=== PATIENT | female | born 1955 | race Two or more races ===

== ENCOUNTER 2020-02-26 08:01 | Outpatient (REF) | payer OTHER, SELFPAY ==
--- NOTE | 2020-02-26 08:07 | MM_ITS ---
EXAMINATION: MM SCREENING DIGITAL BREAST TOMOSYNTHESIS, BILATERAL CLINICAL INFORMATION: Screening. Asymptomatic. The lifetime risk of breast cancer based on the Tyrer-Cuzick Model is 3.9%. COMPARISON: Mammography: August 16, 2018 and studies dating back to June 10, 2014 TECHNIQUE: Digital breast tomosynthesis is performed in both the craniocaudal and mediolateral oblique views along with computer-aided detection (CAD). Synthesized 2D images are generated from the tomosynthesis. Additional right exaggerated craniocaudal view performed. FINDINGS: There are scattered areas of fibroglandular density (ACR BI-RADS breast composition Category b). There are no significant masses, abnormal calcifications, or other abnormalities. MM/MM tomosynthesis screening BI IMPRESSION: There are no significant changes from prior study. ASSESSMENT: BI-RADS 1: Negative RECOMMENDATION: Routine annual mammography screening. This patient's information was entered into a reminder system with a target due date for their next mammogram.
== END 2020-02-26 08:02 | disposition home or self-care (01) ==
LOC: HO.MAMMO 08:01
PROVIDERS: PCP Internal Medicine; Visit Provider Internal Medicine
DX: Z12.31 Encounter for screening mammogram for malignant neoplasm of breast (principal)
CPT/HCPCS: 77063; 77067

== ENCOUNTER 2020-04-15 10:50 | Outpatient (REF) | payer OTHER, SELFPAY | END 2020-04-15 10:51 | disposition home or self-care (01) | LOC: HO.LAB 10:50 | PROVIDERS: PCP Internal Medicine; Visit Provider Internal Medicine | DX: Z20.828 Contact with and (suspected) exposure to other viral communicable diseases (principal) | CPT/HCPCS: C9803; U0003 ==

== ENCOUNTER 2020-04-30 10:03 | Emergency (ER) | payer OTHER, SELFPAY ==
[2020-04-30 10:23] VITALS: BP 125/77; PULSE 69; RESP 16; TEMP 33.4; O2SAT 99; BMI 38.6
--- NOTE | 2020-04-30 10:36 | ED.GENADULT ---
HPI - General Adult General Chief complaint: General Medical Stated complaint: covid symptoms Time Seen by Provider: 04/30/20 10:22 Source: patient Mode of arrival: ambulatory Limitations: language barrier (Tunisian-speaking) History of Present Illness HPI narrative: 64yoF c PMHx of hypertension, goiter, elevated hemoglobin, urinary incontinence and morbid presenting to the ED with COVID like symptoms which include intermittent headaches, nausea, body aches and chills for the past few days worse today. Reports that she was recently exposed to COVID in the patient she was exposed to is now here in the hospital admitted with COVID. Patient denies any other symptoms complaints or concerns at this time. Related Data Home Medications Medication Instructions Recorded Confirmed bisoprolol 5 1 tab PO DAILY 04/13/20 04/13/20 mg-hydrochlorothiazide 6.25 mg tablet fluoxetine 20 mg capsule 20 mg PO DAILY 04/13/20 04/13/20 Previous Rx's Medication Instructions Recorded oxybutynin chloride 5 mg tablet 5 mg PO BEDTIME PRN 30 Days #30 tab 04/13/20 acetaminophen [Tylenol] 650 mg PO Q6H PRN #10 tab 04/30/20 azithromycin See Rx Instructions .ROUTE 04/30/20 .COMPLEX #6 tab cyclobenzaprine 10 mg PO TID PRN #10 tab 04/30/20 ibuprofen 800 mg PO Q8H PRN #14 tab 04/30/20 Allergies Allergy/AdvReac Type Severity Reaction Status Date / Time No Known Allergies Allergy Verified 04/13/20 13:42 [No Known Allergies*] Review of Systems Review of Systems: Constitutional : No Fever, + Chills, + fatigue, + Malaise ENT/Mouth : No sore throat, No runny nose Eyes: No Discharge Cardiovascular : No Chest Pain, No SOB Respiratory : No Cough, No Sputum, No Wheezing, No Smoke Exposure, No Dyspnea Gastrointestinal : + Nausea, No Vomiting, No Diarrhea Genitourinary : No irregular bleeding, No Dysuria, No Urinary Frequency, No Hematuria, No Urinary Incontinence, No Urgency, No Flank Pain, Musculoskeletal : No Myalgia Skin : No rash Neuro : + Headache Yes all other systems are reviewed and are negative PMFSH Past Medical History Attestation statement: The following information was validated with the patient. Medical History Depression Elevated hemoglobin Essential hypertension Goiter Left knee pain Left shoulder pain Morbid obesity Urge urinary incontinence Surgical History H/O oophorectomy History of cholecystectomy History of total abdominal hysterectomy Uterine myoma Family History Family History Father Diabetes Hypertension Mother Hypertension Brother Hypertension Sister Hypertension Maternal Aunt Breast cancer Daughter No problems noted. Social History Social History Smoking Status: Never smoker Advance Directives: No Advance Directives Information Provided: No Physical Exam Vital Signs: Vital Signs: Last Vital Signs Temp 92.1 F L 04/30/20 10:23 Pulse 69 04/30/20 10:23 Resp 16 04/30/20 10:23 BP 125/77 04/30/20 10:23 Pulse Ox 99 04/30/20 10:23 Body Mass Index 38.6 vital signs have been reviewed as normal and appeared to be correct. Blood pressure normal. Heart rate normal. Respiration rate normal. Temperature normal. Oxygen saturation normal. Appearance: Alert. Oriented X3. No acute distress. Head: Normal external exam. Normocephalic. Eyes: PERRLA. EOMI. Conjunctiva and sclera normal. Eyelids normal. ENT: EAC normal. TM's Normal. Pharynx normal. Uvula midline. Moist mucous membranes. No trismus noted. No drooling noted. No muffled voice noted. Neck: Normal inspection. Neck supple. FROM. No adenopathy. No meningeal signs. CVS: Normal heart rate and rhythm. Heart sound normal. No murmurs noted. Pulses normal throughout. Respiratory: No respiratory distress. Painless inspiration. Breath sounds normal. No wheezes/rales/rhonchi noted. Chest nontender. No accessory muscle usage noted or decreased air movement noted. Back: Full range of motion noted. Skin: Skin warm and dry. Normal skin color. Normal skin turgor. No rashes/lesions/lacerations noted. Extremities: Extremities exhibit normal range of motion. Extremities nontender. Neuro: Oriented X 3. No motor deficit. No sensory deficit. Reflexes normal. Medical Decision Making Medical Records Medical records reviewed: Yes I reviewed the patient's medical records. Discharge Plan Discharge Clinical Impression: Acute viral syndrome, Close exposure to COVID-19 virus Patient Disposition: Home, Self-Care Instructions: Viral Syndrome (ED), COVID-19 (Coronavirus Disease 2019) (ED) Additional Instructions: Based on your symptoms and history we have sent a COVID-19. Although your RESULT IS PENDING at this time. RESULTS should return within 72 hours. At this time you will be contacted with either NEGATIVE OR POSITIVE results. -Please wait until we contact you for your results. At this time you will be okay for discharge. Please plan for self quarantine for up to 14 days. Do not expose yourself to others. You may not go to work. If testing does come back negative you may return to activities as long as you are no longer having any symptoms for at least 3 days. Please continue to follow cold instructions and wash your hands frequently. You may take Tylenol as directed on the bottle for pain or fever. Patient seen in the emergency department on 04/30/2020 and should be excused from work until negative test results AND until 72 hours without any symptoms AND at least 10 days have passed since symptoms first appeared or since last exposure to COVID-19 positive patient CDC Guidelines for home isolation: - Stay away from others - WEAR A MASK if you are sick AND STAY HOME - Cover your mouth and nose with a tissue when you cough or sneeze. Dispose of tissues in a lined trash can and wash your hands immediately with soap and water for at least 20 seconds. If soap and water are not available, clean hands with alcohol-based hand operational test mechanic that contains at least 60% alcohol. - Clean your hands often with soap and water for at least 20 seconds - Avoid touching your eyes, nose and mouth with unwashed hands - Do not share dishes, drinking glasses, cups, eating utensils, towels, or bedding with other people in your home. After using these items, wash them thoroughly with soap and water or put in the field identification specialist. - Clean high-touch surfaces in your isolation area ( sick room and bathroom) every day; let a caregiver clean and disinfect high-touch surfaces in other areas of the home. Clean the area or item with soap and water or another detergent if it is dirty. Then, use a household disinfectant. - Limit contact with pets and animals: If you must care for a pet, wash your hands before and after interacting with them). Prescriptions: New cyclobenzaprine 10 mg tablet 10 mg PO TID PRN (Reason: muscle spasm) Qty: 10 RF: 0 acetaminophen [Tylenol] 325 mg tablet 650 mg PO Q6H PRN (Reason: fever or pain) Qty: 10 RF: 0 ibuprofen 800 mg tablet 800 mg PO Q8H PRN (Reason: pain) Qty: 14 RF: 0 azithromycin 250 mg tablet See Rx Instructions .ROUTE .COMPLEX Qty: 6 RF: 0 No Action bisoprolol-hydrochlorothiazide 5-6.25 mg tablet 1 tab PO DAILY RF: 0 fluoxetine 20 mg capsule 20 mg PO DAILY RF: 0 oxybutynin chloride 5 mg tablet 5 mg PO BEDTIME PRN (Reason: bladder spasms) 30 Days Qty: 30 RF: 0 Referrals: Brenda Poon MD [Primary Care Provider] - 2 days Stand Alone Forms: Work/School Release Print Language: Tunisian
[2020-04-30 11:02] VITALS: BP 125/77; PULSE 69; RESP 16; TEMP 33.4; O2SAT 99
[2020-04-30 12:09] LABS: Influenza A PCR NEGATIVE (Negative); Influenza B PCR NEGATIVE (Negative); Resp Syncy Virus RNA Qual PCR NEGATIVE (Negative); SARS COV2 PCR INHOUSE NEGATIVE (Negative)
== END 2020-04-30 11:37 | disposition home or self-care (01) ==
PROVIDERS: Physician Assistant Medical; Emergency Provider Emergency Medicine Emergency Medical Services; PCP Internal Medicine
DX: B34.9 Viral infection, unspecified (principal); R51.9 Headache, unspecified; M79.10 Myalgia, unspecified site; Z79.899 Other long term (current) drug therapy; Z20.828 Contact with and (suspected) exposure to other viral communicable diseases
CPT/HCPCS: 0241U; 99283; 99284

== ENCOUNTER 2020-05-06 10:01 | Outpatient (REF) | payer OTHER, SELFPAY | END 2020-05-06 10:02 | disposition home or self-care (01) | LOC: HO.LAB 10:01 | PROVIDERS: Visit Provider Internal Medicine | DX: Z20.828 Contact with and (suspected) exposure to other viral communicable diseases (principal) | CPT/HCPCS: 36415; C9803; U0003 ==

== ENCOUNTER 2020-05-07 13:20 | Outpatient (REF) | payer OTHER, SELFPAY ==
--- NOTE | 2020-05-07 13:23 | US_ITS ---
EXAMINATION: US THYROID CLINICAL INFORMATION: Nontoxic goiter, unspecified. COMPARISON: Ultrasound soft tissue head/neck dated 01/29/2018. TECHNIQUE: Linear transducer treadwell-scale and color Doppler examination with attention to the region of the thyroid. FINDINGS: SIZE: Measurements of the thyroid lobes and nodules are given in sagittal, anteroposterior and transverse dimensions respectively. Right Thyroid Lobe: 5.5 x 2.2 x 2.2 cm, volume 13.9 mL. Parenchyma: The gland echotexture is homogeneous. Thyroid vascularity is normal. Left Thyroid Lobe: 4.1 x 1.8 x 1.6 cm, volume 6.2 mL. Parenchyma: The gland echotexture is homogeneous. Thyroid vascularity is normal. Isthmus: 0.5 cm in maximum AP dimension. RIGHT THYROID LOBE: There are 3 nodules seen. 1. Location: Superior. Size: 0.7 x 0.4 x 0.6 cm. Nodule characteristics: Subcentimeter nodule demonstrates spongiform morphology and the nodule characteristics do not require characterization by TI-RADS criteria. 2. Location: Superior/middle. Size: 2.0 x 1.2 x 1.7 cm. Nodule characteristics: Composition: mixed cystic and solid (1) Echogenicity: Isoechoic (1) Shape: Not taller than wide (0) Margin: Smooth (0) Echogenic foci: large comet tail artifact compatible with colloid (0) ACR TI-RADS total points: 2 ACR TI-RADS risk category: TI-RADS 2 ACR TI-RADS recommendation: No definite 3. Location: Inferior. Size: 0.7 x 0.6 x 0.7 cm. Nodule characteristics: Subcentimeter nodule without suspicious features requiring characterization by TI-RADS criteria. ISTHMUS: No nodules. LEFT THYROID LOBE: There is 1 nodule seen. 1. Location: Middle. Size: 1.0 x 0.8 x 1.0 cm. Nodule characteristics: Composition: spongiform (0) Echogenicity: Isoechoic (1) Shape: Not taller than wide (0) Margin: Smooth (0) Echogenic foci: None (0) ACR TI-RADS total points: 1 ACR TI-RADS risk category: TI-RADS 1 ACR TI-RADS recommendation: No FNA NODES: No lymphadenopathy is seen in the tissue surrounding the thyroid gland. US/US thyroid IMPRESSION: Multinodular thyroid as described above. No nodules demonstrate findings requiring surveillance or fine needle aspiration per TI-RADS criteria. No adenopathy. TI-RADS 1 (0 points): Benign- No FNA indication TI-RADS 2 (2 points): Not suspicious- No FNA indicated TI-RADS 3 (3 points): Mildly suspicious- FNA is > or = 2.5 cm, follow if > or = 1.5 cm TI-RADS 4 (4-6 points): Moderately suspicious- FNA if > or = 1.5 or follow if > or = 1.0 cm TI-RADS 5 (7 or more points): Highly suspicious- FNA if >=1.0 cm, follow if >=0.5 cm NOTE: The TI-RADS classification of thyroid nodules has been adopted to standardize risk stratification based on a common lexicon to inform practitioners about which nodules warrant biopsy. The imaging criteria for TI-RADS criteria and documentation are available online at [email or web address].org/Quality-Safety/Resources/TIRADS
== END 2020-05-07 13:21 | disposition home or self-care (01) ==
LOC: HO.US 13:20
PROVIDERS: PCP Internal Medicine; Visit Provider Internal Medicine
DX: E04.9 Nontoxic goiter, unspecified (principal)
CPT/HCPCS: 76536

== ENCOUNTER 2020-07-08 08:56 | Outpatient (REF) | payer OTHER, SELFPAY ==
--- NOTE | ~2020-07-08 | XR_ITS ---
EXAMINATION: XR CHEST CLINICAL INFORMATION: Cough. COMPARISON: Chest 06/24/2019. TECHNIQUE: 2 views of the chest were obtained. FINDINGS: The lungs are well-expanded and clear of acute process. The heart size and pulmonary vascularity is normal. There is moderate spondylosis dorsal spine. No lytic process seen. XR/XR chest 2V IMPRESSION: Unremarkable chest exam.
[2020-07-08 09:48] LABS: Hematocrit 51.2 % (37-47); Hemoglobin 15.7 g/dl (12.0-16.0); Mean Corpuscular HGB Conc 30.7 g/dl (31.0-35.0); Mean Corpuscular Hemoglobin 29.3 pg (27.0-33.0); Mean Corpuscular Volume 95.7 fL (80-98); Mean Platelet Volume 11.4 fL (9.4-12.3); Platelet Count 196 X10*3/uL (160-400); Red Blood Count 5.35 X10*6/uL (4.20-5.50); Red Cell Distribution Width 12.9 % (11.0-16.0); White Blood Count 7.6 X10*3/uL (4.8-10.8)
[2020-07-08 10:12] LABS: Alanine Aminotransferase 18 U/L (0-31); Albumin Level 3.6 g/dL (3.5-5.0); Alkaline Phosphatase 110 U/L (39-117); Anion Gap 10 (12-20); Aspartate Amino Transferase 14 U/L (5-31); Bilirubin Total 1.1 mg/dL (0.0-1.0); Blood Urea Nitrogen 19 mg/dL (9-16); Calcium 8.6 mg/dL (8.4-10.2); Carbon Dioxide 30 mmol/L (22-29); Chloride 106 mmol/L (96-108); Cholesterol 173 mg/dL; Estimated Glomerular Filt Rate > 60; Glucose Fasting 92 mg/dL (60-99); HDL Cholesterol 42 mg/dL; LDL Cholesterol Calculated 118 mg/dl; Potassium 4.6 mmol/L (3.3-5.1); Sodium 141 mmol/L (135-145); Total Protein 6.3 g/dL (6.5-8.0); Triglycerides 69 mg/dL
[2020-07-08 10:34] LABS: TSH reflex Free T4 2.18 uIU/mL (0.32-4.0)
[2020-07-09 05:17] LABS: Thyroglobulin Antibodies <1 IU/mL (< or = 1); Thyroid Peroxidase Antibodies 2 IU/mL (<9)
== END 2020-07-08 08:57 | disposition home or self-care (01) ==
LOC: HO.LAB 08:56
PROVIDERS: PCP Internal Medicine; Visit Provider Internal Medicine
DX: R05 Cough (principal); D58.2 Other hemoglobinopathies; I10 Essential (primary) hypertension; E78.5 Hyperlipidemia, unspecified; E03.9 Hypothyroidism, unspecified; E04.9 Nontoxic goiter, unspecified
CPT/HCPCS: 36415; 71046; 80053; 80061; 84443; 85027; 86376; 86800

== ENCOUNTER 2020-07-09 14:00 | Outpatient (RCR) | payer OTHER, SELFPAY ==
--- NOTE | 2020-03-12 14:01 | MHC.PT.EP ---
[facility] [place] Office [place] Office [place] Office [address] Kwan Pineda [address] [phone] F: [phone] F: [phone] F: [phone] F: [phone] Physical Therapy Plan of Care Date of Evaluation: 03/12/20 Date of Surgery: Diagnosis: Pain in left knee; pain in left shoulder Assessment: 64 y/o F referred to PT with pain in left knee and left shoulder. She sustained a fall onto B outstretched arms 01/02/2020 which resulted in open wound on face requiring stitches, no fractures. She denies dizziness, n/v, n/t, and double vision. She has GUZMÁN 2x/week since the fall and pain mid thoracic region, B shoulder (R is worse) and some L knee pain. Currently she is able to perform all ADL's but with pain. 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 Examination shows decreased B shoulder A/PROM, decreased cervical AROM and mobility, decreased strength BUE/DNF, noted L thoracic rotation, muscle spasm erector spinae, and impaired postural awareness. Recommend PT 2x/week for 6 weeks to address impairments, implement HEP, and optimize functional mobility. Frequency and Duration: The patient will be seen 2x/week for 6 weeks Short Term Goals: 3 weeks: 1. Improve cervical rotation to 50 B 2. Initiate HEP 3. Demonstrate neutral spine posture without L thoracic rotation [facility] Goals: 6 weeks: 1. I with HEP and self management of sx 2. Pt will be able to don/doff bra without limitation B UE 3. Pt will be able to wash dishes with pain < 3/10 Treatment Plan: Modalities to reduce pain, spasms and effusion. Manual therapy to restore motion and function. Therapeutic exercise to improve strength and flexibility. Neuromuscular re-education for posture and balance. Therapeutic activities to return to functional activities of daily living. Please sign and return to therapist. Thank you for your referral.
--- NOTE | 2020-07-14 11:02 | MHC.PT.DC ---
[facility] [place] [facility] [place] Office [place] Office [address] Kwan Pineda [address] [phone] F: [phone] F: [phone] F: [phone] F: [phone] Physical Therapy Discharge Report Diagnosis: Pain in left knee; pain in left shoulder Date of Surgery: NA Date of Evaluation: 03/12/20 Date of Discharge: 07/14/20 Treatments to Date: 21 Cancellations to Date: 0 No Shows to Date: 0 Discharge Status: Improved Function, mIndependent with HEP Discharge Summary: Pt appropriate for d/c secondary to I with HEP and improved function. Electronically signed by: Xochitl Higginbotham PT Please sign and return to therapist. Thank you for your referral.
== END 2020-07-14 11:03 | disposition home or self-care (01) ==
LOC: HO.PT 14:00
PROVIDERS: PCP Internal Medicine; Visit Provider Internal Medicine
DX: M25.562 Pain in left knee (principal); M25.512 Pain in left shoulder
CPT/HCPCS: 97110; 97140; 97161; 97164

== ENCOUNTER 2020-07-16 13:59 | Outpatient (REF) | payer OTHER, SELFPAY ==
--- NOTE | ~2020-07-16 | US_ITS ---
EXAMINATION: US SOFT TISSUE OF THE NECK CLINICAL INFORMATION: Localized enlarged lymph nodes. COMPARISON: Ultrasound soft tissue head/neck 05/07/2020 and 01/29/2018. TECHNIQUE: Linear transducer treadwell-scale and color Doppler examination of the left supraclavicular lump. FINDINGS: Limited imaging through the left supraclavicular lump reveals no visible focal lesion or lymph node. No abnormal vascularity. US/US soft tiss head and/or neck IMPRESSION: Unremarkable limited ultrasound through the left supraclavicular bump.
== END 2020-07-16 14:00 | disposition home or self-care (01) ==
LOC: HO.US 13:59
PROVIDERS: Visit Provider Nurse Practitioner Family
DX: R59.0 Localized enlarged lymph nodes (principal)
CPT/HCPCS: 76536

== ENCOUNTER → 2020-07-27 09:25 | Outpatient (BNVA) | payer OTHER, SELFPAY | PROVIDERS: PCP Internal Medicine; Visit Provider Orthopaedic Surgery | DX: M25.562 Pain in left knee (principal); M25.561 Pain in right knee | CPT/HCPCS: 20610; 99212; J1100 ==

== ENCOUNTER → 2020-10-26 14:16 | Outpatient (BNVA) | payer OTHER, SELFPAY | PROVIDERS: PCP Internal Medicine; Visit Provider Orthopaedic Surgery | DX: M25.562 Pain in left knee (principal); M25.561 Pain in right knee; G89.29 Other chronic pain; I10 Essential (primary) hypertension; E66.01 Morbid (severe) obesity due to excess calories; Z68.41 Body mass index [BMI] 40.0-44.9, adult | CPT/HCPCS: 20610; 99212; J1100 ==

== ENCOUNTER 2020-10-26 15:22 | Emergency (ER) | payer OTHER, SELFPAY ==
--- NOTE | ~2020-10-26 | XR_ITS ---
EXAMINATION: CHEST 2 VIEWS CLINICAL INFORMATION: cough . COMPARISON: 07/08/2020. TECHNIQUE: PA and lateral views of the chest obtained. FINDINGS: The lungs are well expanded. No focal infiltrate, effusion, edema, or pneumothorax. Cardiac and mediastinal silhouettes are within normal limits for technique. No acute bony abnormality seen XR/XR chest 2V IMPRESSION: No evidence of acute disease compared to 07/08/2020
[2020-10-26 16:47] VITALS: BP 133/71; PULSE 67; RESP 18; TEMP 36.5; O2SAT 97; BMI 38.7
[2020-10-26 19:27] LABS: MANUAL DIFF FLAG NO
[2020-10-26 19:29] LABS: Basophils Absolute Auto 0.1 X10*3/uL (0.0-0.2); Basophils Percent Auto 0.5 % (0-2); Eosinophils Absolute Auto 0.1 X10*3/uL (0.0-0.4); Eosinophils Percent Auto 0.5 % (0-4); Imm Gran Abs Auto 0.09 X10*3/uL (0.00-0.03); Imm Gran Pct Auto 0.8 % (0.0-0.4); Lymphocytes Absolute Auto 1.4 X10*3/uL (1.2-4.9); Lymphocytes Percent Auto 12.4 % (20-40); Mean Corpuscular HGB Conc 31.4 g/dl (31.0-35.0); Mean Corpuscular Hemoglobin 30.2 pg (27.0-33.0); Mean Corpuscular Volume 96.4 fL (80-98); Monocytes Absolute Auto 0.4 X10*3/uL (0.1-1.2); Monocytes Percent Auto 3.9 % (2-11); Neutrophils Percent Auto 81.9 % (45-73); Platelet Count 217 X10*3/uL (160-400); Red Blood Count 5.29 X10*6/uL (4.20-5.50); Red Cell Distribution Width 12.8 % (11.0-16.0)
[2020-10-26 19:38] LABS: Glucose Urine UA NEG (NEG); Leukocyte Esterase Urine NEG (NEG); Nitrite Urine NEG (NEG); PH 5.5 (5.0-8.0); Specific Gravity - Urine 1.025 (1.005-1.025); Urine Blood NEG (NEG); Urine Ketones NEG (NEG); Urine Protein NEG (NEG-TRACE)
[2020-10-26 19:39] LABS: Appearance Urine CLEAR; Color Urine YELLOW
[2020-10-26 20:02] LABS: Alanine Aminotransferase 18 U/L (0-31); Alkaline Phosphatase 112 U/L (39-117); Anion Gap 15 (12-20); Aspartate Amino Transferase 19 U/L (5-31); Bilirubin Total 1.3 mg/dL (0.0-1.0); Blood Urea Nitrogen 15 mg/dL (9-16); Calcium 8.9 mg/dL (8.4-10.2); Carbon Dioxide 23 mmol/L (22-29); Chloride 108 mmol/L (96-108); Creatinine Clr Calc Pharmacy 107.5; Estimated Glomerular Filt Rate > 60; Glucose Random 95 mg/dL (60-115); Potassium 4.5 mmol/L (3.3-5.1); Sodium 141 mmol/L (135-145); Total Protein 7.2 g/dL (6.5-8.0)
--- NOTE | 2020-10-26 21:37 | ED.ABDPAIN ---
HPI - Abdominal Pain General Chief Complaint: Abdominal Pain Stated Complaint: back pain Time Seen by Provider: 10/26/20 21:09 Source: patient Mode of arrival: ambulatory Limitations: language barrier ( Processing Lead used) History of Present Illness HPI narrative: patient is a 64-year-old female with a past medical history of thyroid nodules, morbid obesity, HTN, arthritis, asthma, anxiety, depression who presents with right-sided flank pain x1 week. Patient states the pain starts on her right side in her mid ribs and goes down to her hip. it is worse when she moves and when you push on it. she denies any changes in her bladder or bowels, she does also denies hematuria nausea, vomiting or diarrhea. She does states she thinks she had a fever 2 days ago but did not measure her temperature she also states she believes she has been having chills x2d. she denies injury. She states she did take some Tylenol and it helped for a little while but then it wore off and the pain came back. She does admit to a dry cough but states she does not take asthma medication on a daily basis because she does not need to . Related Data Home Medications Medication Instructions Recorded Confirmed fluoxetine 20 mg capsule 20 mg PO DAILY 04/13/20 10/20/20 Previous Rx's Medication Instructions Recorded acetaminophen [Tylenol] 650 mg PO Q6H PRN #10 tab 04/30/20 cyclobenzaprine 10 mg PO TID PRN #10 tab 04/30/20 ibuprofen 800 mg PO Q8H PRN #14 tab 04/30/20 bisoprolol 5 1 tab PO DAILY #30 tab 10/20/20 mg-hydrochlorothiazide 6.25 mg tablet oxybutynin chloride 5 mg tablet 5 mg PO BEDTIME PRN 90 Days #90 tab 10/20/20 Allergies Allergy/AdvReac Type Severity Reaction Status Date / Time No Known Allergies Allergy Verified 10/26/20 16:47 [No Known Allergies*] Review of Systems Review of Systems Yes all other systems are reviewed and are negative Physical Exam Vital Signs: Vital Signs: Last Vital Signs Temp 97.7 F 10/26/20 16:47 Pulse 67 10/26/20 16:47 Resp 18 10/26/20 16:47 BP 133/71 10/26/20 16:47 Pulse Ox 97 10/26/20 16:47 Body Mass Index 38.7 Const: General: cooperative, healthy appearing, comfortable and no acute distress Nutritional Appearance: obese Orientation/consciousness: patient oriented x3 Limitations: language barrier (Honduran-speaking) HENMT: Head: Yes normal to inspection Eyes: General: appearance normal, both eyes and all related structures Neck: Neck: Yes normal visual inspection and Yes full ROM Chest: Other: TTP of right sided ribs down to flank to hip. Resp: Effort & Inspection: normal respiratory effort and able to speak in complete sentences Auscultation: clear to auscultation bilaterally Cardio: Rate: regular rate Rhythm: regular rhythm Heart sounds: normal S1 and S2 GI: Inspection: Yes obesity Palpation (GI): Soft to palpation Skin: General skin exam: no rashes or lesions noted Neuro: General: patient oriented x3 Extrem: General: Yes normal to inspection Course Course Course Narrative: patient is a 64-year-old female with a past medical history of thyroid nodules, morbid obesity, HTN, arthritis, asthma, anxiety, depression who presents with right-sided flank pain x1 week. VSS, physical exam remarkable for tenderness to palpation of right-sided ribs and right flank, worse with movement. labs are normal, will get a chest x-ray to look at the ribs but it is likely musculoskeletal. will give ibuprofen for pain Reevaluation(s) Reevaluation #1: chest x-ray negative for rib fracture or acute process. UA negative. Labs are relatively normal except for slight increase in WBC at 11 however no signs of infection on the skin, VSS, as the area is tender to palpation in pain is worse with movement, likely musculoskeletal. will discharge home. MDM - Abdominal Pain Lab Data Attestation: I reviewed the patient's lab results. Result diagrams: 10/26/20 19:20 10/26/20 19:20 Labs: Lab Results 10/26/20 10/26/20 10/26/20 Range/Units 19:20 19:20 19:20 WBC 11.0 H (4.8-10.8) X10*3/uL RBC 5.29 (4.20-5.50) X10*6/uL Hgb 16.0 (12.0-16.0) g/dl Hct 51.0 H (37-47) % MCV 96.4 (80-98) fL MCH 30.2 (27.0-33.0) pg MCHC 31.4 (31.0-35.0) g/dl RDW 12.8 (11.0-16.0) % Plt Count 217 (160-400) X10*3/uL MPV 11.0 (9.4-12.3) fL Immature Gran % (Auto) 0.8 H (0.0-0.4) % Neut % (Auto) 81.9 H (45-73) % Lymph % (Auto) 12.4 L (20-40) % Murray % (Auto) 3.9 (2-11) % Eos % (Auto) 0.5 (0-4) % Baso % (Auto) 0.5 (0-2) % Lymph # (Auto) 1.4 (1.2-4.9) X10*3/uL Murray # (Auto) 0.4 (0.1-1.2) X10*3/uL Eos # (Auto) 0.1 (0.0-0.4) X10*3/uL Baso # (Auto) 0.1 (0.0-0.2) X10*3/uL Abs Immat Gran (auto) 0.09 H (0.00-0.03) X10*3/uL Absolute Neuts (auto) 9.0 H (2.0-8.3) X10*3/uL Absolute Nucleated RBC 0.000 (0.0-0.012) X10*3/uL Nucleated RBC % (auto) 0.0 (0.0-0.2) /100WBC Sodium 141 (135-145) mmol/L Potassium 4.5 (3.3-5.1) mmol/L Chloride 108 (96-108) mmol/L Carbon Dioxide 23 (22-29) mmol/L Anion Gap 15 (12-20) BUN 15 (9-16) mg/dL Creatinine 0.70 (0.5-1.4) mg/dL Estim Creat Clear Calc 107.5 Estimated GFR > 60 Random Glucose 95 (60-115) mg/dL Calcium 8.9 (8.4-10.2) mg/dL Total Bilirubin 1.3 H (0.0-1.0) mg/dL AST 19 (5-31) U/L ALT 18 (0-31) U/L Alkaline Phosphatase 112 (39-117) U/L Total Protein 7.2 (6.5-8.0) g/dL Albumin 4.0 (3.5-5.0) g/dL Urine Color YELLOW Urine Appearance CLEAR Urine pH 5.5 (5.0-8.0) Ur Specific [place] 1.025 (1.005-1.025) Urine Protein NEG (NEG-TRACE) MG/DL Urine Glucose (UA) NEG (NEG) MG/DL Urine Ketones NEG (NEG) MG/DL Urine Blood NEG (NEG) Urine Nitrite NEG (NEG) Ur Leukocyte Esterase NEG (NEG) Imaging Data Chest x-ray: Attestation: I personally reviewed and interpreted this imaging study as follows: Radiologist's impression: [address] [id number] ReportSigned Patient: Louise Weaver LMR#: [id number]: 8Acct:[id number]/Sex: 64 / FADM Date: 10/26/20Loc: EDAttending Dr: Ordering Physician: Linda Alexandre PA-C Date of Service: 10/26/20 Procedure(s): XR chest 2V Accession Number(s): [id number] cc: Linda Alexandre PA-C~ EXAMINATION: CHEST 2 VIEWS CLINICAL INFORMATION: cough . COMPARISON: 07/08/2020. TECHNIQUE: PA and lateral views of the chest obtained. FINDINGS: The lungs are well expanded. No focal infiltrate, effusion, edema, or pneumothorax. Cardiac and mediastinal silhouettes are within normal limits for technique. No acute bony abnormality seen XR/XR chest 2V IMPRESSION: No evidence of acute disease compared to 07/08/2020 Dictated By:VELASQUEZ VANG MDSigned By:<Electronically signed by VELASQUEZ VANG MD in OV>10/26/202203 DD/ 35TD/TT: Business Performance Specialist: YVETTE Discharge Plan Discharge Clinical Impression: Rib pain on right side, Right flank pain Patient Disposition: Home, Self-Care Instructions: Musculoskeletal Pain (ED), Thoracic Pain (ED) Additional Instructions: please be sure to use ice or heat on the area which is painful, whichever feels better for you. You can also take 600 mg of ibuprofen and alternate it 3 hours later with 650 mg of acetaminophen, continuing altering these 2 medications every 3 hours to manage her pain. Please only do this for the short term, 2-3 days. If your pain continues and is not improving, please be sure to follow-up with your primary care doctor. if he develops chest pain shortness of breath or fever you can not control with Tylenol or Motrin, please return to the emergency department Prescriptions: No Action cyclobenzaprine 10 mg tablet 10 mg PO TID PRN (Reason: muscle spasm) Qty: 10 RF: 0 acetaminophen [Tylenol] 325 mg tablet 650 mg PO Q6H PRN (Reason: fever or pain) Qty: 10 RF: 0 ibuprofen 800 mg tablet 800 mg PO Q8H PRN (Reason: pain) Qty: 14 RF: 0 fluoxetine 20 mg capsule 20 mg PO DAILY RF: 0 bisoprolol-hydrochlorothiazide 5-6.25 mg tablet 1 tab PO DAILY Qty: 30 RF: 6 oxybutynin chloride 5 mg tablet 5 mg PO BEDTIME PRN (Reason: bladder spasms) 90 Days Qty: 90 RF: 1 Referrals: Brenda Poon MD [Primary Care Provider] - 1 week (if not better) Print Language: Honduran [facility] Past Medical History Medical History Anxiety and depression Arthritis Common cold Cough Depression Elevated hemoglobin Essential hypertension Goiter Knee pain Left knee pain Left shoulder pain Morbid obesity Supraclavicular lymphadenopathy Thyroid nodule Urge urinary incontinence Surgical History H/O oophorectomy History of cholecystectomy History of total abdominal hysterectomy Uterine myoma Family History Family History Father Diabetes Hypertension Mother Hypertension Brother Hypertension Sister Hypertension Maternal Aunt Breast cancer Daughter No problems noted. Social History Social History Housing: Apartment Alcohol intake: never Patient Tobacco Use Status: Never used Tobacco Second Hand Smoke Exposure: No Advance Directives: No Advance Directives Information Provided: Yes Patient : No Current occupational status: unemployed
[2020-10-26] MEDS: Ibuprofen 600 MG TABLET PO (21:42)
== END 2020-10-26 23:01 | disposition home or self-care (01) ==
PROVIDERS: Emergency Provider Internal Medicine; PCP Internal Medicine
DX: R10.9 Unspecified abdominal pain (principal); R07.81 Pleurodynia; I10 Essential (primary) hypertension
CPT/HCPCS: 36415; 71046; 80053; 81003; 85025; 99283

== ENCOUNTER 2021-03-29 14:01 | Outpatient (REF) | payer OTHER, SELFPAY ==
--- NOTE | ~2021-03-29 | MM_ITS ---
EXAMINATION: MM SCREENING DIGITAL BREAST TOMOSYNTHESIS, BILATERAL CLINICAL INFORMATION: Screening. Asymptomatic. The lifetime risk of breast cancer based on the Tyrer-Cuzick Model is 4%. COMPARISON: Mammography: 02/26/2020, 08/16/2018, 08/03/2017 TECHNIQUE: Digital breast tomosynthesis is performed in both the craniocaudal and mediolateral oblique views along with computer-aided detection (CAD). Synthesized 2D images are generated from the tomosynthesis. Additional exaggerated left CC view is provided. FINDINGS: There are scattered areas of fibroglandular density (ACR BI-RADS breast composition Category b). There are no significant masses, abnormal calcifications, or other abnormalities. Parenchymal pattern is similar to prior studies. The axilla and skin contours are unremarkable. No significant changes. MM/MM tomosynthesis screening BI IMPRESSION: No mammographic evidence of malignancy. ASSESSMENT: BI-RADS 1: Negative RECOMMENDATION: Routine annual mammography screening. This patient's information was entered into a reminder system with a target due date for their next mammogram.
== END 2021-03-29 14:02 | disposition home or self-care (01) ==
LOC: HO.MAMMO 14:01
PROVIDERS: Visit Provider Internal Medicine
DX: Z12.31 Encounter for screening mammogram for malignant neoplasm of breast (principal)
CPT/HCPCS: 77063; 77067

== ENCOUNTER 2021-04-08 16:05 | Emergency (ER) | payer OTHER, SELFPAY ==
--- NOTE | ~2021-04-08 | XR_ITS ---
EXAMINATION: XR CHEST CLINICAL INFORMATION: Pneumonia. COMPARISON: Chest x-ray 10/26/2020 TECHNIQUE: Frontal view of the chest was obtained. 8:46 PM FINDINGS: Chronic small calcified granuloma in the left midlung. No acute airspace disease. No pulmonary vascular congestion. There is no pleural effusion. The heart size is normal. The cardiac and mediastinal contours are normal. There are calcifications of the thoracic aorta. There are multilevel degenerative changes of dorsal spine. XR/XR chest 1V IMPRESSION: Unremarkable examination.
[2021-04-08 17:03] VITALS: BP 153/101; PULSE 78; RESP 16; TEMP 36; O2SAT 98; BMI 36.6
[2021-04-08 20:37] VITALS: BP 128/63; PULSE 69; RESP 16; TEMP 36.9; O2SAT 99
--- NOTE | 2021-04-08 20:43 | ED_ITS ---
HPI - URI/Sore Throat General Chief Complaint: Upper Respiratory Symptoms Stated Complaint: cough congestion Time Seen by Provider: 04/08/21 20:37 Source: patient Mode of arrival: ambulatory Limitations: no limitations History of Present Illness HPI Narrative: Patient comes to emergency room complaining of cough for 5 days. Patient states that her back hurts when she coughs. Patient denies fever, no chills, no sore throat, no shortness of breath Related Data Home Medications Medication Instructions Recorded Confirmed fluoxetine 20 mg capsule 20 mg PO DAILY 04/13/20 03/30/21 Previous Rx's Medication Instructions Recorded acetaminophen 325 mg tablet 650 mg PO Q6H PRN #10 tab 04/30/20 (Tylenol) cyclobenzaprine 10 mg tablet 10 mg PO TID PRN #10 tab 04/30/20 bisoprolol 5 1 tab PO DAILY #30 tab 10/20/20 mg-hydrochlorothiazide 6.25 mg tablet diclofenac sodium 1 % topical gel 2 g TOPICAL QID #100 g 03/30/21 (Voltaren Arthritis Pain) nabumetone 500 mg tablet 500 mg PO BID #20 tab 03/30/21 oxybutynin chloride 10 mg 10 mg PO DAILY #30 tab 03/30/21 tablet,extended release 24 hr guaifenesin 600 mg tablet, 600 mg PO Q12H PRN 30 Days #60 tab 04/06/21 extended release 12 hr (Mucinex) benzonatate 100 mg capsule 100 mg PO TID PRN #10 cap 04/08/21 Allergies Allergy/AdvReac Type Severity Reaction Status Date / Time No Known Allergies Allergy Verified 03/30/21 13:56 [No Known Allergies*] Review of Systems Review of Systems: Constitutional : No Weight loss, No Fever, No Chills, No Night Sweats, No Fatigue, No Malaise ENT/Mouth : No Hearing loss, No Ear Pain, No Nasal Congestion, No Sinus Pain, No Hoarseness, No sore throat, No Rhinorrhea, No Swallowing Difficulty Eyes: No Eye Pain, No Swelling, No Redness, No Foreign Body, No Discharge, No Vi maggie Changes Cardiovascular : No Chest Pain, No SOB, No Dyspnea on Exertion, No Orthopnea, No Edema, No Palpitations Respiratory : Complaining of Cough with yellow phlegm, No Wheezing, No Smoke Exposure, No Dyspnea Gastrointestinal : No Nausea, No Vomiting, No Diarrhea, No Constipation, No abdominal Pain, No Hematochezia, No Melena Genitourinary : no irregular bleeding, No Dysuria, No Urinary Frequency, No Hematuria, No Urinary Incontinence, No Urgency, No Flank Pain, No Urinary Flow Changes, No Hesitancy Musculoskeletal : No joint pain, complaining of upper back pain with coughing, No Joint Swelling Skin : No Skin Lesions, No rash Neuro : No Weakness, No Numbness, No Paresthesias, No Loss of Consciousness, No Dizziness, No Headache Psych : No Anxiety/Panic, No Depression, No SI/HI/AH/VH, No Social Issues, Heme/Lymph: No Bruising, No Bleeding,No Lymphadenopathy Endocrine : No Polyuria, No Polydipsia, No Temperature Intolerance [facility] Past Medical History Medical History (Updated 04/08/21 @ 21:06 by Natalie Soria MD) Anxiety and depression Arthritis Common cold Cough Depression Elevated hemoglobin Essential hypertension TRINIDAD (generalized anxiety disorder) Goiter Knee pain Left knee pain Left shoulder pain Leg edema Mild recurrent major depression Morbid obesity Supraclavicular lymphadenopathy Thyroid nodule Urge urinary incontinence Surgical History H/O oophorectomy History of cholecystectomy History of total abdominal hysterectomy Uterine myoma Family History Family History Father Diabetes Hypertension Mother Hypertension Brother Hypertension Sister Hypertension Maternal Aunt Breast cancer Daughter No problems noted. Social History Social History Housing: Apartment Alcohol intake: never Patient Tobacco Use Status: Never used Tobacco Second Hand Smoke Exposure: No Advance Directives: No Advance Directives Information Provided: Yes Patient : No Current occupational status: unemployed Physical Exam Vital Signs: Vital Signs: Last Vital Signs Temp 98.4 F 04/08/21 20:37 Pulse 69 04/08/21 20:37 Resp 16 04/08/21 20:37 BP 128/63 04/08/21 20:37 Pulse Ox 99 04/08/21 20:37 BMI result Body Mass Index 36.6 Const: Other: Appearance: Alert. Oriented X3. No acute distress. Eyes: Pupils equal, round and reactive to light. ENT: Pharynx normal. Neck: Normal inspection. Neck supple. No lymph nodes noted. No crepitus CVS: Normal heart rate and rhythm. Pulses normal. Normal S1 and S2 Respiratory: No respiratory distress. Breath sounds normal. No Wheezing. No rales Abdomen: Soft and nontender. No rigidity. No distention. good BS x4 Skin: Skin warm and dry. Normal skin color. Normal skin turgor. Extremities: No lower extremity edema. No Lacerations. No Rash Neuro: Oriented X 3. No motor deficit. No sensory deficit. Moving all extermities. No slurred speech. Course Course Course Narrative: Patient's x-rays are unremarkable. COVID test pending. Patient likely having viral bronchitis. Anticipating discharge home. Sign out given to Dr. Traore Discharge Plan Discharge Clinical Impression: Bronchitis Patient Disposition: Home, Self-Care Instructions: Acute Bronchitis (ED) Additional Instructions: Please follow-up with your primary care physician tomorrow. If you have any worsening or new symptoms, please return to the emergency room or call 911 Prescriptions: New benzonatate 100 mg capsule 100 mg PO TID PRN (Reason: cough) Qty: 10 RF: 0 No Action guaifenesin [Mucinex] 600 mg tablet extended release 12hr 600 mg PO Q12H PRN (Reason: congestion) 30 Days Qty: 60 RF: 0 cyclobenzaprine 10 mg tablet 10 mg PO TID PRN (Reason: muscle spasm) Qty: 10 RF: 0 acetaminophen [Tylenol] 325 mg tablet 650 mg PO Q6H PRN (Reason: fever or pain) Qty: 10 RF: 0 fluoxetine 20 mg capsule 20 mg PO DAILY RF: 0 bisoprolol-hydrochlorothiazide 5-6.25 mg tablet 1 tab PO DAILY Qty: 30 RF: 6 nabumetone 500 mg tablet 500 mg PO BID Qty: 20 RF: 0 diclofenac sodium [Voltaren Arthritis Pain] 1 % gel 2 g topical QID Qty: 100 RF: 0 oxybutynin chloride 10 mg tablet extended release 24hr 10 mg PO DAILY Qty: 30 RF: 0
[2021-04-08] MEDS: Benzonatate 100 MG CAPSULE 200 MG PO (20:59)
[2021-04-08 21:13] LABS: COVID-19 Test Negative (Negative)
== END 2021-04-08 21:54 | disposition home or self-care (01) ==
PROVIDERS: Emergency Provider Emergency Medicine
DX: J40 Bronchitis, not specified as acute or chronic (principal); Z20.822 Contact with and (suspected) exposure to COVID-19; I10 Essential (primary) hypertension
CPT/HCPCS: 36415; 71045; 87635; 99283

== ENCOUNTER 2021-05-11 14:42 | Emergency (ER) | payer OTHER, SELFPAY ==
[2021-05-11 15:29] VITALS: BP 149/77; PULSE 98; RESP 18; TEMP 36.9; O2SAT 98; BMI 36.6
[2021-05-11 17:43] LABS: COVID-19 Test Positive (Negative); IDNOW Serial# 55D5AD1C
--- NOTE | 2021-05-11 18:14 | ED_ITS ---
HPI - URI/Sore Throat General Chief Complaint: Fever Stated Complaint: fever chills cough Time Seen by Provider: 05/11/21 18:06 Source: patient Mode of arrival: ambulatory Limitations: no limitations History of Present Illness Consistency: constant Severity: moderate Able to tolerate fluids by mouth: Yes Exacerbating factors: nothing Relieving factors: nothing Context: sick contacts Associated symptoms: denies other symptoms Treatments prior to arrival: none Related Data Home Medications Medication Instructions Recorded Confirmed fluoxetine 20 mg capsule 20 mg PO DAILY 04/13/20 04/20/21 Previous Rx's Medication Instructions Recorded acetaminophen 325 mg tablet 650 mg PO Q6H PRN #10 tab 04/30/20 (Tylenol) cyclobenzaprine 10 mg tablet 10 mg PO TID PRN #10 tab 04/30/20 bisoprolol 5 1 tab PO DAILY #30 tab 10/20/20 mg-hydrochlorothiazide 6.25 mg tablet diclofenac sodium 1 % topical gel 2 g TOPICAL QID #100 g 03/30/21 (Voltaren Arthritis Pain) nabumetone 500 mg tablet 500 mg PO BID #20 tab 03/30/21 guaifenesin 600 mg tablet, 600 mg PO Q12H PRN 30 Days #60 tab 04/06/21 extended release 12 hr (Mucinex) albuterol sulfate 90 mcg/actuation 2 puff INHALATION Q4-6H PRN 14 04/15/21 aerosol inhaler (ProAir HFA) Days #8.5 g prednisone 20 mg tablet 40 mg PO DAILY 5 Days #10 tab 04/15/21 codeine 10 mg-guaifenesin 100 mg/5 5 ml PO Q6H PRN 7 Days #140 ml 04/20/21 mL oral liquid doxycycline hyclate 100 mg tablet 100 mg PO BID 7 Days #14 tab 04/20/21 terbinafine HCl 250 mg tablet 250 mg PO DAILY 90 Days #90 tab 04/20/21 oxybutynin chloride 10 mg 10 mg PO DAILY #30 tab 04/23/21 tablet,extended release 24 hr benzonatate 100 mg capsule 100 mg PO BID PRN #20 cap 05/11/21 Allergies Allergy/AdvReac Type Severity Reaction Status Date / Time No Known Allergies Allergy Verified 04/20/21 14:06 [No Known Allergies*] Review of Systems Review of Systems: Constitutional : positive Fever, positive Chills, positive fatigue, positive Malaise ENT/Mouth : positive sore throat, positive runny nose Eyes: No Discharge Cardiovascular : No Chest Pain, No SOB Respiratory : positive Cough, No Sputum Gastrointestinal : No Nausea, No Vomiting, No Diarrhea Genitourinary : No Dysuria, No Urinary Frequency Musculoskeletal : positive Myalgia Skin : No rash Neuro : No Headache Yes all other systems are reviewed and are negative [facility] Past Medical History Attestation statement: The following information was validated with the patient. Source: old records reviewed and nursing notes reviewed Medical History (Updated 05/11/21 @ 18:21 by SIXTO Cruz) Anxiety and depression Arthritis Common cold Cough Depression Elevated hemoglobin Essential hypertension TRINIDAD (generalized anxiety disorder) Goiter Knee pain Left knee pain Left shoulder pain Leg edema Mild recurrent major depression Morbid obesity Morbid obesity with BMI of 40.0-44.9, adult Physical exam Supraclavicular lymphadenopathy Thyroid nodule Urge urinary incontinence Surgical History H/O oophorectomy History of cholecystectomy History of total abdominal hysterectomy Uterine myoma Family History Family History Father Diabetes Hypertension Mother Hypertension Brother Hypertension Sister Hypertension Maternal Aunt Breast cancer Daughter No problems noted. Social History Social History Housing: Apartment Alcohol intake: never Patient Tobacco Use Status: Never used Tobacco e-Cigarette/Vaping Use: Never Used Second Hand Smoke Exposure: No Advance Directives: No Advance Directives Information Provided: Yes Patient : No service: No Current occupational status: unemployed Physical Exam Vital Signs: Vital Signs: Last Vital Signs Temp 98.5 F 05/11/21 15:29 Pulse 98 05/11/21 15:29 Resp 18 05/11/21 15:29 BP 149/77 H 05/11/21 15:29 Pulse Ox 98 05/11/21 15:29 BMI result Body Mass Index 36.6 VSS Appearance: Alert.? Oriented X3.? No acute distress.? Unlabored breathing, no use of accessory muscles. Head: Normocephalic, atraumatic, no step-offs or deformities Eyes: Pupils equal, round and reactive to light.? ENT: Pharynx normal.? Neck: Normal inspection.? Neck supple.? CVS: Normal heart rate and rhythm.? Pulses normal.? Respiratory: No respiratory distress.? Breath sounds normal.? Abdomen: Soft and nontender.? Skin: Skin warm and dry.? Normal skin color.? Normal skin turgor.? Extremities: No lower extremity edema.? No calf ttp. 5/5 strength to bilateral upper and lower extremities Back: No midline tenderness, no C-spine tenderness, full range of motion, no CVA tenderness bilaterally Neuro: Oriented X 3.? No motor deficit.? No sensory deficit. Course Reevaluation(s) Reevaluation #1: Patient is noted to be COVID positive. She is saturating well on room air, no tachypnea, no tachycardia or hypoxia no calf tenderness to palpation, unlikely PE. Patient's lungs are clear, unlikely pneumonia. At this time patient's symptoms are likely secondary to COVID-19 infection. I have provided patient information on monoclonal antibody therapy, and have given her referral. I have advised patient to return with new or worsening symptoms. I have outlined the symptoms on her discharge. Time: 18:19 MDM - URI/Sore Throat MDM Narrative Medical decision making narrative: 1814 65 yo F pmhx obesity, HTN, depression, anxiety presents to ED w/ COVID like sx PE benign Plan- covid test Medical Records Attestation: I reviewed the patient's medical records. Lab Data Attestation: I reviewed the patient's lab results. Labs: Lab Results 05/11/21 Range/Units 17:22 COVID-19 (CAPRICE) Positive A (Negative) COVID-19 Clin Com See Note Critical Care Time Critical Care Time Critical Care Time: No Discharge Plan Discharge Clinical Impression: COVID-19 Patient Disposition: Home, Self-Care Instructions: COVID-19 (Coronavirus Disease 2019) (ED) Additional Instructions: Take your medications as prescribed. If you were prescribed antibiotics today, it is important that you take your medication to their entirety, do not skip any doses, do not finish them early. Today you tested positive for COVID-19. Take Ibuprofen or Tylenol as needed for fevers or body aches. Quarantine for 7 days and ensure you wear a mask. After 7 days you should wear a mask for 3 days after that. Practice social distancing and good hand hygiene. Drink plenty of fluids. Follow-up with your primary care provider this week. I have provided you information about monoclonal therapy, please if you are interested email the e- mail provided as we discussed. If you do decide to get monoclonal therapy it is important that you have a safe ride that can get you there and pick you up. Return to the emergency department with new or worsening symptoms. Such as fevers, chills, nausea, vomiting, shortness of breath, weakness, dizziness, headache. In case of emergency call 911 You can purchase a pulse oximeter from your local pharmacy or grocery store, and monitor your oxygen saturation if it goes below 94% you should return to the emergency department for further evaluation. If You Test Positive for COVID-19 (Isolate) Everyone, regardless of vaccination status. * Stay home for 5 days. * If you have no symptoms or your symptoms are resolving after 5 days, you can leave your house. * Continue to wear a mask around others for 5 additional days. If you have a fever, continue to stay home until your fever resolves. If You Were Exposed to Someone with COVID-19 (Quarantine) If you: Have been boosted OR Completed the primary series of Pfizer or Moderna vaccine within the last 6 months OR Completed the primary series of J&J vaccine within the last 2 months * Wear a mask around others for 10 days. * Test on day 5, if possible. If you develop symptoms get a test and stay home. If you: Completed the primary series of Pfizer or Moderna vaccine over 6?months ago and are not boosted OR Completed the primary series of J&J over 2 months ago and are not boosted OR Are unvaccinated * Stay home for 5 days. After that continue to wear a mask around others for 5 additional days. * If you can?t quarantine you must wear a mask for 10 days. * Test on day 5 if possible. If you develop symptoms get a test and stay home Fielding bertha medicamentos seg?n lo prescrito. Si le recetaron antibi?ticos hoy, es importante que tome eduardo medicamento en eduardo totalidad, no se salte ninguna dosis, no los termine antes de tiempo. Hoy diste positivo por COVID-19. Fielding ibuprofeno o Tylenol seg?n sea necesario para la fiebre o los vianney corporales. Cuarentena kasie 7 d?as y aseg?rese de usar bola m?scara. Despu?s de 7 d?as, debe usar bola m?scara kasie 3 d?as despu?s de eso. Practique el distanciamiento social y bola buena higiene de christal. Beber mucho l?quido. Seguimiento con eduardo proveedor de atenci?n primaria esta semana. Le he prop orcionado informaci?n sobre la terapia monoclonal, por favor, si est? interesado, env?e un correo electr?mandy al correo electr?mandy proporcionado janice discutimos. Si decide recibir terapia monoclonal, es importante que tenga un veh?culo seguro que pueda llevarlo all? y recogerlo. Regrese al departamento de emergencias con s?ntomas nuevos o que empeoran. Tales janice fiebre, escalofr?os, n?useas, v?mitos, dificultad para respirar, debilidad, mareos, dolor de peter. En christian de emergencia llama al 911 Puede comprar un ox?metro de pulso en eduardo farmacia o bay de comestibles local, y controlar eduardo saturaci?n de ox?perry si por debajo del 94%, debe regresar al departamento de emergencias para bola evaluaci?n adicional. Prescriptions: New benzonatate 100 mg capsule 100 mg PO BID PRN (Reason: cough) Qty: 20 RF: 0 No Action guaifenesin [Mucinex] 600 mg tablet extended release 12hr 600 mg PO Q12H PRN (Reason: congestion) 30 Days Qty: 60 RF: 0 oxybutynin chloride 10 mg tablet extended release 24hr 10 mg PO DAILY Qty: 30 RF: 0 cyclobenzaprine 10 mg tablet 10 mg PO TID PRN (Reason: muscle spasm) Qty: 10 RF: 0 acetaminophen [Tylenol] 325 mg tablet 650 mg PO Q6H PRN (Reason: fever or pain) Qty: 10 RF: 0 fluoxetine 20 mg capsule 20 mg PO DAILY RF: 0 bisoprolol-hydrochlorothiazide 5-6.25 mg tablet 1 tab PO DAILY Qty: 30 RF: 6 doxycycline hyclate 100 mg tablet 100 mg PO BID 7 Days Qty: 14 RF: 0 codeine-guaifenesin 10-100 mg/5 mL liquid 5 ml PO Q6H PRN (Reason: allergy symptoms) 7 Days Qty: 140 RF: 0 terbinafine HCl 250 mg tablet 250 mg PO DAILY 90 Days Qty: 90 RF: 0 nabumetone 500 mg tablet 500 mg PO BID Qty: 20 RF: 0 diclofenac sodium [Voltaren Arthritis Pain] 1 % gel 2 g topical QID Qty: 100 RF: 0 prednisone 20 mg tablet 40 mg PO DAILY 5 Days Qty: 10 RF: 0 albuterol sulfate [ProAir HFA] 90 mcg/actuation HFA aerosol inhaler 2 puff inhalation Q4-6H PRN (Reason: shortness of breath or wheezing) 14 Days Qty: 8.5 RF: 0 Referrals: Brenda Poon MD [Primary Care Provider] - 2 days Stand Alone Forms: Work/School Release Print Language: Maltese
== END 2021-05-11 18:40 | disposition home or self-care (01) ==
PROVIDERS: Emergency Provider Emergency Medicine; PCP Internal Medicine
DX: U07.1 COVID-19 (principal); R50.9 Fever, unspecified; R05.9 Cough, unspecified; Z79.899 Other long term (current) drug therapy
CPT/HCPCS: 87635; 99283

== ENCOUNTER 2021-05-27 11:05 | Outpatient (REF) | payer OTHER, SELFPAY ==
--- NOTE | ~2021-05-27 | XR_ITS ---
EXAMINATION: XR CHEST CLINICAL INFORMATION: Cough COMPARISON: Previous chest x-rays most recent March 2021 TECHNIQUE: 2 views of the chest were obtained. FINDINGS: The cardiac and mediastinal contours are stable. There is a 5 mm dense nodule in the left upper lobe that appears unchanged from prior exams and probably represents a calcified granuloma. The lungs are otherwise clear. There is no pleural effusion or pneumothorax. There are degenerative changes of the spine. XR/XR chest 2V IMPRESSION: No evidence for acute disease in the chest.
[2021-05-27 12:02] LABS: MANUAL DIFF FLAG NO
[2021-05-27 12:37] LABS: Basophils Absolute Auto 0.1 X10*3/uL (0.0-0.2); Basophils Percent Auto 0.8 % (0-2); Eosinophils Absolute Auto 0.2 X10*3/uL (0.0-0.4); Eosinophils Percent Auto 2.2 % (0-4); Hematocrit 50.8 % (37.0-47.0); Hemoglobin 15.6 g/dl (12.0-16.0); Imm Gran Abs Auto 0.12 X10*3/uL (0.00-0.03); Imm Gran Pct Auto 1.2 % (0.0-0.4); Lymphocytes Absolute Auto 1.9 X10*3/uL (1.2-4.9); Lymphocytes Percent Auto 18.3 % (20-40); Mean Corpuscular HGB Conc 30.7 g/dl (31.0-35.0); Mean Corpuscular Hemoglobin 29.4 pg (27.0-33.0); Mean Corpuscular Volume 95.8 fL (80.0-98.0); Mean Platelet Volume 11.3 fL (9.4-12.3); Monocytes Absolute Auto 1.2 X10*3/uL (0.1-1.2); Monocytes Percent Auto 11.6 % (2-11); Neutrophils Absolute Auto 6.8 x10*3/uL (2.0-8.3); Neutrophils Percent Auto 65.9 % (45-73); Platelet Count 219 X10*3/uL (160-400); Red Cell Distribution Width 13.1 % (11.0-16.0); White Blood Count 10.3 X10*3/uL (4.8-10.8)
[2021-05-27 13:01] LABS: Alanine Aminotransferase 18 U/L (0-31); Albumin Level 3.4 g/dL (3.5-5.0); Alkaline Phosphatase 99 U/L (39-117); Anion Gap 9 (12-20); Aspartate Amino Transferase 12 U/L (5-31); Bilirubin Direct 0.6 mg/dL (0.0-0.5); Bilirubin Total 1.6 mg/dL (0.0-1.0); Blood Urea Nitrogen 23 mg/dL (9-16); Calcium 8.9 mg/dL (8.4-10.2); Carbon Dioxide 32 mmol/L (22-29); Chloride 105 mmol/L (96-108); Cholesterol 176 mg/dL; Estimated Glomerular Filt Rate > 60; Glucose Fasting 81 mg/dL (60-99); HDL Cholesterol 38 mg/dL; LDL Cholesterol Calculated 119 mg/dl; Sodium 142 mmol/L (135-145); Total Protein 6.2 g/dL (6.5-8.0); Triglycerides 97 mg/dL
[2021-05-27 13:22] LABS: Thyroid Stimulating Hormone 2.34 uIU/mL (0.32-4.0)
[2021-06-01 17:17] LABS: Vitamin D 25-OH, D2 <4 ng/mL; Vitamin D 25-OH, D3 19 ng/mL; Vitamin D 25-OH, Total 19 ng/mL (30-100)
== END 2021-05-27 11:06 | disposition home or self-care (01) ==
LOC: HO.XRAY 11:05
PROVIDERS: PCP Internal Medicine
DX: R05.9 Cough, unspecified (principal); E78.5 Hyperlipidemia, unspecified; E66.01 Morbid (severe) obesity due to excess calories; D64.9 Anemia, unspecified; E04.1 Nontoxic single thyroid nodule; I10 Essential (primary) hypertension; E55.9 Vitamin D deficiency, unspecified
CPT/HCPCS: 36415; 71046; 80053; 80061; 80076; 82248; 82306; 84443; 85025

== ENCOUNTER 2021-06-07 08:11 | Emergency (ER) | payer OTHER, SELFPAY ==
--- NOTE | ~2021-06-07 | XR_ITS ---
EXAMINATION: XR CHEST CLINICAL INFORMATION: Cough COMPARISON: Chest x-ray 05/27/2021 TECHNIQUE: Frontal view of the chest was obtained. FINDINGS: The cardiac silhouette is mildly enlarged. Lungs are mildly hypoinflated. There is no lobar consolidation present. No pleural effusion or pneumothorax. Similar calcified granuloma left lung. XR/XR chest 1V IMPRESSION: No acute pulmonary pathology.
--- NOTE | 2021-06-07 08:23 | ED_ITS ---
HPI - Asthma General Chief Complaint: Upper Respiratory Symptoms Stated Complaint: cough Time Seen by Provider: 06/07/21 08:23 Source: patient and [employer] Mode of arrival: ambulatory Limitations: no limitations History of Present Illness MD complaint: other (cough) Onset (ago): week(s) (since end of March after COVID) Severity: moderate Context: other (bronchitis, asthma COVID end of march) Associated symptoms: dry cough Asthma History: childhood onset Treatments Prior to Arrival: inhaled bronchodilator Related Data Home Medications Medication Instructions Recorded Confirmed fluoxetine 20 mg capsule 20 mg PO DAILY 04/13/20 06/01/21 Previous Rx's Medication Instructions Recorded acetaminophen 325 mg tablet 650 mg PO Q6H PRN #10 tab 04/30/20 (Tylenol) cyclobenzaprine 10 mg tablet 10 mg PO TID PRN #10 tab 04/30/20 bisoprolol 5 1 tab PO DAILY #30 tab 10/20/20 mg-hydrochlorothiazide 6.25 mg tablet diclofenac sodium 1 % topical gel 2 g TOPICAL QID #100 g 03/30/21 (Voltaren Arthritis Pain) nabumetone 500 mg tablet 500 mg PO BID #20 tab 03/30/21 albuterol sulfate 90 mcg/actuation 2 puff INHALATION Q4-6H PRN 14 04/15/21 aerosol inhaler (ProAir HFA) Days #8.5 g codeine 10 mg-guaifenesin 100 mg/5 5 ml PO Q6H PRN 7 Days #140 ml 04/20/21 mL oral liquid terbinafine HCl 250 mg tablet 250 mg PO DAILY 90 Days #90 tab 04/20/21 oxybutynin chloride 10 mg 10 mg PO DAILY #30 tab 04/23/21 tablet,extended release 24 hr albuterol sulfate 0.63 mg/3 mL 0.63 mg (3 mL) INHALATION Q6H PRN 05/21/21 solution for nebulization #75 ml benzonatate 150 mg capsule 150 mg PO BID PRN #20 cap 06/01/21 guaifenesin 600 mg tablet, 600 mg PO Q12H #30 tab 06/01/21 extended release 12 hr (Mucinex) benzonatate 200 mg capsule 200 mg PO BID PRN #30 cap 06/07/21 cetirizine 10 mg tablet 10 mg PO DAILY PRN #30 tab 06/07/21 codeine 10 mg-guaifenesin 100 mg/5 5 ml PO Q6H PRN #60 ml 06/07/21 mL oral liquid prednisone 20 mg tablet 40 mg PO DAILY 4 Days #8 tab 06/07/21 Allergies Allergy/AdvReac Type Severity Reaction Status Date / Time No Known Allergies Allergy Verified 06/01/21 09:33 [No Known Allergies*] Review of Systems Verdana 4l Review of Systems: Verdana 4d Verdana 4d Constitutional : No Fever, No Chills ENT/Mouth : No Hoarseness, No sore throat, No Rhinorrhea Eyes: No Redness, No Discharge, No Vision Changes Cardiovascular : No Chest Pain, positive SOB, no Dyspnea on Exertion, No Edema Respiratory : positivepositive Cough, No Sputum, positive Wheezing, Gastrointestinal : No Nausea, No Vomiting, No Diarrhea, No abdominal Pain Genitourinary : No Dysuria, No Hematuria Musculoskeletal : No joint pain, No Myalgias Skin : No rash Neuro : No Weakness, No Numbness, No Headache Psych : No anxiety, depression Heme/Lymph: No Bruising, No Bleeding Endocrine : No Polyuria, No Polydipsia All other systems reviewed and are negative [facility] Past Medical History Attestation statement: The following information was validated with the patient. Medical History Anxiety and depression Arthritis Common cold Cough Depression Elevated hemoglobin Essential hypertension TRINIDAD (generalized anxiety disorder) Goiter Knee pain Left knee pain Left shoulder pain Leg edema Mild recurrent major depression Morbid obesity Morbid obesity with BMI of 40.0-44.9, adult Physical exam Supraclavicular lymphadenopathy Thyroid nodule Urge urinary incontinence Surgical History H/O oophorectomy History of cholecystectomy History of total abdominal hysterectomy Uterine myoma Family History Family History Father Diabetes Hypertension Mother Hypertension Brother Hypertension Sister Hypertension Maternal Aunt Breast cancer Daughter No problems noted. Social History Social History Housing: Apartment Alcohol intake: never Patient Tobacco Use Status: Never used Tobacco e-Cigarette/Vaping Use: Never Used Second Hand Smoke Exposure: No Use of substances other than those prescribed or required for medical reasons: No Advance Directives: No Advance Directives Information Provided: No service: No Current occupational status: unemployed Physical Exam Verdana 4l Vital Signs: Verdana 4d Verdana 4d Vital Signs: Verdana 4d Verdana 4Bd Last Vital Signs Verdana 4d Parts Representative New 4d Parts Representative New 4d Temp 98.1 F 06/07/21 08:27 Parts Representative New 4d Pulse 73 06/07/21 08:57 Parts Representative New 4d Resp 18 06/07/21 08:57 BP 138/73 06/07/21 08:27 Pulse Ox 98 06/07/21 08:30 BMI result Body Mass Index 40.3 Appearance: Alert. Oriented X3. No acute distress. Eyes: Pupils equal, round and reactive to light. ENT: Pharynx normal. Neck: Normal inspection. Neck supple. CVS: Normal heart rate and rhythm. Pulses normal. Respiratory: No respiratory distress. Breath sounds very faint end exp wheezes upper lobes - dry spastic cough Abdomen: Soft and nontender. Skin: Skin warm and dry. Normal skin color. Normal skin turgor. Extremities: No lower extremity edema. No calf ttp Neuro: Oriented X 3. No motor deficit. No sensory deficit. Course Course Course Narrative: no hypoxia, coughing resolved, stable for DC will start on steroids, anti tussive, zyrtec at night MDM - Asthma MDM Narrative Medical decision making narrative: 65 yo female with hx of asthma, bronchitis, COVID 19 05/11/21 since then persistent cough - she states she is not on steroids, has not been on antibiotics, tried nebulizer at home with no relief. At this time the patient notes increased post nasal drip at night but not on allergy medications will give neb, CXR, PO steroids and anti tussive. Differential Diagnosis Differential diagnosis: Likely Acute exacerbation and Pneumonia; Unlikely PE, COPD exacerbation, Pulmonary edema systolic, Pulmonary edema dystolic or ARDS Discharge Plan Discharge Clinical Impression: Cough, Asthma Patient Disposition: Home, Self-Care Instructions: Asthma (ED), Chronic Cough (ED) Additional Instructions: return to ED for any worsening symptoms or concerns Prescriptions: New prednisone 20 mg tablet 40 mg PO DAILY 4 Days Qty: 8 0RF benzonatate 200 mg capsule 200 mg PO BID PRN (Reason: cough) Qty: 30 0RF cetirizine 10 mg tablet 10 mg PO DAILY PRN (Reason: allergy symptoms) Qty: 30 1RF codeine-guaifenesin 10-100 mg/5 mL liquid 5 ml PO Q6H PRN (Reason: cough) Qty: 60 0RF No Action oxybutynin chloride 10 mg tablet extended release 24hr 10 mg PO DAILY Qty: 30 0RF cyclobenzaprine 10 mg tablet 10 mg PO TID PRN (Reason: muscle spasm) Qty: 10 0RF acetaminophen [Tylenol] 325 mg tablet 650 mg PO Q6H PRN (Reason: fever or pain) Qty: 10 0RF fluoxetine 20 mg capsule 20 mg PO DAILY 0RF bisoprolol-hydrochlorothiazide 5-6.25 mg tablet 1 tab PO DAILY Qty: 30 6RF codeine-guaifenesin 10-100 mg/5 mL liquid 5 ml PO Q6H PRN (Reason: allergy symptoms) 7 Days Qty: 140 0RF terbinafine HCl 250 mg tablet 250 mg PO DAILY 90 Days Qty: 90 0RF nabumetone 500 mg tablet 500 mg PO BID Qty: 20 0RF diclofenac sodium [Voltaren Arthritis Pain] 1 % gel 2 g topical QID Qty: 100 0RF albuterol sulfate 0.63 mg/3 mL solution for nebulization 0.63 mg inhalation Q6H PRN (Reason: shortness of breath or wheezing) Qty: 75 0RF albuterol sulfate [ProAir HFA] 90 mcg/actuation HFA aerosol inhaler 2 puff inhalation Q4-6H PRN (Reason: shortness of breath or wheezing) 14 Days Qty: 8.5 0RF guaifenesin [Mucinex] 600 mg tablet extended release 12hr 600 mg PO Q12H Qty: 30 0RF benzonatate 150 mg capsule 150 mg PO BID PRN (Reason: cough) Qty: 20 0RF Print Language: Georgian
[2021-06-07 08:27] VITALS: BP 138/73; PULSE 79; RESP 20; TEMP 36.7; O2SAT 98; BMI 40.3
[2021-06-07 08:30] VITALS: O2SAT 98
[2021-06-07] MEDS: Albuterol Sulfate (0.083%) 2.5 MG/3 ML VIAL.NEB INHALE (08:56)
[2021-06-07] MEDS: guaiFEN/Codeine SF 200/20/10ML 10 ML LIQUID 5 ML PO (08:56)
[2021-06-07] MEDS: predniSONE 20 MG TABLET 40 MG PO (08:56)
[2021-06-07] MEDS: Benzonatate 100 MG CAPSULE PO (08:56)
[2021-06-07 08:57] VITALS: PULSE 73; RESP 18; O2SAT 96
[2021-06-07] MEDS: HYDROcodone/Homat 5/1.5/5 ML 5 ML SYRUP PO (10:03)
[2021-06-07 10:04] VITALS: BP 144/98; PULSE 69; RESP 16; O2SAT 97
== END 2021-06-07 11:44 | disposition home or self-care (01) ==
PROVIDERS: Emergency Provider Emergency Medicine; PCP Internal Medicine
DX: R05.9 Cough, unspecified (principal); J45.909 Unspecified asthma, uncomplicated; I10 Essential (primary) hypertension
CPT/HCPCS: 71045; 94640; 99284; 99285

== ENCOUNTER → 2021-06-28 13:45 | Outpatient (REF) | payer OTHER, SELFPAY ==
--- NOTE | 2021-06-28 13:47 | CA_ITS ---
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 The visually estimated ejection fraction is between 55-60%. - There is mild calcification of the aortic valve. - There is mild tricuspid valve regurgitation. - Mild pulmonary hypertension is present. Findings Procedure Information Contrast agent, definity, is being given per protocol without apparent complications. Left Ventricle Normal left ventricular cavity size. There is mildly increased left ventricular wall thickness. The left ventricular systolic function is normal. The visually estimated ejection fraction is between 55-60%. There is no evidence of regional wall motion abnormalities. Diastolic function is normal for age. Right Ventricle Normal right ventricular cavity size and systolic function. Atria Both atria are normal in size. Aortic Valve There is a normal trileaflet aortic valve. There is mild calcification of the aortic valve. There is no aortic valve stenosis. There is no aortic valve regurgitation. Mitral Valve The mitral valve appears normal. There is no mitral valve regurgitation. There is no mitral valve stenosis. Pulmonic Valve The pulmonic valve was not well visualized. Tricuspid Valve Normal tricuspid valve structure. There is mild tricuspid valve regurgitation. The right ventricular systolic pressure is 40 mmHg. Mild pulmonary hypertension is present. Great Vessels The aortic annulus, sinuses of valsalva, asc aorta, and aortic arch are normal in size. Venous The inferior vena cava is normal in size and collapses greater than 50% with inspiration. Pericardium/Pleural There is no evidence of pericardial effusion. Prior Study Comparison Changes noted compared to prior study dated: 11/26/2019. Mild pulmonary hypertension present. Measurements 2D Linear Measurements IVSd: 1.25 0.6-0.9/0.6-1.0 cm LVIDd: 4.11 3.9-5.3/4.2-5.9 cm LVIDd Index: 1.85 2.4-3.2/2.2-3.1 cm/m2 LVIDs: 2.60 2.0-3.6 cm LVPWd: 1.13 0.7-1.1 cm Ao Root: 3.50 2.1-3.5 cm LA Diam: 3.50 2.7-3.8/3.0-4.0 cm LAIDs Index: 1.58 1.5-2.3 cm/m2 LV Mass: 212.09 67-162/88-224 g LV Mass Index: 95.54 43-95/49-115 g/m2 LVOT Diam: 2.00 3.0+(-)1.3 cm Mitral Valve MV Pk E: 0.65 MV PK A: 0.66 MV Decel Time: 243.00 E/A: 1.00 E'Lateral: 10.30 E'Medial: 7.94 E/E' Med: 8.10 E/E' Lat: 6.30 PHT: 71.00 MVA PHT: 3.10 Decel Beaver: 2.66 Aortic Valve AoV Pk Bennie: 1.15 AoV Mn Bennie: 0.72 AoV VTI: 0.21 AoV Pk Grad: 5.00 Aov Mn Grad: 2.00 EVELIO Cont.VTI: 2.57 LVOT LVOT Pk Bennie: 0.91 LVOT Mn Bennie: 0.57 LVOT VTI: 0.17 LVOT Pk Grad: 3.00 LVOT Mn Grad: 2.00 LVOT Diam: 2.00 LVOT Area: 3.14 Diastolic Function MV Pk E: 0.65 MV Pk A: 0.66 E/A: 1.00 E'Medial: 7.94 E/E' Med: 8.10 E' Laterial: 10.30 E/E' Lat: 6.30 Right Ventricle TAPSE (mm): 20.30 TVS' Bennie: 12.20 Tricuspid Valve TR Pk Bennie: 2.82 TR Pk Grad: 32.00 RA Press: 8.00 RVSP: 40.00 Great Vessels Aorta Ao Root-2D: 3.50 2.0-3.7 cm Ao Asc: 3.50 2.1-3.4 cm Ao Arch: 3.10 Updated in Other Vendor System with Status of Final Ernesto Kern MD electronically signed on 06/29/2021 10:44:20 AM with status of Final
== END ==
LOC: HO.CARD 13:45
PROVIDERS: PCP Internal Medicine; Visit Provider Internal Medicine
DX: R60.0 Localized edema (principal)
CPT/HCPCS: 93306; Q9957

== ENCOUNTER 2021-07-08 15:22 | Outpatient (REF) | payer OTHER, SELFPAY ==
--- NOTE | 2021-07-08 17:23 | PFT_ITS ---
The patient was sent for pulmonary function test. However, the patient was not able to perform any useful maneuvers and hence, the testing was canceled. MD LANDY Villa/MAGALIE / [id number]
== END 2021-07-08 15:23 | disposition home or self-care (01) ==
LOC: HO.RESP 15:22
PROVIDERS: PCP Internal Medicine; Visit Provider Internal Medicine
DX: Z13.89 Encounter for screening for other disorder (principal)

== ENCOUNTER 2021-07-09 13:43 | Outpatient (REF) | payer OTHER, SELFPAY ==
[2021-07-09 14:48] LABS: MANUAL DIFF FLAG NO
[2021-07-09 15:23] LABS: Basophils Absolute Auto 0.1 X10*3/uL (0.0-0.2); Basophils Percent Auto 0.7 % (0-2); Eosinophils Absolute Auto 0.2 X10*3/uL (0.0-0.4); Eosinophils Percent Auto 2.1 % (0-4); Hematocrit 51.9 % (37.0-47.0); Hemoglobin 15.8 g/dl (12.0-16.0); Imm Gran Abs Auto 0.06 X10*3/uL (0.00-0.03); Imm Gran Pct Auto 0.7 % (0.0-0.4); Lymphocytes Absolute Auto 1.4 X10*3/uL (1.2-4.9); Lymphocytes Percent Auto 16.4 % (20-40); Mean Corpuscular HGB Conc 30.4 g/dl (31.0-35.0); Mean Corpuscular Hemoglobin 29.4 pg (27.0-33.0); Mean Corpuscular Volume 96.5 fL (80.0-98.0); Mean Platelet Volume 11.7 fL (9.4-12.3); Monocytes Absolute Auto 0.8 X10*3/uL (0.1-1.2); Monocytes Percent Auto 8.9 % (2-11); Neutrophils Absolute Auto 6.2 x10*3/uL (2.0-8.3); Neutrophils Percent Auto 71.2 % (45-73); Platelet Count 191 X10*3/uL (160-400); Red Blood Count 5.38 X10*6/uL (4.20-5.50); Red Cell Distribution Width 13.2 % (11.0-16.0); White Blood Count 8.7 X10*3/uL (4.8-10.8)
[2021-07-12 19:07] LABS: Immunoglobulin E 127 kU/L (<OR=114)
== END 2021-07-09 13:44 | disposition home or self-care (01) ==
LOC: HO.LAB 13:43
PROVIDERS: PCP Internal Medicine; Visit Provider Internal Medicine Pulmonary Disease
DX: J45.909 Unspecified asthma, uncomplicated (principal); Z91.09 Other allergy status, other than to drugs and biological substances
CPT/HCPCS: 36415; 82785; 85025; 86003; 99202

== ENCOUNTER → 2021-07-22 07:54 | Outpatient (BNVA) | payer OTHER, SELFPAY | PROVIDERS: PCP Internal Medicine; Referring Provider Internal Medicine; Visit Provider Physician Assistant | DX: Z12.11 Encounter for screening for malignant neoplasm of colon (principal); J45.909 Unspecified asthma, uncomplicated | CPT/HCPCS: 99202 ==

== ENCOUNTER → 2021-07-27 11:42 | Outpatient (BNVA) | payer OTHER, SELFPAY | PROVIDERS: PCP Internal Medicine; Visit Provider Internal Medicine Pulmonary Disease | DX: J45.909 Unspecified asthma, uncomplicated (principal); Z91.09 Other allergy status, other than to drugs and biological substances | CPT/HCPCS: 99212 ==

== ENCOUNTER 2021-08-02 11:53 | Emergency (ER) | payer OTHER, SELFPAY ==
--- NOTE | ~2021-08-02 | XR_ITS ---
EXAMINATION: XR CHEST CLINICAL INFORMATION: Cough COMPARISON: Previous chest x-rays most recent June 2021 TECHNIQUE: 2 views of the chest were obtained. FINDINGS: The cardiac and mediastinal contours are stable. There is a 5 mm left upper lobe nodule that is stable. There is question of a smaller 3 mm nodule projecting over the right lower lung and posterior eighth rib. This is not seen on previous exams. The lungs are otherwise clear. There is no pleural effusion or pneumothorax. There are mild degenerative changes of the spine. XR/XR chest 2V IMPRESSION: No evidence of evidence of pneumonia. Stable left upper lobe nodule. Question 3 mm right lung nodule
--- NOTE | 2021-08-02 11:55 | ECG_ITS ---
Test Reason : cp Blood Pressure : / mmHG Vent. Rate : 092 BPM Atrial Rate : 092 BPM P-R Int : 148 ms QRS Dur : 074 ms QT Int : 336 ms P-R-T Axes : 046 024 -14 degrees QTc Int : 415 ms Normal sinus rhythm Nonspecific T wave abnormality Abnormal ECG When compared with ECG of 24-JUN-2019 14:43, T wave inversion no longer evident in Anterior leads Referred By: Generic ED Physician Electronically Signed By:AMBER DAVILA MD
[2021-08-02 12:53] VITALS: BP 121/70; PULSE 88; RESP 18; TEMP 36.6; O2SAT 97; BMI 36.8
--- NOTE | 2021-08-02 16:12 | ED.URI ---
HPI - URI/Sore Throat General Chief Complaint: Upper Respiratory Symptoms Stated Complaint: Cough/chest pain Time Seen by Provider: 08/02/21 12:07 Source: patient Mode of arrival: ambulatory Limitations: language barrier (Cuban-speaking medical doctor nuclear medicine utilized) History of Present Illness HPI Narrative: Patient is a 65-year-old female with a past medical history asthma, COVID-19 infection May 2021, obesity, anxiety, depression, arthritis, hypertension. She presents emergency department for evaluation of persistent cough with onset 3 months ago after COVID-19 infection. She additionally reports pain to the lateral chest at night when she is coughing. States that she has received steroids and antibiotics with no relief. Reports last time she was on steroids was 1 week ago. Denies any past history of intubation. Denies fevers, chills, ear pain, ear drainage, nasal congestion, anterior chest pain, palpitations, shortness of breath, difficulty breathing, nausea, vomiting, abdominal pain, generalized weakness. Related Data Home Medications Medication Instructions Recorded Confirmed fluoxetine 20 mg capsule 20 mg PO DAILY 04/13/20 06/16/21 Previous Rx's Medication Instructions Recorded cyclobenzaprine 10 mg tablet 10 mg PO TID PRN #10 tab 04/30/20 diclofenac sodium 1 % topical gel 2 g TOPICAL QID #100 g 03/30/21 (Voltaren Arthritis Pain) albuterol sulfate 90 mcg/actuation 2 puff INHALATION Q4-6H PRN 14 04/15/21 aerosol inhaler (ProAir HFA) Days #8.5 g terbinafine HCl 250 mg tablet 250 mg PO DAILY 90 Days #90 tab 04/20/21 oxybutynin chloride 10 mg 10 mg PO DAILY #30 tab 04/23/21 tablet,extended release 24 hr albuterol sulfate 0.63 mg/3 mL 0.63 mg (3 mL) INHALATION Q6H PRN 05/21/21 solution for nebulization #75 ml benzonatate 200 mg capsule 200 mg PO BID PRN #30 cap 06/07/21 nebulizers (AeroEclipse II #1 ea 06/16/21 Nebulizer) prednisone 10 mg tablet 40 mg PO DAILY 5 Days #20 tab 07/09/21 promethazine 6.25 mg-codeine 10 5 ml PO .Q.p.m. PRN 14 Days #473 ml 07/09/21 mg/5 mL syrup bisoprolol 5 1 tab PO DAILY #30 tab 07/27/21 mg-hydrochlorothiazide 6.25 mg tablet fluticasone propionate 115 2 puff INHALATION Q12H 30 Days #1 07/27/21 mcg-salmeterol 21 mcg/actuation ea HFA inhaler (Advair HFA) benzonatate 100 mg capsule 100 mg PO TID PRN #30 cap 08/02/21 Allergies Allergy/AdvReac Type Severity Reaction Status Date / Time No Known Allergies Allergy Verified 08/02/21 13:01 [No Known Allergies*] Review of Systems Review of Systems: Constitutional : No Fever, No Chills ENT/Mouth : No Hoarseness, No sore throat, No Rhinorrhea Eyes: No Redness, No Discharge, No Vision Changes Cardiovascular : No Chest Pain, positive SOB, no Dyspnea on Exertion, No Edema Respiratory : positive Cough, No Sputum, positive Wheezing, Gastrointestinal : No Nausea, No Vomiting, No Diarrhea, No abdominal Pain Genitourinary : No Dysuria, No Hematuria Musculoskeletal : No joint pain, No Myalgias Skin : No rash Neuro : No Weakness, No Numbness, No Headache Psych : No anxiety, depression Heme/Lymph: No Bruising, No Bleeding Endocrine : No Polyuria, No Polydipsia Yes all other systems are reviewed and are negative [facility] Past Medical History Attestation statement: The following information was validated with the patient. Source: old records reviewed Medical History Anxiety and depression Arthritis Common cold Cough Depression Elevated hemoglobin Essential hypertension TRINIDAD (generalized anxiety disorder) Goiter Knee pain Left knee pain Left shoulder pain Leg edema Mild recurrent major depression Morbid obesity Morbid obesity with BMI of 40.0-44.9, adult Physical exam Supraclavicular lymphadenopathy Thyroid nodule Urge urinary incontinence Surgical History H/O oophorectomy History of cholecystectomy History of total abdominal hysterectomy Uterine myoma Family History Family History Father Diabetes Hypertension Mother Hypertension Brother Hypertension Sister Hypertension Maternal Aunt Breast cancer Daughter No problems noted. Social History Social History Housing: Apartment Alcohol intake: never Patient Tobacco Use Status: Never used Tobacco e-Cigarette/Vaping Use: Never Used Second Hand Smoke Exposure: No Advance Directives: No Advance Directives Information Provided: No Patient : No service: No Current occupational status: unemployed Physical Exam Vital Signs: Vital Signs: Last Vital Signs Temp 98 F 08/02/21 12:53 Pulse 88 08/02/21 12:53 Resp 18 08/02/21 12:53 BP 121/70 08/02/21 12:53 Pulse Ox 97 08/02/21 12:53 BMI result Body Mass Index 36.8 Vital signs have been reviewed as normal and appeared to be correct. Blood pressure normal.? Heart rate normal.? Respiration rate normal. Temperature normal.? Oxygen saturation normal. Appearance: Alert.?Oriented to person, place and time. No acute distress.?Normal affect. Eyes: Pupils equal, round and reactive to light.? ENT: Pharynx normal.?? Neck: Normal inspection.? Neck supple.?? CVS: Heart sounds normal. Normal heart rate and rhythm.? Pulses normal.?? Respiratory: No respiratory distress.? Lung sounds clear to auscultation bilaterally?? Abdomen: Soft and non-tender..?? Skin: Skin warm and dry.? Normal skin color.? ?? Extremities: No lower extremity edema.? No calf ttp? Neuro: Moves all extremities spontaneously. Sensation intact bilaterally. CN II-XII intact. No focal neuro deficits. Ambulates with normal steady gait. Course Course Course Narrative: Patient is a 65-year-old female with asthma being followed by tying machine operator lumber Dr. Ortega. She reports that her symptoms are no worse but simply not better. She was last seen by her tying machine operator lumber 1 week ago. Review of her chart indicates their recommendation to discontinue Advair and begin taking Breo. She has reportedly only taken this on a couple of occasions but felt it was not helping so she has not taken it. Discussed the importance of taking the medication consistently as prescribed as it does take time to notice improvement. Advised patient to contact her tying machine operator lumber to schedule follow-up visit within 1 week. In the event that the Breo was not helpful it appears as though plan is to consider immunologic therapy given results of IgE level and RAST panel. Will provide prescription for benzonatate for cough. Chest x-ray is overall unremarkable, although there is question of a new right lung pulmonary nodule, for which she can follow-up with her tying machine operator lumber in regards to. Not consistent with AAA, aortic dissection, myocardial infarction, pneumonia. Discussed plan and care with patient she is agreeable for discharge home, reviewed reasons to return back to the emergency department, all questions were answered. MDM - URI/Sore Throat Medical Records Attestation: I reviewed the patient's medical records. Imaging Data Chest x-ray: Radiologist's impression: FINDINGS: The cardiac and mediastinal contours are stable. There is a 5 mm left upper lobe nodule that is stable. There is question of a smaller 3 mm nodule projecting over the right lower lung and posterior eighth rib. This is not seen on previous exams. The lungs are otherwise clear. There is no pleural effusion or pneumothorax. There are mild degenerative changes of the spine. XR/XR chest 2V IMPRESSION: No evidence of evidence of pneumonia. Stable left upper lobe nodule. Question 3 mm right lung nodule ECG Data Attestation: I personally reviewed and interpreted this ECG as follows: ECG interpretation date: 08/02/21 ECG interpretation time: 16:37 Prior ECG tracings: available for review Interpretation: Rate: 92 Rhythm:? Normal sinus rhythm [place]:? Normal Normal P waves.? Normal JOSÉ.?? Normal QRS complex.?? ST T wave :??Nonspecific T-wave abnormality qTC: 415 prior studies:? June 2019 The study has been interpreted contemporaneously by me. Discharge Plan Discharge Clinical Impression: Asthma Patient Disposition: Home, Self-Care Instructions: Asthma (ED) Additional Instructions: Stop taking the Advair as advised by your tying machine operator lumber and begin taking the Breo as prescribed. Tessalon as needed for cough. Contact your tying machine operator lumber to schedule a follow-up visit in 1 week, lung nodules as noted on chest X-ray. Return to the emergency department with any new or worsening symptoms or concerns Prescriptions: New benzonatate 100 mg capsule 100 mg PO TID PRN (Reason: cough) Qty: 30 0RF No Action oxybutynin chloride 10 mg tablet extended release 24hr 10 mg PO DAILY Qty: 30 0RF bisoprolol-hydrochlorothiazide 5-6.25 mg tablet 1 tab PO DAILY Qty: 30 6RF Advair HFA 115-21 mcg/actuation HFA aerosol inhaler 2 puff inhalation Q12H 30 Days Qty: 1 6RF cyclobenzaprine 10 mg tablet 10 mg PO TID PRN (Reason: muscle spasm) Qty: 10 0RF benzonatate 200 mg capsule 200 mg PO BID PRN (Reason: cough) Qty: 30 0RF fluoxetine 20 mg capsule 20 mg PO DAILY 0RF terbinafine HCl 250 mg tablet 250 mg PO DAILY 90 Days Qty: 90 0RF diclofenac sodium [Voltaren Arthritis Pain] 1 % gel 2 g topical QID Qty: 100 0RF albuterol sulfate 0.63 mg/3 mL solution for nebulization 0.63 mg inhalation Q6H PRN (Reason: shortness of breath or wheezing) Qty: 75 0RF albuterol sulfate [ProAir HFA] 90 mcg/actuation HFA aerosol inhaler 2 puff inhalation Q4-6H PRN (Reason: shortness of breath or wheezing) 14 Days Qty: 8.5 0RF (DME) AeroEclipse II Nebulizer Misc See Rx Instructions .Route Qty: 1 0RF Rx Instructions: As directed prednisone 10 mg tablet 40 mg PO DAILY 5 Days Qty: 20 0RF promethazine-codeine 6.25-10 mg/5 mL syrup 5 ml PO .Q.p.m. PRN (Reason: cough) 14 Days Qty: 473 0RF Referrals: Geronimo Ortega MD [Physician] - 1 week Interventions: ED Discharge Assessment Last Done: 08/02/21 16:43 Discharge Date/Time: 08/02/21 16:44 Print Language: Cuban
== END 2021-08-02 16:44 | disposition home or self-care (01) ==
PROVIDERS: Emergency Provider Emergency Medicine; PCP Internal Medicine
DX: J45.909 Unspecified asthma, uncomplicated (principal)
CPT/HCPCS: 71046; 93005; 99283

== ENCOUNTER → 2021-08-06 13:54 | Outpatient (BNVA) | payer OTHER, SELFPAY | PROVIDERS: PCP Internal Medicine; Visit Provider Internal Medicine Pulmonary Disease | DX: Z91.09 Other allergy status, other than to drugs and biological substances (principal) | CPT/HCPCS: 99212 ==

== ENCOUNTER → 2021-08-17 14:52 | Outpatient (BNVA) | payer OTHER, SELFPAY | PROVIDERS: PCP Internal Medicine; Visit Provider Internal Medicine Pulmonary Disease | DX: Z13.89 Encounter for screening for other disorder (principal) ==

== ENCOUNTER 2021-08-19 11:07 | Outpatient (REF) | payer OTHER, SELFPAY | END 2021-08-19 11:08 | disposition home or self-care (01) | LOC: HO.MDS 11:07 | PROVIDERS: PCP Internal Medicine; Visit Provider Internal Medicine Pulmonary Disease | DX: J45.50 Severe persistent asthma, uncomplicated (principal) | CPT/HCPCS: 96372; J2357 ==

== ENCOUNTER 2021-09-07 09:04 | Outpatient (REF) | payer OTHER, SELFPAY ==
--- NOTE | ~2021-09-07 | CT_ITS ---
EXAMINATION: CT CHEST WITHOUT CONTRAST CLINICAL INFORMATION: Solitary pulmonary nodule. COMPARISON: Chest x-ray 08/02/2021. TECHNIQUE: Multidetector volumetric CT imaging of the chest was done. Axial MIP volume rendering provided. Sagittal and coronal reformatted images were obtained. This CT examination was performed using dose optimization techniques as appropriate, variously including the following: *Automated exposure control *Adjustment of mA and/or kV according to patient size (this includes techniques or standardized protocols for targeted exams where dose is matched to indication/reason for exam; i.e. extremities or head) *Use of iterative reconstruction technique DLP: 225 mGy-cm FINDINGS: TENDERIZER TENDER: Unremarkable chest exam. LUNGS: There is an 8 mm calcified nodule left upper lobe. There is a 6 mm semilunar nodule right middle lobe attached to the minor fissure on axial image 235/501. No additional nodule seen. There is no acute consolidation, mass or ground-glass density. MEDIASTINUM: The thyroid lobes are symmetric and normal. The central trachea and the bronchi are widely patent. The heart size and the great vessels are normal caliber. No pericardial effusion seen. No abnormal mediastinal lymphadenopathy. PLEURA: There is no pleural effusion. No pleural mass or thickening. AXILLA: There are small shotty lymph nodes in the left axilla and 1.4 cm nodule in the left lateral breast axial image 20/3. UPPER ABDOMEN: Visualized liver, spleen, pancreas and adrenal glands unremarkable. OSSEOUS STRUCTURES: Mild degenerative disc changes with vacuum disc phenomenon mid dorsal spine with moderate ventral spondylosis. CT/CT chest wo con IMPRESSION: Calcified nodule left upper lobe and a noncalcified lingular nodule attached to the right minor fissure question lymph node. No additional abnormality seen. No abnormal mediastinal lymphadenopathy. As per Fleischner guidelines recommend followup in 12 months. Fleischner guidelines were followed.
== END 2021-09-07 09:05 | disposition home or self-care (01) ==
LOC: HO.CT 09:04
PROVIDERS: PCP Internal Medicine; Visit Provider Internal Medicine
DX: R91.1 Solitary pulmonary nodule (principal)
CPT/HCPCS: 71250

== ENCOUNTER → 2021-09-10 09:29 | Outpatient (BNVA) | payer OTHER, SELFPAY | PROVIDERS: PCP Internal Medicine; Visit Provider Internal Medicine Pulmonary Disease | DX: J45.909 Unspecified asthma, uncomplicated (principal); Z91.09 Other allergy status, other than to drugs and biological substances | CPT/HCPCS: 99212 ==

== ENCOUNTER → 2021-09-20 09:07 | Outpatient (BNVA) | payer OTHER, SELFPAY | PROVIDERS: PCP Internal Medicine; Referring Provider Internal Medicine; Visit Provider Physician Assistant | DX: Z12.11 Encounter for screening for malignant neoplasm of colon (principal) | CPT/HCPCS: 99212 ==

== ENCOUNTER 2021-09-29 13:50 | Outpatient (REF) | payer OTHER, SELFPAY | END 2021-09-29 13:51 | disposition home or self-care (01) | LOC: HO.MDS 13:50 | PROVIDERS: PCP Internal Medicine; Visit Provider Internal Medicine Pulmonary Disease | DX: J45.50 Severe persistent asthma, uncomplicated (principal) | CPT/HCPCS: 96372; J2357 ==

== ENCOUNTER → 2021-10-06 13:53 | Outpatient (BNVA) | payer OTHER, SELFPAY | PROVIDERS: PCP Internal Medicine; Visit Provider Internal Medicine Pulmonary Disease | DX: J45.909 Unspecified asthma, uncomplicated (principal); R05.3 Chronic cough; Z91.09 Other allergy status, other than to drugs and biological substances | CPT/HCPCS: 99212 ==

== ENCOUNTER 2021-10-13 12:54 | Outpatient (REF) | payer OTHER, SELFPAY | END 2021-10-13 12:55 | disposition home or self-care (01) | LOC: HO.MDS 12:54 | PROVIDERS: PCP Internal Medicine; Visit Provider Internal Medicine Pulmonary Disease | DX: J45.50 Severe persistent asthma, uncomplicated (principal) | CPT/HCPCS: 96372; J2357 ==

== ENCOUNTER 2021-10-25 11:37 | Emergency (ER) | payer OTHER, SELFPAY ==
--- NOTE | ~2021-10-25 | XR_ITS ---
EXAMINATION: XR KNEE, RIGHT. XR ANKLE, RIGHT. XR FOOT, RIGHT. CLINICAL INFORMATION: Right knee, foot, and ankle pain COMPARISON: None TECHNIQUE: 4 views of the right knee. 3 views of the right ankle. 3 views of the right foot. FINDINGS: Right knee: Mild to moderate patellofemoral and medial compartment osteoarthritis. Normal alignment with no fracture. No joint effusion. Prominent enthesopathy of the patella and tibial tubercle. Right ankle: Large posterior calcaneal enthesophyte and heel spur. The ankle mortise is preserved. No fracture. Small dorsal osteophytes of the midfoot. Right foot: Normal alignment with no fracture. Mild degenerative changes of the 2nd and 3rd TMT joints. No periarticular osteopenia or erosions. No radiopaque foreign body. XR/XR knee RT 4V IMPRESSION: No acute osseous abnormality of the right knee, ankle, or foot. Degenerative findings as described including prominent enthesopathy of the patella and tibial tubercle, and the Achilles tendon insertion. Heel spur.
--- NOTE | ~2021-10-25 | XR_ITS ---
EXAMINATION: XR KNEE, RIGHT. XR ANKLE, RIGHT. XR FOOT, RIGHT. CLINICAL INFORMATION: Right knee, foot, and ankle pain COMPARISON: None TECHNIQUE: 4 views of the right knee. 3 views of the right ankle. 3 views of the right foot. FINDINGS: Right knee: Mild to moderate patellofemoral and medial compartment osteoarthritis. Normal alignment with no fracture. No joint effusion. Prominent enthesopathy of the patella and tibial tubercle. Right ankle: Large posterior calcaneal enthesophyte and heel spur. The ankle mortise is preserved. No fracture. Small dorsal osteophytes of the midfoot. Right foot: Normal alignment with no fracture. Mild degenerative changes of the 2nd and 3rd TMT joints. No periarticular osteopenia or erosions. No radiopaque foreign body. XR/XR foot RT min 3V IMPRESSION: No acute osseous abnormality of the right knee, ankle, or foot. Degenerative findings as described including prominent enthesopathy of the patella and tibial tubercle, and the Achilles tendon insertion. Heel spur.
--- NOTE | ~2021-10-25 | XR_ITS ---
EXAMINATION: XR KNEE, RIGHT. XR ANKLE, RIGHT. XR FOOT, RIGHT. CLINICAL INFORMATION: Right knee, foot, and ankle pain COMPARISON: None TECHNIQUE: 4 views of the right knee. 3 views of the right ankle. 3 views of the right foot. FINDINGS: Right knee: Mild to moderate patellofemoral and medial compartment osteoarthritis. Normal alignment with no fracture. No joint effusion. Prominent enthesopathy of the patella and tibial tubercle. Right ankle: Large posterior calcaneal enthesophyte and heel spur. The ankle mortise is preserved. No fracture. Small dorsal osteophytes of the midfoot. Right foot: Normal alignment with no fracture. Mild degenerative changes of the 2nd and 3rd TMT joints. No periarticular osteopenia or erosions. No radiopaque foreign body. XR/XR ankle RT min 3V IMPRESSION: No acute osseous abnormality of the right knee, ankle, or foot. Degenerative findings as described including prominent enthesopathy of the patella and tibial tubercle, and the Achilles tendon insertion. Heel spur.
[2021-10-25 12:38] VITALS: BP 111/51; PULSE 65; RESP 18; TEMP 36.2; O2SAT 95; BMI 42.3
--- NOTE | 2021-10-25 15:04 | ED.EXTPRO ---
HPI - Extremity Problem General Chief complaint: Extremity Problem Stated complaint: Right leg pain travels to back Time Seen by Provider: 10/25/21 13:55 Source: patient Mode of arrival: ambulatory Limitations: language barrier (Maltese-speaking) History of Present Illness HPI Narrative: 65-year-old female with a past medical history of asthma, COVID, morbid obesity with BMI of 40 through 44, anxiety disorder, depression, thyroid nodule, arthritis and hypertension presenting to the ED with complaints of atraumatic right knee pain that is radiating down her leg for the past 2 days and she feels like a ?a ball on the side of my in her right foot/ankle that hurts?. She reports approximately 1-2 years ago she had a fall where she injured her right knee and she had the injection to her right knee which provide symptomatic relief and she has not needed an injection to the right knee in over a year. She denies any dizziness, headaches, neck pain/stiffness, trouble swallowing breathing, chest pain or shortness of breath, dyspnea on exertion, orthopnea, palpitations, paresthesias, nausea/vomiting, abdominal pain, back pain, urinary bowel incontinence or retention, rashes, recent falls or trauma, lower extremity edema or calf tenderness, any estrogen usage, history of immobilization or surgery, any history of cancer or any other symptoms complaints or concerns at this time. MD Complaint: extremity pain and extremity swelling Onset (ago): day(s) (2) Pain Consistency: constant Location: right, knee and other (ankle/foot) Quality: aching, sharp and constant Radiation: distal Relieving factors: nothing Exacerbating factors: range of motion, weight bearing, walking and palpation Associated symptoms: denies other symptoms Related Data Previous Rx's Medication Instructions Recorded fluticasone propionate 115 2 puff inhalation Q12H 30 days #1 07/27/21 mcg-salmeterol 21 mcg/actuation ea HFA inhaler (Advair HFA) omalizumab 150 mg subcutaneous 225 mg subcut Q2W 28 days #3 ea 08/09/21 solution (Xolair) cholecalciferol (vitamin D3) 50 50 mcg PO DAILY 90 days #90 caps 08/19/21 mcg (2,000 unit) capsule levofloxacin 750 mg tablet 750 mg PO DAILY 7 days #7 tabs 10/06/21 albuterol sulfate 90 mcg/actuation 2 puff inhalation Q4-6H PRN 10/08/21 aerosol inhaler (ProAir HFA) shortness of breath or wheezing 14 days #8.5 grams cane #1 ea 10/25/21 naproxen 500 mg tablet 500 mg PO BID PRN pain #14 tabs 10/25/21 oxycodone 5 mg tablet 5 mg PO Q6H PRN pain #14 tabs 10/25/21 prednisone 20 mg tablet 40 mg PO DAILY inflammation 5 days 10/25/21 #10 tabs Allergies Allergy/AdvReac Type Severity Reaction Status Date / Time No Known Allergies Allergy Verified 10/25/21 12:42 [No Known Allergies*] Review of Systems Review of Systems: Constitutional : No Weight loss, No Fever, No Chills, No Night Sweats, No Fatigue, No Malaise ENT/Mouth : No Hearing loss, No Ear Pain, No Nasal Congestion, No Sinus Pain, No Hoarseness, No sore throat, No Rhinorrhea, No Swallowing Difficulty Eyes: No Eye Pain, No Swelling, No Redness, No Foreign Body, No Discharge, No Vision Changes Cardiovascular : No Chest Pain, No SOB, No Dyspnea on Exertion, No Orthopnea, No Edema, No Palpitations Respiratory : No Cough, No Sputum, No Wheezing, No Smoke Exposure, No Dyspnea Gastrointestinal : No Nausea, No Vomiting, No Diarrhea, No Constipation, No abdominal Pain, No Hematochezia, No Melena Genitourinary : no irregular bleeding, No Dysuria, No Urinary Frequency, No Hematuria, No Urinary Incontinence, No Urgency, No Flank Pain, No Urinary Flow Changes, No Hesitancy Musculoskeletal : + right knee/ankle/foot joint pain, No Myalgias, No Joint Swelling Skin : No Skin Lesions, No rash Neuro : No Weakness, No Numbness, No Paresthesias, No Loss of Consciousness, No Dizziness, No Headache Psych : No Anxiety/Panic, No Depression, No SI/HI/AH/VH, No Social Issues, Heme/Lymph: No Bruising, No Bleeding,No Lymphadenopathy Endocrine : No Polyuria, No Polydipsia, No Temperature Intolerance Yes all other systems are reviewed and are negative PMFSH Past Medical History Attestation statement: The following information was validated with the patient. Source: old records reviewed and nursing notes reviewed Surgical History H/O oophorectomy History of cholecystectomy History of total abdominal hysterectomy Uterine myoma Family History Family History Father Diabetes Hypertension Mother Hypertension Brother Hypertension Sister Hypertension Maternal Aunt Breast cancer Daughter No problems noted. Social History Social History Housing: Apartment Alcohol intake: never Patient Tobacco Use Status: Never used Tobacco e-Cigarette/Vaping Use: Never Used Second Hand Smoke Exposure: No Advance Directives: No Advance Directives Information Provided: Yes service: No Current occupational status: unemployed Cognitive needs: No Hearing needs: No Vision needs: No Physical Exam Vital Signs: Vital Signs: Last Vital Signs Temp 97.1 F 10/25/21 12:38 Pulse 65 10/25/21 12:38 Resp 18 10/25/21 12:38 BP 111/51 L 10/25/21 12:38 Pulse Ox 95 10/25/21 12:38 O2 Del Method 10/25/21 12:38 BMI result Body Mass Index 42.3 vital signs have been reviewed as normal and appeared to be correct. Blood pressure 111/51. Heart rate normal. Respiration rate normal. Temperature normal. Oxygen saturation normal. Appearance: Alert. Oriented X3. No acute distress. Head: Normal external exam. Normocephalic. Atraumatic. Eyes: PERRLA. EOMI. Conjunctiva and sclera normal. Eyelids normal. ENT: Pharynx normal. Uvula midline. Moist mucous membranes. No lesions/ulcerations or masses noted on the tongue. Normal voice. No trismus noted. No drooling noted. No muffled voice noted. Neck: Normal inspection. Neck supple. FROM. No adenopathy. Thyroid Normal. No meningeal signs. CVS: Normal heart rate and rhythm. Heart sound normal. Pulses normal throughout. No murmurs/rales/gallops. Respiratory: No respiratory distress. Painless inspiration. Breath sounds normal. No wheezes/rales/rhonchi noted. Chest nontender. No accessory muscle usage noted or decreased air movement noted. Back: Full range of motion noted. Nontender. No signs of trauma. Patient neuro intact bilaterally and distally on all 4 extremities. Patient's reflexes intact bilaterally and distally on all 4 extremities. No rashes/lesion/induration/fluctuance or signs of infection noted. Skin: Skin warm and dry. Normal skin color. Normal skin turgor. No rashes/lesions/lacerations noted. Extremities: Patient with tenderness palpation to the right patellar aspect with mild soft tissue swelling. No obvious ligamentous or tendon injury noted. Not consistent with septic joint she has full range of motion of the right knee. No erythema/streaking/induration/fluctuance or signs of infection noted. Patient does have mild anterior tib/fibula tenderness although no obvious deformities. No actual calf tenderness although she reports the pain radiates down to her medial aspect of the right ankle/foot and she does have varicose veins present and mild soft tissue swelling noted to the right medial aspect of the right foot/ankle joint. No obvious ligamentous or tendon injury noted to the right ankle or foot joint. Not consistent with septic joint to the right ankle or foot. No rashes/induration/fluctuance or signs of infection noted to the right foot. She has full range of motion of the right toe/foot/ankle joint and knee and hip joint. Although she does walk with a limping gait due to pain to the right knee/ankle/foot she reports. Achilles tendon intact not perforated. No lower extremity edema. No calf tenderness is noted. Otherwise all other Extremities exhibit normal range of motion and nontender. Neuro: Oriented X 3. No motor deficit. No sensory deficit. Reflexes normal. Normal steady gait. No focal neuro deficits noted. CN's II-XII intact bilaterally? Vascular: + radial pulses/+ 2 distal pedal pulses/+2 dorsalis pedis b/l. Normal cap refill. No cyanosis noted to upper extremity nails and lower extremity toes nails. Course Course Course Narrative: 14pm - 65-year-old female with a past medical history of asthma, COVID, morbid obesity with BMI of 40 through 44, anxiety disorder, depression, thyroid nodule, arthritis and hypertension presenting to the ED with complaints of atraumatic right knee pain that is radiating down her leg for the past 2 days and she feels like a ?a ball on the side of my in her right foot/ankle that hurts?. She reports approximately 1-2 years ago she had a fall where she injured her right knee and she had the injection to her right knee which provide symptomatic relief and she has not needed an injection to the right knee in over a year. Plan: Provide an oxycodone and naproxen. Obtain x-ray of right knee/ankle/foot joint and re-evaluate. Reevaluation(s) Reevaluation #1: - x-ray of right knee revealed [id number] patellofemoral and medial compartment osteoarthritis otherwise no other acute processes noted. Right ankle revealed large posterior calcaneal enthesophyte and heel spur. Otherwise no other acute processes noted and degenerative changes of 2/3 TMT joints otherwise no other acute processes. Therefore at this time will DC home with symptomatic treatment instructions to follow-up with PCP to be referred to pain management or orthopedics for steroid injections that have helped her in the past. Patient understands agrees with this plan. Time: 15:27 MDM - Extremity (Nontraumatic) Medical Records Attestation: I reviewed the patient's medical records. Lab Data Attestation: I reviewed the patient's lab results. Imaging Data Right knee/ankle/foot joint x-ray: Attestation: I personally reviewed and interpreted this imaging study as follows: Radiologist's impression: FINDINGS: Right knee: Mild to moderate patellofemoral and medial compartment osteoarthritis. Normal alignment with no fracture. No joint effusion. Prominent enthesopathy of the patella and tibial tubercle. Right ankle: Large posterior calcaneal enthesophyte and heel spur. The ankle mortise is preserved. No fracture. Small dorsal osteophytes of the midfoot. Right foot: Normal alignment with no fracture. Mild degenerative changes of the 2nd and 3rd TMT joints. No periarticular osteopenia or erosions. No radiopaque foreign body.? XR/XR knee RT 4V IMPRESSION: No acute osseous abnormality of the right knee, ankle, or foot. ? Degenerative findings as described including prominent enthesopathy of the patella and tibial tubercle, and the Achilles tendon insertion. Heel spur.? Discharge Plan Discharge Clinical Impression: Osteoarthritis of right knee, Osteoarthritis of right patellofemoral joint, Heel spur Patient Disposition: Home, Self-Care Instructions: Osteoarthritis (ED), Heel Spur (ED) Prescriptions: New naproxen 500 mg tablet 500 mg PO BID PRN (Reason: pain) Qty: 14 0RF oxycodone 5 mg tablet 5 mg PO Q6H PRN (Reason: pain) Qty: 14 0RF Rx Instructions: Partial Fill upon patient request. prednisone 20 mg tablet 40 mg PO DAILY 5 Days Qty: 10 0RF (DME) cane Device See Rx Instructions .Route Qty: 1 0RF Rx Instructions: As directed No Action Advair HFA 115-21 mcg/actuation HFA aerosol inhaler 2 puff inhalation Q12H 30 Days Qty: 1 6RF Xolair 150 mg recon soln 225 mg subcut Q2W 28 Days Qty: 3 12RF albuterol sulfate [ProAir HFA] 90 mcg/actuation HFA aerosol inhaler 2 puff inhalation Q4-6H PRN (Reason: shortness of breath or wheezing) 14 Days Qty: 8.5 0RF cholecalciferol (vitamin D3) 50 mcg (2,000 unit) capsule 50 mcg PO DAILY 90 Days Qty: 90 1RF levofloxacin 750 mg tablet 750 mg PO DAILY 7 Days Qty: 7 0RF Referrals: Brenda Poon MD [Primary Care Provider] - 2 days Parmjit Thurston [Physician] - 1 week Stand Alone Forms: Work/School Release Interventions: ED Discharge Assessment Last Done: 10/25/21 15:37 Print Language: Maltese
[2021-10-25] MEDS: NaPROXEN 500 MG TABLET PO (15:35)
[2021-10-25] MEDS: oxyCODONE HCl Immed Release 5 MG TABLET PO (15:35)
== END 2021-10-25 15:50 | disposition home or self-care (01) ==
PROVIDERS: Emergency Provider Emergency Medicine Emergency Medical Services; PCP Internal Medicine
DX: M77.30 Calcaneal spur, unspecified foot (principal); M17.11 Unilateral primary osteoarthritis, right knee; M79.604 Pain in right leg; Z79.899 Other long term (current) drug therapy
CPT/HCPCS: 73564; 73610; 73630; 99283

== ENCOUNTER 2021-10-27 12:46 | Outpatient (REF) | payer OTHER, SELFPAY | END 2021-10-27 12:47 | disposition home or self-care (01) | LOC: HO.MDS 12:46 | PROVIDERS: PCP Internal Medicine; Visit Provider Internal Medicine Pulmonary Disease | DX: J45.50 Severe persistent asthma, uncomplicated (principal) | CPT/HCPCS: 96372; J2357 ==

== ENCOUNTER 2021-11-10 12:24 | Outpatient (REF) | payer OTHER, SELFPAY | END 2021-11-10 12:25 | disposition home or self-care (01) | LOC: HO.MDS 12:24 | PROVIDERS: Visit Provider Internal Medicine Pulmonary Disease | DX: J45.50 Severe persistent asthma, uncomplicated (principal) | CPT/HCPCS: 96372; J2357 ==

== ENCOUNTER → 2021-11-17 14:35 | Outpatient (BNVA) | payer OTHER, SELFPAY | PROVIDERS: PCP Internal Medicine; Visit Provider Internal Medicine Pulmonary Disease | DX: J45.909 Unspecified asthma, uncomplicated (principal); Z91.09 Other allergy status, other than to drugs and biological substances | CPT/HCPCS: 99212 ==

== ENCOUNTER → 2021-12-30 13:47 | Outpatient (BNVA) | payer OTHER, SELFPAY | PROVIDERS: PCP Internal Medicine; Visit Provider Internal Medicine Pulmonary Disease | DX: Z01.811 Encounter for preprocedural respiratory examination (principal); J45.909 Unspecified asthma, uncomplicated; Z91.09 Other allergy status, other than to drugs and biological substances | CPT/HCPCS: 99212 ==

== ENCOUNTER 2022-01-13 08:27 | Outpatient (REF) | payer OTHER, SELFPAY ==
--- NOTE | ~2022-01-13 | US_ITS ---
EXAMINATION: US SOFT TISSUE NECK CLINICAL INFORMATION: Localized enlarged lymph nodes COMPARISON: Ultrasound soft tissue neck 07/16/2020. Ultrasound soft tissue head/neck thyroid dated 05/07/2020. TECHNIQUE: Ultrasound of the neck soft tissues is performed with high- frequency treadwell-scale imaging and color Doppler. FINDINGS: THYROID BED: Prior thyroidectomy. No residual thyroid tissue demonstrated in the thyroid bed. No cystic or solid nodules demonstrated in the thyroid bed. RIGHT NECK SOFT TISSUES: Scattered architecturally normal nodes are present. The nodes show normal fatty hilus, normal cortical thickness, and no cystic change or calcification. No abnormal color flow. The largest nodes are as follows: Level 2: 1.4 x 0.8 x 1.3 cm. Normal tara architecture. Level 1B: 0.7 x 0.5 x 0.7 cm. Normal tara architecture. LEFT NECK SOFT TISSUES: Scattered architecturally normal nodes are present. The nodes show normal fatty hilus, normal cortical thickness, and no cystic change or calcification. No abnormal color flow. The largest nodes are as follows: Level 2: 0.9 x 0.5 x 0.9 cm. Normal tara architecture. US/US soft tiss head and/or neck IMPRESSION: 1. Scattered cervical nodes are present bilaterally which are not pathologically enlarged or otherwise suspicious and morphology. 2. If clinically indicated further evaluation of the neck soft tissues and nodes may be performed with CT soft tissue neck with intravenous contrast.
[2022-01-13 11:48] LABS: Alanine Aminotransferase 17 U/L (0-31); Albumin Level 3.6 g/dL (3.5-5.0); Alkaline Phosphatase 118 U/L (39-117); Anion Gap 12 (12-20); Aspartate Amino Transferase 13 U/L (5-31); Bilirubin Total 0.8 mg/dL (0.0-1.0); Blood Urea Nitrogen 20 mg/dL (9-16); Calcium 8.9 mg/dL (8.4-10.2); Carbon Dioxide 27 mmol/L (22-29); Chloride 107 mmol/L (96-108); Cholesterol 195 mg/dL; Estimated Glomerular Filt Rate > 60; Glucose Fasting 102 mg/dL (60-99); HDL Cholesterol 41 mg/dL; LDL Cholesterol Calculated 133 mg/dl; Potassium 4.1 mmol/L (3.3-5.1); Sodium 142 mmol/L (135-145); Total Protein 6.5 g/dL (6.5-8.0); Triglycerides 107 mg/dL
[2022-01-13 11:53] LABS: Vitamin D 25-OH Total 46.5 ng/mL (>30)
== END 2022-01-13 08:28 | disposition home or self-care (01) ==
LOC: HO.HMGCX 08:27
PROVIDERS: PCP Internal Medicine; Visit Provider Internal Medicine
DX: E66.01 Morbid (severe) obesity due to excess calories (principal); Z68.41 Body mass index [BMI] 40.0-44.9, adult; E55.9 Vitamin D deficiency, unspecified; R59.0 Localized enlarged lymph nodes
CPT/HCPCS: 36415; 76536; 80053; 80061; 82306

== ENCOUNTER 2022-01-17 09:29 | Day surgery (SDC) | payer OTHER, SELFPAY ==
[2022-01-04 10:13] VITALS: BMI 41.6
--- NOTE | 2022-01-06 13:58 | HO.ANESPROP2 ---
Documented by User: Jeanna Vasquez NP 01/06/22 14:00 HPI - Anesthesia Eval Consult details Narrative: 66yo F for Colonoscopy Pulmo cleared Patient now with with mild asthma exacerbation that I would expect to get resolved over the course of the next week, thus, as long as she would not have another exacerbation at the time of her proposed colonoscopy under general anesthesia or monitored anesthesia care, and patient would be low risk for pulmonary preoperative complications for the proposed procedure. (Rx'd 5 day course of prednisone) PMFSH Active Problems Active Problems: All Active Problems (Updated 12/30/21 @ 14:13 by Geronimo Ortega MD) Close exposure to COVID-19 virus (Acute) Cervicalgia (Acute) Right shoulder pain (Acute) Lab test negative for COVID-19 virus (Acute) COVID-19 (Acute) Asthma (Acute) Environmental allergies (Acute) Encounter for screening colonoscopy (Acute) Spider veins of both lower extremities (Acute) Arthritis of right knee (Acute) Preop pulmonary/respiratory exam (Acute) Chronic cough (Acute) Right lower lobe pulmonary nodule (Acute) Hypovitaminosis D (Acute) Morbid obesity with BMI of 40.0-44.9, adult (Acute) Physical exam (Acute) TRINIDAD (generalized anxiety disorder) (Acute) Mild recurrent major depression (Acute) Leg edema (Acute) Thyroid nodule (Acute) Cough (Acute) Knee pain (Acute) Common cold (Acute) Anxiety and depression (Acute) Arthritis (Acute) Supraclavicular lymphadenopathy (Acute) Morbid obesity (Acute) Urge urinary incontinence (Acute) Goiter (Acute) Elevated hemoglobin (Acute) Depression (Acute) Essential hypertension (Acute) Left shoulder pain (Acute) Left knee pain (Acute) Past Medical History Medical History Anxiety and depression Arthritis Chronic cough Common cold Cough Depression Elevated hemoglobin Essential hypertension TRINIDAD (generalized anxiety disorder) Goiter Hypovitaminosis D Knee pain Left knee pain Left shoulder pain Leg edema Mild recurrent major depression Morbid obesity Morbid obesity with BMI of 40.0-44.9, adult Physical exam Right lower lobe pulmonary nodule Supraclavicular lymphadenopathy Thyroid nodule Urge urinary incontinence Family History Family History Father Diabetes Hypertension Mother Hypertension Brother Hypertension Sister Hypertension Maternal Aunt Breast cancer Daughter No problems noted. Surgical History Surgical History (Updated 01/04/22 @ 09:52 by Waleska Cross RN) H/O oophorectomy History of cholecystectomy History of total abdominal hysterectomy Hx of colonoscopy Uterine myoma Social History Social History Housing: Apartment Alcohol intake: never Patient Tobacco Use Status: Never used Tobacco e-Cigarette/Vaping Use: Never Used Second Hand Smoke Exposure: No Have you been hit, kicked, punched, or otherwise hurt by someone within the past year? If so, by whom?: No Are you DNR?: No Advance Directives: No Advance Directives Information Provided: Yes Advance Directives on File: No Recently lost weight without trying: No Eating poorly because of decreased appetite: No Nutrition Risks: No Nutritional Risk Patient : No service: No Current occupational status: unemployed Cognitive needs: Yes (cane) Hearing needs: No Vision needs: Yes (glasses) Meds Allergies Allergy/AdvReac Type Severity Reaction Status Date / Time No Known Allergies Allergy Verified 01/04/22 09:15 [No Known Allergies*] Home Medications Medication Instructions Recorded Confirmed Last Taken Type bisoprolol 5 1 tab PO DAILY 11/04/21 01/04/22 Unknown History mg-hydrochlorothiazide 6.25 mg tablet Exam Exam Date and Time: January 06, 2022 1358 Height,Weight and Vital Signs: Height 5 ft 7 in Weight 120.656 kg Pertinent Lab Results Pertinent Lab Results: Laboratory Tests 05/27/21 07/09/21 12:00 14:45 WBC 8.7 Hgb 15.8 Hct 51.9 H Plt Count 191 Sodium 142 Potassium 4.0 Chloride 105 Carbon Dioxide 32 H BUN 23 H Creatinine 0.75 Narrative Narrative: EKG 07/2021 Vent. Rate : 092 BPM ? ? Atrial Rate : 092 BPM ?? P-R Int : 148 ms? QRS Dur : 074 ms ? ? QT Int : 336 ms ? ? ? P-R-T Axes : 046 024 -14 degrees ?? QTc Int : 415 ms ? Normal sinus rhythm Nonspecific T wave abnormality Abnormal ECG When compared with ECG of 24-JUN-2019 14:43, T wave inversion no longer evident in Anterior leads ECHO 06/2021 Conclusions: - The left ventricular systolic function is normal.? The visually estimated ejection fraction is between 55-60%. ? - There is mild calcification of the aortic valve. ? - There is mild tricuspid valve regurgitation. ? - Mild pulmonary hypertension is present.? Assessment and Plan Assessment Anesthesia Assessment: Chart Reviewed Documented by User: Willa Quinteros MD 01/17/22 09:57 PMF Past Medical History Medical History Anxiety and depression Arthritis Chronic cough Common cold Cough Depression Elevated hemoglobin Essential hypertension TRINIDAD (generalized anxiety disorder) Goiter Hypovitaminosis D Knee pain Left knee pain Left shoulder pain Leg edema Mild recurrent major depression Morbid obesity Morbid obesity with BMI of 40.0-44.9, adult Physical exam Right lower lobe pulmonary nodule Supraclavicular lymphadenopathy Thyroid nodule Urge urinary incontinence Family History Family History Father Diabetes Hypertension Mother Hypertension Brother Hypertension Sister Hypertension Maternal Aunt Breast cancer Daughter No problems noted. Family history of problems with anesthesia: No Surgical History Surgical History (Updated 01/04/22 @ 09:52 by Waleska Cross RN) H/O oophorectomy History of cholecystectomy History of total abdominal hysterectomy Hx of colonoscopy Uterine myoma History of Problems with Anesthesia: No Social History Social History Housing: Apartment Alcohol intake: never Patient Tobacco Use Status: Never used Tobacco e-Cigarette/Vaping Use: Never Used Second Hand Smoke Exposure: No Have you been hit, kicked, punched, or otherwise hurt by someone within the past year? If so, by whom?: No Are you DNR?: No Advance Directives: No Advance Directives Information Provided: Yes Advance Directives on File: No Recently lost weight without trying: No Eating poorly because of decreased appetite: No Nutrition Risks: No Nutritional Risk Patient : No service: No Current occupational status: unemployed Cognitive needs: Yes (cane) Hearing needs: No Vision needs: Yes (glasses) Meds Allergies Allergy/AdvReac Type Severity Reaction Status Date / Time No Known Allergies Allergy Verified 01/04/22 09:15 [No Known Allergies*] Home Medications Medication Instructions Recorded Confirmed Last Taken Type bisoprolol 5 1 tab PO DAILY 11/04/21 01/04/22 Unknown History mg-hydrochlorothiazide 6.25 mg tablet Exam Airway Mallampati Class: II TM Dist: >3cm Neck ROM: Full Heart: rrr Lungs: cta Assessment and Plan Assessment Anesthesia Assessment: Anesthesia Plan Discussed Final Anesthetic Review Family History of Problems with Anesthesia: No History of Problems with Anesthesia: No NPO: Yes ASA Class: III Final Preanesthetic Review: No Changes in Pt Med Stat, Meds/Allgs Chart Reviewed and Consent Obtained/Reviewed Patient Risk: Intermediate Procedure Risk: Intermediate Anesthetic Plan Anesthetic Plan: MAC: Disposition: Standard PACU
--- NOTE | 2022-01-17 09:41 | MHC.SHP ---
Pre-Procedural Eval Section A Date of Service: 01/17/22 The patient is an INPATIENT: No The History & Physical has been completed within 30 days and I have reviewed it.: No Section B Chief Complaint: screening Details of Present Illness: colon cancer screen, family history of colon cancer Relevant Family History (Specify if Yes): Yes Relevant Social History: None Present Medications: see Short Stay Collaborative assessment Medical History: Significant History (Anxiety and depression Arthritis Chronic cough Common cold Cough Depression Elevated hemoglobin Essential hypertension TRINIDAD (generalized anxiety disorder) Goiter Hypovitaminosis D Knee pain Left knee pain Left shoulder pain Leg edema Mild recurrent major depression Morbid obesity Morbid obesity with ) History of Previous Operations: Relevant previous surgery/procedure and date(s) (H/O oophorectomy History of cholecystectomy History of total abdominal hysterectomy Uterine myoma) Allergies: Allergies Allergy/AdvReac Type Severity Reaction Status Date / Time No Known Allergies Allergy Verified 01/04/22 09:15 [No Known Allergies*] Review of Systems Sugical H&P ROS: Negative: Constitution, Cardiovascular, Respiratory and Gastrointestinal Exam Surgical H&P Exam: Normal: Heart, Normal: Lungs, Normal: Extremities and Normal: Abdomen Plan Diagnosis/Plan: Unchanged I have reviewed the history and physical and performed a pertinent physical examination on my patient. No changes have occurred unless specified.
[2022-01-17 09:48] VITALS: BP 131/79; PULSE 78; RESP 16; TEMP 36.6; O2SAT 97
[2022-01-17 09:51] VITALS: BMI 41.6
--- NOTE | 2022-01-17 09:57 | W.PM.OPN ---
Operative Note Operative Note Date of Service: 01/17/22 Narrative: Pre-op diagnosis: colon cancer screening, history of colon polyps Post-op diagnosis:?other ( colon polyps, diverticulosis, hemorrhoids) Procedure: COLONOSCOPY TILL CECUM WITH BIOPSIES, SNARE POLYPECTOMY AND SUBMUCOSAL INJECTION Consent: Indications for the procedure and potential complications of bleeding, perforation, reaction to medications and missed diagnosis were discussed with the patient and informed consent was obtained. Instrument: Olympus PCF H 190 L variable stiffness pediatric colonoscope Monitoring: Vital signs and clinical assessment, intermittent blood pressure monitoring, continuous EKG monitoring, Pulse oximetry and Carbon Dioxide monitoring were done throughout the procedure. Colon withdrawl time was 28 minutes. Procedure: The patient was placed in the left lateral decubitis position and pre-procedure medications were administered. After a digital rectal examination of the ano-rectum, the video colonoscope was inserted into the rectum and advanced through the colon to the cecum. The colonoscope was slowly withdrawn in a retrograde panoramic fashion and the colon mucosa was carefully examined including a retroflexed view of the rectum. Findings and interventions are described below. Procedure Difficulty: Without difficulty Findings: Terminal Ileum: Not evaluated Cecum:? An 8-9 mm sessile polyp adjacent to the appendicular orifice -removed with a cold snare.? Residual polyp was removed with a cold bx. A 3-4 mm sessile polyp -? removed with a cold biopsy. Ascending Colon:? A 12-15 mm sessile polyp in the proximal AC raised with 7 cc of Orise solution (submucosal injection) and removed with a hot snare.? A 12-15 mm sessile polyp in the distal AC removed with a hot snare.? A 3-4 mm sessile polyp removed with a cold bx. Transverse Colon:? A 12-15 mm sessile polyp removed with a hot snare.? A 4-5 mm sessile polyp removed with a cold bx. Descending Colon: ? moderate diverticulosis Sigmoid Colon:? A 12 to 15 mm sessile polyp removed with a hot snare removed with a hot snare.? A 4-5 mm sessile polyp removed with a cold bx. Moderate diverticulosis Rectum:? Normal Ano-rectum:? Moderate internal hemorrhoids Colon preparation:? Good? after some irrigation Impression and Post Procedure Diagnosis: Colonoscopy Findings: Nine small to medium sized polyps removed Moderate diverticulosis seen in the left colon Moderate hemorrhoids on retroflexed exam. Plan: Await pathology results Patient has an appointment on 01/31/22 in the [facility] with SIXTO Cisse. Repeat Colonoscopy interval based on path results - in 1 year if polyps are adenomatous and 5 years if polyps are hyperplastic. Above findings were reviewed with the patient and colon polyps and diverticulosis handouts were given in the discharge area Surgeon: Elvin Alonzo MD Anesthesia:?MAC Was an Water Pipe Installer used for this Procedure?:?Yes Water Pipe Installer:?Yvonne Hammond Estimated blood loss (mL):?0 Pathology:?other (A. cecal polyps (2)? B. ascending colon polyps (3)? C. transverse colon polyps (2)? D. sigmoid polyps (2)) Condition:?stable Disposition:?PACU
[2022-01-17] MEDS: Lactated Ringers 1,000 ML 100 ML IVCONT (10:00)
[2022-01-17 10:46] VITALS: BP 106/64; PULSE 69; RESP 16; TEMP 36.2; O2SAT 99
[2022-01-17 11:01] VITALS: BP 131/72; PULSE 69; RESP 16; TEMP 36.1; O2SAT 100
== END 2022-01-17 11:48 | disposition home or self-care (01) ==
PROVIDERS: PCP Internal Medicine; Visit Provider Internal Medicine Gastroenterology
PROC: 0DJD8ZZ Inspection of Lower Intestinal Tract, Via Natural or Artificial Opening Endoscopic (ICD-10-PCS; CPT 45378; principal; 2022-01-17 11:50)
DX: Z12.11 Encounter for screening for malignant neoplasm of colon (principal); Z86.010 Personal history of colon polyps; D12.2 Benign neoplasm of ascending colon; D12.3 Benign neoplasm of transverse colon; D12.5 Benign neoplasm of sigmoid colon; K63.5 Polyp of colon; K57.30 Diverticulosis of large intestine without perforation or abscess without bleeding; K64.8 Other hemorrhoids; J45.909 Unspecified asthma, uncomplicated; I10 Essential (primary) hypertension; E55.9 Vitamin D deficiency, unspecified; F33.0 Major depressive disorder, recurrent, mild; R91.1 Solitary pulmonary nodule; E66.01 Morbid (severe) obesity due to excess calories; Z68.41 Body mass index [BMI] 40.0-44.9, adult; Z79.51 Long term (current) use of inhaled steroids; Z79.899 Other long term (current) drug therapy; Z90.49 Acquired absence of other specified parts of digestive tract
CPT/HCPCS: 45385; 45380; 45381; 88305

== ENCOUNTER → 2022-01-31 10:48 | Outpatient (BNVA) | payer OTHER, SELFPAY | PROVIDERS: PCP Internal Medicine; Visit Provider Physician Assistant | DX: D12.2 Benign neoplasm of ascending colon (principal); D12.0 Benign neoplasm of cecum; D12.5 Benign neoplasm of sigmoid colon; D12.3 Benign neoplasm of transverse colon; K57.30 Diverticulosis of large intestine without perforation or abscess without bleeding; K64.8 Other hemorrhoids; Z98.890 Other specified postprocedural states | CPT/HCPCS: 99212 ==

== ENCOUNTER 2022-02-15 12:11 | Outpatient (REF) | payer OTHER, SELFPAY ==
--- NOTE | ~2022-02-15 | XR_ITS ---
EXAMINATION: XR CHEST CLINICAL INFORMATION: Chronic cough COMPARISON: Chest x-ray from 08/02/2021 TECHNIQUE: 2 views of the chest were obtained. FINDINGS: Heart is top normal in size. No acute vascular congestion. No focal infiltrates or pleural effusions. Osseous structures are intact XR/XR chest 2V IMPRESSION: No acute process
== END 2022-02-15 12:12 | disposition home or self-care (01) ==
LOC: HO.XRAY 12:11
PROVIDERS: PCP Internal Medicine; Visit Provider Internal Medicine Pulmonary Disease
DX: I83.11 Varicose veins of right lower extremity with inflammation (principal); R05.3 Chronic cough
CPT/HCPCS: 71046; 99212

== ENCOUNTER → 2022-02-23 14:40 | Outpatient (BNVA) | payer OTHER, SELFPAY | PROVIDERS: PCP Internal Medicine; Visit Provider Internal Medicine Pulmonary Disease | DX: J45.909 Unspecified asthma, uncomplicated (principal); Z91.09 Other allergy status, other than to drugs and biological substances; Z79.899 Other long term (current) drug therapy | CPT/HCPCS: 99212 ==

== ENCOUNTER 2022-03-31 12:52 | Outpatient (REF) | payer OTHER, SELFPAY ==
--- NOTE | ~2022-03-31 | MM_ITS ---
EXAMINATION: MM SCREENING DIGITAL BREAST TOMOSYNTHESIS, BILATERAL CLINICAL INFORMATION: Screening. Asymptomatic. The lifetime risk of breast cancer based on the Tyrer-Cuzick Model is 3.0%. COMPARISON: Mammography: March 29, 2021 and studies dating back to June 22, 2015 TECHNIQUE: Digital breast tomosynthesis is performed in both the craniocaudal and mediolateral oblique views along with computer-aided detection (CAD). Synthesized 2D images are generated from the tomosynthesis. FINDINGS: There are scattered areas of fibroglandular density (ACR BI-RADS breast composition Category b). There are no significant masses, abnormal calcifications, or other abnormalities. MM/MM tomosynthesis screening BI IMPRESSION: No significant changes from prior exam. ASSESSMENT: BI-RADS 1: Negative RECOMMENDATION: Routine annual mammography screening. This patient's information was entered into a reminder system with a target due date for their next mammogram.
== END 2022-03-31 12:53 | disposition home or self-care (01) ==
LOC: HO.MAMMO 12:52
PROVIDERS: PCP Internal Medicine; Visit Provider Internal Medicine
DX: Z12.31 Encounter for screening mammogram for malignant neoplasm of breast (principal)
CPT/HCPCS: 77063; 77067

== ENCOUNTER 2022-04-16 16:14 | Emergency (ER) | payer OTHER, SELFPAY ==
--- NOTE | ~2022-04-16 | XR_ITS ---
EXAMINATION: XR CHEST CLINICAL INFORMATION: Shortness of breath, cough and sputum production COMPARISON: 02/15/2022 TECHNIQUE: 2 views of the chest were obtained. FINDINGS: Again noted is borderline heart size. No infiltrates, effusions or lung masses are seen. XR/XR chest 2V IMPRESSION: No acute intrathoracic disease.
[2022-04-16 16:32] VITALS: BP 152/80; PULSE 89; RESP 20; TEMP 36.6; O2SAT 95; BMI 36.0
--- NOTE | 2022-04-16 16:33 | ED.ASTHMA ---
HPI - Asthma General Chief Complaint: Upper Respiratory Symptoms <SIXTO Kaplan Last Filed: 04/16/22 16:34> Stated Complaint: cough/back pain <SIXTO Kaplan Last Filed: 04/16/22 16:34> Time Seen by Provider: 04/16/22 16:51 <SIXTO Kaplan Last Filed: 04/16/22 16:34> Source: patient and coil taper <SIXTO Lomas Last Filed: 04/16/22 19:02> Mode of arrival: ambulatory <SIXTO Lomas Last Filed: 04/16/22 19:02> Limitations: language barrier <SIXTO oLmas Last Filed: 04/16/22 19:02> History of Present Illness HPI Narrative: Patient is a 66 year old assigned female at with a history of asthma presenting to the emergency department today with a cough and wheezing. Patient states that she has been having a cough with worsening wheezing. Patient denies any dizziness, lightheadedness, abdominal pain, nausea, vomiting, fever, chills, blurry vision, double vision, loss of vision, chest pain, difficulty breathing, shortness of breath, back pain, night sweats, pain with urination, increased urinary frequency, increased urinary urgency, blood in her urine or stool, syncope or a near syncopal episode, recent trauma or falls, bowel incontinence, bladder incontinence, bowel retention, bladder retention, or any other complaints at this time. <SIXTO Lomas - Last Filed: 04/16/22 19:02> MD complaint: wheezing <SIXTO Lomas - Last Filed: 04/16/22 19:02> Onset (ago): hour(s) <SIXTO Lomas Last Filed: 04/16/22 19:02> Severity: mild <SIXTO Lomas Last Filed: 04/16/22 19:02> Associated symptoms: dry cough <SIXTO Lomas Last Filed: 04/16/22 19:02> Treatments Prior to Arrival: inhaled bronchodilator <SIXTO Lomas Last Filed: 04/16/22 19:02> Related Data Current Asthma Therapy: inhaled bronchodilator <SIXTO Lomas Last Filed: 04/16/22 19:02> Home Medications: Previous Rx's Medication Instructions Recorded albuterol sulfate 90 mcg/actuation 2 puff inhalation Q4-6H PRN 10/08/21 aerosol inhaler (ProAir HFA) shortness of breath or wheezing 14 days #8.5 grams cane #1 ea 10/25/21 naproxen 500 mg tablet 500 mg PO BID PRN pain #14 tabs 11/11/21 montelukast 10 mg tablet 10 mg PO QPM 30 days #30 tabs 11/17/21 (Singulair) fluticasone propionate 115 2 puff inhalation Q12H 30 days #1 12/30/21 mcg-salmeterol 21 mcg/actuation ea HFA inhaler (Advair HFA) acetaminophen 500 mg tablet 1,000 mg PO Q6H PRN pain 30 days 01/31/22 #180 tabs bisoprolol 5 1 tab PO DAILY 90 days #90 tabs 03/11/22 mg-hydrochlorothiazide 6.25 mg tablet cholecalciferol (vitamin D3) 50 50 mcg PO DAILY 90 days #90 caps 04/07/22 mcg (2,000 unit) capsule albuterol sulfate 2.5 mg/3 mL 2.5 mg (3 mL) inhalation Q4-6H PRN 04/14/22 (0.083 %) solution for nebulization shortness of breath or wheezing 30 days #75 mL albuterol sulfate 0.63 mg/3 mL 0.63 mg (3 mL) inhalation Q6H #75 04/16/22 solution for nebulization mL albuterol sulfate 90 mcg/actuation 1 inh inhalation QID PRN shortness 04/16/22 aerosol inhaler of breath or wheezing #6.7 grams benzonatate 100 mg capsule 100 mg PO BID PRN cough 7 days #14 04/16/22 caps prednisone 20 mg tablet 20 mg PO DAILY 7 days #7 tabs 04/16/22 <SIXTO Kaplan - Last Filed: 04/16/22 16:34> Allergies/Adverse Reactions: Allergies Allergy/AdvReac Type Severity Reaction Status Date / Time No Known Allergies Allergy Verified 04/16/22 16:31 [No Known Allergies*] <SIXTO Kaplan - Last Filed: 04/16/22 16:34> Review of Systems Constitutional: Constitutional: Reports no additional constitutional complaints, Denies chills, Denies fever(s) and Denies night sweats <SIXTO Lomas - Last Filed: 04/16/22 19:02> Eyes: Eyes: Reports no additional eye complaints, Denies blurry vision, Denies change in vision, Denies diplopia, Denies eye discharge, Denies loss of vision and Denies eye pain <SIXTO Lomas - Last Filed: 04/16/22 19:02> ENT: Denies dizziness <SIXTO Lomas - Last Filed: 04/16/22 19:02> Cardiovascular: Cardiovascular: Reports no additional cardiovascular complaints, Denies chest pain, Denies lightheadedness, Denies Loss of Consciousness and Denies dyspnea <SIXTO Lomas - Last Filed: 04/16/22 19:02> Respiratory: Respiratory: Reports no additional respiratory complaints, Reports cough, Denies dyspnea and Reports wheezing <SIXTO Lomas - Last Filed: 04/16/22 19:02> Gastrointestinal: Gastrointestinal: Reports no additional gastrointestinal complaints, Denies abdominal pain, Denies melena, Denies hematochezia, Denies change in bowel habits and Denies change in stool character <SIXTO Lomas - Last Filed: 04/16/22 19:02> Genitourinary: Genitourinary: Denies hematuria, Denies urinary frequency, Denies dysuria, Denies urinary incontinence, Denies urinary hesitancy and Denies urinary urgency <SIXTO Lomas - Last Filed: 04/16/22 19:02> Musculoskeletal: Musculoskeletal: Reports no additional musculoskeletal complaints, Denies numbness and Denies tingling <SIXTO Lomas - Last Filed: 04/16/22 19:02> Neurologic: Denies dizziness, Denies loss of vision, Denies numbness and Denies tingling <SIXTO Lomas - Last Filed: 04/16/22 19:02> Psychiatric: Psychiatric: Reports no additional psychiatric complaints <SIXTO Lomas - Last Filed: 04/16/22 19:02> Endocrine: Endocrine: Reports no additional endocrine complaints <SIXTO Lomas - Last Filed: 04/16/22 19:02> Hematologic/Lymphatic: Hematologic/Lymphatic: Reports no additional hematologic/lymphatic complaints <SIXTO Lomas - Last Filed: 04/16/22 19:02> Allergic/Immunologic: Allergic/Immunologic: Reports no additional allergic/immunologic complaints and Reports wheezing <SIXTO Lomas - Last Filed: 04/16/22 19:02> [facility] Past Medical History Attestation statement: The following information was validated with the patient. <SIXTO Lomas - Last Filed: 04/16/22 19:02> Source: old records reviewed and nursing notes reviewed <SIXTO Lomas - Last Filed: 04/16/22 19:02> Medical History: Medical History Anxiety and depression Arthritis Chronic cough Common cold Cough Depression Elevated hemoglobin Essential hypertension [place] (generalized anxiety disorder) Goiter Hypovitaminosis D Knee pain Left knee pain Left shoulder pain Leg edema Mild recurrent major depression Morbid obesity Morbid obesity with BMI of 40.0-44.9, adult Physical exam Right lower lobe pulmonary nodule Supraclavicular lymphadenopathy Thyroid nodule Urge urinary incontinence <SIXTO Kaplan - Last Filed: 04/16/22 16:34> Surgical History: Surgical History H/O oophorectomy History of cholecystectomy History of total abdominal hysterectomy Hx of colonoscopy Uterine myoma <SIXTO Kaplan - Last Filed: 04/16/22 16:34> Family History Family History: Family History Father Diabetes Hypertension Mother Hypertension Brother Hypertension Sister Hypertension Maternal Aunt Breast cancer Daughter No problems noted. <SIXTO Kaplan - Last Filed: 04/16/22 16:34> Social History Social History: Social History Housing: Apartment Alcohol intake: never Patient Tobacco Use Status: Never used Tobacco e-Cigarette/Vaping Use: Never Used Second Hand Smoke Exposure: No Advance Directives: No Advance Directives Information Provided: Yes service: No Current occupational status: unemployed Cognitive needs: Yes (cane) Hearing needs: No Vision needs: Yes (glasses) <SIXTO Kaplan - Last Filed: 04/16/22 16:34> Physical Exam Vital Signs: Vital Signs: Last Vital Signs Temp 97.8 F 04/16/22 16:32 Pulse 89 04/16/22 16:32 Resp 18 04/16/22 17:04 BP 152/80 H 04/16/22 16:32 Pulse Ox 95 04/16/22 16:32 O2 Del Method 04/16/22 16:32 BMI result Body Mass Index 36.0 <SIXTO Kaplan - Last Filed: 04/16/22 16:34> Vital Signs: Last Vital Signs Temp 97.8 F 04/16/22 16:32 Pulse 89 04/16/22 16:32 Resp 18 04/16/22 17:04 BP 152/80 H 04/16/22 16:32 Pulse Ox 95 04/16/22 16:32 O2 Del Method 04/16/22 16:32 BMI result Body Mass Index 36.0 <SIXTO Lomas - Last Filed: 04/16/22 19:02> Const: General: cooperative, no acute distress, alert and awake <SIXTO Lomas - Last Filed: 04/16/22 19:02> Nutritional Appearance: well nourished <SIXTO Lomas - Last Filed: 04/16/22 19:02> Orientation/consciousness: patient oriented x3 <SIXTO Lomas - Last Filed: 04/16/22 19:02> Limitations: no limitations <SIXTO Lomas - Last Filed: 04/16/22 19:02> HEENT: Head: Yes normal to inspection and Yes atraumatic <SIXTO Lomas - Last Filed: 04/16/22 19:02> Ears: hearing grossly normal bilaterally and external ears normal <SIXTO Lomas - Last Filed: 04/16/22 19:02> General nose exam: Normal external nose present, no nasal discharge noted and no epistaxis <SIXTO Lomas - Last Filed: 04/16/22 19:02> Face and sinus: Yes normal facial exam, No abrasion and No laceration <SIXTO Lomas - Last Filed: 04/16/22 19:02> Mouth: Normal oral and palatal mucosa present, no drooling and no muffled voice <Lashell Whitlock MA - Last Filed: 04/16/22 19:02> Eyes: General: appearance normal, both eyes and all related structures <Lashell Whitlock MA - Last Filed: 04/16/22 19:02> Periorbital: periorbital findings normal <Lashell Whitlock MA - Last Filed: 04/16/22 19:02> Eyelids: Yes eyelids normal <Lashell Whitlock MA - Last Filed: 04/16/22 19:02> Conjunctivae: conjunctivae normal <Lashell Whitlock MA - Last Filed: 04/16/22 19:02> Pupils: Equal, round and reactive pupils present <Lashell Whitlock MA - Last Filed: 04/16/22 19:02> EOM: EOMs intact bilaterally <Lashell Whitlock MA - Last Filed: 04/16/22 19:02> Neck: Neck: Yes normal visual inspection, Yes full ROM and Yes no lymphadenopathy <Lashell Whitlock MA - Last Filed: 04/16/22 19:02> Chest: Chest palpation & inspection: normal inspection of the chest <Lashell Whitlock MA - Last Filed: 04/16/22 19:02> Resp: Effort & Inspection: normal respiratory effort and able to speak in complete sentences <Lashell Whitlock MA - Last Filed: 04/16/22 19:02> Auscultation: wheezes throughout <Lashell Whitlock MA - Last Filed: 04/16/22 19:02> Cardio: Rate: regular rate <Lashell Whitlock MA - Last Filed: 04/16/22 19:02> Rhythm: regular rhythm <Lashell Whitlock MA - Last Filed: 04/16/22 19:02> GI: Inspection: Yes normal to inspection <Lashell Whitlock MA - Last Filed: 04/16/22 19:02> Palpation (GI): Soft to palpation, not firm, nontender and no guarding <Lashell Whitlock MA - Last Filed: 04/16/22 19:02> Neuro: General: patient oriented x3 and moves all extremities <Lashell Whitlock MA - Last Filed: 04/16/22 19:02> Cranial nerves: Yes Equal, round and reactive pupils present <Lashellsandra NajeraSIXTO fortune - Last Filed: 04/16/22 19:02> Cognition (Neuro): normal cognition <Lashellsandra NajeraSIXTO fortune - Last Filed: 04/16/22 19:02> Motor exam (neuro): 5/5 motor strength present throughout <Lashell NajeraSIXTO fortune - Last Filed: 04/16/22 19:02> Sensory Exam: Normal double simultaneous stimulation for sensation <Lashell WhitlockSIXTO fortune - Last Filed: 04/16/22 19:02> Coordination: [id number] test normal <Lashellsandra NajeraSIXTO fortune - Last Filed: 04/16/22 19:02> Extrem: General: Yes normal to inspection, Yes full ROM and Yes capillary refill normal <Lashellsandra NajeraSIXTO fortune - Last Filed: 04/16/22 19:02> Psych: Appearance: grossly normal <Lashell WhitlockSIXTO fortune - Last Filed: 04/16/22 19:02> Mental Status: mental status grossly normal <SIXTO Lomas - Last Filed: 04/16/22 19:02> Affect: normal affect <Lashell WhitlockSIXTO fortune - Last Filed: 04/16/22 19:02> Attitude: cooperative <SIXTO Lomas - Last Filed: 04/16/22 19:02> Thought process: Normal thought process present <SIXTO Lomas - Last Filed: 04/16/22 19:02> Thought content: Normal thought content present <SIXTO Lomas - Last Filed: 04/16/22 19:02> Insight: Good insight present (Psych) <SIXTO Lomas - Last Filed: 04/16/22 19:02> Course Course Course Narrative: JEWELL-16:30PM - 66yoF who is [place]-speaking c PMHx of asthma presenting to the ED with complaints of subjective fevers/chills/fatigue/malaise/nasal congestion/rhinorrhea, cough with shortness of breath/wheezing since Monday worse today. Reports she has been using her albuterol inhaler and nebulizers at home and no symptomatic relief. She denies any recent travel or sick contacts. She denies any other symptoms complaints or concerns at this time. Plan: Will obtain COVID/flu swab a chest x-ray. Patient will need a breathing treatment, 5 mg of Robitussin with codeine and 60 mg prednisone. Patient is stable to [place] [facility] <SIXTO Kaplan - Last Filed: 04/16/22 16:34> Medications Administered Discontinued Medications Generic Name Dose Route Start Last Admin Trade Name Freq PRN Reason Stop Dose Admin Albuterol Sulfate 5 mg/ 0 mg 04/16/22 16:33 04/16/22 17:02 Albuterol/Ipratropium 3 ml INHALE 04/16/22 16:34 7.5 each ONCE ONE Administration Guaifenesin/Codeine Phosphate 5 ml 04/16/22 16:33 04/16/22 16:59 Guaifen/Codeine Sf 200/20/10ml 10 Ml Liquid PO 04/16/22 16:34 5 ml ONCE ONE Administration Prednisone 60 mg 04/16/22 16:33 04/16/22 16:58 Prednisone 20 Mg Tablet PO 04/16/22 16:34 60 mg ONCE ONE Administration <SIXTO Kaplan - Last Filed: 04/16/22 16:34> Medications Administered Discontinued Medications Generic Name Dose Route Start Last Admin Trade Name Freq PRN Reason Stop Dose Admin Albuterol Sulfate 5 mg/ 0 mg 04/16/22 16:33 04/16/22 17:02 Albuterol/Ipratropium 3 ml INHALE 04/16/22 16:34 7.5 each ONCE ONE Administration Guaifenesin/Codeine Phosphate 5 ml 04/16/22 16:33 04/16/22 16:59 Guaifen/Codeine Sf 200/20/10ml 10 Ml Liquid PO 04/16/22 16:34 5 ml ONCE ONE Administration Prednisone 60 mg 04/16/22 16:33 04/16/22 16:58 Prednisone 20 Mg Tablet PO 04/16/22 16:34 60 mg ONCE ONE Administration <SIXTO Lomas - Last Filed: 04/16/22 19:02> Medical Decision Making Medical Decision Making MDM Narrative: Patient is a 66 year old assigned female at with a history of asthma presenting to the emergency department today with a cough and wheezing. Patient's physical exam showed wheezing throughout but was otherwise unremarkable. Patient's RSV test was positive. Patient's chest x-ray showed no acute process. I explained my physical exam findings as well as all test results to the patient. I answered all questions asked by the patient. I stressed the importance of the patient taking her medication as prescribed. I stressed the importance of the patient following up with her primary care provider. I stressed the importance of the patient returning to the emergency department immediately if her symptoms were to worsen or if she were to develop any dizziness, shortness of breath, difficulty breathing, chest pain, blurry vision, loss of vision, nausea, vomiting, abdominal pain, fever, chills, back pain, or any other complaints. Patient verbalized agreement and understanding with this treatment plan and discharge. <SIXTO Lomas - Last Filed: 04/16/22 19:02> Differential Diagnosis Differential Diagnoses: The differential diagnosis associated with the presentation includes <SIXTO Lomas - Last Filed: 04/16/22 19:02> RSV <SIXTO Lomas - Last Filed: 04/16/22 19:02> Lab Data MDM Lab Attestation statement: I reviewed the patient's lab results. <SIXTO Lomas - Last Filed: 04/16/22 19:02> Labs: Lab Results 04/16/22 Range/Units 17:02 Influenza Type A (PCR) NEGATIVE (Negative) Influenza Type B (PCR) NEGATIVE (Negative) RSV RNA Qual (PCR) POSITIVE A (Negative) SARS-CoV-2 RNA (RT-PCR) NEGATIVE (Negative) <SIXTO Kaplan - Last Filed: 04/16/22 16:34> Lab Results 04/16/22 Range/Units 17:02 Influenza Type A (PCR) NEGATIVE (Negative) Influenza Type B (PCR) NEGATIVE (Negative) RSV RNA Qual (PCR) POSITIVE A (Negative) SARS-CoV-2 RNA (RT-PCR) NEGATIVE (Negative) <SIXTO Lomas - Last Filed: 04/16/22 19:02> Radiology Impression Discussion of test interpretation with radiology: I have reviewed the radiologist's reading. <SIXTO Lomas - Last Filed: 04/16/22 19:02> Radiologist Impression: EXAMINATION: XR CHEST CLINICAL INFORMATION: Shortness of breath, cough and sputum production COMPARISON: 02/15/2022 TECHNIQUE: 2 views of the chest were obtained. FINDINGS: Again noted is borderline heart size. No infiltrates, effusions or lung masses are seen. XR/XR chest 2V IMPRESSION: No acute intrathoracic disease. Dictated By: Ismael Hurt MD Signed By: Electronically signed by Ismael Hurt MD 04/16/22 1706 <SIXTO Lomas - Last Filed: 04/16/22 19:02> Discharge Plan Discharge Clinical Impression: Respiratory syncytial virus (RSV), Asthma <SIXTO Kaplan - Last Filed: 04/16/22 16:34> Patient Disposition: Home, Self-Care <SIXTO Kaplan - Last Filed: 04/16/22 16:34> Instructions: Respiratory Syncytial Virus (ED) <SIXTO Kaplan - Last Filed: 04/16/22 16:34> Additional Instructions: Follow up with your primary care provider. Return to the emergency department immediately if your symptoms worsen or if you develop any dizziness, shortness of breath, difficulty breathing, chest pain, blurry vision, loss of vision, nausea, vomiting, abdominal pain, fever, chills, back pain, or any other complaints. Shree un seguimiento con eduardo proveedor de atenci?n primaria. Regrese al departamento de emergencias de inmediato si bertha s?ntomas empeoran o si presenta mareos, falta de aire, dificultad para respirar, dolor de pecho, visi?n borrosa, p?rdida de la visi?n, n?useas, v?mitos, dolor abdominal, fiebre, escalofr?os, dolor de espalda o cualquier otras quejas. <SIXTO Kaplan - Last Filed: 04/16/22 16:34> Prescriptions: New prednisone 20 mg tablet 20 mg PO DAILY 7 Days Qty: 7 0RF benzonatate 100 mg capsule 100 mg PO BID PRN (Reason: cough) 7 Days Qty: 14 0RF albuterol sulfate 90 mcg/actuation HFA aerosol inhaler 1 inh inhalation QID PRN (Reason: shortness of breath or wheezing) Qty: 6.7 0RF albuterol sulfate 0.63 mg/3 mL solution for nebulization 0.63 mg inhalation Q6H Qty: 75 0RF No Action albuterol sulfate [ProAir HFA] 90 mcg/actuation HFA aerosol inhaler 2 puff inhalation Q4-6H PRN (Reason: shortness of breath or wheezing) 14 Days Qty: 8.5 0RF acetaminophen 500 mg tablet 1,000 mg PO Q6H PRN (Reason: pain) 30 Days Qty: 180 1RF bisoprolol-hydrochlorothiazide 5-6.25 mg tablet 1 tab PO DAILY 90 Days Qty: 90 1RF albuterol sulfate 2.5 mg /3 mL (0.083 %) solution for nebulization 2.5 mg inhalation Q4-6H PRN (Reason: shortness of breath or wheezing) 30 Days Qty: 75 1RF (DME) cane Device See Rx Instructions .Route Qty: 1 0RF Rx Instructions: As directed naproxen 500 mg tablet 500 mg PO BID PRN (Reason: pain) Qty: 14 0RF cholecalciferol (vitamin D3) 50 mcg (2,000 unit) capsule 50 mcg PO DAILY 90 Days Qty: 90 1RF montelukast [Singulair] 10 mg tablet 10 mg PO QPM 30 Days Qty: 30 6RF Advair HFA 115-21 mcg/actuation HFA aerosol inhaler 2 puff inhalation Q12H 30 Days Qty: 1 6RF <SIXTO Kaplan - Last Filed: 04/16/22 16:34> Referrals: Brenda Poon MD [Primary Care Provider] - <SIXTO Kaplan - Last Filed: 04/16/22 16:34> Interventions: ED Discharge Assessment Last Done: 04/16/22 18:53 <SIXTO Kaplan - Last Filed: 04/16/22 16:34> Discharge Date/Time: 04/16/22 18:54 <SIXTO Kaplan - Last Filed: 04/16/22 16:34> Print Language: [place] <SIXTO Kaplan - Last Filed: 04/16/22 16:34>
[2022-04-16] MEDS: predniSONE 20 MG TABLET 60 MG PO (16:58)
[2022-04-16] MEDS: guaiFEN/Codeine SF 200/20/10ML 10 ML LIQUID 5 ML PO (16:59)
[2022-04-16] MEDS: Albuterol Sulfate 5 MG, Albuterol/Iprat 2.5/0.5MG 3 ML 3 ML INHALE (17:02)
[2022-04-16 17:04] VITALS: RESP 18; O2SAT 96
[2022-04-16 17:48] LABS: Influenza A PCR NEGATIVE (Negative); Influenza B PCR NEGATIVE (Negative); Resp Syncy Virus RNA Qual PCR POSITIVE (Negative); SARS COV2 PCR INHOUSE NEGATIVE (Negative)
== END 2022-04-16 18:54 | disposition home or self-care (01) ==
PROVIDERS: Physician Assistant Medical; Emergency Provider Emergency Medicine; PCP Internal Medicine
DX: J45.909 Unspecified asthma, uncomplicated (principal); B97.4 Respiratory syncytial virus as the cause of diseases classified elsewhere; Z20.822 Contact with and (suspected) exposure to COVID-19
CPT/HCPCS: 0241U; 71046; 94640; 99283; 99284

== ENCOUNTER 2022-05-04 08:41 | Outpatient (REF) | payer OTHER, SELFPAY ==
--- NOTE | ~2022-05-04 | XR_ITS ---
EXAMINATION: XR KNEE, RIGHT CLINICAL INFORMATION: Pain COMPARISON: Right knee x-rays 10/25/2021 TECHNIQUE: 2 of the right knee. FINDINGS: No fracture or dislocation. No suprapatellar joint effusion. Moderate narrowing of medial joint space height. Small tricompartmental marginal osteophytes. Prominent enthesophyte off the tibial tubercle. No focal soft tissue swelling of the anterior knee. XR/XR knee RT 2V IMPRESSION: Mild to moderate degenerative changes of the right knee.
[2022-05-04 09:38] LABS: Alanine Aminotransferase 19 U/L (0-31); Albumin Level 3.4 g/dL (3.5-5.0); Alkaline Phosphatase 106 U/L (39-117); Anion Gap 8 (12-20); Aspartate Amino Transferase 13 U/L (5-31); Bilirubin Total 1.4 mg/dL (0.0-1.0); Blood Urea Nitrogen 19 mg/dL (9-16); Calcium 8.8 mg/dL (8.4-10.2); Carbon Dioxide 31 mmol/L (22-29); Chloride 107 mmol/L (96-108); Cholesterol 177 mg/dL; Estimated Glomerular Filt Rate > 60; Glucose Fasting 105 mg/dL (60-99); HDL Cholesterol 39 mg/dL; LDL Cholesterol Calculated 121 mg/dl; Potassium 4.3 mmol/L (3.3-5.1); Sodium 142 mmol/L (135-145); Triglycerides 88 mg/dL
== END 2022-05-04 08:42 | disposition home or self-care (01) ==
LOC: HO.LAB 08:41
PROVIDERS: PCP Internal Medicine; Visit Provider Internal Medicine
DX: Z00.00 Encounter for general adult medical examination without abnormal findings (principal); M25.561 Pain in right knee; E55.9 Vitamin D deficiency, unspecified; E78.5 Hyperlipidemia, unspecified; J40 Bronchitis, not specified as acute or chronic; Z91.09 Other allergy status, other than to drugs and biological substances
CPT/HCPCS: 36415; 73560; 80053; 80061; 82306; 99212

== ENCOUNTER 2022-05-16 13:03 | Outpatient (REF) | payer OTHER, SELFPAY ==
--- NOTE | ~2022-05-16 | US_ITS ---
EXAMINATION: US VENOUS REFLUX/INSUFFICIENCY CLINICAL INFORMATION: Varicose veins of right lower extremity without inflammation. COMPARISON: None. TECHNIQUE: Bilateral lower extremity venous insufficiency ultrasound was performed with velocity measurements. Color flow Doppler imaging was performed. FINDINGS: RIGHT SIDE: No evidence of DVT or venous reflux within the common femoral, mid femoral, or popliteal vein. GREATER SAPHENOUS VEIN: The right saphenofemoral junction measures 1.2cm. The reflux time is 0 ms. Proximal thigh measures 0.7cm. Reflux time is 0ms. Mid thigh measures 0.4cm. Reflux time is 0ms. Above-knee measures 0.4cm. Reflux time is 0ms. At the knee measures 0.4cm. Reflux time is 0ms. Below the knee measures 0.3cm. Reflux time is 0ms. Mid calf measures 0.3cm. Reflux time is 0ms. At the level of the ankle it measures0.3cm. Reflux time is 0ms. There is a lateral accessory saphenous vein which measures 0.5 cm at the saphenofemoral junction and there is no demonstrable reflux. At the mid thigh measures 0.4 cm and has no demonstrable reflux. SMALL SAPHENOUS VEIN: The upper right small saphenous vein measures 0.2 cm. Reflux time is 0ms. The lower small saphenous vein measures 0.2cm. Reflux time is 0ms. There is a cogeneration operator of the great saphenous vein at the level of the mid calf which measures 0.2 cm and has no demonstrable reflux. There are varicosities associated with the right great saphenous vein at the proximal thigh, distal thigh, and knee which measures 3 mm and does not have demonstrable reflux. At the mid anterior calf there is a 0.3 cm varicosity with reflux time 3220 ms. LEFT SIDE: No evidence of DVT or venous reflux within the common femoral, mid femoral, or popliteal vein. GREATER SAPHENOUS VEIN: The left saphenofemoral junction measures 1cm. The reflux time is 0 ms. Proximal thigh measures 0.5cm. Reflux time is 0ms. Mid thigh measures 0.2cm. Reflux time is 0ms. The distal aspect of the great saphenous vein above, at, and below the knee is not visualized. The midcalf segment measures 0.3cm. Reflux time is 0ms. At the level of the ankle it measures0.3cm. Reflux time is 0ms. There is a lateral accessory great saphenous vein which measures 0.3 cm at the saphenofemoral junction and has no demonstrable reflux. SMALL SAPHENOUS VEIN: The upper left small saphenous vein measures 0.2 cm. Reflux time is 0ms. The lower small saphenous vein measures 0.2cm. Reflux time is 0ms. There are perforators of the great saphenous vein at the level of the proximal and mid calf which measures 0.3 and 0.2 cm respectively. There is no demonstrable reflux. There is a varicosity associated with the great saphenous vein at the level of proximal thigh which measures 0.3 cm and has no demonstrable reflux. US/US venous duplex LE BI IMPRESSION: On the right there are varicosities associated with the great saphenous vein and at the mid anterior calf. Only the calf varicosity is associated with venous reflux. On the left there is no evidence of venous insufficiency/reflux.
== END 2022-05-16 13:04 | disposition home or self-care (01) ==
LOC: HO.US 13:03
PROVIDERS: PCP Internal Medicine; Visit Provider Surgery Vascular Surgery
DX: I83.893 Varicose veins of bilateral lower extremities with other complications (principal)
CPT/HCPCS: 93970

== ENCOUNTER → 2022-05-31 13:13 | Outpatient (BNVA) | payer OTHER, SELFPAY | PROVIDERS: PCP Internal Medicine; Visit Provider Physician Assistant | DX: M25.561 Pain in right knee (principal); M25.562 Pain in left knee; G89.29 Other chronic pain | CPT/HCPCS: 20610; 99212; J1040 ==

== ENCOUNTER 2022-06-08 13:07 | Emergency (ER) | payer OTHER, SELFPAY ==
--- NOTE | ~2022-06-08 | CT_ITS ---
EXAMINATION: CT HEAD WITHOUT CONTRAST CLINICAL INFORMATION: Headache, dizziness. COMPARISON: Comparison is made to 01/02/2020. TECHNIQUE: Contiguous axial imaging was performed from the skull base to vertex without intravenous administration of contrast. Coronal and sagittal reformatted images were obtained. This CT examination was performed using dose optimization techniques as appropriate, variously including the following: *Automated exposure control *Adjustment of mA and/or kV according to patient size (this includes techniques or standardized protocols for targeted exams where dose is matched to indication/reason for exam; i.e. extremities or head) *Use of iterative reconstruction technique DLP: 788 mGy-cm FINDINGS: The cortical sulci are normal. The lateral ventricles are symmetrical. The third and fourth ventricles are in their normal midline position. The basilar and prepontine cisterns are unremarkable. There is no acute intra or extracerebral abnormality. There is no mass effect or midline shift. Sections through the bony calvarium are unremarkable. The paranasal sinuses are clear. The bony orbits and orbital contents are unremarkable. CT/CT head/brain wo IV con IMPRESSION: No acute intracranial pathology.
[2022-06-08 13:12] VITALS: BP 164/78; PULSE 70; RESP 17; TEMP 36.6; O2SAT 98; BMI 34.9
--- NOTE | 2022-06-08 13:14 | ED_ITS ---
HPI - Headache General Chief Complaint: Dizziness <Ericka Ewing NP - Last Filed: 06/08/22 13:16> Stated Complaint: headache, dizzy, vomiting <Ericka Ewing NP - Last Filed: 06/08/22 13:16> Time Seen by Provider: 06/08/22 17:50 <Ericka Ewing NP - Last Filed: 06/08/22 13:16> Source: patient <Maryr Loredo NP - Last Filed: 06/09/22 00:31> Mode of arrival: ambulatory <Marry Loredo NP - Last Filed: 06/09/22 00:31> Limitations: no limitations <Marry Loredo NP - Last Filed: 06/09/22 00:31> History of Present Illness HPI Narrative: 66-year-old female presents with 3 days of headache, dizziness, nausea and vomiting. <Marry Loredo NP - Last Filed: 06/09/22 00:31> MD elicited complaint: headache <Marry Loredo NP - Last Filed: 06/09/22 00:31> Onset (ago): day(s) (3) <Marry Loredo NP - Last Filed: 06/09/22 00:31> Onset description: gradually <Marry Loredo NP - Last Filed: 06/09/22 00:31> Location: diffuse <Marry Loredo NP - Last Filed: 06/09/22 00:31> Severity: severe <Marry Loredo NP - Last Filed: 06/09/22 00:31> Pain scale (0-10): 10 <Marry Loredo NP - Last Filed: 06/09/22 00:31> Quality & Timing: squeezing and constant <Marry Loredo NP - Last Filed: 06/09/22 00:31> Exacerbating factors: none <Marry Loredo NP - Last Filed: 06/09/22 00:31> Relieving factors: nothing <Marry Loredo NP - Last Filed: 06/09/22 00:31> Associated symptoms: nausea, vomiting, photophobia and sensitivity to sound <Marry Loredo NP - Last Filed: 06/09/22 00:31> Treatments prior to arrival: acetaminophen and ibuprofen <Marry Loredo NP - Last Filed: 06/09/22 00:31> Related Data Home Medications: Previous Rx's Medication Instructions Recorded cane #1 ea 10/25/21 naproxen 500 mg tablet 500 mg PO BID PRN pain #14 tabs 11/11/21 montelukast 10 mg tablet 10 mg PO QPM 30 days #30 tabs 11/17/21 (Singulair) bisoprolol 5 1 tab PO DAILY 90 days #90 tabs 03/11/22 mg-hydrochlorothiazide 6.25 mg tablet cholecalciferol (vitamin D3) 50 50 mcg PO DAILY 90 days #90 caps 04/07/22 mcg (2,000 unit) capsule albuterol sulfate 0.63 mg/3 mL 0.63 mg (3 mL) inhalation Q6H #75 04/16/22 solution for nebulization mL albuterol sulfate 90 mcg/actuation 1 inh inhalation QID PRN shortness 04/16/22 aerosol inhaler of breath or wheezing #6.7 grams benzonatate 100 mg capsule 100 mg PO BID PRN cough 7 days #14 04/16/22 caps acetaminophen 500 mg tablet 1,000 mg PO Q6H PRN pain 30 days 04/25/22 #180 tabs fluticasone propionate 115 2 puff inhalation Q12H 30 days #1 05/04/22 mcg-salmeterol 21 mcg/actuation ea HFA inhaler (Advair HFA) ondansetron 4 mg disintegrating 4 mg PO Q6H PRN nausea and 06/08/22 tablet vomiting #20 tabs <Ericka Ewing NP - Last Filed: 06/08/22 13:16> Allergies/Adverse Reactions: Allergies Allergy/AdvReac Type Severity Reaction Status Date / Time No Known Allergies Allergy Verified 06/08/22 13:15 [No Known Allergies*] <Ericka Ewing NP - Last Filed: 06/08/22 13:16> Review of Systems Review of Systems: Constitutional: No Fever, No Chills Cardiovascular: No Chest Pain, No SOB Respiratory: No Cough, No Dyspnea Gastrointestinal: Positive Nausea, positive Vomiting, positive Diarrhea, No abdominal Pain Genitourinary: No Dysuria, No Hematuria Musculoskeletal: positive joint pain, No Myalgias, No Joint Swelling Skin: No Skin lacerations, No rash Neuro: No Weakness, No Numbness, No Paresthesias, No Loss of Consciousness, No Dizziness, positive Headache <Marry Loredo NP - Last Filed: 06/09/22 00:31> Yes all other systems are reviewed and are negative <Marry Loredo NP - Last Filed: 06/09/22 00:31> [facility] Past Medical History Attestation statement: The following information was validated with the patient. <Marry Loredo NP - Last Filed: 06/09/22 00:31> Source: old records reviewed <Marry Loredo NP - Last Filed: 06/09/22 00:31> Medical History: Medical History Anxiety and depression Arthritis Chronic cough Common cold Cough Depression Elevated hemoglobin Essential hypertension [place] (generalized anxiety disorder) Goiter Hypovitaminosis D Knee pain Left knee pain Left shoulder pain Leg edema Mild recurrent major depression Morbid obesity Morbid obesity with BMI of 40.0-44.9, adult Physical exam Right lower lobe pulmonary nodule Supraclavicular lymphadenopathy Thyroid nodule Urge urinary incontinence <Ericka Ewing NP - Last Filed: 06/08/22 13:16> Surgical History: Surgical History H/O oophorectomy History of cholecystectomy History of total abdominal hysterectomy Hx of colonoscopy Uterine myoma <Ericka Ewing NP - Last Filed: 06/08/22 13:16> Family History Family History: Family History Father Diabetes Hypertension Mother Hypertension Brother Hypertension Sister Hypertension Maternal Aunt Breast cancer Daughter No problems noted. <Ericka Ewing NP - Last Filed: 06/08/22 13:16> Social History Social History: Social History Housing: Apartment Alcohol intake: unknown Patient Tobacco Use Status: Never used Tobacco Smoked in Last 30 Days: No e-Cigarette/Vaping Use: Never Used Second Hand Smoke Exposure: No Use of substances other than those prescribed or required for medical reasons: Unknown Advance Directives: No Advance Directives Information Provided: No Patient : No service: No Current occupational status: unemployed Cognitive needs: Yes (cane) Hearing needs: No Vision needs: Yes (glasses) <Ericka Ewing NP - Last Filed: 06/08/22 13:16> Physical Exam Vital Signs: Vital Signs: Last Vital Signs Temp 98.3 F 06/08/22 19:35 Pulse 72 06/08/22 19:35 Resp 16 06/08/22 19:35 BP 143/74 H 06/08/22 19:35 Pulse Ox 99 06/08/22 19:35 O2 Del Method 06/08/22 19:35 BMI result Body Mass Index 34.9 <Ericka Ewing NP - Last Filed: 06/08/22 13:16> Vital Signs: Last Vital Signs Temp 98.3 F 06/08/22 19:35 Pulse 72 06/08/22 19:35 Resp 16 06/08/22 19:35 BP 143/74 H 06/08/22 19:35 Pulse Ox 99 06/08/22 19:35 O2 Del Method 06/08/22 19:35 BMI result Body Mass Index 34.9 <Marry Loredo NP - Last Filed: 06/09/22 00:31> Appearance: Alert. Oriented X3. Moderate distress. Eyes: Pupils equal, round and reactive to light. ENT: Pharynx normal. Neck: Normal inspection. Neck supple. CVS: Normal heart rate and rhythm. Pulses normal. Respiratory: No respiratory distress. Breath sounds normal. Abdomen: Soft and nontender. Skin: Skin warm and dry. Normal skin color. Normal skin turgor. Extremities: No lower extremity edema. Gait balance and coordinated. Neuro: No motor deficit. No sensory deficit. Cranial nerves 2-12 intact. <Marry Loredo NP - Last Filed: 06/09/22 00:31> Course Course Course Narrative: This is a rapid medical exam. Deferred additional HPI, ROS, PE to primary provider, 66 yo female with history of HTN, asthma, migraines here with headache, dizziness, vomiting since 3am. Feels different from previous migraines. Will check labs, EKG, covid testing, CT head. VSS <Ericka Ewing NP - Last Filed: 06/08/22 13:16> This is a rapid medical exam. Deferred additional HPI, ROS, PE to primary provider, 66 yo female with history of HTN, asthma, migraines here with headache, dizziness, vomiting since 3am. Feels different from previous migraines. Will check labs, EKG, covid testing, CT head. VSS 66-year-old female presents with symptoms consistent with migraine, dizziness, nausea and vomiting for [address] scan of the head were completed while patient was in the emergency department waiting room. H&H indicates elevated white count of 13.8 and hemoglobin 16.2 hematocrit 51.0 which is higher than her prior values, consistent with dehydration and poor p.o. intake. CT scan of head is negative for acute findings requiring emergent intervention. BUN is elevated at 20, consistent with dehydration, will give 1 L of fluids, will give Toradol, Zofran, and sumatriptan with Benadryl for migraine treatment. Patient states feel better, plan of care is to discharge home. Will give Zofran, patient does understand not to take any medications for diarrhea. Drink plenty of fluids, and continue with her medications as prescribed patient verbalized understanding of and agrees plan of care discharge home. Verbalized understanding of signs symptoms indicating need for emergent intervention. <Marry Loredo NP - Last Filed: 06/09/22 00:31> Medications Administered Discontinued Medications Generic Name Dose Route Start Last Admin Trade Name Myriam PRN Reason Stop Dose Admin Diphenhydramine HCl 12.5 mg 06/08/22 18:49 06/08/22 20:33 Diphenhydramine Hcl 50 Mg/Ml Vial IVPUSH 06/08/22 18:50 12.5 mg ONCE ONE Administration Sodium Chloride 1,000 mls @ 999 mls/hr 06/08/22 18:45 06/08/22 21:39 Ns IVCONT 06/08/22 19:45 Infused .Q1H1M SLIME Infusion Ketorolac Tromethamine 30 mg 06/08/22 18:49 06/08/22 20:32 Ketorolac Tromethamine 30 Mg/Ml Vial IVPUSH 06/08/22 18:50 30 mg ONCE ONE Administration Ondansetron HCl 4 mg 06/08/22 18:01 06/08/22 20:35 Ondansetron Odt 4 Mg Tab.Rapdis TRANSLINGU 06/08/22 18:02 4 mg ONCE ONE Administration Sumatriptan Succinate 6 mg 06/08/22 18:49 06/08/22 20:34 Sumatriptan Succinate 6 Mg/0.5 Ml Vial SUBCUT 06/08/22 18:50 6 mg ONCE ONE Administration <Ericka Ewing PURCHASING EXPEDITOR - Last Filed: 06/08/22 13:16> Medications Administered Discontinued Medications Generic Name Dose Route Start Last Admin Trade Name Stanislavq PRN Reason Stop Dose Admin Diphenhydramine HCl 12.5 mg 06/08/22 18:49 06/08/22 20:33 Diphenhydramine Hcl 50 Mg/Ml Vial IVPUSH 06/08/22 18:50 12.5 mg ONCE ONE Administration Sodium Chloride 1,000 mls @ 999 mls/hr 06/08/22 18:45 06/08/22 21:39 Ns IVCONT 06/08/22 19:45 Infused .Q1H1M SLIME Infusion Ketorolac Tromethamine 30 mg 06/08/22 18:49 06/08/22 20:32 Ketorolac Tromethamine 30 Mg/Ml Vial IVPUSH 06/08/22 18:50 30 mg ONCE ONE Administration Ondansetron HCl 4 mg 06/08/22 18:01 06/08/22 20:35 Ondansetron Odt 4 Mg Tab.Danica TRANSLINGU 06/08/22 18:02 4 mg ONCE ONE Administration Sumatriptan Succinate 6 mg 06/08/22 18:49 06/08/22 20:34 Sumatriptan Succinate 6 Mg/0.5 Ml Vial SUBCUT 06/08/22 18:50 6 mg ONCE ONE Administration <Marry Loredo, PURCHASING EXPEDITOR - Last Filed: 06/09/22 00:31> Medical Decision Making Differential Diagnosis Differential Diagnoses: The differential diagnosis associated with the presentation includes <Marry Loredo PURCHASING EXPEDITOR - Last Filed: 06/09/22 00:31> Migraine, subdural, gastroenteritis, dehydration <Marry Loredo PURCHASING EXPEDITOR - Last Filed: 06/09/22 00:31> Lab Data MDM Lab Attestation statement: I reviewed the patient's lab results. <Marry Loredo, PURCHASING EXPEDITOR - Last Filed: 06/09/22 00:31> Result Diagrams: 06/08/22 17:30 06/08/22 13:54 <Ericka Ewing, PURCHASING EXPEDITOR - Last Filed: 06/08/22 13:16> Labs: Lab Results 06/08/22 06/08/22 06/08/22 Range/Units 13:54 13:54 17:30 WBC 13.8 H (4.8-10.8) X10*3/uL RBC 5.46 (4.20-5.50) X10*6/uL Hgb 16.2 H (12.0-16.0) g/dl Hct 51.0 H (37.0-47.0) % MCV 93.4 (80.0-98.0) fL MCH 29.7 (27.0-33.0) pg MCHC 31.8 (31.0-35.0) g/dl RDW 12.9 (11.0-16.0) % Plt Count 212 (160-400) X10*3/uL MPV 10.8 (9.4-12.3) fL Immature Gran % (Auto) 0.8 H (0.0-0.4) % Neut % (Auto) 83.3 H (45-73) % Lymph % (Auto) 8.4 L (20-40) % [place] % (Auto) 6.7 (2-11) % Eos % (Auto) 0.3 (0-4) % Baso % (Auto) 0.5 (0-2) % Lymph # (Auto) 1.2 (1.2-4.9) X10*3/uL [place] # (Auto) 0.9 (0.1-1.2) X10*3/uL Eos # (Auto) 0.0 (0.0-0.4) X10*3/uL Baso # (Auto) 0.1 (0.0-0.2) X10*3/uL Abs Immat Gran (auto) 0.11 H (0.00-0.03) X10*3/uL Absolute Neuts (auto) 11.5 H (2.0-8.3) x10*3/uL Absolute Nucleated RBC 0.000 (0.0-0.012) X10*3/uL Nucleated RBC % (auto) 0.0 (0.0-0.2) /100WBC Sodium 142 (135-145) mmol/L Potassium 4.2 (3.3-5.1) mmol/L Chloride 108 (96-108) mmol/L Carbon Dioxide 22 (22-29) mmol/L Anion Gap 16 (12-20) BUN 20 H (9-16) mg/dL Creatinine 0.61 (0.5-1.4) mg/dL Estim Creat Clear Calc 113.7 Estimated GFR > 60 Random Glucose 104 (60-115) mg/dL Calcium 8.6 (8.4-10.2) mg/dL Total Bilirubin 1.8 H (0.0-1.0) mg/dL Direct Bilirubin 0.4 (0.0-0.5) mg/dL AST 17 (5-31) U/L ALT 16 (0-31) U/L Alkaline Phosphatase 113 (39-117) U/L Troponin I High Sens (<3.5-17.0) ng/L Total Protein 6.6 (6.5-8.0) g/dL Albumin 3.5 (3.5-5.0) g/dL Influenza Type A (PCR) NEGATIVE (Negative) Influenza Type B (PCR) NEGATIVE (Negative) RSV RNA Qual (PCR) NEGATIVE (Negative) SARS-CoV-2 RNA (RT-PCR) NEGATIVE (Negative) 06/08/22 Range/Units 17:30 WBC (4.8-10.8) X10*3/uL RBC (4.20-5.50) X10*6/uL Hgb (12.0-16.0) g/dl Hct (37.0-47.0) % MCV (80.0-98.0) fL MCH (27.0-33.0) pg MCHC (31.0-35.0) g/dl RDW (11.0-16.0) % Plt Count (160-400) X10*3/uL MPV (9.4-12.3) fL Immature Gran % (Auto) (0.0-0.4) % Neut % (Auto) (45-73) % Lymph % (Auto) (20-40) % [place] % (Auto) (2-11) % Eos % (Auto) (0-4) % Baso % (Auto) (0-2) % Lymph # (Auto) (1.2-4.9) X10*3/uL [place] # (Auto) (0.1-1.2) X10*3/uL Eos # (Auto) (0.0-0.4) X10*3/uL Baso # (Auto) (0.0-0.2) X10*3/uL Abs Immat Gran (auto) (0.00-0.03) X10*3/uL Absolute Neuts (auto) (2.0-8.3) x10*3/uL Absolute Nucleated RBC (0.0-0.012) X10*3/uL Nucleated RBC % (auto) (0.0-0.2) /100WBC Sodium (135-145) mmol/L Potassium (3.3-5.1) mmol/L Chloride (96-108) mmol/L Carbon Dioxide (22-29) mmol/L Anion Gap (12-20) BUN (9-16) mg/dL Creatinine (0.5-1.4) mg/dL Estim Creat Clear Calc Estimated GFR Random Glucose (60-115) mg/dL Calcium (8.4-10.2) mg/dL Total Bilirubin (0.0-1.0) mg/dL Direct Bilirubin (0.0-0.5) mg/dL AST (5-31) U/L ALT (0-31) U/L Alkaline Phosphatase (39-117) U/L Troponin I High Sens < 3.5 (<3.5-17.0) ng/L Total Protein (6.5-8.0) g/dL Albumin (3.5-5.0) g/dL Influenza Type A (PCR) (Negative) Influenza Type B (PCR) (Negative) RSV RNA Qual (PCR) (Negative) SARS-CoV-2 RNA (RT-PCR) (Negative) <Ericka Ewing, PURCHASING EXPEDITOR - Last Filed: 06/08/22 13:16> Lab Results 06/08/22 06/08/22 06/08/22 Range/Units 13:54 13:54 17:30 WBC 13.8 H (4.8-10.8) X10*3/uL RBC 5.46 (4.20-5.50) X10*6/uL Hgb 16.2 H (12.0-16.0) g/dl Hct 51.0 H (37.0-47.0) % MCV 93.4 (80.0-98.0) fL MCH 29.7 (27.0-33.0) pg MCHC 31.8 (31.0-35.0) g/dl RDW 12.9 (11.0-16.0) % Plt Count 212 (160-400) X10*3/uL MPV 10.8 (9.4-12.3) fL Immature Gran % (Auto) 0.8 H (0.0-0.4) % Neut % (Auto) 83.3 H (45-73) % Lymph % (Auto) 8.4 L (20-40) % [place] % (Auto) 6.7 (2-11) % Eos % (Auto) 0.3 (0-4) % Baso % (Auto) 0.5 (0-2) % Lymph # (Auto) 1.2 (1.2-4.9) X10*3/uL [place] # (Auto) 0.9 (0.1-1.2) X10*3/uL Eos # (Auto) 0.0 (0.0-0.4) X10*3/uL Baso # (Auto) 0.1 (0.0-0.2) X10*3/uL Abs Immat Gran (auto) 0.11 H (0.00-0.03) X10*3/uL Absolute Neuts (auto) 11.5 H (2.0-8.3) x10*3/uL Absolute Nucleated RBC 0.000 (0.0-0.012) X10*3/uL Nucleated RBC % (auto) 0.0 (0.0-0.2) /100WBC Sodium 142 (135-145) mmol/L Potassium 4.2 (3.3-5.1) mmol/L Chloride 108 (96-108) mmol/L Carbon Dioxide 22 (22-29) mmol/L Anion Gap 16 (12-20) BUN 20 H (9-16) mg/dL Creatinine 0.61 (0.5-1.4) mg/dL Estim Creat Clear Calc 113.7 Estimated GFR > 60 Random Glucose 104 (60-115) mg/dL Calcium 8.6 (8.4-10.2) mg/dL Total Bilirubin 1.8 H (0.0-1.0) mg/dL Direct Bilirubin 0.4 (0.0-0.5) mg/dL AST 17 (5-31) U/L ALT 16 (0-31) U/L Alkaline Phosphatase 113 (39-117) U/L Troponin I High Sens (<3.5-17.0) ng/L Total Protein 6.6 (6.5-8.0) g/dL Albumin 3.5 (3.5-5.0) g/dL Influenza Type A (PCR) NEGATIVE (Negative) Influenza Type B (PCR) NEGATIVE (Negative) RSV RNA Qual (PCR) NEGATIVE (Negative) SARS-CoV-2 RNA (RT-PCR) NEGATIVE (Negative) 06/08/22 Range/Units 17:30 WBC (4.8-10.8) X10*3/uL RBC (4.20-5.50) X10*6/uL Hgb (12.0-16.0) g/dl Hct (37.0-47.0) % MCV (80.0-98.0) fL MCH (27.0-33.0) pg MCHC (31.0-35.0) g/dl RDW (11.0-16.0) % Plt Count (160-400) X10*3/uL MPV (9.4-12.3) fL Immature Gran % (Auto) (0.0-0.4) % Neut % (Auto) (45-73) % Lymph % (Auto) (20-40) % [place] % (Auto) (2-11) % Eos % (Auto) (0-4) % Baso % (Auto) (0-2) % Lymph # (Auto) (1.2-4.9) X10*3/uL [place] # (Auto) (0.1-1.2) X10*3/uL Eos # (Auto) (0.0-0.4) X10*3/uL Baso # (Auto) (0.0-0.2) X10*3/uL Abs Immat Gran (auto) (0.00-0.03) X10*3/uL Absolute Neuts (auto) (2.0-8.3) x10*3/uL Absolute Nucleated RBC (0.0-0.012) X10*3/uL Nucleated RBC % (auto) (0.0-0.2) /100WBC Sodium (135-145) mmol/L Potassium (3.3-5.1) mmol/L Chloride (96-108) mmol/L Carbon Dioxide (22-29) mmol/L Anion Gap (12-20) BUN (9-16) mg/dL Creatinine (0.5-1.4) mg/dL Estim Creat Clear Calc Estimated GFR Random Glucose (60-115) mg/dL Calcium (8.4-10.2) mg/dL Total Bilirubin (0.0-1.0) mg/dL Direct Bilirubin (0.0-0.5) mg/dL AST (5-31) U/L ALT (0-31) U/L Alkaline Phosphatase (39-117) U/L Troponin I High Sens < 3.5 (<3.5-17.0) ng/L Total Protein (6.5-8.0) g/dL Albumin (3.5-5.0) g/dL Influenza Type A (PCR) (Negative) Influenza Type B (PCR) (Negative) RSV RNA Qual (PCR) (Negative) SARS-CoV-2 RNA (RT-PCR) (Negative) <Marry Loredo NP - Last Filed: 06/09/22 00:31> Independent Interpretation I performed an independent interpretation of an: EKG and CT Scan <Marry Loredo NP - Last Filed: 06/09/22 00:31> Interpretation: Normal sinus rhythm Cannot rule out Anterior infarct , age undetermined Abnormal ECG When compared with ECG of 02-AUG-2021 11:58, Nonspecific T wave abnormality now evident in Anterior leads Vent. rate 63 BPM HI interval 138 ms QRS duration 76 ms QT/QTc 406/415 ms P-R-T axes 46 12 -15 08-JUN-2022 13:41:08 <Marry Loredo NP - Last Filed: 06/09/22 00:31> Radiology Impression Discussion of test interpretation with radiology: I have reviewed the radiologist's reading. <Marry Loredo NP - Last Filed: 06/09/22 00:31> Radiologist Impression: FINDINGS: The cortical sulci are normal. The lateral ventricles are symmetrical. The third and fourth ventricles are in their normal midline position. The basilar and prepontine cisterns are unremarkable. There is no acute intra or extracerebral abnormality. There is no mass effect or midline shift. Sections through the bony calvarium are unremarkable. The paranasal sinuses are clear. The bony orbits and orbital contents are unremarkable. CT/CT head/brain wo IV con IMPRESSION: No acute intracranial pathology. <Marry Loredo NP - Last Filed: 06/09/22 00:31> Independent Historian Clinical information obtained from an independent historian. History obtained from or confirmed by: Spouse <Marry Loredo NP - Last Filed: 06/09/22 00:31> External Record Review External record reviewed: Outpatient record and Prior outpatient labs <Marry Loredo NP - Last Filed: 06/09/22 00:31> Prescription Management I considered prescription management with: Other (Antiemetic) <Marry Loredo NP - Last Filed: 06/09/22 00:31> Discharge Plan Discharge Clinical Impression: Nausea vomiting and diarrhea, Headache, Gastroenteritis, Acute dehydration <Ericka Ewing NP - Last Filed: 06/08/22 13:16> Patient Disposition: Home, Self-Care <Ericka Ewing NP - Last Filed: 06/08/22 13:16> Instructions: Dehydration (ED), Gastroenteritis (ED), Acute Headache (ED), Acute Nausea and Vomiting (ED), Acute Abdominal Pain (ED), General Headache (ED) <Ericka Ewing NP - Last Filed: 06/08/22 13:16> Additional Instructions: You were evaluated for nausea vomiting dizziness headache. CT scan of the head is negative for acute findings. Lab values indicated dehydration. We gave you 1 L of IV fluids. Your symptoms are consistent with gastroenteritis. Please drink plenty of fluids. Alternate Tylenol 650 mg every 6 hours and Motrin 600 mg every 6 hours as needed for pain and fever management. Consider taking these medications 3 hours apart so you have pain and fever management every 3 hours. Write down what time you take these medications to prevent accidental overdose. Thank you for choosing this emergency department for evaluation. Please follow-up with primary care physician as needed. Return to the emergency department for any new, concerning, or worsening symptoms. <Ericka Ewing NP - Last Filed: 06/08/22 13:16> Prescriptions: New ondansetron 4 mg tablet,disintegrating 4 mg PO Q6H PRN (Reason: nausea and vomiting) Qty: 20 0RF No Action bisoprolol-hydrochlorothiazide 5-6.25 mg tablet 1 tab PO DAILY 90 Days Qty: 90 1RF acetaminophen 500 mg tablet 1,000 mg PO Q6H PRN (Reason: pain) 30 Days Qty: 180 1RF (DME) cane Device See Rx Instructions .Route Qty: 1 0RF Rx Instructions: As directed benzonatate 100 mg capsule 100 mg PO BID PRN (Reason: cough) 7 Days Qty: 14 0RF albuterol sulfate 90 mcg/actuation HFA aerosol inhaler 1 inh inhalation QID PRN (Reason: shortness of breath or wheezing) Qty: 6.7 0RF albuterol sulfate 0.63 mg/3 mL solution for nebulization 0.63 mg inhalation Q6H Qty: 75 0RF naproxen 500 mg tablet 500 mg PO BID PRN (Reason: pain) Qty: 14 0RF cholecalciferol (vitamin D3) 50 mcg (2,000 unit) capsule 50 mcg PO DAILY 90 Days Qty: 90 1RF montelukast [Singulair] 10 mg tablet 10 mg PO QPM 30 Days Qty: 30 6RF Advair HFA 115-21 mcg/actuation HFA aerosol inhaler 2 puff inhalation Q12H 30 Days Qty: 1 6RF <Ericka Ewing NP - Last Filed: 06/08/22 13:16> Interventions: ED Discharge Assessment Last Done: 06/08/22 21:37 <Ericka Ewing NP - Last Filed: 06/08/22 13:16> Discharge Date/Time: 06/08/22 21:38 <Ericka Ewing NP - Last Filed: 06/08/22 13:16>
--- NOTE | 2022-06-08 13:16 | ECG_ITS ---
Test Reason : dissiness Blood Pressure : / mmHG Vent. Rate : 063 BPM Atrial Rate : 063 BPM P-R Int : 138 ms QRS Dur : 076 ms QT Int : 406 ms P-R-T Axes : 046 012 -15 degrees QTc Int : 415 ms Normal sinus rhythm Cannot rule out Anterior infarct , age undetermined Nonspecific ST and T wave abnormality Abnormal ECG When compared with ECG of 02-AUG-2021 11:58, Nonspecific T wave abnormality now evident in Anterior leads Referred By: Ericka Ewing Electronically Signed By:AMBER DAVILA MD
[2022-06-08 14:20] LABS: Alanine Aminotransferase 16 U/L (0-31); Albumin Level 3.5 g/dL (3.5-5.0); Alkaline Phosphatase 113 U/L (39-117); Anion Gap 16 (12-20); Aspartate Amino Transferase 17 U/L (5-31); Bilirubin Direct 0.4 mg/dL (0.0-0.5); Bilirubin Total 1.8 mg/dL (0.0-1.0); Blood Urea Nitrogen 20 mg/dL (9-16); Calcium 8.6 mg/dL (8.4-10.2); Carbon Dioxide 22 mmol/L (22-29); Chloride 108 mmol/L (96-108); Creatinine Clr Calc Pharmacy 113.7; Estimated Glomerular Filt Rate > 60; Glucose Random 104 mg/dL (60-115); Potassium 4.2 mmol/L (3.3-5.1); Sodium 142 mmol/L (135-145); Total Protein 6.6 g/dL (6.5-8.0)
[2022-06-08 14:41] LABS: Influenza A PCR NEGATIVE (Negative); Influenza B PCR NEGATIVE (Negative); Resp Syncy Virus RNA Qual PCR NEGATIVE (Negative); SARS COV2 PCR INHOUSE NEGATIVE (Negative)
[2022-06-08 16:00] VITALS: BP 144/82; PULSE 68; RESP 18; TEMP 37.1; O2SAT 99
[2022-06-08 17:42] LABS: Basophils Absolute Auto 0.1 X10*3/uL (0.0-0.2); Basophils Percent Auto 0.5 % (0-2); Eosinophils Percent Auto 0.3 % (0-4); Hemoglobin 16.2 g/dl (12.0-16.0); Imm Gran Abs Auto 0.11 X10*3/uL (0.00-0.03); Imm Gran Pct Auto 0.8 % (0.0-0.4); Lymphocytes Absolute Auto 1.2 X10*3/uL (1.2-4.9); Lymphocytes Percent Auto 8.4 % (20-40); Mean Corpuscular HGB Conc 31.8 g/dl (31.0-35.0); Mean Corpuscular Hemoglobin 29.7 pg (27.0-33.0); Mean Corpuscular Volume 93.4 fL (80.0-98.0); Mean Platelet Volume 10.8 fL (9.4-12.3); Monocytes Absolute Auto 0.9 X10*3/uL (0.1-1.2); Monocytes Percent Auto 6.7 % (2-11); Neutrophils Absolute Auto 11.5 x10*3/uL (2.0-8.3); Neutrophils Percent Auto 83.3 % (45-73); Platelet Count 212 X10*3/uL (160-400); Red Blood Count 5.46 X10*6/uL (4.20-5.50); Red Cell Distribution Width 12.9 % (11.0-16.0); White Blood Count 13.8 X10*3/uL (4.8-10.8)
[2022-06-08 18:15] LABS: Troponin-I High Sensitivity < 3.5 ng/L (<3.5-17.0)
[2022-06-08 18:45] LABS: MANUAL DIFF FLAG NO
[2022-06-08 19:35] VITALS: BP 143/74; PULSE 72; RESP 16; TEMP 36.8; O2SAT 99
[2022-06-08] MEDS: 0.9 % Sodium Chloride 1,000 ML 999 ML IVCONT (20:31)
[2022-06-08] MEDS: Ketorolac Tromethamine 30 MG/ML VIAL IVPUSH (20:32)
[2022-06-08] MEDS: diphenhydrAMINE HCL 50 MG/ML VIAL 12.5 MG IVPUSH (20:33)
[2022-06-08] MEDS: SUMAtriptan succinate 6 MG/0.5 ML VIAL SUBCUT (20:34)
[2022-06-08] MEDS: Ondansetron ODT 4 MG TAB.RAPDIS TRANSLINGU (20:35)
--- NOTE | 2022-06-08 20:37 | PC.NURSE ---
Medicated pt per Jun for ADELSO Bello. RN notified.
== END 2022-06-08 21:38 | disposition home or self-care (01) ==
PROVIDERS: Nurse Practitioner Family; Emergency Provider Emergency Medicine Emergency Medical Services; PCP Internal Medicine
DX: K52.9 Noninfective gastroenteritis and colitis, unspecified (principal); R11.2 Nausea with vomiting, unspecified; E86.0 Dehydration; Z20.822 Contact with and (suspected) exposure to COVID-19; Z20.828 Contact with and (suspected) exposure to other viral communicable diseases; I10 Essential (primary) hypertension
CPT/HCPCS: 0241U; 36415; 70450; 80048; 80076; 84484; 85025; 93005; 96361; 96372; 96374; 96375; 99284; 99285; J1200; J1885; J3030

== ENCOUNTER → 2022-08-30 14:39 | Outpatient (BNVA) | payer OTHER, SELFPAY | PROVIDERS: PCP Internal Medicine; Visit Provider Nurse Practitioner Family | DX: J44.1 Chronic obstructive pulmonary disease with (acute) exacerbation (principal); J45.50 Severe persistent asthma, uncomplicated; Z79.52 Long term (current) use of systemic steroids; Z79.899 Other long term (current) drug therapy | CPT/HCPCS: 99212 ==

== ENCOUNTER 2022-10-10 15:00 | Outpatient (RCR) | payer OTHER, SELFPAY ==
--- NOTE | 2022-09-15 15:47 | MHC.PT.EP ---
[facility] [place] Office [place] Office [place] Office [address] Kwan Pineda [address] [phone] F: [phone] F: [phone] F: [phone] F: [phone] Physical Therapy Plan of Care Date of Evaluation: Date of Surgery: Diagnosis: RIGHT leg achilles tendonitis (MD Dx) Enthesopathy of achilles tendon insertion (seen on imaging) Assessment: Patient is a 66 y.o. female who is referred to PT by Dr. Amada Gann MD, with Dx of RIGHT achilles tendonitis. There is a prominent enthesopathy of the achilles tendon insertion seen on imaging from 09/2021. Patient impairments include pain, swelling, limited ROM, weakness, antalgic gait and impaired balance. Patient current functional limitations are walking without AD, sit to stand, squat/bend, stair use, walking outdoors, prolonged standing, putting on pants, difficulty with balance. Patient will benefit from skilled PT to address aforementioned impairments and functional limitations to meet established goals. Frequency and Duration: The patient will be seen 2x/week for 4 weeks Short Term Goals: 2 weeks Patient demonstrates consistency and independence with HEP to self manage symptoms. Patient presents with improved LEFI score 9 points for MDC. Public Address Servicer Goals: 4 weeks Patient presents with increased R ankle DF 0 degrees to perform heel to toe rocker with gait on level surfaces without AD. Patient presents with increased R ankle eversion strength 4+/5 to be able to perform sit to stand without difficulty. Treatment Plan: Modalities to reduce pain, spasms and effusion. Manual therapy to restore motion and function. Therapeutic exercise to improve strength and flexibility. Neuromuscular re-education for posture and balance. Therapeutic activities to return to functional activities of daily living. Electronically signed by: Cee Moreno, PT, DPT Please sign and return to therapist. Thank you for your referral.
--- NOTE | 2022-11-28 13:12 | MHC.PT.DC ---
[facility] [place] Office [place] Office [place] Office [address] Pineda [address] [phone] F: [phone] F: [phone] F: [phone] F: [phone] Physical Therapy Discharge Report Diagnosis: RIGHT leg achilles tendonitis ( Dx) Enthesopathy of achilles tendon insertion (seen on imaging) Date of Surgery: Date of Evaluation: 09/15/22 Date of Discharge: 11/28/22 Treatments to Date: 6 Cancellations to Date: 1 No Shows to Date: 1 Discharge Status: Patient Elected to Stop Discharge Summary: Louise showed slow, but steady progress with PT interventions, but ceased attending PT on her own accord as of 10/10/22. She was given home exercise program. She is discharged from PT at this time. Electronically signed by: Cee Moreno, PT, DPT Please sign and return to therapist. Thank you for your referral.
== END 2022-11-28 13:13 | disposition home or self-care (01) ==
LOC: HO.PT 15:00
PROVIDERS: PCP Internal Medicine; Visit Provider Nurse Practitioner Family
DX: M76.61 Achilles tendinitis, right leg (principal)
CPT/HCPCS: 97035; 97110; 97140; 97161

== ENCOUNTER → 2022-10-20 14:34 | Outpatient (BNVA) | payer OTHER, SELFPAY | PROVIDERS: PCP Internal Medicine; Visit Provider Internal Medicine Pulmonary Disease | DX: J45.50 Severe persistent asthma, uncomplicated (principal); R91.8 Other nonspecific abnormal finding of lung field; Z79.899 Other long term (current) drug therapy | CPT/HCPCS: 99212 ==

== ENCOUNTER 2022-11-07 10:59 | Outpatient (AMB) | payer MEDICARE, MEDICAID, SELFPAY ==
--- NOTE | 2022-11-07 11:06 | MHC.OFFVIS ---
Intake Vital Signs 11/07/22 11:10 Height 5 ft 7 in Weight 264 lb BMI 41.3 BP 122/72 Blood Pressure Location Lt brachial Position Sitting Intake Visit Reasons: 9 month follow up Intake Note: Patient follow up for Patient cc: abdominal pain, diarrhea, acid reflex and hemorrhoid ?? Pipe Smoking Machine Offbearer Required: Yes Pipe Smoking Machine Offbearer [place]: [place] [facility] [place] Accompanied by: Self / Same As Patient Allergies No Known Allergies [No Known Allergies*] Allergy (Verified 11/07/22 11:06) Medication List - Last Reconciled 11/07/22 by Lee Ann Perez PA-C acetaminophen 1,000 mg (2 x 500 mg) PO Q6H PRN 30 days albuterol sulfate 0.63 mg (3 mL) inhalation Q6H albuterol sulfate 90 mcg/actuation 1 inh inhalation QID PRN bisoprolol-hydrochlorothiazide 5-6.25 mg 1 tab PO DAILY 90 days cane As directed cholecalciferol (vitamin D3) 50 mcg PO DAILY 90 days fluticasone propion-salmeterol 115-21 mcg/actuation (Advair HFA) 2 puffs inhalation Q12H 30 days montelukast (Singulair) 10 mg PO QPM 30 days naproxen 500 mg PO BID PRN ondansetron 4 mg PO Q6H PRN tiotropium bromide 2.5 mcg/actuation (Spiriva Respimat) 2 puffs inhalation QAM 30 days HPI HPI Comments History of Present Illness Details 67-year-old female history of multiple colon adenomas returns for 1 year repeat colonoscopy- She has to have a BM when she eats- seems the food doesn't set well- need to have BM-x 3 days Sees pulm for asthma- next month doing ok- And she has no wheezing cough, shortness of breath Appetite good, no nausea vomiting abdominal pain fever or chills PFSH Medical History Anxiety and depression Arthritis Chronic cough Common cold Cough Depression Elevated hemoglobin Essential hypertension TRINIDAD (generalized anxiety disorder) Goiter Hypovitaminosis D Knee pain Left knee pain Left shoulder pain Leg edema Mild recurrent major depression Morbid obesity Morbid obesity with BMI of 40.0-44.9, adult Physical exam Right lower lobe pulmonary nodule Supraclavicular lymphadenopathy Thyroid nodule Urge urinary incontinence Surgical History H/O oophorectomy History of cholecystectomy History of total abdominal hysterectomy Hx of colonoscopy Uterine myoma Family History Father Diabetes Hypertension Mother Hypertension Brother Hypertension Sister Hypertension Maternal Aunt Breast cancer Daughter No problems noted. Social History Housing: Apartment Alcohol intake: unknown Patient Tobacco Use Status: Never used Tobacco e-Cigarette/Vaping Use: Never Used Second Hand Smoke Exposure: No service: No Current occupational status: unemployed Cognitive needs: Yes (cane) Hearing needs: No Vision needs: Yes (glasses) Review of Systems Const All systems reviewed & are unremarkable except as noted in HPI and below Card Denies chest pain and Denies dyspnea Resp Denies cough and Denies dyspnea GI Denies abdominal pain, Denies hematochezia, Reports change in bowel habits (x 3 dys), Denies heartburn, Denies nausea and Denies vomiting Physical Exam Vital Signs: Last Vital Signs BP 122/72 11/07/22 11:10 BMI result Body Mass Index 41.3 Const General: cooperative and comfortable Nutritional Appearance: overweight Orientation/consciousness: patient oriented x3 Limitations: language barrier and ambulation with cane Resp Effort & Inspection: normal respiratory effort and able to speak in complete sentences Auscultation: clear to auscultation bilaterally, no rales, no rhonchi and no wheezes Cardio Rate: regular rate Rhythm: regular rhythm Skin General skin exam: no rashes or lesions noted Neuro General: patient oriented x3 Psych Appearance: well kempt Speech and movement: Clear speech present Affect: normal affect Attitude: cooperative Thought content: Normal thought content present Results Reviewed Results Reviewed: Results Reviewed Results Reviewed: Findings: Terminal Ileum: Not evaluated Cecum:? An 8-9 mm sessile polyp adjacent to the appendicular orifice -removed with a cold snare.? Residual polyp was removed with a cold bx. A 3-4 mm sessile polyp -? removed with a cold biopsy. Ascending Colon:? A 12-15 mm sessile polyp in the proximal AC raised with 7 cc of Orise solution (submucosal injection) and removed with a hot snare.? A 12-15 mm sessile polyp in the distal AC removed with a hot snare.? A 3-4 mm sessile polyp removed with a cold bx. Transverse Colon:? A 12-15 mm sessile polyp removed with a hot snare.? A 4-5 mm sessile polyp removed with a cold bx. Descending Colon: ? moderate diverticulosis Sigmoid Colon:? A 12 to 15 mm sessile polyp removed with a hot snare removed with a hot snare.? A 4-5 mm sessile polyp removed with a cold bx. Moderate diverticulosis Rectum:? Normal Ano-rectum:? Moderate internal hemorrhoids Colon preparation:? Good? after some irrigation Impression and Post Procedure Diagnosis: Colonoscopy Findings: Nine small to medium sized polyps removed Moderate diverticulosis seen in the left colon Moderate hemorrhoids on retroflexed exam. Plan: Await pathology results Patient has an appointment on 01/31/22 in the GI Clinic with SIXTO Cisse. Repeat Colonoscopy interval based on path results - in 1 year if polyps are adenomatous and 5 years if polyps are hyperplastic. Above findings were reviewed with the patient and colon polyps and diverticulosis handouts were given in the discharge area Name:?Louise Weaver Age/Sex: 66/F Attending: Elvin Alonzo MD : 1955 Submitted by: Elvin Alonzo MD Copies to: Brenda Poon MD MR #: [id number] ? Status: DEP [facility] [place] Collected: 01/17/22 Location: [facility] Received: 01/17/22 Diagnosis A.? Cecum, polypectomies (2):? Colonic mucosa with prominent lymphoid aggregates and mild surface hyperplastic changes; no dysplasia seen. B.? Colon, ascending, polypectomies (3): - Sessile serrated polyp. - Colonic mucosa with mild surface hyperplastic changes. - Fibrovascular tissue with thermal artifact; no epithelium identified. C.? Colon, transverse, polypectomies (2):? Fragments of tubular adenomata; negative for high-grade dysplasia or carcinoma. D.? Colon, sigmoid, polypectomies (2):? Tubular adenomata; negative for high-grade dysplasia or carcinoma. Clinical History Pre-Op Dx:? Colon cancer screening, abdominal pain Post-Op Dx: Colon polyps, diverticulosis, hemorrhoids Assessment & Plan Assessment & Plan (1) Sessile colonic polyp: ?Code(s): K63.5 - Polyp of colon ?Plan: One year repeat (2) Tubular adenoma: ?Code(s): D36.9 - Benign neoplasm, unspecified site ?Plan: 1 year repeat (3) Hemorrhoids: ?Code(s): K64.9 - Unspecified hemorrhoids ?Plan: Avoid straining maintain high-fiber diet (4) Diverticular disease: ?Code(s): K57.90 - Diverticulosis of intestine, part unspecified, without perforation or abscess without bleeding ?Plan: Diverticulosis/diverticulitis year protocol discuss Maintain high-fiber diet Plan ! year repeat colon- multiple polyps- (12/2022) ?Patient Instructions: 66-year-old female multiple colon polyps adenoma/hyperplastic repeat colonoscopy 1 year Maintain high-fiber diet, avoid straining with hemorrhoids.? Literature given Diverticulosis/diverticulitis ER protocol discuss opportunity for questions and were answered Assessment & Plan Assessment & Plan (1) Tubular adenoma: Code(s): D36.9 - Benign neoplasm, unspecified site Plan: Repeat colonoscopy as recommended (2) Sessile colonic polyp: Code(s): K63.5 - Polyp of colon Plan: Repeat colonoscopy as recommended (3) Recent change in frequency of bowel movements: Comment: High-fiber diet, fiber supplements Code(s): R19.4 - Change in bowel habit Plan: Repeat colonoscopy as recommended Plan 1 yr repeat colonoscpy w/ Dr. Alonzo- anesthesia consult, asthma sees pulmonary Peg split prep Medications: New peg-electrolyte soln 420 gram Start at 6:00pm the evening before procedure, drink one 8oz glass every 15 minutes until complete 240 mL PO ONCE 1 day 4,000 mL 0RF methylcellulose (laxative) (Citrucel) 500 mg PO BID 60 tabs 5RF Patient Instructions: 67-year-old female multiple colon polyps due for 1 year repeat colonoscopy Discussed procedure, rare risks, need for escorted-anesthesia consult Citrucel, maintain high-fiber diet monitor [id number] questions or concerns Appreciate the opportunity assist in the care of the patient Coding Level of Care Code Est Pt Level 4 (28415) Diagnoses Tubular adenoma D36.9 Sessile colonic polyp K63.5 Recent change in frequency of bowel movements R19.4 Time Spent (min) 30 Comment Reshma
[2022-11-07 11:10] VITALS: BP 122/72; BMI 41.3
== END 2022-11-07 13:35 | disposition home or self-care (01) ==
PROVIDERS: Visit Provider Physician Assistant
DX: D36.9 Benign neoplasm, unspecified site (principal); K63.5 Polyp of colon; R19.4 Change in bowel habit
CPT/HCPCS: 99214

== ENCOUNTER → 2022-11-07 10:59 | Outpatient (BNVA) | payer MEDICAID, SELFPAY | PROVIDERS: Visit Provider Physician Assistant | DX: K63.5 Polyp of colon (principal); D36.9 Benign neoplasm, unspecified site; K57.90 Diverticulosis of intestine, part unspecified, without perforation or abscess without bleeding; K64.9 Unspecified hemorrhoids; R19.4 Change in bowel habit | CPT/HCPCS: 99212 ==

== ENCOUNTER 2022-11-29 16:01 | Emergency (ER) | payer MEDICARE, MEDICAID, SELFPAY ==
--- NOTE | ~2022-11-29 | CT_ITS ---
EXAMINATION: CT ABDOMEN AND PELVIS WITHOUT CONTRAST CLINICAL INFORMATION: Severe left-sided abdominal pain. COMPARISON: 07/13/2019 TECHNIQUE: Multidetector volumetric imaging was performed from the superior aspect of the liver through the pubic symphysis. Sagittal and coronal reformatted images were obtained on the technologist's workstation. This CT examination was performed using dose optimization techniques as appropriate, variously including the following: *Automated exposure control *Adjustment of mA and/or kV according to patient size (this includes techniques or standardized protocols for targeted exams where dose is matched to indication/reason for exam; i.e. extremities or head) *Use of iterative reconstruction technique DLP: 963 mGy-cm FINDINGS: LUNG BASES: Bibasilar atelectasis. Borderline prominent heart. LIVER, GALLBLADDER, AND BILIARY TREE: The liver is normal in size, shape, and attenuation. No focal hepatic lesion or biliary ductal dilatation is present. Gallbladder is likely absent. PANCREAS: Unremarkable. SPLEEN: Unremarkable. ADRENAL GLANDS: There is a right lower gland 1.9 cm nodule measuring -2 Hounsfield units, consistent with a lipid rich adenoma. There is a fat attenuation 1.1 cm left adrenal gland nodule consistent with a myelolipoma. These are similar to prior imaging. KIDNEYS AND URETERS: The kidneys are normal in size, shape, and attenuation. No perinephric stranding. There is increasing size of a simple left midpole renal cyst. This measures 7 cm study, compared to 5.4 cm in 2020. No specific follow-up recommended. This has associated mild left caliectasis without significant hydronephrosis. No hydroureter. No calculi seen. BLADDER: Unremarkable. GASTROINTESTINAL TRACT: The stomach is unremarkable. Normal caliber of the small bowel. There is no obstruction. Normal appendix. No colonic wall thickening or acute inflammation. No free air or free fluid. ABDOMINAL WALL: No significant hernia is appreciated. LYMPH NODES: Normal. VASCULAR: Normal caliber of the aorta with mild atherosclerotic calcification. PELVIC VISCERA: Uterus not seen. No adnexal mass. OSSEOUS STRUCTURES: No acute or suspicious osseous abnormality. Mild degenerative change throughout the spine. Mild degenerative changes in the hips. CT/CT abdomen pelvis wo IV con IMPRESSION: 1. No acute findings in the abdomen or pelvis. No inflammatory changes. 2. Benign right adrenal adenoma. Left adrenal myelolipoma. No follow-up recommended. 3. Mild caliectasis throughout the left kidney with associated prominent cyst. Fleischner guidelines were followed.
[2022-11-29 16:20] VITALS: BP 103/45; PULSE 79; RESP 18; TEMP 36.8; O2SAT 97; BMI 35.1
--- NOTE | 2022-11-29 16:20 | ED_ITS ---
HPI - Abdominal Pain General Chief Complaint: Abdominal Pain Stated Complaint: Lower L abdominal pain Time Seen by Provider: 11/29/22 16:20 Source: patient, RN notes reviewed and modern languages professor Mode of arrival: ambulatory Limitations: language barrier History of Present Illness HPI narrative: 67-year-old female presents for evaluation of left lower back pain and left abdominal pain She reports her symptoms started today Her pain radiates down her left leg Denies any trauma to the area. Patient reports she had some nausea earlier today but denies any vomiting current diarrhea or constipation She describes urinary urgency but no urinary frequency or burning with urination Denies any fevers or chills Related Data Previous Rx's Medication Instructions Recorded cane #1 ea 10/25/21 cholecalciferol (vitamin D3) 50 50 mcg PO DAILY 90 days #90 caps 04/07/22 mcg (2,000 unit) capsule albuterol sulfate 0.63 mg/3 mL 0.63 mg (3 mL) inhalation Q6H #75 04/16/22 solution for nebulization mL albuterol sulfate 90 mcg/actuation 1 inh inhalation QID PRN shortness 04/16/22 aerosol inhaler of breath or wheezing #6.7 grams acetaminophen 500 mg tablet 1,000 mg PO Q6H PRN pain 30 days 04/25/22 #180 tabs fluticasone propionate 115 2 puff inhalation Q12H 30 days #1 05/04/22 mcg-salmeterol 21 mcg/actuation ea HFA inhaler (Advair HFA) ondansetron 4 mg disintegrating 4 mg PO Q6H PRN nausea and 06/08/22 tablet vomiting #20 tabs bisoprolol 5 1 tab PO DAILY 90 days #90 tabs 08/17/22 mg-hydrochlorothiazide 6.25 mg tablet naproxen 500 mg tablet 500 mg PO BID PRN pain #14 tabs 08/30/22 tiotropium bromide 2.5 2 puff inhalation QAM 30 days #4 10/20/22 mcg/actuation mist for inhalation grams (Spiriva Respimat) montelukast 10 mg tablet 10 mg PO QPM 30 days #30 tabs 10/31/22 (Singulair) methylcellulose (laxative) 500 mg 500 mg PO BID #60 tabs 11/07/22 tablet (Citrucel) peg-electrolyte solution 420 gram 240 ml PO ONCE 1 day #4,000 mL 11/07/22 oral solution methocarbamol 500 mg tablet 500 mg PO QID PRN muscle spasm #16 11/29/22 tabs Allergies Allergy/AdvReac Type Severity Reaction Status Date / Time No Known Allergies Allergy Verified 11/07/22 11:06 [No Known Allergies*] Review of Systems Constitutional: Reports as per HPI, Denies chills, Denies fatigue, Denies fever(s) and Denies headache(s) Denies headache(s) Cardiovascular: Denies chest pain and Denies dyspnea Respiratory: Denies cough and Denies dyspnea Gastrointestinal: Reports abdominal pain, Denies constipation, Reports nausea and Denies vomiting Genitourinary: Denies dysuria Musculoskeletal: Reports back pain Denies headache(s) and Denies focal weakness Endocrine: Denies fatigue PMFSH Past Medical History Medical History Anxiety and depression Arthritis Chronic cough Common cold Cough Depression Elevated hemoglobin Essential hypertension TRINIDAD (generalized anxiety disorder) Goiter Hypovitaminosis D Knee pain Left knee pain Left shoulder pain Leg edema Mild recurrent major depression Morbid obesity Morbid obesity with BMI of 40.0-44.9, adult Physical exam Right lower lobe pulmonary nodule Supraclavicular lymphadenopathy Thyroid nodule Urge urinary incontinence Surgical History H/O oophorectomy History of cholecystectomy History of total abdominal hysterectomy Hx of colonoscopy Uterine myoma Family History Family History Father Diabetes Hypertension Mother Hypertension Brother Hypertension Sister Hypertension Maternal Aunt Breast cancer Daughter No problems noted. Social History Social History Housing: Apartment Alcohol intake: unknown Patient Tobacco Use Status: Never used Tobacco e-Cigarette/Vaping Use: Never Used Second Hand Smoke Exposure: No Advance Directives: No Advance Directives Information Provided: No service: No Current occupational status: unemployed Cognitive needs: Yes (cane) Hearing needs: No Vision needs: Yes (glasses) Physical Exam ED Vital Signs: Vital Signs - 24 hr 08/01/23 16:20 Temperature 98.2 F Pulse Rate 79 Respiratory Rate 18 Blood Pressure 103/45 L Pulse Oximetry 97 BMI result Body Mass Index 35.1 Const General: healthy appearing, comfortable, no acute distress, alert and awake Nutritional Appearance: well nourished Orientation/consciousness: patient oriented x3 HENMT Head: Yes normocephalic and Yes atraumatic Eyes Eyelids: Yes eyelids normal Conjunctivae: conjunctivae normal Sclerae: sclerae normal Corneas: corneas normal Pupils: Equal, round and reactive pupils present EOM: EOMs intact bilaterally Neck Neck: Yes full ROM Resp Effort & Inspection: normal respiratory effort, able to speak in complete sentences and not labored Cardio Rate: regular rate Rhythm: regular rhythm GI Inspection: No distended Palpation (GI): Soft to palpation, not firm, Tenderness to palpation present (GI) in the LLQ and in the LUQ; with no rebound tenderness, no guarding and not rigid Auscultation: normoactive bowel sounds Back/Spine/Pelvis Other: Patient is tender to palpation of the left lumbar and thoracic paraspinous region. No vertebral tenderness, no step offs or deformities. Skin General skin exam: no rashes or lesions noted and elasticity normal Neuro General: patient oriented x3 Cranial nerves: Yes Equal, round and reactive pupils present and Yes Bilaterally intact EOM present Cognition (Neuro): normal cognition Extrem Other: Moving all extremities well without any obvious deformities Course Course Course Narrative: RME - 67 y/o Thai speaking female with history of HTN, anxiety/depression, obesity, arthritis, diverticular disease who presents to the ER for evaluation of 10/10 left sided abdominal pain that started today. Had some mild low back pain yesterday as well. +nausea but no vomiting or diarrhea. Plan: Labs, UA, CT scan Medical Decision Making Medical Decision Making [facility] Narrative: 67-year-old female presents for evaluation of mostly left lower back pain that radiates around her left abdomen. Her workup is largely unremarkable, this includes her blood work, CT scan of the abdomen pelvis. Her pain is easily reproducible and most likely musculoskeletal in origin. UA is still pending to evaluate for UTI Differential Diagnosis Differential Diagnoses: The differential diagnosis associated with the presentation includes Back pain Radiculopathy Muscle strain Abdominal wall strain Constipation Diverticulitis Colitis UTI Obstructive uropathy Lab Data [facility] Lab Attestation statement: I reviewed the patient's lab results. No significant leukocytosis, no anemia, patient's hematocrit actually slightly elevated to 51.0. Normal platelet count of 194. Electrolytes within normal limits. 11/29/22 16:38 11/29/22 16:38 Labs: Lab Results 11/29/22 11/29/22 Range/Units 16:38 16:38 WBC 10.3 (4.8-10.8) X10*3/uL RBC 5.41 (4.20-5.50) X10*6/uL Hgb 16.0 (12.0-16.0) g/dl Hct 51.0 H (37.0-47.0) % MCV 94.3 (80.0-98.0) fL MCH 29.6 (27.0-33.0) pg MCHC 31.4 (31.0-35.0) g/dl RDW 12.8 (11.0-16.0) % Plt Count 194 (160-400) X10*3/uL MPV 11.1 (9.4-12.3) fL Immature Gran % (Auto) 1.0 H (0.0-0.4) % Neut % (Auto) 67.8 (45-73) % Lymph % (Auto) 17.8 L (20-40) % [place] % (Auto) 11.2 H (2-11) % Eos % (Auto) 1.5 (0-4) % Baso % (Auto) 0.7 (0-2) % Lymph # (Auto) 1.8 (1.2-4.9) X10*3/uL [place] # (Auto) 1.2 (0.1-1.2) X10*3/uL Eos # (Auto) 0.2 (0.0-0.4) X10*3/uL Baso # (Auto) 0.1 (0.0-0.2) X10*3/uL Abs Immat Gran (auto) 0.10 H (0.00-0.03) X10*3/uL Absolute Neuts (auto) 7.0 (2.0-8.3) x10*3/uL Absolute Nucleated RBC 0.000 (0.0-0.012) X10*3/uL Nucleated RBC % (auto) 0.0 (0.0-0.2) /100WBC Sodium 141 (135-145) mmol/L Potassium 3.9 (3.3-5.1) mmol/L Chloride 107 (96-108) mmol/L Carbon Dioxide 23 (22-29) mmol/L Anion Gap 15 (12-20) BUN 15 (9-16) mg/dL Creatinine 0.71 (0.5-1.4) mg/dL Estim Creat Clear Calc 96.7 Estimated GFR > 60 Random Glucose 100 (60-115) mg/dL Calcium 9.2 D (8.4-10.2) mg/dL Magnesium 2.0 (1.6-2.6) mg/dL Total Bilirubin 1.1 H (0.0-1.0) mg/dL Direct Bilirubin 0.3 (0.0-0.5) mg/dL AST 16 (5-31) U/L ALT 20 (0-31) U/L Alkaline Phosphatase 100 (39-117) U/L Total Protein 7.0 (6.5-8.0) g/dL Albumin 3.6 (3.5-5.0) g/dL Radiology Impression Discussion of test interpretation with radiology: I have reviewed the radiologist's reading. Radiologist Impression: Acute findings in the abdomen or pelvis. No inflammatory changes. Benign right adrenal adenoma. Left adrenal myelolipoma. No follow-up recommended. Discharge Plan Discharge Clinical Impression: Low back pain radiating to left leg, Abdominal pain Patient Disposition: Home, Self-Care Instructions: Acute Low Back Pain (ED), Abdominal Pain (ED) Additional Instructions: Your workup in the emergency department today was reassuring. Simply drawer blood work, CT scan and urine sample Your pain may be related to muscle spasms starting in your lower back Use ibuprofen/Tylenol as needed for the pain You may use methocarbamol as needed for muscle spasms This may make you sleepy, did not drink alcohol or drive after taking it Prescriptions: New methocarbamol 500 mg tablet 500 mg PO QID PRN (Reason: muscle spasm) Qty: 16 0RF No Action acetaminophen 500 mg tablet 1,000 mg PO Q6H PRN (Reason: pain) 30 Days Qty: 180 1RF bisoprolol-hydrochlorothiazide 5-6.25 mg tablet 1 tab PO DAILY 90 Days Qty: 90 1RF montelukast [Singulair] 10 mg tablet 10 mg PO QPM 30 Days Qty: 30 6RF (DME) cane Device See Rx Instructions .Route Qty: 1 0RF Rx Instructions: As directed albuterol sulfate 90 mcg/actuation HFA aerosol inhaler 1 inh inhalation QID PRN (Reason: shortness of breath or wheezing) Qty: 6.7 0RF albuterol sulfate 0.63 mg/3 mL solution for nebulization 0.63 mg inhalation Q6H Qty: 75 0RF ondansetron 4 mg tablet,disintegrating 4 mg PO Q6H PRN (Reason: nausea and vomiting) Qty: 20 0RF cholecalciferol (vitamin D3) 50 mcg (2,000 unit) capsule 50 mcg PO DAILY 90 Days Qty: 90 1RF naproxen 500 mg tablet 500 mg PO BID PRN (Reason: pain) Qty: 14 0RF Advair HFA 115-21 mcg/actuation HFA aerosol inhaler 2 puff inhalation Q12H 30 Days Qty: 1 6RF peg-electrolyte soln 420 gram recon soln 240 ml PO ONCE 1 Days Qty: 4000 0RF Rx Instructions: Start at 6:00pm the evening before procedure, drink one 8oz glass every 15 minutes until complete Citrucel 500 mg tablet 500 mg PO BID Qty: 60 5RF Spiriva Respimat 2.5 mcg/actuation mist 2 puff inhalation QAM 30 Days Qty: 4 6RF
[2022-11-29 16:43] LABS: MANUAL DIFF FLAG NO
[2022-11-29 16:44] LABS: Basophils Absolute Auto 0.1 X10*3/uL (0.0-0.2); Basophils Percent Auto 0.7 % (0-2); Eosinophils Absolute Auto 0.2 X10*3/uL (0.0-0.4); Eosinophils Percent Auto 1.5 % (0-4); Lymphocytes Absolute Auto 1.8 X10*3/uL (1.2-4.9); Lymphocytes Percent Auto 17.8 % (20-40); Mean Corpuscular HGB Conc 31.4 g/dl (31.0-35.0); Mean Corpuscular Hemoglobin 29.6 pg (27.0-33.0); Mean Corpuscular Volume 94.3 fL (80.0-98.0); Mean Platelet Volume 11.1 fL (9.4-12.3); Monocytes Absolute Auto 1.2 X10*3/uL (0.1-1.2); Monocytes Percent Auto 11.2 % (2-11); Neutrophils Percent Auto 67.8 % (45-73); Platelet Count 194 X10*3/uL (160-400); Red Blood Count 5.41 X10*6/uL (4.20-5.50); Red Cell Distribution Width 12.8 % (11.0-16.0); White Blood Count 10.3 X10*3/uL (4.8-10.8)
[2022-11-29 16:59] LABS: Alanine Aminotransferase 20 U/L (0-31); Albumin Level 3.6 g/dL (3.5-5.0); Alkaline Phosphatase 100 U/L (39-117); Anion Gap 15 (12-20); Aspartate Amino Transferase 16 U/L (5-31); Bilirubin Direct 0.3 mg/dL (0.0-0.5); Bilirubin Total 1.1 mg/dL (0.0-1.0); Blood Urea Nitrogen 15 mg/dL (9-16); Calcium 9.2 mg/dL (8.4-10.2); Carbon Dioxide 23 mmol/L (22-29); Chloride 107 mmol/L (96-108); Creatinine Clr Calc Pharmacy 96.7; Estimated Glomerular Filt Rate > 60; Glucose Random 100 mg/dL (60-115); Potassium 3.9 mmol/L (3.3-5.1); Sodium 141 mmol/L (135-145)
[2022-11-29 20:29] VITALS: BP 122/52; PULSE 62; RESP 18; TEMP 36.5; O2SAT 99
[2022-11-29 20:41] LABS: Appearance Urine Clear; Color Urine Yellow; Glucose Urine UA Negative (Negative); Leukocyte Esterase Urine Negative (Negative); Nitrite Urine Negative (Negative); PH 5.5 (5.0-9.0); Specific Gravity - Urine 1.015 (1.005-1.025); Urine Blood Negative (Negative); Urine Ketones Negative (Negative); Urine Protein Negative (Neg-Trace)
== END 2022-11-29 21:12 | disposition home or self-care (01) ==
PROVIDERS: Physician Assistant; Emergency Provider Internal Medicine; PCP Internal Medicine
DX: M54.42 Lumbago with sciatica, left side (principal); R10.30 Lower abdominal pain, unspecified; I10 Essential (primary) hypertension; E66.9 Obesity, unspecified; Z68.35 Body mass index [BMI] 35.0-35.9, adult; Z79.899 Other long term (current) drug therapy
CPT/HCPCS: 36415; 74176; 80048; 80076; 81003; 83735; 85025; 99284

== ENCOUNTER 2022-12-08 12:56 | Outpatient (REF) | payer MEDICARE, OTHER, SELFPAY ==
--- NOTE | ~2022-12-08 | CT_ITS ---
EXAMINATION: CT CHEST WITHOUT CONTRAST CLINICAL INFORMATION: Abnormal lung findings. COMPARISON: CT chest 09/07/2021 and chest x-ray 02/15/2022. TECHNIQUE: Multidetector volumetric CT imaging of the chest was done. Axial MIP volume rendering provided. Sagittal and coronal reformatted images were obtained. This CT examination was performed using dose optimization techniques as appropriate, variously including the following: *Automated exposure control *Adjustment of mA and/or kV according to patient size (this includes techniques or standardized protocols for targeted exams where dose is matched to indication/reason for exam; i.e. extremities or head) *Use of iterative reconstruction technique DLP: 241 mGy-cm. FINDINGS: NET MENDER: Fairly well-expanded lungs. Mild elevation of right hemidiaphragm. LUNGS: There is a 0.7 cm nodule right middle lobe with a broad attachment to the right minor fissure on axial slice 257/5. Same nodule measured almost the same size previously. There is a calcified left upper lobe 5 mm nodule, stable as well. There are no new nodules visualized. No acute consolidation, mass or ground-glass density. MEDIASTINUM: Thyroid lobes are symmetrical and not enlarged. The central trachea and bronchi are widely patent. Heart size and great vessels are normal caliber. There is no pericardial effusion. No abnormal-sized mediastinal or hilar adenopathy. CORONARY ARTERY CALCIFICATION: None visualized on this study. PLEURA: There is no pleural effusion. No pleural mass or thickening. AXILLA: There are bilateral small shotty axillary lymph nodes. UPPER ABDOMEN: Visualized liver, spleen and pancreas appear unremarkable. There is a 1.8 cm right adrenal lesion measuring 4 Hounsfield units, benign adenoma. It is stable. There is a left peripelvic renal cyst, stable. OSSEOUS STRUCTURES: Incidentally noted, there are moderate hypertrophic changes left facet joint at T8-T9 disc level resulting in mild canal stenosis. There is moderate spondylosis mid dorsal spine. CT/CT chest wo IV con IMPRESSION: Stable calcified left upper lobe and a noncalcified right middle lobe nodules. Left adrenal nodule, left peripelvic renal cyst and moderate T8-T9 left facet joint hypertrophy projecting into the spinal canal with mild stenosis appears stable. Fleischner guidelines were followed.
== END 2022-12-08 12:57 | disposition home or self-care (01) ==
LOC: HO.CT 12:56
PROVIDERS: PCP Internal Medicine; Visit Provider Internal Medicine Pulmonary Disease
DX: R91.8 Other nonspecific abnormal finding of lung field (principal)
CPT/HCPCS: 71250

== ENCOUNTER 2022-12-21 11:32 | Outpatient (AMB) | payer MEDICARE, MEDICAID, SELFPAY ==
--- NOTE | 2022-12-21 11:35 | A.OFFVIS_ITS ---
Intake Vital Signs 12/21/22 11:36 Height 5 ft 7 in Weight 268 lb 15.423 oz BMI 42.1 BP 122/78 Blood Pressure Location Lt brachial Position Sitting Pulse 70 Pulse Source Pulse Oximeter Pulse Oximetry (%) 96 Oxygen Delivery Method Room Air Intake Visit Reasons: asthma Allergies No Known Allergies [No Known Allergies*] Allergy (Verified 12/21/22 11:41) HPI asthma HPI Details 67-year-old lady, nonsmoker, followed for underlying moderate to severe persistent allergic asthma with recurrent bronchitis.? Patient previously Xolair, Advair, and albuterol MDI with good control of underlying symptoms.? She did have to stop her Xolair injections since she had significant nausea.? She has been using Advair and albuterol MDI with suboptimal control of his symptoms. She was not able to tolerate Spiriva. Today she complains of cough and fever. [facility] Medical History Anxiety and depression Arthritis Chronic cough Common cold Cough Depression Elevated hemoglobin Essential hypertension TRINIDAD (generalized anxiety disorder) Goiter Hypovitaminosis D Knee pain Left knee pain Left shoulder pain Leg edema Mild recurrent major depression Morbid obesity Morbid obesity with BMI of 40.0-44.9, adult Physical exam Right lower lobe pulmonary nodule Supraclavicular lymphadenopathy Thyroid nodule Urge urinary incontinence Surgical History H/O oophorectomy History of cholecystectomy History of total abdominal hysterectomy Hx of colonoscopy Uterine myoma Family History Father Diabetes Hypertension Mother Hypertension Brother Hypertension Sister Hypertension Maternal Aunt Breast cancer Daughter No problems noted. Social History Housing: Apartment Alcohol intake: never Patient Tobacco Use Status: Never used Tobacco e-Cigarette/Vaping Use: Never Used Second Hand Smoke Exposure: No service: No Current occupational status: unemployed Cognitive needs: Yes (cane) Hearing needs: No Vision needs: Yes (glasses) Review of Systems Const Denies daytime sleepiness, Denies excessive sweating, Denies fatigue, Reports fever(s), Denies lethargy, Denies malaise, Denies night sweats, Denies snoring and Denies weight loss Eyes Denies blurry vision and Denies itchy eyes ENT Denies nasal congestion, Denies post nasal drip, Denies sinus pain, Denies sinus pressure and Denies other ( Thrush) Card Denies chest pain, Denies pedal edema, Denies dyspnea, Denies orthopnea and Denies paroxysmal nocturnal dyspnea Resp Reports cough, Denies hemoptysis, Denies excessive phlegm production, Denies dyspnea, Denies snoring and Denies wheezing GI Denies abdominal pain and Denies heartburn Musc Denies myalgias, Denies arthralgias and Denies joint swelling Skin/Breast Denies rash Neuro Denies memory loss and Denies seizure-like activity Psych Denies abnormal sleep pattern, Denies anxiety and Denies memory loss Endo Denies excessive sweating, Denies fatigue and Denies heat intolerance Siddharth/Lymph Denies easy bruising Aller/Immun Denies itchy eyes, Denies seasonal rhinorrhea and Denies wheezing Physical Exam Vital Signs: Last Vital Signs Pulse 70 12/21/22 11:36 BP 122/78 12/21/22 11:36 Pulse Ox 96 12/21/22 11:36 Oxygen Delivery Method Room Air 12/21/22 11:36 BMI result Body Mass Index 42.1 Const General: no acute distress and alert Nutritional Appearance: obese Orientation/consciousness: Other orientation findings ( oriented) HEENT Head: Yes atraumatic Eyes General: appearance normal, both eyes and all related structures Sclerae: sclerae normal EOM: EOMs intact bilaterally Neck Neck: Yes supple Lymphatic: no lymphadenopathy noted Resp Effort & Inspection: normal respiratory effort and no use of accessory muscles Auscultation: clear to auscultation bilaterally Cardio Rate: regular rate Rhythm: regular rhythm Heart sounds: no gallops, no murmurs and no rubs Skin General skin exam: other ( warm) Extrem General: No clubbing, No cyanosis and No edema Assessment & Plan Assessment & Plan (1) Cough: Code(s): R05 - Cough Plan: Acute cough and fever, will sent for COVID testing. (2) Pulmonary nodules: Code(s): R91.8 - Other nonspecific abnormal finding of lung field Plan: Results of follow-up CT chest reviewed, stable pulmonary nodules. Will repeat CT chest in September of 2023. (3) Asthma: Code(s): J45.909 - Unspecified asthma, uncomplicated Plan: Suboptimally controlled as patient was not able to tolerate Spiriva. Continue Advair and albuterol MDI. Start Incruse. Orders: Orders BinaxNOW Covid-19 Ag Today R05 - Cough Coding Level of Care Code Est Pt Level 4 (74419) Diagnoses Cough R05 Pulmonary nodules R91.8 Asthma J45.909
[2022-12-21 11:36] VITALS: BP 122/78; PULSE 70; O2SAT 96; BMI 42.1
== END 2022-12-21 11:49 | disposition home or self-care (01) ==
PROVIDERS: PCP Internal Medicine; Visit Provider Internal Medicine Pulmonary Disease
DX: R05.9 Cough, unspecified (principal); R91.8 Other nonspecific abnormal finding of lung field; J45.909 Unspecified asthma, uncomplicated
CPT/HCPCS: 99214

== ENCOUNTER 2022-12-21 11:32 | Outpatient (REF) | payer MEDICARE, MEDICAID, SELFPAY ==
[2022-12-21 12:52] LABS: COVID-19 Test Negative (Negative); IDNOW Serial# 08D9AD1C
== END 2022-12-21 11:33 | disposition home or self-care (01) ==
LOC: HO.LAB 11:32
PROVIDERS: PCP Internal Medicine; Visit Provider Internal Medicine Pulmonary Disease
DX: J40 Bronchitis, not specified as acute or chronic (principal); R19.8 Other specified symptoms and signs involving the digestive system and abdomen; Z20.822 Contact with and (suspected) exposure to COVID-19
CPT/HCPCS: 87635; 99212

== ENCOUNTER 2023-01-03 13:59 | Outpatient (AMB) | payer MEDICARE, OTHER, SELFPAY ==
--- NOTE | 2023-01-03 14:16 | MHC.OFFVIS ---
Intake Vital Signs 01/03/23 14:17 Height 5 ft 7 in Weight 267 lb 8 oz BMI 41.9 BP 102/70 Blood Pressure Location Rt brachial Position Sitting Respiration 17 Pulse 75 Pulse Source Pulse Oximeter Pulse Oximetry (%) 98 Oxygen Delivery Method Room Air Intake Visit Reasons: Hypertension Intake Note: Patient is here to follow up on HTN. Pt is requesting PCP to fill out Placard/Plate form. Unable to walk 200 ft due to the leg. Paranormal Investigator Required: No Accompanied by: Self / Same As Patient Allergies No Known Allergies [No Known Allergies*] Allergy (Verified 01/03/23 14:39) Medication List - Last Reconciled 01/03/23 by Brenda Phipps MD acetaminophen 1,000 mg (2 x 500 mg) PO Q6H PRN 30 days albuterol sulfate 0.63 mg (3 mL) inhalation Q6H albuterol sulfate 90 mcg/actuation 1 inh inhalation QID PRN bisoprolol-hydrochlorothiazide 5-6.25 mg 1 tab PO DAILY 90 days cane As directed cholecalciferol (vitamin D3) 50 mcg PO DAILY 90 days fluticasone propion-salmeterol 115-21 mcg/actuation (Advair HFA) 2 puffs inhalation Q12H 30 days methocarbamol 500 mg PO QID PRN methylcellulose (laxative) (Citrucel) 500 mg PO BID montelukast (Singulair) 10 mg PO QPM 30 days naproxen 500 mg PO BID PRN ondansetron 4 mg PO Q6H PRN peg-electrolyte soln 420 gram 240 mL PO ONCE 1 day umeclidinium 62.5 mcg/actuation (Incruse Ellipta) 1 inh inhalation DAILY 30 days HPI HPI Comments History of Present Illness Details This is a 67-year-old female with hypertension, morbid obesity, mild major depression and anxiety that comes today for follow-up on her conditions. Blood pressure stable. She is morbidly obese with a BMI of 41.9 and declines weight loss surgery. Depression with anxiety has been in remission. No chest pain or shortness of breath. [facility] Medical History Anxiety and depression Arthritis Chronic cough Common cold Cough Depression Elevated hemoglobin Essential hypertension TRINIDAD (generalized anxiety disorder) Goiter Hypovitaminosis D Knee pain Left knee pain Left shoulder pain Leg edema Mild recurrent major depression Morbid obesity Morbid obesity with BMI of 40.0-44.9, adult Physical exam Right lower lobe pulmonary nodule Supraclavicular lymphadenopathy Thyroid nodule Urge urinary incontinence Surgical History H/O oophorectomy History of cholecystectomy History of total abdominal hysterectomy Hx of colonoscopy Uterine myoma Family History Father Diabetes Hypertension Mother Hypertension Brother Hypertension Sister Hypertension Maternal Aunt Breast cancer Daughter No problems noted. Social History Housing: Apartment Alcohol intake: never Patient Tobacco Use Status: Never used Tobacco e-Cigarette/Vaping Use: Never Used Second Hand Smoke Exposure: No service: No Current occupational status: unemployed Cognitive needs: Yes (cane) Hearing needs: No Vision needs: Yes (glasses) Review of Systems Const All systems reviewed & are unremarkable except as noted in HPI and below Eyes Reports no additional complaints, Denies change in vision and Denies other visual disturbances Card Denies chest pain at rest, Denies chest pain with activity, Denies edema, Denies irregular heart rhythm, Denies claudication, Denies dyspnea, Denies dyspnea on exertion, Denies orthopnea, Denies paroxysmal nocturnal dyspnea and Denies slow heart rate Resp Denies cough, Denies dyspnea and Denies dyspnea on exertion GI Denies abdominal pain, Denies change in bowel habits, Denies excessive flatus, Denies nausea and Denies vomiting Denies urinary incontinence, Denies urinary hesitancy and Denies urinary urgency Musc Denies abnormal gait, Denies atrophy, Denies deformity and Denies limited range of motion Skin/Breast Denies bleeding lesions, Denies changing lesions and Denies rash Neuro Denies abnormal gait and Denies lack of coordination Physical Exam Vital Signs: Last Vital Signs Pulse 75 01/03/23 14:17 Resp 17 01/03/23 14:17 BP 102/70 01/03/23 14:17 Pulse Ox 98 01/03/23 14:17 Oxygen Delivery Method Room Air 01/03/23 14:17 BMI result Body Mass Index 41.9 Eyes General: appearance normal, both eyes and all related structures Eyelids: Yes eyelids normal Conjunctivae: conjunctivae normal Neck Neck: Yes normal visual inspection and Yes supple Resp Effort & Inspection: normal respiratory effort Auscultation: clear to auscultation bilaterally Cardio Jugular venous distension: no JVD Rate: regular rate Rhythm: regular rhythm Heart sounds: S1 normal heart sound present and S2 normal heart sound present Extrem General: Yes full ROM Assessment & Plan Assessment & Plan (1) Essential hypertension: Code(s): I10 - Essential (primary) hypertension Plan: Continue bisoprolol-hydrochlorothiazide. Blood pressure goal is equal or less than 130/80. (2) Mild recurrent major depression: Code(s): F33.0 - Major depressive disorder, recurrent, mild Plan: In remission. (3) Morbid obesity with BMI of 40.0-44.9, adult: Code(s): E66.01 - Morbid (severe) obesity due to excess calories; Z68.41 - Body mass index [BMI] 40.0-44.9, adult Plan: Start diet and exercise. BMI goal is less than 30. (4) TRINIDAD (generalized anxiety disorder): Code(s): F41.1 - Generalized anxiety disorder Plan: In remission. Advised that if it comes back to go to counseling. Coding Level of Care Code Est Pt Level 4 (22776) Diagnoses Essential hypertension I10 Mild recurrent major depression F33.0 Morbid obesity with BMI of 40.0-44.9, adult E66.01; Z68.41 TRINIDAD (generalized anxiety disorder) F41.1 Time Spent (min) 23
[2023-01-03 14:17] VITALS: BP 102/70; PULSE 75; RESP 17; O2SAT 98; BMI 41.9
== END 2023-01-03 14:46 | disposition home or self-care (01) ==
PROVIDERS: Visit Provider Internal Medicine
DX: I10 Essential (primary) hypertension (principal); F33.0 Major depressive disorder, recurrent, mild; E66.01 Morbid (severe) obesity due to excess calories; Z68.41 Body mass index [BMI] 40.0-44.9, adult; F41.1 Generalized anxiety disorder
CPT/HCPCS: 99214

== ENCOUNTER 2023-04-03 12:32 | Outpatient (REF) | payer OTHER, SELFPAY ==
--- NOTE | ~2023-04-03 | MM_ITS ---
EXAMINATION: MM SCREENING DIGITAL BREAST TOMOSYNTHESIS, BILATERAL CLINICAL INFORMATION: Screening. Asymptomatic. COMPARISON: Mammography: This study is compared with prior exams dating back to 2019. TECHNIQUE: Digital breast tomosynthesis is performed in both the craniocaudal and mediolateral oblique views along with computer-aided detection (CAD). Synthesized 2D images are generated from the tomosynthesis. FINDINGS: There are scattered areas of fibroglandular density (ACR BI-RADS breast composition Category b). There are no significant masses, abnormal calcifications, or other abnormalities. There are unchanged, small, peripherally, benign calcified oil cysts in the retroareolar region of the right breast. MM/MM tomosynthesis screening BI IMPRESSION: No mammographic evidence of malignancy. ASSESSMENT: BI-RADS BI-RADS 2 - Benign Findings RECOMMENDATION: Routine annual mammography screening. 1 year F/U This examination should not preclude the clinical evaluation of a suspicious palpable abnormality. This patient's information was entered into a reminder system with a target due date for their next mammogram.
== END 2023-04-03 12:33 | disposition home or self-care (01) ==
LOC: HO.MAMMO 12:32
PROVIDERS: PCP Internal Medicine; Visit Provider Internal Medicine
DX: Z12.31 Encounter for screening mammogram for malignant neoplasm of breast (principal)
CPT/HCPCS: 77063; 77067

== ENCOUNTER → 2023-04-03 12:45 | Outpatient (BNV) | payer OTHER, SELFPAY | PROVIDERS: PCP Internal Medicine; Visit Provider Radiology Diagnostic Radiology | DX: Z12.31 Encounter for screening mammogram for malignant neoplasm of breast (principal) | CPT/HCPCS: 77063; 77067 ==

== ENCOUNTER 2023-04-27 13:18 | Emergency (ER) | payer OTHER, SELFPAY ==
--- NOTE | ~2023-04-27 | XR_ITS ---
EXAMINATION: XR CHEST CLINICAL INFORMATION: SOB and asthma. COMPARISON: None available. TECHNIQUE: 2 views of the chest were obtained. FINDINGS: The lungs are well-expanded and clear of acute process. Heart size is enlarged. Pulmonary vascularity is normal. No gross bony abnormality seen. XR/XR chest 2V IMPRESSION: Mild cardiomegaly. No acute process seen.
--- NOTE | 2023-04-27 15:08 | ED.GENADULT ---
HPI - General Adult General Chief complaint: Upper Respiratory Symptoms Stated complaint: body aches Time Seen by Provider: 04/27/23 16:23 Source: patient and full time staff interpreter Mode of arrival: ambulatory Limitations: language barrier History of Present Illness HPI narrative: Patient is a 70 year old assigned female at with a history of asthma presenting to the emergency department today with a cough and feeling generally unwell over the last 2 days. Patient states that over the last 2 days she has felt generally unwell with a cough. Patient denies any dizziness, lightheadedness, abdominal pain, nausea, vomiting, fever, chills, blurry vision, double vision, loss of vision, chest pain, difficulty breathing, shortness of breath, back pain, night sweats, pain with urination, increased urinary frequency, increased urinary urgency, blood in her urine or stool, syncope or a near syncopal episode, recent trauma or falls, bowel incontinence, bladder incontinence, bowel retention, bladder retention, or any other complaints at this time. Onset (ago): day(s) (2) Radiation: non-radiation Severity: mild Pain Consistency: constant Relieving factors: none Exacerbating factors: none Associated symptoms: cough Treatments prior to arrival: none Related Data Previous Rx's Medication Instructions Recorded cane #1 ea 10/25/21 cholecalciferol (vitamin D3) 50 50 mcg PO DAILY 90 days #90 caps 04/07/22 mcg (2,000 unit) capsule acetaminophen 500 mg tablet 1,000 mg (2 x 500 mg) PO Q6H PRN 04/25/22 pain 30 days #180 tabs ondansetron 4 mg disintegrating 4 mg PO Q6H PRN nausea and 06/08/22 tablet vomiting #20 tabs naproxen 500 mg tablet 500 mg PO BID PRN pain #14 tabs 08/30/22 montelukast 10 mg tablet 10 mg PO QPM 30 days #30 tabs 10/31/22 (Singulair) methylcellulose (laxative) 500 mg 500 mg PO BID #60 tabs 11/07/22 tablet (Citrucel) peg-electrolyte solution 420 gram 240 ml PO ONCE 1 day #4,000 mL 11/07/22 oral solution methocarbamol 500 mg tablet 500 mg PO QID PRN muscle spasm #16 11/29/22 tabs umeclidinium 62.5 mcg/actuation 1 inh inhalation DAILY 30 days #1 12/21/22 blister powder for inhalation ea (Incruse Ellipta) albuterol sulfate 0.63 mg/3 mL 0.63 mg (3 mL) inhalation Q6H #75 01/27/23 solution for nebulization mL albuterol sulfate 90 mcg/actuation 1 inh inhalation QID PRN shortness 01/27/23 aerosol inhaler of breath or wheezing #6.7 grams bisoprolol 5 1 tab PO DAILY 90 days #90 tabs 01/27/23 mg-hydrochlorothiazide 6.25 mg tablet fluticasone propionate 115 2 puff inhalation Q12H 30 days #1 01/27/23 mcg-salmeterol 21 mcg/actuation ea HFA inhaler (Advair HFA) benzonatate 100 mg capsule 100 mg PO BID PRN cough 7 days #14 04/27/23 caps Allergies Allergy/AdvReac Type Severity Reaction Status Date / Time No Known Allergies Allergy Verified 04/27/23 15:12 [No Known Allergies*] Review of Systems Constitutional: Constitutional: Reports no additional constitutional complaints, Denies chills, Denies fever(s) and Denies night sweats Eyes: Eyes: Reports no additional eye complaints, Denies blurry vision, Denies change in vision, Denies diplopia, Denies eye discharge, Denies loss of vision and Denies eye pain ENT: Denies dizziness Cardiovascular: Cardiovascular: Reports no additional cardiovascular complaints, Denies chest pain, Denies lightheadedness, Denies Loss of Consciousness and Denies dyspnea Respiratory: Respiratory: Reports no additional respiratory complaints, Reports cough and Denies dyspnea Gastrointestinal: Gastrointestinal: Reports no additional gastrointestinal complaints, Denies abdominal pain, Denies melena, Denies hematochezia, Denies change in bowel habits and Denies change in stool character Genitourinary: Genitourinary: Denies hematuria, Denies urinary frequency, Denies dysuria, Denies urinary incontinence, Denies urinary hesitancy and Denies urinary urgency Musculoskeletal: Musculoskeletal: Reports no additional musculoskeletal complaints, Denies numbness and Denies tingling Neurologic: Denies dizziness, Denies loss of vision, Denies numbness and Denies tingling Psychiatric: Psychiatric: Reports no additional psychiatric complaints Endocrine: Endocrine: Reports no additional endocrine complaints Hematologic/Lymphatic: Hematologic/Lymphatic: Reports no additional hematologic/lymphatic complaints Allergic/Immunologic: Allergic/Immunologic: Reports no additional allergic/immunologic complaints PMFSH Past Medical History Attestation statement: The following information was validated with the patient. Source: old records reviewed and nursing notes reviewed Medical History Recent change in frequency of bowel movements Right knee pain Physical exam Preop pulmonary/respiratory exam Arthritis of right knee Spider veins of both lower extremities Right lower lobe pulmonary nodule Encounter for screening colonoscopy COVID-19 Morbid obesity with BMI of 40.0-44.9, adult Physical exam Lab test negative for COVID-19 virus Right shoulder pain TRINIDAD (generalized anxiety disorder) Leg edema Cough Knee pain Common cold Arthritis Close exposure to COVID-19 virus Elevated hemoglobin Depression Left shoulder pain Left knee pain Chronic cough Hypovitaminosis D Mild recurrent major depression Thyroid nodule Anxiety and depression Supraclavicular lymphadenopathy Morbid obesity Urge urinary incontinence Goiter Essential hypertension Surgical History Hx of colonoscopy Uterine myoma History of total abdominal hysterectomy H/O oophorectomy History of cholecystectomy Family History Family History Father Diabetes Hypertension Mother Hypertension Brother Hypertension Sister Hypertension Maternal Aunt Breast cancer Daughter No problems noted. Social History Social History Housing: Apartment Alcohol intake: never Patient Tobacco Use Status: Never used Tobacco e-Cigarette/Vaping Use: Never Used Second Hand Smoke Exposure: No Advance Directives: No Advance Directives Information Provided: No service: No Current occupational status: unemployed Cognitive needs: Yes (cane) Hearing needs: No Vision needs: Yes (glasses) Physical Exam ED Vital Signs: Vital Signs - 24 hr 04/27/23 15:10 Temperature 97.2 F Pulse Rate 90 Respiratory Rate 20 Blood Pressure 103/54 L Pulse Oximetry 97 Oxygen Delivery Method Room Air BMI result Body Mass Index 42.8 Const General: cooperative, no acute distress, alert and awake Nutritional Appearance: well nourished Orientation/consciousness: patient oriented x3 Limitations: no limitations HENMT Head: Yes normal to inspection and Yes atraumatic Ears: hearing grossly normal bilaterally and external ears normal General nose exam: Normal external nose present, no nasal discharge noted and no epistaxis Face and sinus: Yes normal facial exam, No abrasion and No laceration Mouth: Normal oral and palatal mucosa present, no drooling and no muffled voice Eyes General: appearance normal, both eyes and all related structures Periorbital: periorbital findings normal Eyelids: Yes eyelids normal Conjunctivae: conjunctivae normal Pupils: Equal, round and reactive pupils present EOM: EOMs intact bilaterally Neck Neck: Yes normal visual inspection, Yes full ROM and Yes no lymphadenopathy Chest Chest palpation & inspection: normal inspection of the chest Resp Effort & Inspection: normal respiratory effort and able to speak in complete sentences GI Inspection: Yes normal to inspection Neuro General: patient oriented x3 and moves all extremities Cranial nerves: Yes Equal, round and reactive pupils present Cognition (Neuro): normal cognition Motor exam (neuro): 5/5 motor strength present throughout Sensory Exam: Normal double simultaneous stimulation for sensation Coordination: [id number] test normal Extrem General: Yes normal to inspection, Yes full ROM and Yes capillary refill normal Psych Appearance: grossly normal Mental Status: mental status grossly normal Affect: normal affect Attitude: cooperative Thought process: Normal thought process present Thought content: Normal thought content present Insight: Good insight present (Psych) Course Course Course Narrative: RME:?67 yo female w/ hx of TRINIDAD, MDD, HTN, asthma, subjective, fevers, chills, sore throat, headache, cough, shortness of breath x2 days. took tylenol at 1215 today. +sick contacts. no recent travel/ long car rides. lungs cta b/l. serology, cxr ordered. Full HPI, ROS and PE to be performed by the primary ED provider. Medical Decision Making Medical Decision Making MDM Narrative: Patient is a 67 year old assigned female at with a history of asthma presenting to the emergency department today with a cough. Patient's physical exam was unremarkable. Patient's chest x-ray showed no acute process. Patient's COVID-19 test was positive. Patient's influenza and RSV tests were negative. I explained my physical exam findings as well as all test results to the patient. I answered all questions asked by the patient. I stressed the importance of the patient taking her medication as prescribed. I stressed the importance of the patient following up with her primary care provider. I stressed the importance of the patient returning to the emergency department immediately if her symptoms were to worsen or if she were to develop any dizziness, shortness of breath, difficulty breathing, chest pain, blurry vision, loss of vision, nausea, vomiting, abdominal pain, fever, chills, back pain, or any other complaints. Patient verbalized agreement and understanding with this treatment plan and discharge. Differential Diagnosis Differential Diagnoses: The differential diagnosis associated with the presentation includes COVID-19 Influenza RSV URI Admission/Observation Consideration of admission/observation: Escalation of care including admission/observation considered Patient would have been admitted to the hospital had her work up had any findings where hospital admission was appropriate and her clinical presentation warranted hospital admission. Lab Data [facility] Lab Attestation statement: I reviewed the patient's lab results. My interpretation of these results are in the [facility] Rationale portion of this note. Labs: Lab Results 04/27/23 Range/Units 15:22 Influenza Type A (PCR) NEGATIVE (Negative) Influenza Type B (PCR) NEGATIVE (Negative) RSV RNA Qual (PCR) NEGATIVE (Negative) SARS-CoV-2 RNA (RT-PCR) POSITIVE A (Negative) Independent Interpretation I performed an independent interpretation of an: Plain X-Ray Interpretation: My interpretation is in agreement with the radiologist's impression of these imaging studies. EXAMINATION: XR CHEST CLINICAL INFORMATION: SOB and asthma. COMPARISON: None available. TECHNIQUE: 2 views of the chest were obtained. FINDINGS: The lungs are well-expanded and clear of acute process. Heart size is enlarged. Pulmonary vascularity is normal. No gross bony abnormality seen. XR/XR chest 2V IMPRESSION: Mild cardiomegaly. No acute process seen. Dictated By: Guicho Dudley MD Signed By: Electronically signed by Guicho Dudley MD 04/27/23 9162 Radiology Impression Discussion of test interpretation with radiology: I have reviewed the radiologist's reading. Prescription Management I considered prescription management with: Other (patient prescribed a cough suppressant) Discharge Plan Discharge Clinical Impression: COVID-19, Cough Patient Disposition: Home, Self-Care Instructions: Acute Cough (ED), COVID-19 (Coronavirus Disease 2019) (ED) Additional Instructions: Follow up with your primary care provider. Return to the emergency department immediately if your symptoms worsen or if you develop any dizziness, shortness of breath, difficulty breathing, chest pain, blurry vision, loss of vision, nausea, vomiting, abdominal pain, fever, chills, back pain, or any other complaints. Shree un seguimiento con eduardo proveedor de atenci?n primaria. Regrese al departamento de emergencias inmediatamente si bertha s?ntomas empeoran o si presenta mareos, dificultad para respirar, dificultad para respirar, dolor en el pecho, visi?n borrosa, p?rdida de la visi?n, n?useas, v?mitos, dolor abdominal, fiebre, escalofr?os, dolor de espalda o cualquier otras quejas. Prescriptions: New benzonatate 100 mg capsule 100 mg PO BID PRN (Reason: cough) 7 Days Qty: 14 0RF No Action acetaminophen 500 mg tablet 1,000 mg PO Q6H PRN (Reason: pain) 30 Days Qty: 180 1RF montelukast [Singulair] 10 mg tablet 10 mg PO QPM 30 Days Qty: 30 6RF bisoprolol-hydrochlorothiazide 5-6.25 mg tablet 1 tab PO DAILY 90 Days Qty: 90 1RF albuterol sulfate 0.63 mg/3 mL solution for nebulization 0.63 mg inhalation Q6H Qty: 75 3RF albuterol sulfate 90 mcg/actuation HFA aerosol inhaler 1 inh inhalation QID PRN (Reason: shortness of breath or wheezing) Qty: 6.7 0RF Advair HFA 115-21 mcg/actuation HFA aerosol inhaler 2 puff inhalation Q12H 30 Days Qty: 1 6RF (DME) cane Device See Rx Instructions .Route Qty: 1 0RF Rx Instructions: As directed ondansetron 4 mg tablet,disintegrating 4 mg PO Q6H PRN (Reason: nausea and vomiting) Qty: 20 0RF methocarbamol 500 mg tablet 500 mg PO QID PRN (Reason: muscle spasm) Qty: 16 0RF cholecalciferol (vitamin D3) 50 mcg (2,000 unit) capsule 50 mcg PO DAILY 90 Days Qty: 90 1RF naproxen 500 mg tablet 500 mg PO BID PRN (Reason: pain) Qty: 14 0RF peg-electrolyte soln 420 gram recon soln 240 ml PO ONCE 1 Days Qty: 4000 0RF Rx Instructions: Start at 6:00pm the evening before procedure, drink one 8oz glass every 15 minutes until complete Citrucel 500 mg tablet 500 mg PO BID Qty: 60 5RF Incruse Ellipta 62.5 mcg/actuation blister with device 1 inh inhalation DAILY 30 Days Qty: 1 6RF Referrals: Brenda Poon MD [Primary Care Provider] - Stand Alone Forms: Work/School Release Interventions: ED Discharge Assessment Last Done: 04/27/23 16:51 Discharge Date/Time: 04/27/23 16:51 Print Language: Armenian
[2023-04-27 15:10] VITALS: BP 103/54; PULSE 90; RESP 20; TEMP 36.2; O2SAT 97; BMI 42.8
[2023-04-27 16:06] LABS: Influenza A PCR NEGATIVE (Negative); Influenza B PCR NEGATIVE (Negative); Resp Syncy Virus RNA Qual PCR NEGATIVE (Negative); SARS COV2 PCR INHOUSE POSITIVE (Negative)
--- NOTE | 2023-04-27 16:51 | PC.NURSE ---
good rx provided to pt - pt provided w/ d/c paperwork.
== END 2023-04-27 16:51 | disposition home or self-care (01) ==
PROVIDERS: Physician Assistant Medical; Emergency Provider Emergency Medicine; PCP Internal Medicine
DX: U07.1 COVID-19 (principal); R05.9 Cough, unspecified; M79.10 Myalgia, unspecified site
CPT/HCPCS: 0241U; 71046; 99282; 99283

== ENCOUNTER 2023-05-12 13:01 | Outpatient (AMB) | payer OTHER, SELFPAY ==
[2023-05-12 13:03] VITALS: BP 118/82; PULSE 73; O2SAT 100; BMI 42.6
--- NOTE | 2023-05-12 13:03 | A.OFFVIS_ITS ---
Intake Vital Signs 05/12/23 13:03 Height 5 ft 7 in Weight 272 lb 4.334 oz BMI 42.6 BP 118/82 Blood Pressure Location Rt brachial Position Sitting Pulse 73 Pulse Source Doppler Pulse Oximetry (%) 100 Oxygen Delivery Method Room Air Intake Visit Reasons: cough, wheeze, shortness of breath Skirt Trimmer Required: Yes Skirt Trimmer Name: Melissa Braun RafaLWilliamsM Allergies No Known Allergies [No Known Allergies*] Allergy (Verified 05/12/23 13:07) HPI cough, wheeze, shortness of breath HPI Details 67-year-old lady, nonsmoker, followed fo r underlying moderate to severe persistent allergic asthma with recurrent bronchitis.? Patient previously Xolair, Advair, and albuterol MDI with good control of underlying symptoms.? She did have to stop her Xolair injections since she had significant nausea.? After the last office visit she was started on Incruse and continue to Advair, and albuterol MDI with reasonable baseline control of her symptoms. She did have COVID at the end of March after which she continues to complain of significant bronchitic symptoms. She also complains of unrestful sleep, snoring, and daytime sleepiness. [facility] Medical History Recent change in frequency of bowel movements Right knee pain Physical exam Preop pulmonary/respiratory exam Arthritis of right knee Spider veins of both lower extremities Right lower lobe pulmonary nodule Encounter for screening colonoscopy COVID-19 Morbid obesity with BMI of 40.0-44.9, adult Physical exam Lab test negative for COVID-19 virus Right shoulder pain TRINIDAD (generalized anxiety disorder) Leg edema Cough Knee pain Common cold Arthritis Close exposure to COVID-19 virus Elevated hemoglobin Depression Left shoulder pain Left knee pain Chronic cough Hypovitaminosis D Mild recurrent major depression Thyroid nodule Anxiety and depression Supraclavicular lymphadenopathy Morbid obesity Urge urinary incontinence Goiter Essential hypertension Surgical History Hx of colonoscopy Uterine myoma History of total abdominal hysterectomy H/O oophorectomy History of cholecystectomy Family History Father Diabetes Hypertension Mother Hypertension Brother Hypertension Sister Hypertension Maternal Aunt Breast cancer Daughter No problems noted. Social History Housing: Apartment Alcohol intake: never Patient Tobacco Use Status: Never used Tobacco e-Cigarette/Vaping Use: Never Used Second Hand Smoke Exposure: No service: No Current occupational status: unemployed Cognitive needs: Yes (cane) Hearing needs: No Vision needs: Yes (glasses) Review of Systems Const Reports daytime sleepiness, Denies excessive sweating, Denies fatigue, Denies fever(s), Reports lethargy, Denies malaise, Denies night sweats, Reports snoring and Denies weight loss Eyes Denies blurry vision and Denies itchy eyes ENT Denies nasal congestion, Denies post nasal drip, Denies sinus pain, Denies sinus pressure and Denies other ( Thrush) Card Denies chest pain, Denies pedal edema, Denies dyspnea, Denies orthopnea and Denies paroxysmal nocturnal dyspnea Resp Reports cough, Denies hemoptysis, Reports excessive phlegm production, Denies dyspnea, Reports snoring and Denies wheezing GI Denies abdominal pain and Denies heartburn Musc Denies myalgias, Denies arthralgias and Denies joint swelling Skin/Breast Denies rash Neuro Denies memory loss and Denies seizure-like activity Psych Denies abnormal sleep pattern, Denies anxiety and Denies memory loss Endo Denies excessive sweating, Denies fatigue and Denies heat intolerance Siddharth/Lymph Denies easy bruising Aller/Immun Denies itchy eyes, Denies seasonal rhinorrhea and Denies wheezing Physical Exam Vital Signs: Last Vital Signs Pulse 73 05/12/23 13:03 BP 118/82 05/12/23 13:03 Pulse Ox 100 05/12/23 13:03 Oxygen Delivery Method Room Air 05/12/23 13:03 BMI result Body Mass Index 42.6 Const General: no acute distress and alert Nutritional Appearance: obese Orientation/consciousness: Other orientation findings ( oriented) HEENT Head: Yes atraumatic Eyes General: appearance normal, both eyes and all related structures Sclerae: sclerae normal EOM: EOMs intact bilaterally Neck Neck: Yes supple Lymphatic: no lymphadenopathy noted Resp Effort & Inspection: normal respiratory effort and no use of accessory muscles Auscultation: clear to auscultation bilaterally Cardio Rate: regular rate Rhythm: regular rhythm Heart sounds: no gallops, no murmurs and no rubs Skin General skin exam: other ( warm) Extrem General: No clubbing, No cyanosis and No edema Assessment & Plan Assessment & Plan (1) Asthma: Code(s): J45.909 - Unspecified asthma, uncomplicated Plan: Reasonable baseline control on Advair, Incruse, duo nebs, and albuterol MDI. Continue current regimen. Now with acute exacerbation, will treat with a course of Levaquin and prednisone. (2) LATISHA (obstructive sleep apnea): Code(s): G47.33 - Obstructive sleep apnea (adult) (pediatric) Plan: Unrestful sleep, daytime sleepiness, snoring. [place] Sleepiness Scale score of 15. Will obtain home sleep study. Orders: Orders RT home sleep study Today G47.33 - Obstructive sleep apnea (adult) (pediatric) Medications: New prednisone 40 mg (2 x 20 mg) PO DAILY 10 tabs 0RF levofloxacin 750 mg PO DAILY 7 tabs 0RF Coding Level of Care Code Est Pt Level 4 (83122) Diagnoses Asthma J45.909 LATISHA (obstructive sleep apnea) G47.33
== END 2023-05-12 13:32 | disposition home or self-care (01) ==
PROVIDERS: PCP Internal Medicine; Visit Provider Internal Medicine Pulmonary Disease
DX: J45.909 Unspecified asthma, uncomplicated (principal); G47.33 Obstructive sleep apnea (adult) (pediatric)
CPT/HCPCS: 99214

== ENCOUNTER → 2023-05-12 13:01 | Outpatient (BNVA) | payer OTHER, SELFPAY | PROVIDERS: PCP Internal Medicine; Visit Provider Internal Medicine Pulmonary Disease | DX: J45.50 Severe persistent asthma, uncomplicated (principal); G47.33 Obstructive sleep apnea (adult) (pediatric) | CPT/HCPCS: 99212 ==

== ENCOUNTER 2023-06-06 14:10 | Outpatient (AMB) | payer OTHER, SELFPAY ==
[2023-06-06 14:23] VITALS: BP 122/80; BMI 42.4
--- NOTE | 2023-06-06 14:23 | A.OFFPC_ITS ---
Vital Signs 06/06/23 14:23 Height 5 ft 7 in Weight 271 lb BMI 42.4 BP 122/80 Blood Pressure Location Lt brachial Position Sitting Intake Visit Reasons: Annual Exam Intake Note: Patient here for an annual physical exam [employer] Operator Required: No Accompanied by: Self / Same As Patient Allergies No Known Allergies [No Known Allergies*] Allergy (Verified 06/06/23 14:28) Medication List - Last Reconciled 06/06/23 by Brenda Phipps MD acetaminophen 1,000 mg (2 x 500 mg) PO Q6H PRN 30 days albuterol sulfate 0.63 mg (3 mL) inhalation Q6H albuterol sulfate 90 mcg/actuation 1 inh inhalation QID PRN bisoprolol-hydrochlorothiazide 5-6.25 mg 1 tab PO DAILY 90 days cane As directed cholecalciferol (vitamin D3) 50 mcg PO DAILY 90 days fluticasone propion-salmeterol 115-21 mcg/actuation (Advair HFA) 2 puffs inhalation Q12H 30 days methylcellulose (laxative) (Citrucel) 500 mg PO BID montelukast 10 mg PO QPM peg-electrolyte soln 420 gram 240 mL PO ONCE 1 day umeclidinium 62.5 mcg/actuation (Incruse Ellipta) 1 inh inhalation DAILY 30 days Tobacco use date assessed: 06/06/23 Fall risk assessment: No Falls in past year Last assessed Fall Risk: 06/06/23 Dental Screening Dental Screen Date: 06/06/23 Did you have a dental visit in the last 12 months?: No Did you have a dental problem in the last 6 months where you did not have access to dental care?: No Was dental information given to patient?: Patient has dentist HPI HPI Comments History of Present Illness Details This is a 67-year-old female with mild recurrent major depression that comes for her physical exam. Mammogram done 2022. Colonoscopy done 2021. No need for Pap smear due to hysterectomy. Depression is follow by Psychiatry. No chest pain or shortness of breath. [facility] Medical History (Updated 06/06/23 @ 15:33 by Brenda Phipps MD) Physical exam Recent change in frequency of bowel movements Right knee pain Preop pulmonary/respiratory exam Arthritis of right knee Spider veins of both lower extremities Right lower lobe pulmonary nodule Encounter for screening colonoscopy COVID-19 Morbid obesity with BMI of 40.0-44.9, adult Physical exam Lab test negative for COVID-19 virus Right shoulder pain TRINIDAD (generalized anxiety disorder) Leg edema Cough Knee pain Common cold Arthritis Close exposure to COVID-19 virus Elevated hemoglobin Depression Left shoulder pain Left knee pain Chronic cough Hypovitaminosis D Mild recurrent major depression Thyroid nodule Anxiety and depression Supraclavicular lymphadenopathy Morbid obesity Urge urinary incontinence Goiter Essential hypertension Surgical History Hx of colonoscopy Uterine myoma History of total abdominal hysterectomy H/O oophorectomy History of cholecystectomy Family History Father Diabetes Hypertension Mother Hypertension Brother Hypertension Sister Hypertension Maternal Aunt Breast cancer Daughter No problems noted. Social History Housing: Apartment Alcohol intake: never Patient Tobacco Use Status: Never used Tobacco e-Cigarette/Vaping Use: Never Used Second Hand Smoke Exposure: No service: No Current occupational status: unemployed Cognitive needs: Yes (cane) Hearing needs: No Vision needs: Yes (glasses) Questionnaire PHQ-9 Over the last 2 weeks, how often have you been bothered by any of the following problems? 1. Little interest or pleasure in doing things: not at all 2. Feeling down, depressed, or hopeless: nearly every day 3. Trouble falling or staying asleep, or sleeping too much: several days 4. Feeling tired or having little energy: not at all 5. Poor appetite or overeating: more than half the days 6. Feeling bad about yourself - or that you are a failure or have let yourself or your family down: several days 7. Trouble concentrating on things, such as reading the newspaper or watching television: not at all 8. Moving or speaking so slowly that other people could have noticed. Or the opposite - being so fidgety or restless that you have been moving around a lot more than usual: not at all 9. Thoughts that you would be better off or of hurting yourself in some way: not at all Total score: 7 Depression Screening Interpretation: Positive Depression Screening Follow-up: Existing condition Depression Screening Done: Yes [id number] - PHQ-9 Billing: Yes Source: Developed by Drs. Guillaume Stark, Keila Scott, Stanislav Oquendo and colleagues, with an educational sandeep from [employer]. Thrive Questionnaire Date Thrive assessed: 06/06/23 I am a: Patient What is your living situation today?: I have a steady place to live Within the past 12 months, did the food you bought not last and you didn't have the money to get more?: Never true Within the past 12 months, did you worry whether your food would run out before you got money to buy more?: Never true Do you have trouble paying for medicines?: No Do you have trouble getting transportation to medical appointments?: No Do you have trouble paying your heating and electricity bill?: No Do you have trouble taking care of your child, family member or friend?: No Do you have trouble with day-to-day activities such as bathing, preparing meals, shopping, managing finances, etc.?: No Are you currently unemployed and looking for a job?: No Are you interested in more education?: No Please select the resources that you would like help with: None Currently or been in a relationship where the following occur: no concerns reported THRIVE Score: 0 AUDIT C Alcohol Use Questionnaire (AUDIT-C) 1. How often do you have a drink containing alcohol?: Never Total Score: 0 TRINIDAD-7 AMB Questionnaire TRINIDAD-7 Date TRINIDAD - 7 assessed: 06/06/23 Feeling nervous, anxious, or on edge: 3 = Nearly every day Not being able to stop or control worryin = Not at all Worrying too much about different things: 0 = Not at all Trouble relaxin = Not at all Being so restless that it is hard to sit still: 0 = Not at all Becoming easily annoyed or irritable: 1 = Several days Feeling afraid as if something awful might happen: 1 = Several days Total TRINIDAD-7 score (0-4 normal; 5-9 mild; 10-14 moderate; 15-21 severe): 5 Source: Developed by Drs. Guillaume Stark, Stanislav Castro and colleagues, with an educational sandeep from [employer]. TRINIDAD-7 Assessment Billing TRINIDAD-7 Assessment Tool: TRINIDAD-7 Assessment 94001 Review of Systems Const All systems reviewed & are unremarkable except as noted in HPI and below Eyes Reports no additional complaints, Denies change in vision and Denies other visual disturbances Card Denies chest pain at rest, Denies chest pain with activity, Denies edema, Denies irregular heart rhythm, Denies claudication, Denies dyspnea, Denies dyspnea on exertion, Denies orthopnea, Denies paroxysmal nocturnal dyspnea and Denies slow heart rate Resp Denies cough, Denies dyspnea and Denies dyspnea on exertion GI Denies abdominal pain, Denies change in bowel habits, Denies excessive flatus, Denies nausea and Denies vomiting Denies urinary incontinence, Denies urinary hesitancy and Denies urinary urgency Musc Denies abnormal gait, Denies atrophy, Denies deformity and Denies limited range of motion Skin/Breast Denies bleeding lesions, Denies changing lesions and Denies rash Neuro Denies abnormal gait, Denies behavioral changes, Denies confusion and Denies lack of coordination Psych Denies behavioral changes and Denies confusion Physical exam (Primary Care) Vital Signs: Last Vital Signs BP 122/80 06/06/23 14:23 BMI result Body Mass Index 42.4 Tobacco/Smoking Status: Tobacco use Status Tobacco use date assessed 06/06/23 06/06/23 14:31 Patient Tobacco Use Status Never used Tobacco 06/06/23 14:31 e-Cigarette/Vaping Use Never Used 06/06/23 14:31 PHQ-9: PHQ-9 Score PHQ-9: Total score 7 06/06/23 15:39 Depression Screening Interpretation: Positive Depression Screening Follow-up: Existing condition Thrive Assessment: Date of Thrive Assessment Date Thrive assessed 06/06/23 06/06/23 14:31 Currently or been in a relationship where the following occur: no concerns reported Const General: No confusion Orientation/consciousness: patient oriented x3 and No confusion HENMT Head: Yes normal to inspection, Yes normocephalic and Yes atraumatic Ears: external ears normal Eyes General: appearance normal, both eyes and all related structures Eyelids: Yes eyelids normal Conjunctivae: conjunctivae normal Neck Neck: Yes normal visual inspection and Yes supple Resp Effort & Inspection: normal respiratory effort Auscultation: clear to auscultation bilaterally Cardio Jugular venous distension: no JVD Rate: regular rate Rhythm: regular rhythm Heart sounds: S1 normal heart sound present and S2 normal heart sound present GI Inspection: Yes normal to inspection Palpation (GI): Soft to palpation and nontender Auscultation: normal bowel sounds Skin General skin exam: no rashes or lesions noted Neuro General: patient oriented x3, no focal motor deficits and No confusion Extrem General: Yes full ROM Psych Appearance: grossly normal Immunizations pneumoc 20-geeta conj-dip cr(PF) 0.5 mL IM syringe Performing Provider: Brenda Phipps MD Performing Location: [facility] Administered by: Dl Mckee on 06/06/23 15:09 Dose Route Admin Location Dispensed Lot Number Expiration Date [employer] 0.5 mL IM Left Deltoid 0.5 mL [id number] 07/28/24 8835-5845-96 [employer] VIS Given Date VIS Provided VIS Publication Date 06/06/23 Single Vaccine 21 Eligibility Eligibility Date Funding Source Not [facility] Eligible 06/06/23 Private Assessment and Plan Assessment & Plan (1) Physical exam: Code(s): Z00.00 - Encounter for general adult medical examination without abnormal findings Plan: Repeat in a year. (2) Mild recurrent major depression: Code(s): F33.0 - Major depressive disorder, recurrent, mild Plan: Follow-up with psychiatry. Orders: Orders Pneumococcal 20 Immunization Today Z23 - Encounter for immunization Vitamin D 25-OH Total Today E55.9 - Vitamin D deficiency, unspecified Comprehensive Moran. Panel Fast Today I10 - Essential (primary) hypertension Thyroid Stimulating Hormone Today E04.9 - Nontoxic goiter, unspecified Lipid Panel Today E78.5 - Hyperlipidemia, unspecified Coding Level of Care Code Est Pt Prev Care >65y(49693) Diagnoses Physical exam Z00.00 Mild recurrent major depression F33.0 Additional Codes TRINIDAD-7 Assessment Billing - TRINIDAD-7 Assessment Tool: TRINIDAD-7 Assessment 89859 ([id number]) Time Spent (min) 34
== END 2023-06-06 15:11 | disposition home or self-care (01) ==
PROVIDERS: PCP Internal Medicine; Visit Provider Internal Medicine
DX: Z00.00 Encounter for general adult medical examination without abnormal findings (principal); F33.0 Major depressive disorder, recurrent, mild; Z23 Encounter for immunization
CPT/HCPCS: 90471; 90677; 99397

== ENCOUNTER 2023-06-22 11:40 | Outpatient (AMB) | payer OTHER, SELFPAY ==
[2023-06-22 11:41] VITALS: BP 118/77; TEMP 36.6; O2SAT 100; BMI 42.5
--- NOTE | 2023-06-22 11:41 | A.OFFVIS_ITS ---
Intake Vital Signs 06/22/23 11:41 Height 5 ft 7 in Weight 271 lb 2.697 oz BMI 42.5 BP 118/77 Blood Pressure Location Rt brachial Position Sitting Temp 97.8 F Temp Source Skin Pulse Oximetry (%) 100 Oxygen Delivery Method Room Air Intake Visit Reasons: asthma Allergies No Known Allergies [No Known Allergies*] Allergy (Verified 06/22/23 11:56) HPI asthma HPI Details 67-year-old lady, nonsmoker, followed fo r underlying moderate to severe persistent allergic asthma with recurrent bronchitis.? Patient previously Xolair, Advair, and albuterol MDI with good control of underlying symptoms.? She did have to stop her Xolair injections since she had significant nausea.? After the last office visit patient has been treated with a course of Levaquin with partial, but incomplete improvement of bronchitic symptoms. She also has not been using Incruse and only been relying Advair. [facility] Medical History (Updated 06/06/23 @ 15:33 by Brenda Phipps MD) Physical exam Recent change in frequency of bowel movements Right knee pain Preop pulmonary/respiratory exam Arthritis of right knee Spider veins of both lower extremities Right lower lobe pulmonary nodule Encounter for screening colonoscopy COVID-19 Morbid obesity with BMI of 40.0-44.9, adult Physical exam Lab test negative for COVID-19 virus Right shoulder pain TRINIDAD (generalized anxiety disorder) Leg edema Cough Knee pain Common cold Arthritis Close exposure to COVID-19 virus Elevated hemoglobin Depression Left shoulder pain Left knee pain Chronic cough Hypovitaminosis D Mild recurrent major depression Thyroid nodule Anxiety and depression Supraclavicular lymphadenopathy Morbid obesity Urge urinary incontinence Goiter Essential hypertension Surgical History Hx of colonoscopy Uterine myoma History of total abdominal hysterectomy H/O oophorectomy History of cholecystectomy Family History Father Diabetes Hypertension Mother Hypertension Brother Hypertension Sister Hypertension Maternal Aunt Breast cancer Daughter No problems noted. Social History Housing: Apartment Alcohol intake: never Patient Tobacco Use Status: Never used Tobacco e-Cigarette/Vaping Use: Never Used Second Hand Smoke Exposure: No service: No Current occupational status: unemployed Cognitive needs: Yes (cane) Hearing needs: No Vision needs: Yes (glasses) Review of Systems Const Denies daytime sleepiness, Denies excessive sweating, Denies fatigue, Denies fever(s), Denies lethargy, Denies malaise, Denies night sweats, Denies snoring and Denies weight loss Eyes Denies blurry vision and Denies itchy eyes ENT Denies nasal congestion, Denies post nasal drip, Denies sinus pain, Denies sinus pressure and Denies other ( Thrush) Card Denies chest pain, Denies pedal edema, Denies dyspnea, Denies orthopnea and Denies paroxysmal nocturnal dyspnea Resp Reports cough, Denies hemoptysis, Reports excessive phlegm production, Denies dyspnea, Denies snoring and Denies wheezing GI Denies abdominal pain and Denies heartburn Musc Denies myalgias, Denies arthralgias and Denies joint swelling Skin/Breast Denies rash Neuro Denies memory loss and Denies seizure-like activity Psych Denies abnormal sleep pattern, Denies anxiety and Denies memory loss Endo Denies excessive sweating, Denies fatigue and Denies heat intolerance Siddharth/Lymph Denies easy bruising Aller/Immun Denies itchy eyes, Denies seasonal rhinorrhea and Denies wheezing Physical Exam Vital Signs: Last Vital Signs Temp 97.8 F 06/22/23 11:41 BP 118/77 06/22/23 11:41 Pulse Ox 100 06/22/23 11:41 Oxygen Delivery Method Room Air 06/22/23 11:41 BMI result Body Mass Index 42.5 Const General: no acute distress and alert Nutritional Appearance: obese Orientation/consciousness: Other orientation findings ( oriented) HEENT Head: Yes atraumatic Eyes General: appearance normal, both eyes and all related structures Sclerae: sclerae normal EOM: EOMs intact bilaterally Neck Neck: Yes supple Lymphatic: no lymphadenopathy noted Resp Effort & Inspection: normal respiratory effort and no use of accessory muscles Auscultation: clear to auscultation bilaterally Cardio Rate: regular rate Rhythm: regular rhythm Heart sounds: no gallops, no murmurs and no rubs Skin General skin exam: other ( warm) Extrem General: No clubbing, No cyanosis and No edema Assessment & Plan Assessment & Plan (1) Asthma: Code(s): J45.909 - Unspecified asthma, uncomplicated Plan: Worsening control off immunologic therapy and off Incruse. Restart Incruse. Continue Advair and albuterol MDI. Will treat bronchitic symptoms with 14 day course of doxycycline. (2) Environmental allergies: Code(s): Z91.09 - Other allergy status, other than to drugs and biological substances Plan: Stopped immunologic therapy secondary to significant nausea side effects. Continue on Singulair. (3) LATISHA (obstructive sleep apnea): Code(s): G47.33 - Obstructive sleep apnea (adult) (pediatric) Plan: Sleep study is pending. Medications: New doxycycline monohydrate 100 mg PO BID 28 caps 0RF 14 days Refilled umeclidinium 62.5 mcg/actuation (Incruse Ellipta) 1 inh inhalation DAILY 1 ea 6RF 30 days Coding Level of Care Code Est Pt Level 4 (73382) Diagnoses Asthma J45.909 Environmental allergies Z91.09 LATISHA (obstructive sleep apnea) G47.33
== END 2023-06-22 11:55 | disposition home or self-care (01) ==
PROVIDERS: PCP Internal Medicine; Visit Provider Internal Medicine Pulmonary Disease
DX: J45.909 Unspecified asthma, uncomplicated (principal); Z91.09 Other allergy status, other than to drugs and biological substances; G47.33 Obstructive sleep apnea (adult) (pediatric)
CPT/HCPCS: 99214

== ENCOUNTER → 2023-06-22 11:40 | Outpatient (BNVA) | payer OTHER, SELFPAY | PROVIDERS: PCP Internal Medicine; Visit Provider Internal Medicine Pulmonary Disease | DX: J45.909 Unspecified asthma, uncomplicated (principal); G47.33 Obstructive sleep apnea (adult) (pediatric); Z91.09 Other allergy status, other than to drugs and biological substances | CPT/HCPCS: 99212 ==

== ENCOUNTER 2023-08-17 14:09 | Outpatient (AMB) | payer OTHER, SELFPAY ==
--- NOTE | 2023-08-17 14:11 | A.OFFVIS_ITS ---
Vital Signs 08/17/23 14:13 Height 5 ft 7 in Weight 262 lb 5.601 oz BMI 41.1 BP 135/62 Blood Pressure Location Lt brachial Position Sitting Pulse 83 Intake Visit Reasons: S/P Secor; Dr. Alonzo Intake Note: Louise presents in the office as a follow up colonoscopy. CC: [place] Required: Yes [place] Name: [id number] Allergies No Known Allergies [No Known Allergies*] Allergy (Verified 06/22/23 11:56) Medication List - Last Reconciled 08/17/23 by Lee Ann Perez PA-C acetaminophen 1,000 mg (2 x 500 mg) PO Q6H PRN 30 days albuterol sulfate 0.63 mg (3 mL) inhalation Q6H albuterol sulfate 90 mcg/actuation 1 inh inhalation QID PRN bisoprolol-hydrochlorothiazide 5-6.25 mg 1 tab PO DAILY 90 days cane As directed cholecalciferol (vitamin D3) 50 mcg PO DAILY 90 days fluticasone propion-salmeterol 115-21 mcg/actuation (Advair HFA) 2 puffs inhalation Q12H 30 days montelukast 10 mg PO QPM peg-electrolyte soln 420 gram 240 mL PO ONCE 1 day umeclidinium 62.5 mcg/actuation (Incruse Ellipta) 1 inh inhalation DAILY 30 days HPI Comments Details: seen @ 2:30 A 67 y/o female personal history he helps seen last 11/20-due for repeat colonoscopy 11/21- due to polyps- she has hemorrhoids occ. bleeds-be note mostly if she strains- She says she her only real c/o- she has been having urinary incontinence-has been ongoing for many months-she has no abdominal pain no dysuria fever chills She has no nausea, vomiting hematemesis fever or chill F/U pulmonary 08/23/23- PFS Medical History (Updated 08/18/23 @ 07:32 by Lee Ann Perez PA-C) Physical exam Recent change in frequency of bowel movements Right knee pain Preop pulmonary/respiratory exam Arthritis of right knee Spider veins of both lower extremities Right lower lobe pulmonary nodule Encounter for screening colonoscopy COVID-19 Morbid obesity with BMI of 40.0-44.9, adult Physical exam Lab test negative for COVID-19 virus Right shoulder pain TRINIDAD (generalized anxiety disorder) Leg edema Cough Knee pain Common cold Arthritis Close exposure to COVID-19 virus Elevated hemoglobin Depression Left shoulder pain Left knee pain Chronic cough Hypovitaminosis D Mild recurrent major depression Thyroid nodule Anxiety and depression Supraclavicular lymphadenopathy Morbid obesity Urge urinary incontinence Goiter Essential hypertension Surgical History Hx of colonoscopy Uterine myoma History of total abdominal hysterectomy H/O oophorectomy History of cholecystectomy Family History Father Diabetes Hypertension Mother Hypertension Brother Hypertension Sister Hypertension Maternal Aunt Breast cancer Daughter No problems noted. Social History Housing: Apartment Alcohol intake: never Patient Tobacco Use Status: Never used Tobacco e-Cigarette/Vaping Use: Never Used Second Hand Smoke Exposure: No service: No Current occupational status: unemployed Cognitive needs: Yes (cane) Hearing needs: No Vision needs: Yes (glasses) Review of Systems Const All systems reviewed & are unremarkable except as noted in HPI and below GI Denies abdominal pain, Denies nausea, Denies vomiting and Reports other (Hemorrhoids) Denies hematuria, Denies difficulty voiding, Denies post void dribbling and Reports nocturia Psych Reports depression, Denies homicidal ideation and Denies suicidal ideation Physical Exam Vital Signs: Last Vital Signs Pulse 83 08/17/23 14:13 BP 135/62 08/17/23 14:13 BMI result Body Mass Index 41.1 Const General: cooperative, healthy appearing, comfortable and no acute distress Nutritional Appearance: overweight Orientation/consciousness: patient oriented x3 Limitations: language barrier and ambulation with cane Eyes Sclerae: sclerae normal Cardio Rate: regular rate Rhythm: regular rhythm Heart sounds: S1 normal heart sound present and S2 normal heart sound present GI Palpation (GI): Soft to palpation and nontender Auscultation: normal bowel sounds Skin General skin exam: no rashes or lesions noted Neuro General: patient oriented x3 Psych Appearance: well kempt Mental Status: mental status grossly normal Affect: Labile affect present Attitude: cooperative Thought content: Normal thought content present Results Reviewed Results Reviewed: 10/2022-indings: Terminal Ileum: Not evaluated Cecum:? An 8-9 mm sessile polyp adjacent to the appendicular orifice -removed with a cold snare.? Residual polyp was removed with a cold bx. A 3-4 mm sessile polyp -? removed with a cold biopsy. Ascending Colon:? A 12-15 mm sessile polyp in the proximal AC raised with 7 cc of Orise solution (submucosal injection) and removed with a hot snare.? A 12-15 mm sessile polyp in the distal AC removed with a hot snare.? A 3-4 mm sessile polyp removed with a cold bx. Transverse Colon:? A 12-15 mm sessile polyp removed with a hot snare.? A 4-5 mm sessile polyp removed with a cold bx. Descending Colon: ? moderate diverticulosis Sigmoid Colon:? A 12 to 15 mm sessile polyp removed with a hot snare removed with a hot snare.? A 4-5 mm sessile polyp removed with a cold bx. Moderate diverticulosis Rectum:? Normal Ano-rectum:? Moderate internal hemorrhoids Colon preparation:? Good? after some irrigation Impression and Post Procedure Diagnosis: Colonoscopy Findings: Nine small to medium sized polyps removed Moderate diverticulosis seen in the left colon Moderate hemorrhoids on retroflexed exam. Plan: Await pathology results Patient has an appointment on 01/31/22 in the [facility] with SIXTO Cisse. Repeat Colonoscopy interval based on path results - in 1 year if polyps are adenomatous and 5 years if polyps are hyperplastic. Above findings were reviewed with the patient and colon polyps and diverticulosis handouts were given in the discharge area Name:?Louise Weaver Age/Sex: 66/FAttending: Elvin Alonzo MD : 1955Submitted by: Elvin Alonzo MD to: Brenda Poon MD MR #: [id number]? Status: DEP SDCCollected: 01/17/22 [facility] Diagnosis A.? Cecum, polypectomies (2):? Colonic mucosa with prominent lymphoid aggregates and mild surface hyperplastic changes; no dysplasia seen. B.? Colon, ascending, polypectomies (3): - Sessile serrated polyp. - Colonic mucosa with mild surface hyperplastic changes. - Fibrovascular tissue with thermal artifact; no epithelium identified. C.? Colon, transverse, polypectomies (2):? Fragments of tubular adenomata; negative for high-grade dysplasia or carcinoma. D.? Colon, sigmoid, polypectomies (2):? Tubular adenomata; negative for high- grade dysplasia or carcinoma. 06/2023-1) Asthma: Code(s): J45.909 - Unspecified asthma, uncomplicated Plan: Worsening control off immunologic therapy and off Incruse. Restart Incruse. Continue Advair and albuterol MDI. Will treat bronchitic symptoms with 14 day course of doxycycline. (2) Environmental allergies: Code(s): Z91.09 - Other allergy status, other than to drugs and biological substances Plan: Stopped immunologic therapy secondary to significant nausea side effects. Continue on Singulair. (3) LATISHA (obstructive sleep apnea): Code(s): G47.33 - Obstructive sleep apnea (adult) (pediatric) Plan: Sleep study is pending. Medications: Assessment & Plan Assessment & Plan (1) Tubular adenoma: Code(s): D36.9 - Benign neoplasm, unspecified site Category: Medical (2) Sessile colonic polyp: Code(s): K63.5 - Polyp of colon Category: Medical Plan: colonoscopy- anesth. consult (3) Hemorrhoids: Code(s): K64.9 - Unspecified hemorrhoids Category: Medical Plan: avoid strain (4) Chronic constipation: Code(s): K59.09 - Other constipation Category: Medical Plan: consistent bowel regimen Plan Polyp surveillance colonoscopy-Dr. Alonzo anesthesia consult- MG prep Orders: Orders Colonoscopy - GI Use Only 08/17/23 D36.9 - Benign neoplasm, unspecified site Medications: New sennosides (senna) 8.6 mg PO DAILY PRN 30 caps 1RF constipation bisacodyl (Dulcolax (bisacodyl)) Day before procedure @ 12 noon Take 4 tablets by mouth followed by large glass of water 20 mg (4 x 5 mg) PO ONCE 1 day PRN 4 tabs 0RF colonoscopy prep Z12.11 - Encounter for screening for malignant neoplasm of colon docusate sodium (Colace) 200 mg (2 x 100 mg) PO BEDTIME 60 caps 5RF hydrocortisone 2.5% (Proctozone-HC) apply ID BID prn 1 appl ID BID PRN 30 grams 3RF hemorrhoids Refilled peg-electrolyte soln 420 gram Start at 6:00pm the evening before procedure, drink one 8oz glass every 15 minutes until complete 240 mL PO ONCE 1 day 4,000 mL 0RF Patient Instructions: [age] with history colon polyps-chronic constipation and hemorrhoids Polyp surveillance colonoscopy MiraLax Gatorade prep, reviewed literature given Chronic constipation continue consistent bowel regimen will include senna Maintain high-fiber Avoid straining Hemorrhoidal cream Discuss surgical eval declines at this time Will see back after colonoscopy to discuss plan of care- She agrees with plan Be sure to f/u pulmonary- Encouraged to call questions or concerns
[2023-08-17 14:13] VITALS: BP 135/62; PULSE 83; BMI 41.1
== END 2023-08-17 14:58 | disposition home or self-care (01) ==
PROVIDERS: PCP Internal Medicine; Visit Provider Physician Assistant
DX: D36.9 Benign neoplasm, unspecified site (principal); K63.5 Polyp of colon; K64.9 Unspecified hemorrhoids; K59.09 Other constipation
CPT/HCPCS: 99213

== ENCOUNTER → 2023-08-17 14:09 | Outpatient (BNVA) | payer OTHER, SELFPAY | PROVIDERS: PCP Internal Medicine; Visit Provider Physician Assistant | DX: D36.9 Benign neoplasm, unspecified site (principal); K63.5 Polyp of colon; K64.9 Unspecified hemorrhoids; K59.09 Other constipation | CPT/HCPCS: 99212 ==

== ENCOUNTER 2023-08-23 11:34 | Outpatient (AMB) | payer OTHER, SELFPAY ==
[2023-08-23 11:41] VITALS: BP 122/78; PULSE 68; O2SAT 96; BMI 41.3
--- NOTE | 2023-08-23 11:41 | A.OFFVIS_ITS ---
Vital Signs 08/23/23 11:41 Height 5 ft 7 in Weight 263 lb 7.238 oz BMI 41.3 BP 122/78 Blood Pressure Location Rt brachial Position Sitting Pulse 68 Pulse Source Doppler Pulse Oximetry (%) 96 Oxygen Delivery Method Room Air Intake Visit Reasons: asthma [employer] Medicine Pet [employer] Technologist Required: Yes Nuclear Medicine Pet Ct Technologist Name: Melissa Kade Chicas Allergies No Known Allergies [No Known Allergies*] Allergy (Verified 06/22/23 11:56) HPI HPI asthma: Details: 67-year-old lady, nonsmoker, followed for underlying moderate to severe persistent allergic asthma with recurrent bronchitis.? Patient previously Xolair, Advair, and albuterol MDI with good control of underlying symptoms.? She did have to stop her Xolair injections since she had significant nausea.? After the last office visit patient tried Incruse, however she was not able to tolerate powder inhaler. She also was unable to complete her sleep study. She denies acute exacerbations at this time. [facility] Medical History Physical exam Recent change in frequency of bowel movements Right knee pain Preop pulmonary/respiratory exam Arthritis of right knee Spider veins of both lower extremities Right lower lobe pulmonary nodule Encounter for screening colonoscopy COVID-19 Morbid obesity with BMI of 40.0-44.9, adult Physical exam Lab test negative for COVID-19 virus Right shoulder pain TRINIDAD (generalized anxiety disorder) Leg edema Cough Knee pain Common cold Arthritis Close exposure to COVID-19 virus Elevated hemoglobin Depression Left shoulder pain Left knee pain Chronic cough Hypovitaminosis D Mild recurrent major depression Thyroid nodule Anxiety and depression Supraclavicular lymphadenopathy Morbid obesity Urge urinary incontinence Goiter Essential hypertension Surgical History Hx of colonoscopy Uterine myoma History of total abdominal hysterectomy H/O oophorectomy History of cholecystectomy Family History Father Diabetes Hypertension Mother Hypertension Brother Hypertension Sister Hypertension Maternal Aunt Breast cancer Daughter No problems noted. Social History Housing: Apartment Alcohol intake: never Patient Tobacco Use Status: Never used Tobacco e-Cigarette/Vaping Use: Never Used Second Hand Smoke Exposure: No service: No Current occupational status: unemployed Cognitive needs: Yes (cane) Hearing needs: No Vision needs: Yes (glasses) Review of Systems Const Denies daytime sleepiness, Denies excessive sweating, Denies fatigue, Denies fever(s), Denies lethargy, Denies malaise, Denies night sweats, Denies snoring and Denies weight loss Eyes Denies blurry vision and Denies itchy eyes ENT Denies nasal congestion, Denies post nasal drip, Denies sinus pain, Denies sinus pressure and Denies other ( Thrush) Card Denies chest pain, Denies pedal edema, Denies dyspnea, Denies orthopnea and Denies paroxysmal nocturnal dyspnea Resp Denies cough, Denies hemoptysis, Denies excessive phlegm production, Denies dyspnea, Denies snoring and Denies wheezing GI Denies abdominal pain and Denies heartburn Musc Denies myalgias, Denies arthralgias and Denies joint swelling Skin/Breast Denies rash Neuro Denies memory loss and Denies seizure-like activity Psych Denies abnormal sleep pattern, Denies anxiety and Denies memory loss Endo Denies excessive sweating, Denies fatigue and Denies heat intolerance Siddharth/Lymph Denies easy bruising Aller/Immun Denies itchy eyes, Denies seasonal rhinorrhea and Denies wheezing Physical Exam Vital Signs: Last Vital Signs Pulse 68 08/23/23 11:41 BP 122/78 08/23/23 11:41 Pulse Ox 96 08/23/23 11:41 Oxygen Delivery Method Room Air 08/23/23 11:41 BMI result Body Mass Index 41.3 Const General: no acute distress and alert Nutritional Appearance: obese Orientation/consciousness: Other orientation findings ( oriented) HEENT Head: Yes atraumatic Eyes General: appearance normal, both eyes and all related structures Sclerae: sclerae normal EOM: EOMs intact bilaterally Neck Neck: Yes supple Lymphatic: no lymphadenopathy noted Resp Effort & Inspection: normal respiratory effort and no use of accessory muscles Auscultation: clear to auscultation bilaterally Cardio Rate: regular rate Rhythm: regular rhythm Heart sounds: no gallops, no murmurs and no rubs Skin General skin exam: other ( warm) Extrem General: No clubbing, No cyanosis and No edema Assessment & Plan Assessment & Plan (1) Asthma: Code(s): J45.909 - Unspecified asthma, uncomplicated Category: Medical Plan: Unable to tolerate powder inhalers. Will switch Incruse to Spiriva Respimat. Continue Advair and albuterol MDI. (2) LATISHA (obstructive sleep apnea): Code(s): G47.33 - Obstructive sleep apnea (adult) (pediatric) Category: Medical Plan: Sleep study is pending. (3) Environmental allergies: Code(s): Z91.09 - Other allergy status, other than to drugs and biological substances Category: Medical Plan: Unable to tolerate Xolair. Continue Singulair. Medications: New tiotropium bromide 2.5 mcg/actuation (Spiriva Respimat) 2 puffs inhalation QAM 30 days 4 grams 6RF Discontinued umeclidinium 62.5 mcg/actuation (Incruse Ellipta) Discontinued Reason: Doctor's Order 1 inh inhalation DAILY 30 days 1 ea 6RF Coding Level of Care Code Est Pt Level 4 (40864) Diagnoses Asthma J45.909 LATISHA (obstructive sleep apnea) G47.33 Environmental allergies Z91.09
== END 2023-08-23 11:59 | disposition home or self-care (01) ==
PROVIDERS: PCP Internal Medicine; Visit Provider Internal Medicine Pulmonary Disease
DX: J45.909 Unspecified asthma, uncomplicated (principal); G47.33 Obstructive sleep apnea (adult) (pediatric); Z91.09 Other allergy status, other than to drugs and biological substances
CPT/HCPCS: 99214

== ENCOUNTER → 2023-08-23 11:34 | Outpatient (BNVA) | payer OTHER, SELFPAY | PROVIDERS: PCP Internal Medicine; Visit Provider Internal Medicine Pulmonary Disease | DX: J45.909 Unspecified asthma, uncomplicated (principal); G47.33 Obstructive sleep apnea (adult) (pediatric); Z91.09 Other allergy status, other than to drugs and biological substances | CPT/HCPCS: 99212 ==

== ENCOUNTER 2023-09-09 14:56 | Emergency (ER) | payer OTHER, SELFPAY ==
--- NOTE | ~2023-09-09 | XR_ITS ---
EXAMINATION: XR KNEE, RIGHT CLINICAL INFORMATION: Fall COMPARISON: Right knee radiographs 05/04/2022. TECHNIQUE: AP and lateral views of the right knee. FINDINGS: No evidence of acute fracture or malalignment. Tricompartmental right knee osteoarthritis, worst in the medial femoral tibial compartment, where it is likely moderate as characterized by joint space narrowing and small osteophytes, similar to 05/04/2022. No suprapatellar joint effusion. Small quadriceps and patellar insertional enthesophytes. Soft tissues unremarkable.. XR/XR knee RT 2V IMPRESSION: 1. No evidence of acute fracture or malalignment of the right knee. 2. Unchanged moderate tricompartmental right knee osteoarthritis.
--- NOTE | ~2023-09-09 | CT_ITS ---
EXAMINATION: CT cervical spine wo IV con, CT head/brain wo IV con INDICATION INFORMATION: fall with head strike COMPARISON: Noncontrast head CT 06/08/2022, CT cervical spine 01/02/2020 TECHNIQUE: Separate noncontrast CT examinations of the head and cervical spine were performed. Coronal and sagittal images were created for each examination at the technologist workstation. This CT examination was performed using dose optimization techniques as appropriate, variously including the following: *Automated exposure control *Adjustment of mA and/or kV according to patient size (this includes techniques or standardized protocols for targeted exams where dose is matched to indication/reason for exam; i.e. extremities or head) *Use of iterative reconstruction technique DLP: 1342.43 mGy-cm FINDINGS: Head: No acute osseous or soft tissue abnormality. The mastoid air cells and visualized portions of the paranasal sinuses are well aerated. There is no evidence of acute intracranial hemorrhage or territorial infarction. No abnormal mass effect or midline shift is seen. Wylie to white matter differentiation is well preserved. No extra-axial fluid collections are identified. No hydrocephalus. No significant volume loss. Patchy periventricular and deep white matter hypoattenuation is consistent with mild small vessel ischemic changes. Cervical spine: There is no evidence of acute cervical spine fracture. Vertebral bodies remain normal in height. Osseous fusion across the posterior elements of C3-C4. Fragmented left C4 inferior articular process osteophyte (series 9, image 20), chronic appearing large, flowing anterior C5-C6 and C6-C7 disc osteophyte complexes. Alignment is maintained. Disc space heights are maintained. No pre- or paravertebral soft tissue abnormality is identified. Visualized portions of the lung apices are unremarkable. The thyroid gland is unremarkable. CT/CT cervical spine wo IV con IMPRESSION: 1. No acute traumatic abnormality of the brain or cervical spine 2. Fragmented osteophyte at the left C4 inferior articular process, age-indeterminate but chronic appearing.
--- NOTE | ~2023-09-09 | XR_ITS ---
EXAMINATION: XR LUMBOSACRAL SPINE CLINICAL INFORMATION: Fall, back pain COMPARISON: CT abdomen pelvis 11/29/2022. TECHNIQUE: Three views of the lumbosacral spine. FINDINGS: There are 5 nonrib-bearing lumbar type vertebra. No evidence of acute fracture or malalignment. Vertebral body heights are maintained. Disc spaces are preserved. Redemonstrated large left lateral L1-L2 endplate osteophytes. Small vertebral body endplate osteophytes throughout the remaining lumbar spine. Moderate lower lumbar facet arthropathy, likely unchanged. Soft tissues are unremarkable. XR/XR lumbar spine 2-3V IMPRESSION: 1. No evidence of acute fracture or malalignment of the lumbar spine, within the limitations of plain radiographic technique. 2. Mild multilevel degenerative lumbar spondylosis, unchanged from 11/29/2022.
[2023-09-09 15:45] VITALS: BP 152/69; PULSE 70; RESP 16; TEMP 36.8; O2SAT 98; BMI 41.4
--- NOTE | 2023-09-09 15:46 | ED.FALL ---
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 She admits that while taking a shower, she slipped and fell, striking the back of her head. She is unsure if she lost consciousness however states she felt blank . Denies anticoagulation. Denies preceding symptoms of headache, dizziness, chest pain, palpitations, shortness of breath, vision changes. She has been taking tylenol at home with minimal relief. Endorses continued headache, bilateral neck pain, low back pain and right knee pain. Ambulates with cane at baseline. Denies difficulty with ambulation. Denies dizziness, vision changes, speech changes, balance disturbances, saddle anesthesia numbness/tingling/weakness of the lower extremities, dysuria, hematuria. 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 Related Data Previous Rx's ?Medication ?Instructions ?Recorded cane #1 ea 10/25/21 cholecalciferol (vitamin D3) 50 50 mcg PO DAILY 90 days #90 caps 04/07/22 mcg (2,000 unit) capsule acetaminophen 500 mg tablet 1,000 mg (2 x 500 mg) PO Q6H PRN 04/25/22 pain 30 days #180 tabs albuterol sulfate 0.63 mg/3 mL 0.63 mg (3 mL) inhalation Q6H #75 01/27/23 solution for nebulization mL albuterol sulfate 90 mcg/actuation 1 inh inhalation QID PRN shortness 01/27/23 aerosol inhaler of breath or wheezing #6.7 grams fluticasone propionate 115 2 puff inhalation Q12H 30 days #1 01/27/23 mcg-salmeterol 21 mcg/actuation ea HFA inhaler (Advair HFA) montelukast 10 mg tablet 10 mg PO QPM #30 tabs 05/10/23 bisoprolol 5 1 tab PO DAILY 90 days #90 tabs 07/11/23 mg-hydrochlorothiazide 6.25 mg tablet bisacodyl 5 mg tablet,delayed 20 mg (4 x 5 mg) PO ONCE PRN 08/17/23 release (Dulcolax (bisacodyl)) colonoscopy prep 1 day #4 tabs docusate sodium 100 mg capsule 200 mg (2 x 100 mg) PO BEDTIME #60 08/17/23 (Colace) caps hydrocortisone 2.5 % topical cream 1 appl MN BID PRN hemorrhoids #30 08/17/23 with perineal applicator grams (Proctozone-HC) peg-electrolyte solution 420 gram 240 ml PO ONCE 1 day #4,000 mL 08/17/23 oral solution sennosides 8.6 mg capsule (senna) 8.6 mg PO DAILY PRN constipation 08/17/23 #30 caps tiotropium bromide 2.5 2 puff inhalation QAM 30 days #4 08/23/23 mcg/actuation mist for inhalation grams (Spiriva Respimat) cyclobenzaprine 5 mg tablet 5 mg PO Q8H PRN muscle spasm #10 09/09/23 tabs lidocaine 5 % topical patch 1 patch topical DAILY #15 ea 09/09/23 (Lidoderm) naproxen 500 mg tablet 500 mg PO Q8-12H PRN pain (scale 09/09/23 score 4-6) #20 tabs Allergies Allergy/AdvReac Type Severity Reaction Status Date / Time No Known Allergies Allergy Verified 09/09/23 15:49 [No Known Allergies*] Review of Systems Review of Systems: Constitutional: No fever, chills, fatigue, night sweats, weight changes ENT/Mouth: No ear pain, hearing loss, nasal congestion, sinus pain, rhinorrhea, sore throat Eyes: No eye pain, swelling, redness, vision changes, discharge Cardio: No chest pain, palpitations, CHAVES, orthopnea, peripheral edema Pulm: No SOB, cough, sputum, wheezing, dyspnea, hemoptysis GI: No nausea, vomiting, hematemesis, abdominal pain, diarrhea, constipation, hematochezia, melena : No irregular bleeding, dysuria, frequency, urgency, hesitancy, hematuria, flank pain, urinary flow changes, urinary incontinence or retention MSK: No joint pain, myalgias, +neck pain, +back pain, +right knee pain Skin: No lesions, rashes Neuro: No weakness, numbness, paresthesias, LOC, dizziness, +headache Psych: No anxiety/panic, depression, SI/HI, AH/VH All other systems reviewed and are negative. [facility] Past Medical History Attestation statement: The following information was validated with the patient. Source: old records reviewed and nursing notes reviewed Medical History Physical exam Recent change in frequency of bowel movements Right knee pain Preop pulmonary/respiratory exam Arthritis of right knee Spider veins of both lower extremities Right lower lobe pulmonary nodule Encounter for screening colonoscopy COVID-19 Morbid obesity with BMI of 40.0-44.9, adult Physical exam Lab test negative for COVID-19 virus Right shoulder pain [place] (generalized anxiety disorder) Leg edema Cough Knee pain Common cold Arthritis Close exposure to COVID-19 virus Elevated hemoglobin Depression Left shoulder pain Left knee pain Chronic cough Hypovitaminosis D Mild recurrent major depression Thyroid nodule Anxiety and depression Supraclavicular lymphadenopathy Morbid obesity Urge urinary incontinence Goiter Essential hypertension Surgical History Hx of colonoscopy Uterine myoma History of total abdominal hysterectomy H/O oophorectomy History of cholecystectomy Family History Family History Father Diabetes Hypertension Mother Hypertension Brother Hypertension Sister Hypertension Maternal Aunt Breast cancer Daughter No problems noted. Social History Social History Housing: Apartment Alcohol intake: never Patient Tobacco Use Status: Never used Tobacco e-Cigarette/Vaping Use: Never Used Second Hand Smoke Exposure: No Advance Directives: No Advance Directives Information Provided: No Do you have a plan to hurt others: No Plan service: No Current occupational status: unemployed Cognitive needs: Yes (cane) Hearing needs: No Vision needs: Yes (glasses) Physical Exam Vital Signs: Vital Signs: Last Vital Signs Temp 98.2 F 09/09/23 22:33 Pulse 67 09/09/23 22:33 Resp 20 09/09/23 22:33 BP 149/88 H 09/09/23 22:33 Pulse Ox 100 09/09/23 22:33 O2 Del Method Room Air 09/09/23 22:33 BMI result Body Mass Index 41.4 Vital signs stable, afebrile Const: General: cooperative, healthy appearing, comfortable, no acute distress, alert, awake and Physically active Orientation/consciousness: patient oriented x3 HEENT: Head: Yes normal to inspection, Yes No palpable skull fracture present, Yes normocephalic, Yes atraumatic, No Saleem's sign, No raccoon eyes and No periorbital ecchymosis Eyes: General: appearance normal, both eyes and all related structures Conjunctivae: conjunctivae normal Sclerae: sclerae normal Pupils: Equal, round and reactive pupils present EOM: EOMs intact bilaterally Neck: Other: + no cervical midline spinous tenderness or step-off deformity. there is bilateral cervical paraspinal muscle tenderness with palpable spasm Neck: Yes normal visual inspection, Yes full ROM and Yes no meningeal signs Resp: Effort & Inspection: normal respiratory effort Auscultation: clear to auscultation bilaterally Cardio: Rate: regular rate Rhythm: regular rhythm GI: Inspection: Yes normal to inspection Palpation (GI): Soft to palpation and nontender : General: Yes no CVA tenderness Back/Spine/Pelvis: Other: + midline lumbar spinous tenderness to palpation without step-off deformity. No paraspinal muscle tenderness to palpation or palpable spasm. Back: no CVA tenderness Neuro: Other: Strength 5/5 intact throughout.? No saddle anesthesia.? Sensation intact to light touch.? Neurovascular intact distally.? 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 Fell on in the tub hitting her head. States that she hit her head but denies any known LOC and states she felt 'blank'. Headache, right knee, neck, and back pain. Denies saddle anesthesias, new urinary incontinence, fecal incontinence. Took Tylenol earlier today Reevaluation(s) Reevaluation #1: 1819-- radiographs obtained prior to my assumption of care. x-ray right knee without evidence of fracture. X-ray lumbar spine with minimal multilevel degenerative changes unchanged from x-ray obtained in November of 2022. Discussed results with patient. Given patient had head strike with continued headache, CT head/brain and cervical spine will be ordered. 1918-- patient stable at the end of my shift. Sign-out given to my colleague, Chelsey RIVERA, pending CT head/brain and cspine along with disposition. Medications Administered Discontinued Medications Generic Name Dose Route Start Last Admin Trade Name Freq PRN Reason Stop Dose Admin Cyclobenzaprine HCl 10 mg 09/09/23 18:11 09/09/23 19:54 Cyclobenzaprine Hcl 10 Mg Tablet PO 09/09/23 18:12 10 mg ONCE ONE Administration Ketorolac Tromethamine 30 mg 09/09/23 18:11 09/09/23 19:49 Ketorolac Tromethamine 30 Mg/Ml Vial IM 09/09/23 18:12 30 mg ONCE ONE Administration Lidocaine 1 patch 09/09/23 18:11 09/09/23 19:54 Lidocaine 4 % Patch Adh..Patch TRANSDERMA 09/09/23 18:12 1 patch ONCE ONE Administration Protocol Medical Decision Making Medical Decision Making MDM Narrative: 67-year-old Tristanian-speaking female with past medical history significant for essential hypertension, anxiety, depression, goiter, morbid obesity, pulmonary nodule, asthma, and arthritis presents to the emergency department today for evaluation of headache, neck pain, back pain and right knee pain s/p slip and fall occurring 3 days ago. Vital signs stable. afebrile. patient is nontoxic appearing and in nad. exam is nonfocal. cerebellum intact. no cervical midline spinous tenderness or step-off deformity. there is bilateral cervical paraspinal muscle tenderness with palpable spasm. midline lumbar spinous tenderness to palpation without step-off deformity. No paraspinal muscle tenderness to palpation or palpable spasm. Neurovascularly intact distally. Sensation intact throughout. Strength 5/5 intact throughout. Ambulating with steady gait assisted by cane. Differential diagnosis includes MSK sprain, MSK strain, contusion, fracture, subluxation, disc herniation, sciatica, concussion, headache, migraine. Unlikely skull fracture, ICH, TIA/CVA, dissection, cord compression, cauda equina, Guillain-Wallagrass, epidural abscess. Plan for imaging and pain control. Differential Diagnosis Differential Diagnoses: The differential diagnosis associated with the presentation includes as above Admission/Observation Not indicated. Independent Interpretation I performed an independent interpretation of an: Plain X-Ray and CT Scan Interpretation: X-ray right knee without fracture, agree with radiologist's interpretation. X-ray lumbar spine without fracture or subluxation, agree with radiologist's interpretation. C head/brain without bleed or mass, agree with radiologist's interpretation. CT cspine without fracture, agree with radiologist's interpretation. Radiology Impression Discussion of test interpretation with radiology: I have reviewed the radiologist's reading. Radiologist Impression: EXAMINATION: XR LUMBOSACRAL SPINE CLINICAL INFORMATION: Fall, back pain COMPARISON: CT abdomen pelvis 11/29/2022. TECHNIQUE: Three views of the lumbosacral spine. FINDINGS: There are 5 nonrib-bearing lumbar type vertebra. No evidence of acute fracture or malalignment. Vertebral body heights are maintained. Disc spaces are preserved. Redemonstrated large left lateral L1-L2 endplate osteophytes. Small vertebral body endplate osteophytes throughout the remaining lumbar spine. Moderate lower lumbar facet arthropathy, likely unchanged. Soft tissues are unremarkable. XR/XR lumbar spine 2-3V IMPRESSION: 1. No evidence of acute fracture or malalignment of the lumbar spine, within the limitations of plain radiographic technique. 2. Mild multilevel degenerative lumbar spondylosis, unchanged from 11/29/2022. EXAMINATION: CT cervical spine wo IV con, CT head/brain wo IV con INDICATION INFORMATION: fall with head strike COMPARISON: Noncontrast head CT 06/08/2022, CT cervical spine 01/02/2020 TECHNIQUE: Separate noncontrast CT examinations of the head and cervical spine were performed. Coronal and sagittal images were created for each examination at the technologist workstation. This CT examination was performed using dose optimization techniques as appropriate, variously including the following: *Automated exposure control *Adjustment of mA and/or kV according to patient size (this includes techniques or standardized protocols for targeted exams where dose is matched to indication/reason for exam; i.e. extremities or head) *Use of iterative reconstruction technique DLP: 1342.43 mGy-cm FINDINGS: Head: No acute osseous or soft tissue abnormality. The mastoid air cells and visualized portions of the paranasal sinuses are well aerated. There is no evidence of acute intracranial hemorrhage or territorial infarction. No abnormal mass effect or midline shift is seen. Wylie to white matter differentiation is well preserved. No extra-axial fluid collections are identified. No hydrocephalus. No significant volume loss. Patchy periventricular and deep white matter hypoattenuation is consistent with mild small vessel ischemic changes. Cervical spine: There is no evidence of acute cervical spine fracture. Vertebral bodies remain normal in height. Osseous fusion across the posterior elements of C3-C4. Fragmented left C4 inferior articular process osteophyte (series 9, image 20), chronic appearing large, flowing anterior C5-C6 and C6-C7 disc osteophyte complexes. Alignment is maintained. Disc space heights are maintained. No pre- or paravertebral soft tissue abnormality is identified. Visualized portions of the lung apices are unremarkable. The thyroid gland is unremarkable. CT/CT head/brain wo IV con IMPRESSION: 1. No acute traumatic abnormality of the brain or cervical spine 2. Fragmented osteophyte at the left C4 inferior articular process, age-indeterminate but chronic appearing. External Record Review External record reviewed: Inpatient record Prescription Management I considered prescription management with: Pain Medication and Other (Muscle relaxer, steroid) Critical Care Time Critical Care Time Critical Care Time: No Discharge Plan Discharge Clinical Impression: Lumbar spine strain, Headache Patient Disposition: Home, Self-Care Instructions: Muscle Strain (ED), Lower Back Exercises (ED) Additional Instructions: Your imaging studies today did not show acute fracture. Your pain is likely musculoskeletal. Avoid bending, lifting, or twisting. Use ice several times per day for 20 minutes at a time for the next 48 hours and then change to heat. Flexeril is a muscle relaxer. Take this at night as it makes you drowsy. Do not drive, drink alcohol, or operate machinery while taking it. Naproxen is an anti-inflammatory / pain medication. Take with food. Do not take this with Ibuprofen. Lidoderm patches are numbing patches. Apply to painful areas. In addition you may take Tylenol at home. Follow up with your primary care provider as needed If your pain worsens, if you develop new numbness, tingling, weakness, loss of bowel or bladder function call 911 or return to the ER immediately for evaluation. Prescriptions: New cyclobenzaprine 5 mg tablet 5 mg PO Q8H PRN (Reason: muscle spasm) Qty: 10 0RF naproxen 500 mg tablet 500 mg PO Q8-12H PRN (Reason: pain (scale score 4-6)) Qty: 20 0RF lidocaine [Lidoderm] 5 % adhesive patch,medicated 1 patch topical DAILY Qty: 15 0RF Rx Instructions: leave on most painful area for up to 12 hrs No Action acetaminophen 500 mg tablet 1,000 mg PO Q6H PRN (Reason: pain) 30 Days Qty: 180 1RF albuterol sulfate 0.63 mg/3 mL solution for nebulization 0.63 mg inhalation Q6H Qty: 75 3RF albuterol sulfate 90 mcg/actuation HFA aerosol inhaler 1 inh inhalation QID PRN (Reason: shortness of breath or wheezing) Qty: 6.7 0RF Advair HFA 115-21 mcg/actuation HFA aerosol inhaler 2 puff inhalation Q12H 30 Days Qty: 1 6RF montelukast 10 mg tablet 10 mg PO QPM Qty: 30 6RF bisoprolol-hydrochlorothiazide 5-6.25 mg tablet 1 tab PO DAILY 90 Days Qty: 90 1RF (DME) cane Device See Rx Instructions .Route Qty: 1 0RF Rx Instructions: As directed cholecalciferol (vitamin D3) 50 mcg (2,000 unit) capsule 50 mcg PO DAILY 90 Days Qty: 90 1RF peg-electrolyte soln 420 gram recon soln 240 ml PO ONCE 1 Days Qty: 4000 0RF Rx Instructions: Start at 6:00pm the evening before procedure, drink one 8oz glass every 15 minutes until complete docusate sodium [Colace] 100 mg capsule 200 mg PO BEDTIME Qty: 60 5RF senna 8.6 mg capsule 8.6 mg PO DAILY PRN (Reason: constipation) Qty: 30 1RF hydrocortisone [Proctozone-HC] 2.5 % cream with perineal applicator 1 appl MN BID PRN (Reason: hemorrhoids) Qty: 30 3RF Rx Instructions: apply MN BID prn bisacodyl [Dulcolax (bisacodyl)] 5 mg tablet,delayed release (DR/EC) 20 mg PO ONCE PRN (Reason: colonoscopy prep) 1 Days Qty: 4 0RF Rx Instructions: Day before procedure @ 12 noon Take 4 tablets by mouth followed by large glass of water Spiriva Respimat 2.5 mcg/actuation mist 2 puff inhalation QAM 30 Days Qty: 4 6RF Referrals: Brenda Poon MD [Primary Care Provider] - Stand Alone Forms: Work/School Release Interventions: ED Discharge Assessment Last Done: 09/09/23 22:33 Discharge Date/Time: 09/09/23 22:34 Print Language: Tristanian
[2023-09-09] MEDS: Ketorolac Tromethamine 30 MG/ML VIAL IM (19:49)
[2023-09-09 19:50] VITALS: BP 148/78; PULSE 64; RESP 20; TEMP 36.6; O2SAT 100
[2023-09-09] MEDS: Cyclobenzaprine HCl 10 MG TABLET PO (19:54)
[2023-09-09] MEDS: Lidocaine 4 % Patch ADH..PATCH 1 PATCH TRANSDERMA (19:54)
[2023-09-09 21:27] VITALS: BP 149/88; PULSE 67; RESP 20; TEMP 36.8; O2SAT 100
[2023-09-09 22:33] VITALS: BP 149/88; PULSE 67; RESP 20; TEMP 36.8; O2SAT 100
== END 2023-09-09 22:34 | disposition home or self-care (01) ==
PROVIDERS: Emergency Provider Emergency Medicine; PCP Internal Medicine
DX: S39.012A Strain of muscle, fascia and tendon of lower back, initial encounter (principal); W18.2XXA Fall in (into) shower or empty bathtub, initial encounter; Y93.89 Activity, other specified; Y92.002 Bathroom of unspecified non-institutional (private) residence as the place of occurrence of the external cause; Y99.9 Unspecified external cause status; R51.9 Headache, unspecified; M54.2 Cervicalgia; M54.9 Dorsalgia, unspecified; M25.561 Pain in right knee
CPT/HCPCS: 70450; 72100; 72125; 73560; 96372; 99283; 99284; J1885

== ENCOUNTER 2023-09-12 15:19 | Outpatient (AMB) | payer OTHER, SELFPAY ==
[2023-09-12 15:21] VITALS: BP 132/80; BMI 41.2
--- NOTE | 2023-09-12 15:21 | A.OFFPC_ITS ---
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 Required: No Accompanied by: Self / Same As Patient Allergies No Known Allergies [No Known Allergies*] Allergy (Verified 09/12/23 15:34) Medication List - Last Reconciled 09/12/23 by Brenda Phipps MD acetaminophen 1,000 mg (2 x 500 mg) PO Q6H PRN 30 days albuterol sulfate 0.63 mg (3 mL) inhalation Q6H albuterol sulfate 90 mcg/actuation 1 inh inhalation QID PRN bisacodyl (Dulcolax (bisacodyl)) 20 mg (4 x 5 mg) PO ONCE PRN 1 day bisoprolol-hydrochlorothiazide 5-6.25 mg 1 tab PO DAILY 90 days cane As directed cholecalciferol (vitamin D3) 50 mcg PO DAILY 90 days cyclobenzaprine 5 mg PO Q8H PRN docusate sodium (Colace) 200 mg (2 x 100 mg) PO BEDTIME fluticasone propion-salmeterol 115-21 mcg/actuation (Advair HFA) 2 puffs inhalation Q12H 30 days hydrocortisone 2.5% (Proctozone-HC) 1 appl DC BID PRN lidocaine 5% (Lidoderm) 1 patch topical DAILY montelukast 10 mg PO QPM naproxen 500 mg PO Q8-12H PRN peg-electrolyte soln 420 gram 240 mL PO ONCE 1 day sennosides (senna) 8.6 mg PO DAILY PRN tiotropium bromide 2.5 mcg/actuation (Spiriva Respimat) 2 puffs inhalation QAM 30 days Tobacco use date assessed: 06/06/23 Fall risk assessment: 1 Fall in past year Last assessed Fall Risk: 09/12/23 Dental Screening Dental Screen Date: 06/06/23 HPI HPI Comments History of Present Illness Details This is a 67 year old female with mild major depression, hypertension, chronic constipation and morbid obesity that comes today as a hospital discharge follow-up with discharge date 09/09/2023 due to falling in the shower and hitting her head and neck, lower back and right knee. No loss of consciousness. CT of head and neck were negative for fracture. X-ray of lumbar spine and knee were also negative for fracture. Neck shows mild arthritis. Also knee. Depression has been stable with counseling. Blood pressure stable. Constipation well controlled with senna as needed. She is morbidly obese with a BMI of 41.2 and has tried diet and exercise with no significant improvement. Will start Wegovy. [facility] Medical History (Updated 09/12/23 @ 15:45 by Brenda Phipps MD) Morbid obesity Physical exam Recent change in frequency of bowel movements Right knee pain Preop pulmonary/respiratory exam Arthritis of right knee Spider veins of both lower extremities Right lower lobe pulmonary nodule Encounter for screening colonoscopy COVID-19 Morbid obesity with BMI of 40.0-44.9, adult Physical exam Lab test negative for COVID-19 virus Right shoulder pain TRINIDAD (generalized anxiety disorder) Leg edema Cough Knee pain Common cold Arthritis Close exposure to COVID-19 virus Elevated hemoglobin Depression Left shoulder pain Left knee pain Chronic cough Hypovitaminosis D Mild recurrent major depression Thyroid nodule Anxiety and depression Supraclavicular lymphadenopathy Urge urinary incontinence Goiter Essential hypertension Surgical History Hx of colonoscopy Uterine myoma History of total abdominal hysterectomy H/O oophorectomy History of cholecystectomy Family History Father Diabetes Hypertension Mother Hypertension Brother Hypertension Sister Hypertension Maternal Aunt Breast cancer Daughter No problems noted. Social History Housing: Apartment Alcohol intake: never Patient Tobacco Use Status: Never used Tobacco e-Cigarette/Vaping Use: Never Used Second Hand Smoke Exposure: No service: No Current occupational status: unemployed Cognitive needs: Yes (cane) Hearing needs: No Vision needs: Yes (glasses) Questionnaire Thrive Questionnaire Date Thrive assessed: 06/06/23 TRINIDAD-7 AMB Questionnaire TRINIDAD-7 Date TRINIDAD - 7 assessed: 06/06/23 Source: Developed by Drs. Guillaume Stark, Keila Scott, Stanislav Oquendo and colleagues, with an educational sandeep from [email or web address]. Review of Systems Const All systems reviewed & are unremarkable except as noted in HPI and below Eyes Reports no additional complaints, Denies change in vision and Denies other visual disturbances ENT Reports neck pain Card Denies chest pain at rest, Denies chest pain with activity, Denies edema, Denies irregular heart rhythm, Denies claudication, Denies dyspnea, Denies dyspnea on exertion, Denies orthopnea, Denies paroxysmal nocturnal dyspnea and Denies slow heart rate Resp Denies cough, Denies dyspnea and Denies dyspnea on exertion GI Denies abdominal pain, Denies change in bowel habits, Denies excessive flatus, Denies nausea and Denies vomiting Denies urinary incontinence, Denies urinary hesitancy and Denies urinary urgency Musc Reports back pain and Reports neck pain Physical exam (Primary Care) Vital Signs: Last Vital Signs BP 132/80 09/12/23 15:21 BMI result Body Mass Index 41.2 Tobacco/Smoking Status: Tobacco use Status Tobacco use date assessed 06/06/23 09/12/23 15:25 Patient Tobacco Use Status Never used Tobacco 09/12/23 15:25 e-Cigarette/Vaping Use Never Used 09/12/23 15:25 Thrive Assessment: Date of Thrive Assessment Date Thrive assessed 06/06/23 09/12/23 15:25 Eyes General: appearance normal, both eyes and all related structures Eyelids: Yes eyelids normal Conjunctivae: conjunctivae normal Neck Neck: Yes normal visual inspection and Yes supple Resp Effort & Inspection: normal respiratory effort Auscultation: clear to auscultation bilaterally Cardio Jugular venous distension: no JVD Rate: regular rate Rhythm: regular rhythm Heart sounds: S1 normal heart sound present and S2 normal heart sound present Extrem General: Yes full ROM Assessment and Plan Assessment & Plan (1) Mild recurrent major depression: Code(s): F33.0 - Major depressive disorder, recurrent, mild Plan: Continue counseling. (2) Morbid obesity: Code(s): E66.01 - Morbid (severe) obesity due to excess calories Plan: Start diet and exercise. Start wegovy. BMI goal is less than 30. (3) Chronic constipation: Code(s): K59.09 - Other constipation Plan: Continue senna p.r.n.. (4) Essential hypertension: Code(s): I10 - Essential (primary) hypertension Plan: Continue bisoprolol-hydrochlorothiazide. Blood pressure goal is equal or less than 130/80. (5) Osteoarthritis of right knee: Code(s): M17.11 - Unilateral primary osteoarthritis, right knee Plan: Continue naproxen as needed. Orders: Orders Lipid Panel Today E66.01 - Morbid (severe) obesity due to excess calories, E78.5 - Hyperlipidemia, unspecified Comprehensive [place]. Panel Fast Today E66.01 - Morbid (severe) obesity due to excess calories Vitamin D 25-OH Total Today E55.9 - Vitamin D deficiency, unspecified Referrals Ophthalmology Referral H53.8 - Other visual disturbances Medications: New semaglutide (weight loss) (Wegovgerardo) administer weeks 1 through 4 of therapy 0.25 mg (0.5 mL) subcut QWEEK 4 weeks 2 mL 0RF E66.01 - Morbid (severe) obesity due to excess calories Coding Level of Care Code Est Pt Level 4 (32055) Diagnoses Mild recurrent major depression F33.0 Morbid obesity E66.01 Chronic constipation K59.09 Essential hypertension I10 Osteoarthritis of right knee M17.11 Time Spent (min) 24
== END 2023-09-12 15:44 | disposition home or self-care (01) ==
PROVIDERS: PCP Internal Medicine; Visit Provider Internal Medicine
DX: I10 Essential (primary) hypertension (principal); F33.0 Major depressive disorder, recurrent, mild; E66.01 Morbid (severe) obesity due to excess calories; Z68.41 Body mass index [BMI] 40.0-44.9, adult; K59.09 Other constipation; M17.11 Unilateral primary osteoarthritis, right knee
CPT/HCPCS: 99214

== ENCOUNTER 2023-09-24 14:39 | Emergency (ER) | payer OTHER, SELFPAY ==
[2023-09-24 15:16] VITALS: BP 116/78; PULSE 70; RESP 16; TEMP 36.4; O2SAT 99; BMI 40.3
[2023-09-24 16:51] LABS: MANUAL DIFF FLAG NO
[2023-09-24 16:56] LABS: Basophils Percent Auto 0.4 % (0-2); Eosinophils Absolute Auto 0.1 X10*3/uL (0.0-0.4); Eosinophils Percent Auto 1.8 % (0-4); Hemoglobin 16.1 g/dl (12.0-16.0); Imm Gran Abs Auto 0.03 X10*3/uL (0.00-0.03); Imm Gran Pct Auto 0.4 % (0.0-0.4); Lymphocytes Absolute Auto 1.5 X10*3/uL (1.2-4.9); Lymphocytes Percent Auto 22.3 % (20-40); Mean Corpuscular HGB Conc 31.6 g/dl (31.0-35.0); Mean Corpuscular Hemoglobin 29.8 pg (27.0-33.0); Mean Corpuscular Volume 94.3 fL (80.0-98.0); Mean Platelet Volume 11.1 fL (9.4-12.3); Monocytes Absolute Auto 0.8 X10*3/uL (0.1-1.2); Monocytes Percent Auto 11.1 % (2-11); Neutrophils Absolute Auto 4.4 x10*3/uL (2.0-8.3); Platelet Count 206 X10*3/uL (160-400); Red Blood Count 5.41 X10*6/uL (4.20-5.50); Red Cell Distribution Width 13.1 % (11.0-16.0); White Blood Count 6.9 X10*3/uL (4.8-10.8)
[2023-09-24 17:12] LABS: Alanine Aminotransferase 34 U/L (0-31); Albumin Level 3.6 g/dL (3.5-5.0); Alkaline Phosphatase 102 U/L (39-117); Anion Gap 13 (12-20); Aspartate Amino Transferase 28 U/L (5-31); Bilirubin Total 1.7 mg/dL (0.0-1.0); Blood Urea Nitrogen 17 mg/dL (9-16); Calcium 8.8 mg/dL (8.4-10.2); Carbon Dioxide 29 mmol/L (22-29); Chloride 105 mmol/L (96-108); Creatinine Clr Calc Pharmacy 108.9; Estimated Glomerular Filt Rate > 60; Glucose Random 92 mg/dL (60-115); Lipase 25 U/L (8-78); Potassium 3.5 mmol/L (3.3-5.1); Sodium 143 mmol/L (135-145); Total Protein 6.9 g/dL (6.5-8.0)
[2023-09-24 17:37] LABS: Influenza A PCR NEGATIVE (Negative); Influenza B PCR NEGATIVE (Negative); Resp Syncy Virus RNA Qual PCR NEGATIVE (Negative); SARS COV2 PCR INHOUSE NEGATIVE (Negative)
[2023-09-24 22:59] VITALS: BP 134/56; PULSE 59; RESP 14; TEMP 36.5; O2SAT 97
[2023-09-24 23:26] LABS: Appearance Urine Cloudy; Color Urine Dark Yellow; Glucose Urine UA Negative (Negative); Leukocyte Esterase Urine Negative (Negative); Nitrite Urine Negative (Negative); PH 5.5 (5.0-9.0); Specific Gravity - Urine 1.025 (1.005-1.025); Urine Blood Negative (Negative); Urine Ketones 15 mg/dL (Negative); Urine Protein Negative (Neg-Trace)
[2023-09-24 23:33] LABS: Bacteria Urine 2+ (None Seen); Hyaline Casts Urine 0-2 /LPF (0-2); RBC Urine 0-2 /HPF (0-2); WBC Urine 0-5 /HPF (0-5)
--- NOTE | 2023-09-24 23:36 | ED.ABDPAIN ---
HPI - Abdominal Pain General Chief Complaint: Abdominal Pain Stated Complaint: Vomiting, abd pain Time Seen by Provider: 09/24/23 23:35 Source: patient Mode of arrival: ambulatory Limitations: language barrier (Salvadorean speaking only, zoology technical officer used) History of Present Illness ED Provider: Dr. Dion Banks Related Data Previous Rx's ?Medication ?Instructions ?Recorded cane #1 ea 10/25/21 cholecalciferol (vitamin D3) 50 50 mcg PO DAILY 90 days #90 caps 04/07/22 mcg (2,000 unit) capsule acetaminophen 500 mg tablet 1,000 mg (2 x 500 mg) PO Q6H PRN 04/25/22 pain 30 days #180 tabs albuterol sulfate 0.63 mg/3 mL 0.63 mg (3 mL) inhalation Q6H #75 01/27/23 solution for nebulization mL albuterol sulfate 90 mcg/actuation 1 inh inhalation QID PRN shortness 01/27/23 aerosol inhaler of breath or wheezing #6.7 grams fluticasone propionate 115 2 puff inhalation Q12H 30 days #1 01/27/23 mcg-salmeterol 21 mcg/actuation ea HFA inhaler (Advair HFA) montelukast 10 mg tablet 10 mg PO QPM #30 tabs 05/10/23 bisoprolol 5 1 tab PO DAILY 90 days #90 tabs 07/11/23 mg-hydrochlorothiazide 6.25 mg tablet bisacodyl 5 mg tablet,delayed 20 mg (4 x 5 mg) PO ONCE PRN 08/17/23 release (Dulcolax (bisacodyl)) colonoscopy prep 1 day #4 tabs docusate sodium 100 mg capsule 200 mg (2 x 100 mg) PO BEDTIME #60 08/17/23 (Colace) caps hydrocortisone 2.5 % topical cream 1 appl ND BID PRN hemorrhoids #30 08/17/23 with perineal applicator grams (Proctozone-HC) peg-electrolyte solution 420 gram 240 ml PO ONCE 1 day #4,000 mL 08/17/23 oral solution sennosides 8.6 mg capsule (senna) 8.6 mg PO DAILY PRN constipation 08/17/23 #30 caps tiotropium bromide 2.5 2 puff inhalation QAM 30 days #4 08/23/23 mcg/actuation mist for inhalation grams (Spiriva Respimat) cyclobenzaprine 5 mg tablet 5 mg PO Q8H PRN muscle spasm #10 09/09/23 tabs naproxen 500 mg tablet 500 mg PO Q8-12H PRN pain (scale 09/09/23 score 4-6) #20 tabs lidocaine 5 % topical patch 1 patch topical DAILY #15 ea 09/12/23 (Lidoderm) semaglutide (weight loss) 0.25 0.25 mg (0.5 mL) subcut QWEEK 4 09/12/23 mg/0.5 mL subcutaneous pen weeks #2 mL injector (Ernie's) aluminum hydrox-magnesium carb 254 10 ml PO QID PRN dyspepsia #355 mL 09/25/23 mg-237.5 mg/5 mL oral suspension (Gaviscon Extra Strength) omeprazole 20 mg capsule,delayed 20 mg PO DAILY 30 days #30 caps 09/25/23 release Allergies Allergy/AdvReac Type Severity Reaction Status Date / Time No Known Allergies Allergy Verified 09/24/23 15:23 [No Known Allergies*] [facility] Past Medical History Medical History (Updated 09/25/23 @ 00:37 by Dion Banks MD) Morbid obesity Physical exam Recent change in frequency of bowel movements Right knee pain Preop pulmonary/respiratory exam Arthritis of right knee Spider veins of both lower extremities Right lower lobe pulmonary nodule Encounter for screening colonoscopy COVID-19 Morbid obesity with BMI of 40.0-44.9, adult Physical exam Lab test negative for COVID-19 virus Right shoulder pain TRINIDAD (generalized anxiety disorder) Leg edema Cough Knee pain Common cold Arthritis Close exposure to COVID-19 virus Elevated hemoglobin Depression Left shoulder pain Left knee pain Chronic cough Hypovitaminosis D Mild recurrent major depression Thyroid nodule Anxiety and depression Supraclavicular lymphadenopathy Urge urinary incontinence Goiter Essential hypertension Surgical History Hx of colonoscopy Uterine myoma History of total abdominal hysterectomy H/O oophorectomy History of cholecystectomy Family History Family History Father Diabetes Hypertension Mother Hypertension Brother Hypertension Sister Hypertension Maternal Aunt Breast cancer Daughter No problems noted. Social History Social History Housing: Apartment Alcohol intake: never Patient Tobacco Use Status: Never used Tobacco e-Cigarette/Vaping Use: Never Used Second Hand Smoke Exposure: No Advance Directives: No Advance Directives Information Provided: No service: No Current occupational status: unemployed Cognitive needs: Yes (cane) Hearing needs: No Vision needs: Yes (glasses) Physical Exam ED Vital Signs: Vital Signs - 24 hr 09/24/23 15:16 09/24/23 22:59 Temperature 97.5 F 97.7 F Pulse Rate 70 59 Respiratory Rate 16 14 Blood Pressure 116/78 134/56 L Pulse Oximetry 99 97 Oxygen Delivery Method Room Air Room Air BMI result Body Mass Index 40.3 Medical Decision Making Lab Data 09/24/23 16:44 09/24/23 16:44 Labs: Lab Results 09/24/23 09/24/23 Range/Units 16:44 23:18 WBC 6.9 (4.8-10.8) X10*3/uL RBC 5.41 (4.20-5.50) X10*6/uL Hgb 16.1 H (12.0-16.0) g/dl Hct 51.0 H (37.0-47.0) % MCV 94.3 (80.0-98.0) fL MCH 29.8 (27.0-33.0) pg MCHC 31.6 (31.0-35.0) g/dl RDW 13.1 (11.0-16.0) % Plt Count 206 (160-400) X10*3/uL MPV 11.1 (9.4-12.3) fL Immature Gran % (Auto) 0.4 (0.0-0.4) % Neut % (Auto) 64.0 (45-73) % Lymph % (Auto) 22.3 (20-40) % [place] % (Auto) 11.1 H (2-11) % Eos % (Auto) 1.8 (0-4) % Baso % (Auto) 0.4 (0-2) % Lymph # (Auto) 1.5 (1.2-4.9) X10*3/uL [place] # (Auto) 0.8 (0.1-1.2) X10*3/uL Eos # (Auto) 0.1 (0.0-0.4) X10*3/uL Baso # (Auto) 0.0 (0.0-0.2) X10*3/uL Abs Immat Gran (auto) 0.03 (0.00-0.03) X10*3/uL Absolute Neuts (auto) 4.4 (2.0-8.3) x10*3/uL Absolute Nucleated RBC 0.000 (0.0-0.012) X10*3/uL Nucleated RBC % (auto) 0.0 (0.0-0.2) /100WBC Sodium 143 (135-145) mmol/L Potassium 3.5 (3.3-5.1) mmol/L Chloride 105 (96-108) mmol/L Carbon Dioxide 29 (22-29) mmol/L Anion Gap 13 (12-20) BUN 17 H (9-16) mg/dL Creatinine 0.68 (0.5-1.4) mg/dL Estim Creat Clear Calc 108.9 Estimated GFR > 60 Random Glucose 92 (60-115) mg/dL Calcium 8.8 (8.4-10.2) mg/dL Total Bilirubin 1.7 H (0.0-1.0) mg/dL AST 28 (5-31) U/L ALT 34 H (0-31) U/L Alkaline Phosphatase 102 (39-117) U/L Total Protein 6.9 (6.5-8.0) g/dL Albumin 3.6 (3.5-5.0) g/dL Lipase 25 (8-78) U/L Urine Color Dark Yellow Urine Appearance Cloudy Urine pH 5.5 (5.0-9.0) Ur Specific [place] 1.025 (1.005-1.025) Urine Protein Negative (Neg-Trace) mg/dL Urine Glucose (UA) Negative (Negative) mg/dL Urine Ketones 15 (Negative) mg/dL Urine Blood Negative (Negative) Urine Nitrite Negative (Negative) Ur Leukocyte Esterase Negative (Negative) Urine RBC 0-2 (0-2) /HPF Urine WBC 0-5 (0-5) /HPF Ur Squamous Epith Cells 6-10 (0-2) /HPF Urine Bacteria 2+ (None Seen) Hyaline Casts 0-2 (0-2) /LPF Influenza Type A (PCR) NEGATIVE (Negative) Influenza Type B (PCR) NEGATIVE (Negative) RSV RNA Qual (PCR) NEGATIVE (Negative) SARS-CoV-2 RNA (RT-PCR) NEGATIVE (Negative) Discharge Plan Discharge Clinical Impression: Gastritis Patient Disposition: Home, Self-Care Instructions: Gastritis (ED) Additional Instructions: Your blood work was unremarkable pain Your symptoms and exam are consistent with inflammation of your stomach (gastritis). Take Prilosec (omeprazole) 20 mg pills, 1 pill once a day for 1 month. ?This medication shuts off your acid production and lets the inflammation in your stomach and esophagus heal. Take extra-strength Gaviscon 10 mL (2 tsp) 4 times a day as needed for abdominal pain. Follow-up with your doctor in 2 days. Please return to the emergency department if your symptoms get worse or if you develop any symptoms that are concerning to you. Prescriptions: New omeprazole 20 mg capsule,delayed release(DR/EC) 20 mg PO DAILY 30 Days Qty: 30 0RF Gaviscon Extra Strength 254-237.5 mg/5 mL suspension 10 ml PO QID PRN (Reason: dyspepsia) Qty: 355 0RF No Action acetaminophen 500 mg tablet 1,000 mg PO Q6H PRN (Reason: pain) 30 Days Qty: 180 1RF albuterol sulfate 0.63 mg/3 mL solution for nebulization 0.63 mg inhalation Q6H Qty: 75 3RF albuterol sulfate 90 mcg/actuation HFA aerosol inhaler 1 inh inhalation QID PRN (Reason: shortness of breath or wheezing) Qty: 6.7 0RF Advair HFA 115-21 mcg/actuation HFA aerosol inhaler 2 puff inhalation Q12H 30 Days Qty: 1 6RF montelukast 10 mg tablet 10 mg PO QPM Qty: 30 6RF bisoprolol-hydrochlorothiazide 5-6.25 mg tablet 1 tab PO DAILY 90 Days Qty: 90 1RF lidocaine [Lidoderm] 5 % adhesive patch,medicated 1 patch topical DAILY Qty: 15 0RF Rx Instructions: leave on most painful area for up to 12 hrs (DME) cane Device See Rx Instructions .Route Qty: 1 0RF Rx Instructions: As directed cyclobenzaprine 5 mg tablet 5 mg PO Q8H PRN (Reason: muscle spasm) Qty: 10 0RF naproxen 500 mg tablet 500 mg PO Q8-12H PRN (Reason: pain (scale score 4-6)) Qty: 20 0RF cholecalciferol (vitamin D3) 50 mcg (2,000 unit) capsule 50 mcg PO DAILY 90 Days Qty: 90 1RF Wegovy 0.25 mg/0.5 mL pen injector 0.25 mg subcut QWEEK 28 Days Qty: 2 0RF Rx Instructions: administer weeks 1 through 4 of therapy peg-electrolyte soln 420 gram recon soln 240 ml PO ONCE 1 Days Qty: 4000 0RF Rx Instructions: Start at 6:00pm the evening before procedure, drink one 8oz glass every 15 minutes until complete docusate sodium [Colace] 100 mg capsule 200 mg PO BEDTIME Qty: 60 5RF senna 8.6 mg capsule 8.6 mg PO DAILY PRN (Reason: constipation) Qty: 30 1RF hydrocortisone [Proctozone-HC] 2.5 % cream with perineal applicator 1 appl ND BID PRN (Reason: hemorrhoids) Qty: 30 3RF Rx Instructions: apply ND BID prn bisacodyl [Dulcolax (bisacodyl)] 5 mg tablet,delayed release (DR/EC) 20 mg PO ONCE PRN (Reason: colonoscopy prep) 1 Days Qty: 4 0RF Rx Instructions: Day before procedure @ 12 noon Take 4 tablets by mouth followed by large glass of water Spiriva Respimat 2.5 mcg/actuation mist 2 puff inhalation QAM 30 Days Qty: 4 6RF Print Language: Salvadorean
== END 2023-09-25 00:57 | disposition home or self-care (01) ==
PROVIDERS: Physician Assistant; Emergency Provider Emergency Medicine Emergency Medical Services; PCP Internal Medicine
DX: K29.70 Gastritis, unspecified, without bleeding (principal); R11.10 Vomiting, unspecified; R05.9 Cough, unspecified; I10 Essential (primary) hypertension; E66.9 Obesity, unspecified; Z68.41 Body mass index [BMI] 40.0-44.9, adult; Z03.818 Encounter for observation for suspected exposure to other biological agents ruled out
CPT/HCPCS: 0241U; 80053; 81001; 83690; 85025; 99283; 99284

== ENCOUNTER → 2023-10-04 14:50 | Outpatient (REF) | payer OTHER, SELFPAY | LOC: HO.SL 14:50 | PROVIDERS: PCP Internal Medicine; Visit Provider Internal Medicine Pulmonary Disease | DX: G47.33 Obstructive sleep apnea (adult) (pediatric) (principal) | CPT/HCPCS: 95806 ==

== ENCOUNTER → 2023-10-04 15:14 | Outpatient (BNV) | payer OTHER, SELFPAY | PROVIDERS: PCP Internal Medicine; Visit Provider Internal Medicine | DX: G47.33 Obstructive sleep apnea (adult) (pediatric) (principal) | CPT/HCPCS: 95806 ==

== ENCOUNTER 2023-10-05 11:04 | Outpatient (AMB) | payer OTHER, SELFPAY ==
[2023-10-05 11:08] VITALS: BP 120/82; BMI 40.7
--- NOTE | 2023-10-05 11:08 | MHC.PC.OV ---
Vital Signs 10/05/23 11:08 Height 5 ft 7 in Weight 260 lb BMI 40.7 BP 120/82 Blood Pressure Location Lt brachial Position Sitting Intake Visit Reasons: Gastritis F/up Intake Note: Patient here for gastric follow up, back pain Technical Director Required: No Accompanied by: Self / Same As Patient Allergies No Known Allergies [No Known Allergies*] Allergy (Verified 10/05/23 11:18) Medication List - Last Reconciled 10/05/23 by Brenda Phipps MD acetaminophen 1,000 mg (2 x 500 mg) PO Q6H PRN 30 days albuterol sulfate 0.63 mg (3 mL) inhalation Q6H albuterol sulfate 90 mcg/actuation 1 inh inhalation QID PRN aluminum hydrox-magnesium carb 254-237.5 mg/5 mL (Gaviscon Extra Strength) 10 mL PO QID PRN bisacodyl (Dulcolax (bisacodyl)) 20 mg (4 x 5 mg) PO ONCE PRN 1 day bisoprolol-hydrochlorothiazide 5-6.25 mg 1 tab PO DAILY 90 days cane As directed cholecalciferol (vitamin D3) 50 mcg PO DAILY 90 days cyclobenzaprine 5 mg PO Q8H PRN docusate sodium (Colace) 200 mg (2 x 100 mg) PO BEDTIME fluticasone propion-salmeterol 115-21 mcg/actuation (Advair HFA) 2 puffs inhalation Q12H 30 days hydrocortisone 2.5% (Proctozone-HC) 1 appl [place] BID PRN lidocaine 5% (Lidoderm) 1 patch topical DAILY montelukast 10 mg PO QPM naproxen 500 mg PO Q8-12H PRN omeprazole 20 mg PO DAILY 30 days peg-electrolyte soln 420 gram 240 mL PO ONCE 1 day semaglutide (weight loss) (Wegovy) 0.25 mg (0.5 mL) subcut QWEEK 4 weeks sennosides (senna) 8.6 mg PO DAILY PRN tiotropium bromide 2.5 mcg/actuation (Spiriva Respimat) 2 puffs inhalation QAM 30 days Tobacco use date assessed: 06/06/23 Fall risk assessment: 1 Fall in past year Last assessed Fall Risk: 10/05/23 Dental Screening Dental Screen Date: 06/06/23 HPI HPI Comments History of Present Illness Details This is a 67-year-old female with morbid obesity, mild recurrent major depression, hypertension, chronic constipation and chronic GERD that comes today for ER discharge follow-up recently due to epigastric pain. She restarted taking PPIs and feels markedly improved. Also has make some dietary changes. She is morbidly obese with a BMI of 40.7 and as per patient alex was not at the pharmacy therefore I resent it. Depression has been stable without medications and does follows with counseling. Blood pressure well controlled. On senna for her constipation to be used as needed. Denies any chest pain or shortness on breath. [facility] Medical History (Updated 10/05/23 @ 11:53 by Brenda Phipps MD) Morbid obesity Physical exam Recent change in frequency of bowel movements Right knee pain Preop pulmonary/respiratory exam Arthritis of right knee Spider veins of both lower extremities Right lower lobe pulmonary nodule Encounter for screening colonoscopy COVID-19 Morbid obesity with BMI of 40.0-44.9, adult Physical exam Lab test negative for COVID-19 virus Right shoulder pain TRINIDAD (generalized anxiety disorder) Leg edema Cough Knee pain Common cold Arthritis Close exposure to COVID-19 virus Elevated hemoglobin Depression Left shoulder pain Left knee pain Chronic cough Hypovitaminosis D Mild recurrent major depression Thyroid nodule Anxiety and depression Supraclavicular lymphadenopathy Urge urinary incontinence Goiter Essential hypertension Surgical History Hx of colonoscopy Uterine myoma History of total abdominal hysterectomy H/O oophorectomy History of cholecystectomy Family History Father Diabetes Hypertension Mother Hypertension Brother Hypertension Sister Hypertension Maternal Aunt Breast cancer Daughter No problems noted. Social History Housing: Apartment Alcohol intake: never Patient Tobacco Use Status: Never used Tobacco e-Cigarette/Vaping Use: Never Used Second Hand Smoke Exposure: No service: No Current occupational status: unemployed Cognitive needs: Yes (cane) Hearing needs: No Vision needs: Yes (glasses) Questionnaire PHQ-9 Over the last 2 weeks, how often have you been bothered by any of the following problems? 1. Little interest or pleasure in doing things: several days 2. Feeling down, depressed, or hopeless: several days 3. Trouble falling or staying asleep, or sleeping too much: several days 4. Feeling tired or having little energy: several days 5. Poor appetite or overeating: more than half the days 6. Feeling bad about yourself - or that you are a failure or have let yourself or your family down: not at all 7. Trouble concentrating on things, such as reading the newspaper or watching television: several days 8. Moving or speaking so slowly that other people could have noticed. Or the opposite - being so fidgety or restless that you have been moving around a lot more than usual: not at all 9. Thoughts that you would be better off or of hurting yourself in some way: not at all Total score: 7 Depression Screening Interpretation: Positive Depression Screening Follow-up: Existing condition, In treatment, Community Mental Health Worker F/U and Follow-up Visit Requested Depression Screening Done: Yes 67623 - PHQ-9 Billing: Yes Source: Developed by Drs. Guillaume Stark, Stanislav Castro and colleagues, with an educational sandeep from [employer]. Thrive Questionnaire Date Thrive assessed: 06/06/23 TRINIDAD-7 AMB Questionnaire TRINIDAD-7 Date TRINIDAD - 7 assessed: 06/06/23 Source: Developed by Drs. Guillaume Stark, Stanislav Castro and colleagues, with an educational sandeep from [employer]. Review of Systems Const All systems reviewed & are unremarkable except as noted in HPI and below Card Denies chest pain at rest, Denies chest pain with activity, Denies edema, Denies irregular heart rhythm, Denies claudication, Denies dyspnea, Denies dyspnea on exertion, Denies orthopnea, Denies paroxysmal nocturnal dyspnea and Denies slow heart rate Resp Denies cough, Denies dyspnea and Denies dyspnea on exertion GI Denies abdominal pain, Denies change in bowel habits, Denies excessive flatus, Denies nausea and Denies vomiting Denies urinary incontinence, Denies urinary hesitancy and Denies urinary urgency Physical exam (Primary Care) Vital Signs: Last Vital Signs BP 120/82 10/05/23 11:08 BMI result Body Mass Index 40.7 BMI Assessment/Plan discussion: High BMI High, discussed plan: lifestyle, weight reduction, dietary and physical activity Tobacco/Smoking Status: Tobacco use Status Tobacco use date assessed 06/06/23 10/05/23 11:15 Patient Tobacco Use Status Never used Tobacco 10/05/23 11:15 e-Cigarette/Vaping Use Never Used 10/05/23 11:15 Depression Screening Interpretation: Positive Depression Screening Follow-up: Existing condition, In treatment, Community Mental Health Worker F/U and Follow-up Visit Requested Thrive Assessment: Date of Thrive Assessment Date Thrive assessed 06/06/23 10/05/23 11:15 Resp Effort & Inspection: normal respiratory effort Auscultation: clear to auscultation bilaterally Cardio Jugular venous distension: no JVD Rate: regular rate Rhythm: regular rhythm Heart sounds: S1 normal heart sound present and S2 normal heart sound present Extrem General: Yes full ROM Assessment and Plan Assessment & Plan (1) Essential hypertension: Code(s): I10 - Essential (primary) hypertension Plan: Continue bisoprolol-hydrochlorothiazide. Blood pressure goal is equal or less than 130/80. (2) Mild recurrent major depression: Code(s): F33.0 - Major depressive disorder, recurrent, mild Plan: Follow-up with counseling. (3) Morbid obesity: Code(s): E66.01 - Morbid (severe) obesity due to excess calories Plan: Start wegovy. BMI goal is less than 30. (4) Chronic constipation: Code(s): K59.09 - Other constipation Plan: Continue senna as needed. (5) Chronic GERD: Code(s): K21.9 - Gastro-esophageal reflux disease without esophagitis Plan: Continue PPIs. Medications: Refilled semaglutide (weight loss) (Wegovy) administer weeks 1 through 4 of therapy 0.25 mg (0.5 mL) subcut QWEEK 2 mL 0RF 4 weeks E66.01 - Morbid (severe) obesity due to excess calories Coding Level of Care Code Est Pt Level 4 (01276) Complex EM visit Add On G2211 Diagnoses Essential hypertension I10 Mild recurrent major depression F33.0 Morbid obesity E66.01 Chronic constipation K59.09 Chronic GERD K21.9 Time Spent (min) 23
== END 2023-10-05 11:39 | disposition home or self-care (01) ==
PROVIDERS: PCP Internal Medicine; Visit Provider Internal Medicine
DX: I10 Essential (primary) hypertension (principal); F33.0 Major depressive disorder, recurrent, mild; K59.09 Other constipation; K21.9 Gastro-esophageal reflux disease without esophagitis
CPT/HCPCS: 99214; G2211

== ENCOUNTER 2023-12-12 13:44 | Outpatient (AMB) | payer OTHER, SELFPAY ==
[2023-12-12 13:58] VITALS: BP 120/80; BMI 40.7
--- NOTE | 2023-12-12 13:58 | A.OFFPC_ITS ---
Vital Signs 12/12/23 13:58 Height 5 ft 7 in Weight 260 lb BMI 40.7 BP 120/80 Blood Pressure Location Lt brachial Position Sitting Intake Visit Reasons: bp Intake Note: Patient here for a follow up bp Cloud Infrastructure Architect Required: No Accompanied by: Self / Same As Patient Allergies No Known Allergies [No Known Allergies*] Allergy (Verified 12/12/23 14:07) Medication List - Last Reconciled 12/12/23 by Brenda Phipps MD acetaminophen 1,000 mg (2 x 500 mg) PO Q6H PRN 30 days albuterol sulfate 0.63 mg (3 mL) inhalation Q6H albuterol sulfate 90 mcg/actuation 1 inh inhalation QID PRN aluminum hydrox-magnesium carb 254-237.5 mg/5 mL (Gaviscon Extra Strength) 10 mL PO QID PRN bisacodyl (Dulcolax (bisacodyl)) 20 mg (4 x 5 mg) PO ONCE PRN 1 day bisoprolol-hydrochlorothiazide 5-6.25 mg 1 tab PO DAILY 90 days cane As directed cholecalciferol (vitamin D3) 50 mcg PO DAILY 90 days cyclobenzaprine 5 mg PO Q8H PRN docusate sodium (Colace) 200 mg (2 x 100 mg) PO BEDTIME fluticasone propion-salmeterol 115-21 mcg/actuation (Advair HFA) 2 puffs inhalation Q12H 30 days hydrocortisone 2.5% (Proctozone-HC) 1 appl [place] BID PRN lidocaine 5% (Lidoderm) 1 patch topical DAILY montelukast 10 mg PO QPM naproxen 500 mg PO Q8-12H PRN omeprazole 20 mg PO DAILY 30 days peg-electrolyte soln 420 gram 240 mL PO ONCE 1 day semaglutide (weight loss) (Wegovy) 0.25 mg (0.5 mL) subcut QWEEK 4 weeks sennosides (senna) 8.6 mg PO DAILY PRN tiotropium bromide 2.5 mcg/actuation (Spiriva Respimat) 2 puffs inhalation QAM 30 days Tobacco use date assessed: 06/06/23 Dental Screening Dental Screen Date: 06/06/23 HPI HPI Comments History of Present Illness Details This is a 68-year-old female with mild recurrent major depression in remission, morbid obesity, hypertension, chronic constipation and chronic GERD that comes today for follow-up on her conditions. Depression has been in remission. She is morbidly obese with a BMI of 40.7 and has not start wegovy yet. Blood pressure stable. Constipation well controlled with medications and was advised to follow a high-fiber diet. GERD stable with PPIs. Denies any chest pain or shortness on breath. [facility] Medical History (Updated 12/12/23 @ 14:15 by Brenda Phipps MD) Morbid obesity Physical exam Recent change in frequency of bowel movements Right knee pain Preop pulmonary/respiratory exam Arthritis of right knee Spider veins of both lower extremities Right lower lobe pulmonary nodule Encounter for screening colonoscopy COVID-19 Morbid obesity with BMI of 40.0-44.9, adult Physical exam Lab test negative for COVID-19 virus Right shoulder pain TRINIDAD (generalized anxiety disorder) Leg edema Cough Knee pain Common cold Arthritis Close exposure to COVID-19 virus Elevated hemoglobin Depression Left shoulder pain Left knee pain Chronic cough Hypovitaminosis D Mild recurrent major depression Thyroid nodule Anxiety and depression Supraclavicular lymphadenopathy Urge urinary incontinence Goiter Essential hypertension Surgical History Hx of colonoscopy Uterine myoma History of total abdominal hysterectomy H/O oophorectomy History of cholecystectomy Family History Father Diabetes Hypertension Mother Hypertension Brother Hypertension Sister Hypertension Maternal Aunt Breast cancer Daughter No problems noted. Social History Housing: Apartment Alcohol intake: never Patient Tobacco Use Status: Never used Tobacco e-Cigarette/Vaping Use: Never Used Second Hand Smoke Exposure: No service: No Current occupational status: unemployed Cognitive needs: Yes (cane) Hearing needs: No Vision needs: Yes (glasses) Questionnaire Thrive Questionnaire Date Thrive assessed: 06/06/23 TRINIDAD-7 AMB Questionnaire TRINIDAD-7 Date TRINIDAD - 7 assessed: 06/06/23 Source: Developed by Drs. Guillaume Stark, Keila Scott, Stnaislav Oquendo and colleagues, with an educational sandeep from [employer]. Review of Systems Const All systems reviewed & are unremarkable except as noted in HPI and below Card Denies chest pain at rest, Denies chest pain with activity, Denies edema, Denies irregular heart rhythm, Denies claudication, Denies dyspnea, Denies dyspnea on exertion, Denies orthopnea, Denies paroxysmal nocturnal dyspnea and Denies slow heart rate Resp Denies cough, Denies dyspnea and Denies dyspnea on exertion GI Denies abdominal pain, Denies change in bowel habits, Denies excessive flatus, Denies nausea and Denies vomiting Denies urinary incontinence, Denies urinary hesitancy and Denies urinary urgency Physical exam (Primary Care) Vital Signs: Last Vital Signs BP 120/80 12/12/23 13:58 BMI result Body Mass Index 40.7 BMI Assessment/Plan discussion: High BMI High, discussed plan: lifestyle, weight reduction, dietary and physical activity Tobacco/Smoking Status: Tobacco use Status Tobacco use date assessed 06/06/23 12/12/23 14:03 Patient Tobacco Use Status Never used Tobacco 12/12/23 14:03 e-Cigarette/Vaping Use Never Used 12/12/23 14:03 Thrive Assessment: Date of Thrive Assessment Date Thrive assessed 06/06/23 12/12/23 14:03 Resp Effort & Inspection: normal respiratory effort Auscultation: clear to auscultation bilaterally Cardio Jugular venous distension: no JVD Rate: regular rate Rhythm: regular rhythm Heart sounds: S1 normal heart sound present and S2 normal heart sound present Extrem General: Yes full ROM Assessment and Plan Assessment & Plan (1) Essential hypertension: Code(s): I10 - Essential (primary) hypertension Plan: Continue bisoprolol-hydrochlorothiazide. Blood pressure goal is equal or less than 130/80. (2) Mild recurrent major depression: Code(s): F33.0 - Major depressive disorder, recurrent, mild Plan: In remission. (3) Morbid obesity: Code(s): E66.01 - Morbid (severe) obesity due to excess calories Plan: Start diet and exercise. Start Wegovy. BMI goal is less than 30. (4) Chronic GERD: Code(s): K21.9 - Gastro-esophageal reflux disease without esophagitis Plan: Continue PPIs. (5) Chronic constipation: Code(s): K59.09 - Other constipation Plan: Continue docusate as needed for constipation. Orders: Orders Lipid Panel 6 Months E78.5 - Hyperlipidemia, unspecified Vitamin D 25-OH Total 6 Months E55.9 - Vitamin D deficiency, unspecified Comprehensive [place]. Panel Fast 6 Months E66.01 - Morbid (severe) obesity due to excess calories Complete Blood Count Auto Diff 6 Months E66.01 - Morbid (severe) obesity due to excess calories Thyroid Stimulating Hormone 6 Months E66.01 - Morbid (severe) obesity due to excess calories Referrals Dermatology Referral B07.9 - Viral wart, unspecified Orthopedics Referral M17.11 - Unilateral primary osteoarthritis, right knee Medications: Refilled bisoprolol-hydrochlorothiazide 5-6.25 mg 1 tab PO DAILY 90 days 90 tabs 1RF cholecalciferol (vitamin D3) 50 mcg PO DAILY 90 days 90 caps 1RF E55.9 - Vitamin D deficiency, unspecified Coding Level of Care Code Est Pt Level 4 (10031) Complex EM visit Add On G2211 Diagnoses Essential hypertension I10 Mild recurrent major depression F33.0 Morbid obesity E66.01 Chronic GERD K21.9 Chronic constipation K59.09 Time Spent (min) 22
== END 2023-12-12 14:16 | disposition home or self-care (01) ==
PROVIDERS: PCP Internal Medicine; Visit Provider Internal Medicine
DX: I10 Essential (primary) hypertension (principal); F33.0 Major depressive disorder, recurrent, mild; E66.01 Morbid (severe) obesity due to excess calories; Z68.41 Body mass index [BMI] 40.0-44.9, adult; K21.9 Gastro-esophageal reflux disease without esophagitis; K59.09 Other constipation
CPT/HCPCS: 99214; G2211

== ENCOUNTER 2024-01-03 14:51 | Outpatient (AMB) | payer OTHER, SELFPAY ==
[2024-01-03 14:53] VITALS: BP 127/72; PULSE 72; O2SAT 96; BMI 41.1
--- NOTE | 2024-01-03 14:53 | MHC.OFFVIS ---
Vital Signs 01/03/24 14:53 Height 5 ft 7 in Weight 262 lb 5.601 oz BMI 41.1 BP 127/72 Blood Pressure Location Rt brachial Position Sitting Pulse 72 Pulse Source Doppler Pulse Oximetry (%) 96 Oxygen Delivery Method Room Air Intake Visit Reasons: Asthma/Sleep Study Follow Up Principal Mechanical Engineer Required: Yes Principal Mechanical Engineer Name: Melissa Braun Aviva Allergies No Known Allergies [No Known Allergies*] Allergy (Verified 01/03/24 14:56) HPI HPI Asthma/Sleep Study Follow Up: Details: 68-year-old lady, nonsmoker, followed for underlying moderate to severe persistent allergic asthma with recurrent bronchitis.? Patient previously Xolair, Advair, and albuterol MDI with good control of underlying symptoms.? She did have to stop her Xolair injections since she had significant nausea.? After the last office visit patient was supposed to start on Spiriva Respimat as she was not able to tolerate powder inhalers, however she was not able to receive at and has been relying heavily on albuterol MDI/nebs. Today she is presenting complain of mild exacerbation symptomatic with cough productive of sputum, but no significant wheezing or dyspnea. [facility] Medical History (Updated 01/03/24 @ 15:14 by Geronimo Ortega MD) Preop pulmonary/respiratory exam Morbid obesity Physical exam Recent change in frequency of bowel movements Right knee pain Arthritis of right knee Spider veins of both lower extremities Right lower lobe pulmonary nodule Encounter for screening colonoscopy COVID-19 Morbid obesity with BMI of 40.0-44.9, adult Physical exam Lab test negative for COVID-19 virus Right shoulder pain TRINIDAD (generalized anxiety disorder) Leg edema Cough Knee pain Common cold Arthritis Close exposure to COVID-19 virus Elevated hemoglobin Depression Left shoulder pain Left knee pain Chronic cough Hypovitaminosis D Mild recurrent major depression Thyroid nodule Anxiety and depression Supraclavicular lymphadenopathy Urge urinary incontinence Goiter Essential hypertension Surgical History Hx of colonoscopy Uterine myoma History of total abdominal hysterectomy H/O oophorectomy History of cholecystectomy Family History Father Diabetes Hypertension Mother Hypertension Brother Hypertension Sister Hypertension Maternal Aunt Breast cancer Daughter No problems noted. Social History (Updated 12/29/23 @ 15:37 by Carley Akhtar RN) Household Members: None Housing: Apartment 75 years or older and lives alone: No Alcohol intake: never Patient Tobacco Use Status: Never used Tobacco e-Cigarette/Vaping Use: Never Used Second Hand Smoke Exposure: No service: No Current occupational status: unemployed Cognitive needs: Yes (cane) Hearing needs: No Vision needs: Yes (glasses) Review of Systems Const Denies daytime sleepiness, Denies excessive sweating, Denies fatigue, Denies fever(s), Denies lethargy, Denies malaise, Denies night sweats, Denies snoring and Denies weight loss Eyes Denies blurry vision and Denies itchy eyes ENT Denies nasal congestion, Denies post nasal drip, Denies sinus pain, Denies sinus pressure and Denies other ( Thrush) Card Denies chest pain, Denies pedal edema, Denies dyspnea, Denies orthopnea and Denies paroxysmal nocturnal dyspnea Resp Reports cough, Denies hemoptysis, Reports excessive phlegm production, Denies dyspnea, Denies snoring and Denies wheezing GI Denies abdominal pain and Denies heartburn Musc Denies myalgias, Denies arthralgias and Denies joint swelling Skin/Breast Denies rash Neuro Denies memory loss and Denies seizure-like activity Psych Denies abnormal sleep pattern, Denies anxiety and Denies memory loss Endo Denies excessive sweating, Denies fatigue and Denies heat intolerance Siddharth/Lymph Denies easy bruising Aller/Immun Denies itchy eyes, Denies seasonal rhinorrhea and Denies wheezing Physical Exam Vital Signs: Last Vital Signs Pulse 72 01/03/24 14:53 BP 127/72 01/03/24 14:53 Pulse Ox 96 01/03/24 14:53 Oxygen Delivery Method Room Air 01/03/24 14:53 BMI result Body Mass Index 41.1 Const General: no acute distress and alert Nutritional Appearance: obese Orientation/consciousness: Other orientation findings ( oriented) HEENT Head: Yes atraumatic Eyes General: appearance normal, both eyes and all related structures Sclerae: sclerae normal EOM: EOMs intact bilaterally Neck Neck: Yes supple Lymphatic: no lymphadenopathy noted Resp Effort & Inspection: normal respiratory effort and no use of accessory muscles Auscultation: clear to auscultation bilaterally Cardio Rate: regular rate Rhythm: regular rhythm Heart sounds: no gallops, no murmurs and no rubs Skin General skin exam: other ( warm) Extrem General: No clubbing, No cyanosis and No edema Assessment & Plan Assessment & Plan (1) Asthma: Code(s): J45.909 - Unspecified asthma, uncomplicated Category: Medical Plan: Suboptimal control as patient was not able to receive her Spiriva Respimat. Spiriva Respimat reordered. Continue Advair 115. Now with mild bronchitic exacerbation, will treat with a course of azithromycin. (2) Environmental allergies: Code(s): Z91.09 - Other allergy status, other than to drugs and biological substances Category: Medical Plan: Moderately well controlled on current regimen of Singulair. Patient can no longer tolerate Xolair. (3) Preop pulmonary/respiratory exam: Code(s): Z01.811 - Encounter for preprocedural respiratory examination Category: Medical Plan: At this time patient is at low risk for pulmonary preoperative complications for the proposed colonoscopy either under monitored anesthesia care or general anesthesia, as long as an ongoing mild exacerbation responds well to current therapy. Medications: New azithromycin For 250 mg dose pack: take 500 mg today (day 1), then 250 mg for 4 days (days 2-5) PO 6 tabs 0RF Refilled tiotropium bromide 2.5 mcg/actuation (Spiriva Respimat) 2 puffs inhalation QAM 4 grams 6RF 30 days J44.9 - Chronic obstructive pulmonary disease, unspecified Coding Level of Care Code Est Pt Level 4 (51522) Diagnoses Asthma J45.909 Environmental allergies Z91.09 Preop pulmonary/respiratory exam Z01.811
== END 2024-01-03 15:12 | disposition home or self-care (01) ==
PROVIDERS: PCP Internal Medicine; Visit Provider Internal Medicine Pulmonary Disease
DX: J45.909 Unspecified asthma, uncomplicated (principal); Z91.09 Other allergy status, other than to drugs and biological substances; Z01.811 Encounter for preprocedural respiratory examination
CPT/HCPCS: 99214

== ENCOUNTER → 2024-01-03 14:51 | Outpatient (BNVA) | payer OTHER, SELFPAY | PROVIDERS: PCP Internal Medicine; Visit Provider Internal Medicine Pulmonary Disease | DX: Z01.811 Encounter for preprocedural respiratory examination (principal); J45.909 Unspecified asthma, uncomplicated; Z91.09 Other allergy status, other than to drugs and biological substances | CPT/HCPCS: 99212 ==

== ENCOUNTER 2024-01-11 14:08 | Outpatient (AMB) | payer OTHER, SELFPAY ==
--- NOTE | 2024-01-11 14:09 | MHC.OFFVIS ---
Intake Visit Reasons: Ov - Right Knee Pain Intake Note: Louise is a 68 year old female who presents today for a follow up of her bilateral chronic knee pain. She was last seen on 05/31/22 with Shyanne Andres who injected the patients right knee only. Allergies No Known Allergies [No Known Allergies*] Allergy (Verified 01/11/24 14:10) HPI HPI Ov - Right Knee Pain: Details: Louise is a 68 year old female who presents today for a follow up of her bilateral chronic knee pain. She was last seen on 05/31/22 with Shyanne Andres who injected the patients right knee only. She describes some pain during the day and some at night but sounds like it is tolerable. She has bilateral Achilles pain as well with prominent swollen insertion of the Achilles bilaterally. [facility] Medical History (Updated 01/11/24 @ 14:31 by Dylan Capone MD) Recent change in frequency of bowel movements Right knee pain Physical exam Preop pulmonary/respiratory exam Arthritis of right knee Spider veins of both lower extremities Chronic cough Right lower lobe pulmonary nodule Hypovitaminosis D Encounter for screening colonoscopy COVID-19 Morbid obesity with BMI of 40.0-44.9, adult Lab test negative for COVID-19 virus Right shoulder pain TRINIDAD (generalized anxiety disorder) Mild recurrent major depression Leg edema Thyroid nodule Knee pain Common cold Anxiety and depression Arthritis Supraclavicular lymphadenopathy Close exposure to COVID-19 virus Urge urinary incontinence Goiter Elevated hemoglobin Essential hypertension Left shoulder pain Left knee pain Surgical History Hx of colonoscopy Uterine myoma History of total abdominal hysterectomy H/O oophorectomy History of cholecystectomy Family History Father Diabetes Hypertension Mother Hypertension Brother Hypertension Sister Hypertension Maternal Aunt Breast cancer Daughter No problems noted. Social History (Updated 12/29/23 @ 15:37 by Carley Akhtar RN) Household Members: None Housing: Apartment 75 years or older and lives alone: No Alcohol intake: never Patient Tobacco Use Status: Never used Tobacco e-Cigarette/Vaping Use: Never Used Second Hand Smoke Exposure: No service: No Current occupational status: unemployed Cognitive needs: Yes (cane) Hearing needs: No Vision needs: Yes (glasses) Physical Exam Extrem Other: 110 degrees of flexion bilaterally limited by body habitus. Full extension. Tenderness is vague and nonspecific. She walks without antalgia and without pain. She has bilateral retrocalcaneal squeeze test. Assessment & Plan Assessment & Plan (1) Bilateral Achilles bursitis: Code(s): M76.61 - Achilles tendinitis, right leg; M76.62 - Achilles tendinitis, left leg Category: Medical Plan: I recommend physical therapy for Achilles and heel lifts. I (2) Osteoarthritis of right knee: Code(s): M17.11 - Unilateral primary osteoarthritis, right knee Category: Medical Plan: A right knee osteoarthritis that is stable. I discussed treatment options with her but given her pain at this point in time is not particularly prominent I would recommend we hold off on injections and she work on physical therapy. Orders: Orders PT Evaluation and Treatment Today M76.61 - Achilles tendinitis, right leg, M76.62 - Achilles tendinitis, left leg Coding Level of Care Code Est Pt Level 4 (70064) Diagnoses Bilateral Achilles bursitis M76.61; M76.62 Osteoarthritis of right knee M17.11
== END 2024-01-11 14:37 | disposition home or self-care (01) ==
PROVIDERS: PCP Internal Medicine; Visit Provider Orthopaedic Surgery
DX: M76.61 Achilles tendinitis, right leg (principal); M76.62 Achilles tendinitis, left leg; M17.11 Unilateral primary osteoarthritis, right knee
CPT/HCPCS: 99214

== ENCOUNTER → 2024-01-11 14:08 | Outpatient (BNVA) | payer OTHER, SELFPAY | PROVIDERS: PCP Internal Medicine; Visit Provider Orthopaedic Surgery | DX: M76.61 Achilles tendinitis, right leg (principal); M76.62 Achilles tendinitis, left leg; M17.11 Unilateral primary osteoarthritis, right knee | CPT/HCPCS: 99212 ==

== ENCOUNTER 2024-01-12 08:57 | Day surgery (SDC) | payer OTHER, SELFPAY ==
[2023-12-29 15:33] VITALS: BMI 41.3
--- NOTE | 2024-01-04 11:02 | HO.ANESPROP2 ---
HPI - Anesthesia Eval Consult details Narrative: 68yo F for Colonoscopy Pulmo optimized for procedure as long as mild exac resolved with treatment (Zpak ordered 01/03/24) PMFSH Active Problems Active Problems: All Active Problems Preop pulmonary/respiratory exam (Acute) Wart (Acute) Chronic GERD (Acute) Blurry vision (Acute) Morbid obesity (Acute) Chronic constipation (Acute) Physical exam (Acute) LATISHA (obstructive sleep apnea) (Acute) COVID-19 (Acute) Pulmonary nodules (Acute) Achilles tendinitis of right lower extremity (Acute) Osteoarthritis of right knee (Acute) Varicose veins of right lower extremity with inflammation (Acute) Hemorrhoids (Acute) Diverticular disease (Acute) Tubular adenoma (Acute) Sessile colonic polyp (Acute) Cervicalgia (Acute) Asthma (Acute) Environmental allergies (Acute) Chronic cough (Acute) Hypovitaminosis D (Acute) Mild recurrent major depression (Acute) Thyroid nodule (Acute) Anxiety and depression (Acute) Supraclavicular lymphadenopathy (Acute) Urge urinary incontinence (Acute) Goiter (Acute) Essential hypertension (Acute) Past Medical History Medical History Recent change in frequency of bowel movements Right knee pain Physical exam Preop pulmonary/respiratory exam Arthritis of right knee Spider veins of both lower extremities Chronic cough Right lower lobe pulmonary nodule Hypovitaminosis D Encounter for screening colonoscopy COVID-19 Morbid obesity with BMI of 40.0-44.9, adult Lab test negative for COVID-19 virus Right shoulder pain TRINIDAD (generalized anxiety disorder) Mild recurrent major depression Leg edema Thyroid nodule Knee pain Common cold Anxiety and depression Arthritis Supraclavicular lymphadenopathy Close exposure to COVID-19 virus Urge urinary incontinence Goiter Elevated hemoglobin Essential hypertension Left shoulder pain Left knee pain Family History Family History Father Diabetes Hypertension Mother Hypertension Brother Hypertension Sister Hypertension Maternal Aunt Breast cancer Daughter No problems noted. Family history of problems with anesthesia: No Surgical History Surgical History Hx of colonoscopy Uterine myoma History of total abdominal hysterectomy H/O oophorectomy History of cholecystectomy History of Problems with Anesthesia: No Social History Social History Household Members: None Housing: Apartment 75 years or older and lives alone: No Alcohol intake: never Patient Tobacco Use Status: Never used Tobacco e-Cigarette/Vaping Use: Never Used Second Hand Smoke Exposure: No service: No Current occupational status: unemployed Cognitive needs: Yes (cane) Hearing needs: No Vision needs: Yes (glasses) Meds Allergies Allergy/AdvReac Type Severity Reaction Status Date / Time No Known Allergies Allergy Verified 01/11/24 14:10 [No Known Allergies*] Exam Height,Weight and Vital Signs: Height 5 ft 7 in Weight 119.493 kg Pertinent Lab Results Pertinent Lab Results: Laboratory Tests 09/24/23 16:44 WBC 6.9 Hgb 16.1 H Hct 51.0 H Plt Count 206 Sodium 143 Potassium 3.5 Chloride 105 Carbon Dioxide 29 BUN 17 H Creatinine 0.68 Assessment and Plan Assessment Anesthesia Assessment: Chart Reviewed Final Anesthetic Review Family History of Problems with Anesthesia: No History of Problems with Anesthesia: No
[2024-01-12 09:46] VITALS: BP 148/58; PULSE 66; RESP 16; TEMP 36.2; O2SAT 98
--- NOTE | 2024-01-12 09:59 | MHC.SHP ---
Pre-Procedural Eval Section A - 24 Hr Update-Section A only Date of Service: 01/12/24 The patient is an INPATIENT: No The patient has been examined within 24 hours of the surgical procedure. The History & Physical has been completed within 30 days and I have reviewed it.: No Section B - Complete if H&P > 30 days Chief Complaint: Benign neoplasm of colon, unspecified Details of Present Illness: colon cancer screen, family history of colon cancer Relevant Family History (Specify if Yes): Yes Relevant Social History: None Present Medications: see Short Stay Collaborative assessment Medical History: Significant History (Anxiety and depression Arthritis Chronic cough Common cold Cough Depression Elevated hemoglobin Essential hypertension TRINIDAD (generalized anxiety disorder) Goiter Hypovitaminosis D Knee pain Left knee pain Left shoulder pain Leg edema Mild recurrent major depression Morbid obesity Morbid obesity with ) History of Previous Operations: Relevant previous surgery/procedure and date(s) (H/O oophorectomy History of cholecystectomy History of total abdominal hysterectomy Uterine myoma) Allergies: Allergies Allergy/AdvReac Type Severity Reaction Status Date / Time No Known Allergies Allergy Verified 01/11/24 14:10 [No Known Allergies*] Review of Systems Sugical H&P ROS: Negative: Constitution, Cardiovascular, Respiratory and Gastrointestinal Exam Surgical H&P Exam: Normal: Heart, Normal: Lungs, Normal: Extremities and Normal: Abdomen Plan Diagnosis/Plan: Unchanged I have reviewed the history and physical and performed a pertinent physical examination on my patient. No changes have occurred unless specified. Time Spent With Patient Time: Total time managing care of this patient today ____ minutes.
[2024-01-12] MEDS: Lactated Ringers 1,000 ML 100 ML IVCONT (10:02)
--- NOTE | 2024-01-12 11:02 | P.CONAN_ITS ---
[facility] Active Problems Active Problems: All Active Problems Bilateral Achilles bursitis (Acute) Wart (Acute) Chronic GERD (Acute) Blurry vision (Acute) Chronic constipation (Acute) LATISHA (obstructive sleep apnea) (Acute) COVID-19 (Acute) Pulmonary nodules (Acute) Achilles tendinitis of right lower extremity (Acute) Osteoarthritis of right knee (Acute) Varicose veins of right lower extremity with inflammation (Acute) Hemorrhoids (Acute) Diverticular disease (Acute) Tubular adenoma (Acute) Sessile colonic polyp (Acute) Environmental allergies (Acute) Asthma (Acute) Cervicalgia (Acute) Morbid obesity (Acute) Preop pulmonary/respiratory exam (Acute) Physical exam (Acute) Chronic cough (Acute) Hypovitaminosis D (Acute) Mild recurrent major depression (Acute) Thyroid nodule (Acute) Anxiety and depression (Acute) Supraclavicular lymphadenopathy (Acute) Urge urinary incontinence (Acute) Goiter (Acute) Essential hypertension (Acute) Past Medical History Medical History Recent change in frequency of bowel movements Right knee pain Physical exam Preop pulmonary/respiratory exam Arthritis of right knee Spider veins of both lower extremities Chronic cough Right lower lobe pulmonary nodule Hypovitaminosis D Encounter for screening colonoscopy COVID-19 Morbid obesity with BMI of 40.0-44.9, adult Lab test negative for COVID-19 virus Right shoulder pain TRINIDAD (generalized anxiety disorder) Mild recurrent major depression Leg edema Thyroid nodule Knee pain Common cold Anxiety and depression Arthritis Supraclavicular lymphadenopathy Close exposure to COVID-19 virus Urge urinary incontinence Goiter Elevated hemoglobin Essential hypertension Left shoulder pain Left knee pain Functional capacity: independent ambulation Patient : No Family History Family History Father Diabetes Hypertension Mother Hypertension Brother Hypertension Sister Hypertension Maternal Aunt Breast cancer Daughter No problems noted. Family history of problems with anesthesia: No Surgical History Surgical History Hx of colonoscopy Uterine myoma History of total abdominal hysterectomy H/O oophorectomy History of cholecystectomy History of Problems with Anesthesia: No Social History Social History Household Members: None Housing: Apartment Alcohol intake: never Patient Tobacco Use Status: Never used Tobacco e-Cigarette/Vaping Use: Never Used Second Hand Smoke Exposure: No Are you DNR?: No Advance Directives: No Advance Directives Information Provided: Yes Advance Directives on File: No service: No Current occupational status: unemployed Cognitive needs: Yes (cane) Hearing needs: No Vision needs: Yes (glasses) Meds Allergies Allergy/AdvReac Type Severity Reaction Status Date / Time No Known Allergies Allergy Verified 01/11/24 14:10 [No Known Allergies*] Active Medications: Current Medications Lactated Ringer's (Lr) 1,000 mls @ 100 mls/hr IVCONT .Q10H SLIME Last Admin: 01/12/24 10:02 Dose: 100 mls/hr Exam Height,Weight and Vital Signs: Height 5 ft 7 in Weight 119.493 kg Last Vital Signs Temp 97.1 F 01/12/24 09:46 Pulse 66 01/12/24 09:46 Resp 16 01/12/24 09:46 BP 148/58 H 01/12/24 09:46 Pulse Ox 98 01/12/24 09:46 O2 Del Method Room Air 01/12/24 09:46 Airway Mallampati Class: III TM Dist: >3cm Neck ROM: Full Heart: RRR Lungs: CTA Assessment and Plan Assessment Anesthesia Assessment: Anesthesia Plan Discussed and Chart Reviewed Final Anesthetic Review Family History of Problems with Anesthesia: No History of Problems with Anesthesia: No NPO: Yes ASA Class: III Final Preanesthetic Review: Meds/Allgs Chart Reviewed, Consent Obtained/Reviewed and Anes Risks/Benef Reviewed Patient Risk: Intermediate Procedure Risk: Low Anesthetic Plan Anesthetic Plan: MAC: Disposition: Standard PACU
--- NOTE | 2024-01-12 11:45 | P.OPN-COLO_ITS ---
Colonoscopy Operative Note Operative Note Date of Service: 01/12/24 Narrative: COLONOSCOPY TILL CECUM WITH SNARE POLYPECTOMY Pre-op diagnosis: Surveillance for colon polyps. Post-op diagnosis:? colon polyps, Diverticulosis, hemorrhoids Endoscopist:? Elvin Alonzo MD Anesthesia:?MAC Consent: Indications for the procedure and potential complications of bleeding, perforation, reaction to medications and missed diagnosis were discussed with the patient and informed consent was obtained. Instrument: Olympus PCF H 190 L variable stiffness pediatric colonoscope Monitoring: Vital signs and clinical assessment, intermittent blood pressure monitoring, continuous EKG monitoring, Pulse oximetry and Carbon Dioxide monitoring were done throughout the procedure. Please see anesthesia flowsheet. Colon withdrawl time was 20 minutes. Procedure: The patient was placed in the left lateral decubitis position and pre-procedure medications were administered. After a digital rectal examination of the ano-rectum, the video colonoscope was inserted into the rectum and advanced through the colon to the cecum. The colonoscope was slowly withdrawn in a retrograde panoramic fashion and the colon mucosa was carefully examined including a retroflexed view of the rectum. Findings and interventions are described below. Procedure Difficulty: without difficulty Findings: Terminal Ileum: Not evaluated Cecum: Normal Ascending Colon: Two 4-5 mm sessile polyps - removed with a cold snare. One polyp was not retrieved Transverse Colon: Normal Descending Colon: Moderate diverticulosis Sigmoid Colon: Moderate diverticulosis Rectum: Normal Ano-rectum: Small internal hemorrhoids Colon preparation: Good after copious irrigation. [place] Bowel Preparation Scale Right colon; 2 Transverse colon: 2 Left colon; 2 (0 = Unprepared colon segment with mucosa not seen due to solid stool that cannot be cleared. 1 = Portion of mucosa of the colon segment seen, but other areas of the colon segment not well seen due to staining, residual stool and/or opaque liquid. 2 = Minor amount of residual staining, small fragments of stool and/or opaque liquid, but mucosa of colon segment seen well. 3 = Entire mucosa of colon segment seen well with no residual staining, small fragments of stool or opaque liquid) Impression and Post Procedure Diagnosis: Colonoscopy Findings: Two small polyps were removed Moderate diverticulosis seen in the left colon Small hemorrhoids on retroflexed exam. Plan: I will send a letter with biopsy results Repeat Colonoscopy in 3-5 years if polyps are adenomatous and due to a history of multiple adenomatous polyps Above findings were reviewed with the patient and relevant handouts were given and the discharge area.
[2024-01-12 11:48] VITALS: BP 123/69; PULSE 64; RESP 16; TEMP 36.1; O2SAT 99
[2024-01-12 12:03] VITALS: BP 128/74; PULSE 68; RESP 16; O2SAT 99
[2024-01-12 12:18] VITALS: BP 156/95; PULSE 63; RESP 16; TEMP 36.2; O2SAT 99
--- NOTE | 2024-01-12 13:27 | HO.POSTANES ---
Post Anesthesia Evaluation Post Anesthesia Evaluation Date of Service: 01/12/24 Vital Signs: Vital Signs Temp Pulse Resp BP Pulse Ox O2 Del Method 01/12/24 12:18 97.2 F 63 16 156/95 H 99 Room Air 01/12/24 12:03 68 16 128/74 99 Room Air 01/12/24 11:48 97 F 64 16 123/69 99 Room Air 01/12/24 09:46 97.1 F 66 16 148/58 H 98 Room Air Anesthesia: Monitored Mental Status: Awake Pain Control: Satisfactory Nausea/Vomiting: None Hydration: Adequate Anesthesia-Related Issues: No Anes. Related Issues
== END 2024-01-12 13:01 | disposition home or self-care (01) ==
PROVIDERS: PCP Internal Medicine; Visit Provider Internal Medicine Gastroenterology
PROC: 0DJD8ZZ Inspection of Lower Intestinal Tract, Via Natural or Artificial Opening Endoscopic (ICD-10-PCS; CPT 45378; principal; 2024-01-12 10:30)
DX: Z12.11 Encounter for screening for malignant neoplasm of colon (principal); D12.2 Benign neoplasm of ascending colon; K57.30 Diverticulosis of large intestine without perforation or abscess without bleeding; K64.8 Other hemorrhoids; Z86.010 Personal history of colon polyps; I10 Essential (primary) hypertension; G47.33 Obstructive sleep apnea (adult) (pediatric); J45.909 Unspecified asthma, uncomplicated; Z79.899 Other long term (current) drug therapy
CPT/HCPCS: 45385; 88305; J2704

== ENCOUNTER → 2024-01-12 08:57 | Outpatient (BNV) | payer OTHER, SELFPAY | PROVIDERS: PCP Internal Medicine; Visit Provider Internal Medicine Gastroenterology | DX: Z12.11 Encounter for screening for malignant neoplasm of colon (principal); D12.2 Benign neoplasm of ascending colon; K57.90 Diverticulosis of intestine, part unspecified, without perforation or abscess without bleeding; K64.8 Other hemorrhoids | CPT/HCPCS: 45385 ==

== ENCOUNTER 2024-01-31 13:44 | Outpatient (RCR) | payer OTHER, SELFPAY ==
--- NOTE | 2024-01-31 15:25 | MHC.PT.EP ---
[facility] [place] Office [place] Office [place] Office [address] Kwan Pineda [address] [phone] F: [phone] F: [phone] F: [phone] F: [phone] Physical Therapy Plan of Care Date of Evaluation: 01/31/24 Date of Surgery: Diagnosis: BILAT ACHILLES' BURSITIS Assessment: 68 YO FEMALE REF TO PT FOR BILAT ACHILLES' BURSITIS (RETROCALCANEAL) -> OF IMPORTANCE ,SHE HAS A H/O VIDAL KNEE PAIN/ OA- THE Pt LIVES A SEDENTARY LIFESTYLE, SHE IS CURRENTLY AMB W A CANE. OBJECTIVELY, THE Pt HAS (+) HABITUAL GENU VALGUS COLLAPSE, TIGHT HS/CALF-> POSTERIOR CHAIN TISSUE TENSION, WEAKNESS IN GLUTES/ LUMBOPELVIC REGION, DECR AROM VIDAL ANKLES, AND LIMITED EVAN TO STANDING/ WALKING, SLEEPING / PRESSURE TO POSTERIOR HEELS/ ACHILLES (SHE HAS (+) RETROCALCANEAL BUMP). THE Pt WOULD BENEFIT FROM PT TO ADDRESS THE ABOVE, REDUCE IRRIT, DEV HEP, AND IMPROVE ACTIVITY EVAN. Frequency and Duration: The patient will be seen 2 x WK x 4 WKS Short Term Goals: *DECR VIDAL ACHILLES/ RETROCALCANEAL BURSITIS PAIN TO 2-3/10 *INITIATE HEP FOR CALF STRETCHING, INTRINSIC FOOT MM ACTIV *IMPROVE POSTERIOR CHAIN FLEXIB/ INCR ANKLE AROM Jail Goals: *Pt INDEP HEP AND SELF SX MGMT *Pt IMPROVE FUNCT MOB EVAN / MORE EFFICIENT GAIT [facility] Treatment Plan: Modalities to reduce pain, spasms and effusion. Manual therapy to restore motion and function. Therapeutic exercise to improve strength and flexibility. Neuromuscular re-education for posture and balance. Therapeutic activities to return to functional activities of daily living. Electronically signed by: FELICIA PARK,PT Please sign and return to therapist. Thank you for your referral.
--- NOTE | 2024-05-11 10:52 | MHC.PT.DC ---
[facility] Office [place] Office [place] Office [address] Kwan Pineda 140 [facility] [phone] F: [phone] F: [phone] F: [phone] F: [phone] Physical Therapy Discharge Report Diagnosis: BILAT ACHILLES' BURSITIS Date of Surgery: Date of Evaluation: 01/31/24 Date of Discharge: 05/11/24 Treatments to Date: 1 Cancellations to Date: 5 No Shows to Date: 1 Discharge Status: Visit Non-compliance Discharge Summary: DARREN APPEARED TO BE A GOOD PT CANDIDATE AT HER PT EVAL, HOWEVER, SHE FAILED TO RETURN FOR ANY SCHEDULED PT APPTS AND IS DISCHARGED AT THIS TIME PER THE PT DEPT ATTENDANCE POLICY. Electronically signed by: FELICIA PARK,PT Please sign and return to therapist. Thank you for your referral.
== END 2024-05-11 10:52 | disposition home or self-care (01) ==
LOC: HO.PT 13:44
PROVIDERS: PCP Internal Medicine; Visit Provider Orthopaedic Surgery
DX: M76.61 Achilles tendinitis, right leg (principal); M76.62 Achilles tendinitis, left leg
CPT/HCPCS: 97110; 97162

== ENCOUNTER 2024-02-06 13:38 | Emergency (ER) | payer OTHER, SELFPAY ==
--- NOTE | ~2024-02-06 | XR_ITS ---
EXAMINATION: XR CHEST CLINICAL INFORMATION: Coughing. Pneumonia. COMPARISON: Chest radiograph 04/27/2023. TECHNIQUE: Frontal view of the chest was obtained. FINDINGS: Stable prominence of the cardiomediastinal silhouette. No focal consolidation, pleural effusion or pneumothorax. No acute osseous findings. Visualized upper abdomen is within normal limits. XR/XR chest 1V IMPRESSION: 1. No acute cardiopulmonary findings. 2. Stable prominence of the cardiomediastinal silhouette. Electronically signed by: Shanti Fuentes MD 02/06/2024 05:19 PM EDT
--- NOTE | 2024-02-06 13:40 | ECG_ITS ---
Test Reason : CP Blood Pressure : / mmHG Vent. Rate : 066 BPM Atrial Rate : 066 BPM P-R Int : 160 ms QRS Dur : 072 ms QT Int : 384 ms P-R-T Axes : 040 027 005 degrees QTc Int : 402 ms Normal sinus rhythm Normal ECG When compared with ECG of 08-JUN-2022 13:41, Nonspecific T wave abnormality, improved in Anterior leads Referred By: Generic ED Physician Electronically Signed By:AMBER DAVILA MD
[2024-02-06 14:08] VITALS: BP 119/63; PULSE 69; RESP 18; TEMP 36.4; O2SAT 98; BMI 41.0
--- NOTE | 2024-02-06 14:14 | ED_ITS ---
HPI - Asthma General Chief Complaint: Asthma Stated Complaint: Chest pain, asthma Time Seen by Provider: 02/06/24 19:14 History of Present Illness ED Provider: [place] Narrative: The patient is a 68-year-old woman who has a history of asthma. She has an albuterol nebulizer at home. She says that she has been having problems with cough and shortness of breath for 3 weeks typical of her asthma. No definite fever. She has been coughing without sputum. No nausea or vomiting. No new pain or swelling in her lower extremities. Related Data Previous Rx's ?Medication ?Instructions ?Recorded cane #1 ea 10/25/21 acetaminophen 500 mg tablet 1,000 mg (2 x 500 mg) PO Q6H PRN 04/25/22 pain 30 days #180 tabs albuterol sulfate 0.63 mg/3 mL 0.63 mg (3 mL) inhalation Q6H #75 01/27/23 solution for nebulization mL fluticasone propionate 115 2 puff inhalation Q12H 30 days #1 01/27/23 mcg-salmeterol 21 mcg/actuation ea HFA inhaler (Advair HFA) montelukast 10 mg tablet 10 mg PO QPM #30 tabs 05/10/23 docusate sodium 100 mg capsule 200 mg (2 x 100 mg) PO BEDTIME #60 08/17/23 (Colace) caps hydrocortisone 2.5 % topical cream 1 appl OR BID PRN hemorrhoids #30 08/17/23 with perineal applicator grams (Proctozone-HC) sennosides 8.6 mg capsule (senna) 8.6 mg PO DAILY PRN constipation 08/17/23 #30 caps cyclobenzaprine 5 mg tablet 5 mg PO Q8H PRN muscle spasm #10 09/09/23 tabs naproxen 500 mg tablet 500 mg PO Q8-12H PRN pain (scale 09/09/23 score 4-6) #20 tabs lidocaine 5 % topical patch 1 patch topical DAILY #15 ea 09/12/23 (Lidoderm) aluminum hydrox-magnesium carb 254 10 ml PO QID PRN dyspepsia #355 mL 09/25/23 mg-237.5 mg/5 mL oral suspension (Gaviscon Extra Strength) omeprazole 20 mg capsule,delayed 20 mg PO DAILY 30 days #30 caps 09/25/23 release cholecalciferol (vitamin D3) 50 50 mcg PO DAILY 90 days #90 caps 12/12/23 mcg (2,000 unit) capsule tiotropium bromide 2.5 2 puff inhalation QAM 30 days #4 01/03/24 mcg/actuation mist for inhalation grams (Spiriva Respimat) albuterol sulfate 90 mcg/actuation 1 inh inhalation QID PRN shortness 01/17/24 aerosol inhaler of breath or wheezing #6.7 grams bisoprolol 5 1 tab PO DAILY 90 days #90 tabs 01/22/24 mg-hydrochlorothiazide 6.25 mg tablet azithromycin 250 mg tablet 250 mg PO DAILY 4 days #4 tabs 02/06/24 prednisone 20 mg tablet 20 mg PO DAILY #12 tabs 02/06/24 Allergies Allergy/AdvReac Type Severity Reaction Status Date / Time No Known Allergies Allergy Verified 02/06/24 14:11 [No Known Allergies*] Review of Systems Review of Systems: Yes all other systems are reviewed and are negative PMFSH Past Medical History Medical History Recent change in frequency of bowel movements Right knee pain Physical exam Preop pulmonary/respiratory exam Arthritis of right knee Spider veins of both lower extremities Chronic cough Right lower lobe pulmonary nodule Hypovitaminosis D Encounter for screening colonoscopy COVID-19 Morbid obesity with BMI of 40.0-44.9, adult Lab test negative for COVID-19 virus Right shoulder pain TRINIDAD (generalized anxiety disorder) Mild recurrent major depression Leg edema Thyroid nodule Knee pain Common cold Anxiety and depression Arthritis Supraclavicular lymphadenopathy Close exposure to COVID-19 virus Urge urinary incontinence Goiter Elevated hemoglobin Essential hypertension Left shoulder pain Left knee pain Surgical History Hx of colonoscopy Uterine myoma History of total abdominal hysterectomy H/O oophorectomy History of cholecystectomy Family History Family History Father Diabetes Hypertension Mother Hypertension Brother Hypertension Sister Hypertension Maternal Aunt Breast cancer Daughter No problems noted. Social History Social History Household Members: None Housing: Apartment Alcohol intake: never Patient Tobacco Use Status: Never used Tobacco e-Cigarette/Vaping Use: Never Used Second Hand Smoke Exposure: No Advance Directives: No Advance Directives Information Provided: No service: No Current occupational status: unemployed Cognitive needs: Yes (cane) Hearing needs: No Vision needs: Yes (glasses) Physical Exam Vital Signs: Vital Signs: Last Vital Signs Temp 98.5 F 02/06/24 20:51 Pulse 65 02/06/24 20:51 Resp 16 02/06/24 20:51 BP 00/00 L 02/06/24 20:51 Pulse Ox 100 02/06/24 17:27 O2 Del Method Room Air 02/06/24 17:27 BMI result Body Mass Index 41.0 Const: Other: The patient is a 68-year-old woman who looks younger than her age. She is awake and alert. She has a a frequent dry cough but does not appear obviously ill otherwise. No increased work of breathing. HEENT: Other: Face is symmetrical. Mucous membranes moist. Eyes: Other: Pupils are round equal, conjunctivae are clear, extraocular movements intact Resp: Other: Mildly diminished air entry with slight wheezes bilaterally. No increased work of breathing. Cardio: Rate: regular rate Rhythm: regular rhythm Heart sounds: S1 normal heart sound present and S2 normal heart sound present GI: Other: Abdomen is soft and nontender Skin: Other: Skin is dry and unremarkable Neuro: Other: The patient is awake and alert with a normal mental status. She is pleasant and cooperative. Cranial nerves are grossly intact. She moves her extremities normally. Extrem: Other: No calf swelling or tenderness, no asymmetry Course Course Course Narrative: RME: Done by SIXTO Cornelius. 68-year-old female history of asthma presents to ED for coughing, body aches, chills, wheezing, chest pain only when she cough and mild SOB. Patient denies any leg swelling, pleurisy, coughing up blood, or recent long travel/recent surgery. Patient states no relief with updraft. Lungs positive for expiratory wheezing. Negative for any extremity swelling or pitting edema or calf tenderness. X-ray COVID SARs EKG was ordered Medications Administered Discontinued Medications Generic Name Dose Route Start Last Admin Trade Name Freq PRN Reason Stop Dose Admin Albuterol/Ipratropium 3 ml 02/06/24 19:16 02/06/24 19:19 Albuterol/Iprat 2.5/0.5mg 3 Ml Ampul.Neb INHALE 02/06/24 19:17 3 ml ONCE ONE Administration Azithromycin 500 mg 02/06/24 19:31 02/06/24 20:05 Azithromycin 500 Mg Tablet PO 02/06/24 19:32 500 mg ONCE ONE Administration Prednisone 60 mg 02/06/24 19:30 02/06/24 20:05 Prednisone 20 Mg Tablet PO 02/06/24 19:31 60 mg ONCE ONE Administration Medical Decision Making Medical Decision Making [facility] Narrative: The patient is a 68-year-old woman with a history of asthma who presents with 3 weeks of cough and shortness of breath. She feels this is similar to previous asthma exacerbations. Her breath sounds were not remarkably bad but she did have a persistent dry cough. She was not hypoxic. She was not tachycardic. My suspicion for a pulmonary embolism or other acutely dangerous alternative process is quite low. Chest x-ray is clear. The patient was treated with bronchodilator updraft, prednisone, and azithromycin. She felt somewhat better. She will be discharged with prescriptions for azithromycin and present as own. She has an albuterol nebulizer machine at home and she has medication for it. She should follow up soon with the regular doctor or return to the ER if worse. Lab Data Labs: Lab Results 02/06/24 Range/Units 14:28 Influenza Type A (PCR) NEGATIVE (Negative) Influenza Type B (PCR) NEGATIVE (Negative) RSV RNA Qual (PCR) NEGATIVE (Negative) SARS-CoV-2 RNA (RT-PCR) NEGATIVE (Negative) S. pyogenes GrpA MAKSIM Negative (Negative) Independent Interpretation I performed an independent interpretation of an: EKG Interpretation: EKG at 13:43 shows normal sinus rhythm at 66 beats per minute. It is a normal E KG. Normal intervals. Discharge Plan Discharge Clinical Impression: Acute asthmatic bronchitis Patient Disposition: Home, Self-Care Instructions: Asthma (ED) Additional Instructions: Please take the prednisone daily as prescribed. Next dose tomorrow. Please take the azithromycin daily as prescribed. Next dose tomorrow. Please continue to use your albuterol nebulizer machine at home every 4 hours as needed for cough and shortness of breath. A teaspoon of honey every couple of hours can also be helpful for cough. Drink lot of fluids. Contact your regular doctor's office in the morning to set up a prompt follow up appointment. Return to the emergency room if significantly worse. Prescriptions: New prednisone 20 mg tablet 20 mg PO DAILY Qty: 12 0RF Rx Instructions: Take 3 tablets by mouth daily for 2 days then 2 tablets by mouth daily for 3 days. azithromycin 250 mg tablet 250 mg PO DAILY 4 Days Qty: 4 0RF Rx Instructions: start on day 2 of therapy No Action acetaminophen 500 mg tablet 1,000 mg PO Q6H PRN (Reason: pain) 30 Days Qty: 180 1RF albuterol sulfate 0.63 mg/3 mL solution for nebulization 0.63 mg inhalation Q6H Qty: 75 3RF Advair HFA 115-21 mcg/actuation HFA aerosol inhaler 2 puff inhalation Q12H 30 Days Qty: 1 6RF montelukast 10 mg tablet 10 mg PO QPM Qty: 30 6RF lidocaine [Lidoderm] 5 % adhesive patch,medicated 1 patch topical DAILY Qty: 15 0RF Rx Instructions: leave on most painful area for up to 12 hrs albuterol sulfate 90 mcg/actuation HFA aerosol inhaler 1 inh inhalation QID PRN (Reason: shortness of breath or wheezing) Qty: 6.7 0RF bisoprolol-hydrochlorothiazide 5-6.25 mg tablet 1 tab PO DAILY 90 Days Qty: 90 1RF (DME) cane Device See Rx Instructions .Route Qty: 1 0RF Rx Instructions: As directed cyclobenzaprine 5 mg tablet 5 mg PO Q8H PRN (Reason: muscle spasm) Qty: 10 0RF naproxen 500 mg tablet 500 mg PO Q8-12H PRN (Reason: pain (scale score 4-6)) Qty: 20 0RF omeprazole 20 mg capsule,delayed release(DR/EC) 20 mg PO DAILY 30 Days Qty: 30 0RF Gaviscon Extra Strength 254-237.5 mg/5 mL suspension 10 ml PO QID PRN (Reason: dyspepsia) Qty: 355 0RF cholecalciferol (vitamin D3) 50 mcg (2,000 unit) capsule 50 mcg PO DAILY 90 Days Qty: 90 1RF docusate sodium [Colace] 100 mg capsule 200 mg PO BEDTIME Qty: 60 5RF senna 8.6 mg capsule 8.6 mg PO DAILY PRN (Reason: constipation) Qty: 30 1RF hydrocortisone [Proctozone-HC] 2.5 % cream with perineal applicator 1 appl OR BID PRN (Reason: hemorrhoids) Qty: 30 3RF Rx Instructions: apply OR BID prn Spiriva Respimat 2.5 mcg/actuation mist 2 puff inhalation QAM 30 Days Qty: 4 6RF Interventions: ED Discharge Assessment Last Done: 02/06/24 20:51 Discharge Date/Time: 02/06/24 20:52 Print Language: Korean
[2024-02-06 14:42] LABS: IDNOW Serial# 58CA691E; Strep A Nucleic Acid Negative (Negative)
[2024-02-06 15:11] LABS: Influenza A PCR NEGATIVE (Negative); Influenza B PCR NEGATIVE (Negative); Resp Syncy Virus RNA Qual PCR NEGATIVE (Negative); SARS COV2 PCR INHOUSE NEGATIVE (Negative)
[2024-02-06 17:27] VITALS: BP 153/83; PULSE 73; RESP 18; TEMP 36.9; O2SAT 100
[2024-02-06 19:19] VITALS: RESP 16; O2SAT 99
[2024-02-06] MEDS: Albuterol/Iprat 2.5/0.5MG 3 ML AMPUL.NEB INHALE (19:19)
[2024-02-06] MEDS: Azithromycin 500 MG TABLET PO (20:05)
[2024-02-06] MEDS: predniSONE 20 MG TABLET 60 MG PO (20:05)
[2024-02-06 20:51] VITALS: BP 00/00; PULSE 65; RESP 16; TEMP 36.9
== END 2024-02-06 20:52 | disposition home or self-care (01) ==
PROVIDERS: Physician Assistant; Emergency Provider Emergency Medicine; PCP Internal Medicine
DX: J40 Bronchitis, not specified as acute or chronic (principal); R07.89 Other chest pain; J02.9 Acute pharyngitis, unspecified; Z03.818 Encounter for observation for suspected exposure to other biological agents ruled out
CPT/HCPCS: 0241U; 71045; 87651; 93005; 94640; 99284

== ENCOUNTER → 2024-02-06 13:40 | Outpatient (BNV) | payer OTHER, SELFPAY | PROVIDERS: PCP Internal Medicine; Visit Provider Internal Medicine Cardiovascular Disease | DX: R07.9 Chest pain, unspecified (principal) | CPT/HCPCS: 93010 ==

== ENCOUNTER 2024-02-28 09:56 | Outpatient (AMB) | payer OTHER, SELFPAY ==
[2024-02-28 10:03] VITALS: BP 106/70; PULSE 71; O2SAT 96; BMI 41.0
--- NOTE | 2024-02-28 10:03 | A.OFFPC_ITS ---
Vital Signs 02/28/24 10:03 Height 5 ft 7 in Weight 262 lb BMI 41.0 BP 106/70 Blood Pressure Location Lt brachial Position Sitting Pulse 71 Pulse Source Pulse Oximeter Pulse Oximetry (%) 96 Oxygen Delivery Method Room Air Intake Visit Reasons: [facility] 02/05 Asthma/cough Film Processor Required: Yes Film Processor Language: Hyperbaric Tech Name: Alanna [id number] Accompanied by: Self / Same As Patient Allergies No Known Allergies [No Known Allergies*] Allergy (Verified 02/28/24 10:06) Tobacco use date assessed: 06/06/23 Fall risk assessment: 1 Fall in past year Last assessed Fall Risk: 02/28/24 Dental Screening Dental Screen Date: 06/06/23 HPI HPI Comments History of Present Illness Details 68 y/o female patient who presents to [facility] today for EDF. She was admitted at [facility] for Asthma exacerbation. Pt was discharged home the same day on Z-pack and Prednisone. She completed all the antibiotics. Today Patient c/o persistent cough that has become very bothersome. She also c/o low back pain that is associated with Urinary symptoms. C/o urinary frequency and foul odor. [facility] Medical History Recent change in frequency of bowel movements Right knee pain Physical exam Preop pulmonary/respiratory exam Arthritis of right knee Spider veins of both lower extremities Chronic cough Right lower lobe pulmonary nodule Hypovitaminosis D Encounter for screening colonoscopy COVID-19 Morbid obesity with BMI of 40.0-44.9, adult Lab test negative for COVID-19 virus Right shoulder pain TRINIDAD (generalized anxiety disorder) Mild recurrent major depression Leg edema Thyroid nodule Knee pain Common cold Anxiety and depression Arthritis Supraclavicular lymphadenopathy Close exposure to COVID-19 virus Urge urinary incontinence Goiter Elevated hemoglobin Essential hypertension Left shoulder pain Left knee pain Surgical History Hx of colonoscopy Uterine myoma History of total abdominal hysterectomy H/O oophorectomy History of cholecystectomy Family History Father Diabetes Hypertension Mother Hypertension Brother Hypertension Sister Hypertension Maternal Aunt Breast cancer Daughter No problems noted. Social History Household Members: None Housing: Apartment 75 years or older and lives alone: No Alcohol intake: never Patient Tobacco Use Status: Never used Tobacco Tobacco use type: Cigarette e-Cigarette/Vaping Use: Never Used Second Hand Smoke Exposure: No service: No Current occupational status: unemployed Cognitive needs: Yes (cane) Hearing needs: No Vision needs: Yes (glasses) Questionnaire Thrive Questionnaire Date Thrive assessed: 06/06/23 TRINIDAD-7 AMB Questionnaire TRINIDAD-7 Date TRINIDAD - 7 assessed: 06/06/23 Source: Developed by Drs. Guillaume Stark, Keila Scott, Stanislav Oquendo and colleagues, with an educational sandeep from [employer]. Review of Systems Const All systems reviewed & are unremarkable except as noted in HPI and below Physical exam (Primary Care) Vital Signs: Last Vital Signs Pulse 71 02/28/24 10:03 BP 106/70 02/28/24 10:03 Pulse Ox 96 02/28/24 10:03 Oxygen Delivery Method Room Air 02/28/24 10:03 BMI result Body Mass Index 41.0 Tobacco/Smoking Status: Tobacco use Status Tobacco use date assessed 06/06/23 02/28/24 10:09 Patient Tobacco Use Status Never used Tobacco 02/28/24 10:09 Tobacco use type Cigarette 02/28/24 10:09 e-Cigarette/Vaping Use Never Used 02/28/24 10:09 Thrive Assessment: Date of Thrive Assessment Date Thrive assessed 06/06/23 02/28/24 10:09 Const General: cooperative and no acute distress Nutritional Appearance: obese Orientation/consciousness: patient oriented x3 Resp Effort & Inspection: normal respiratory effort and able to speak in complete sentences Auscultation: clear to auscultation bilaterally, no crackles, no rales, no rhonchi and no wheezes Cardio Heart sounds: S1 normal heart sound present and S2 normal heart sound present Neuro General: patient oriented x3 Results AMB Urinalysis Dipstick 5 UR Glucose 100 Last Edit by Sheryl Paulson CMA on 02/28/24 10:36 UD Blood Negative Last Edit by Sheryl Paulson CMA on 02/28/24 10:36 UD Protein Negative Last Edit by Sheryl Paulson CMA on 02/28/24 10:36 UR Nitrite Negative Last Edit by Sheryl Paulson CMA on 02/28/24 10:36 UR Leukocytes Negative Last Edit by Sheryl Paulson CMA on 02/28/24 10:36 Coding Level of Care Code Est Pt Level 4 (75320) Diagnoses Moderate persistent asthma with acute exacerbation J45.41 Asthma severity: moderate Asthma persistence: persistent Bilateral low back pain without sciatica, unspecified chronicity M54.50 Chronicity: unspecified Back pain laterality: bilateral Sciatica presence: without sciatica Urinary tract infection symptoms R39.9 Time Spent (min) 20 Comment SPENT REVIEWING HOSPITAL NOTES AND PATIENT EDUCATION Assessment & Plan Assessment & Plan (1) Asthma with acute exacerbation: Code(s): J45.901 - Unspecified asthma with (acute) exacerbation Qualifiers: Asthma severity: moderate Asthma persistence: persistent Qualified Code(s): J45.41 - Moderate persistent asthma with (acute) exacerbation Plan: Ordered Benzonatate Continue on current regiment (2) Low back pain: Code(s): M54.50 - Low back pain, unspecified Qualifiers: Chronicity: unspecified Back pain laterality: bilateral Sciatica presence: without sciatica Qualified Code(s): M54.50 - Low back pain, unspecified Plan: Ordered U/A in Amb NSAIDs or Acetaminophen. Lidocaine patches IceHot. (3) Urinary tract infection symptoms: Code(s): R39.9 - Unspecified symptoms and signs involving the genitourinary system Plan: Ordered U/A in office U/A negative, will hold on sending culture today Hydrate well with water RTC if symptoms not better. Orders: Orders AMB Urinalysis Dipstick 5 Today R39.9 - Unspecified symptoms and signs involving the genitourinary system Medications: Refilled cyclobenzaprine 5 mg PO Q8H PRN 14 tabs 0RF muscle spasm M54.50 - Low back pain, unspecified lidocaine 5% (Lidoderm) leave on most painful area for up to 12 hrs 1 patch topical DAILY 30 ea 0RF M54.50 - Low back pain, unspecified naproxen 500 mg PO Q8-12H PRN 30 tabs 0RF pain (scale score 4-6) M54.50 - Low back pain, unspecified Discontinued azithromycin start on day 2 of therapy Discontinued Reason: Patient Completed Course 250 mg PO DAILY 4 days 4 tabs 0RF prednisone Take 3 tablets by mouth daily for 2 days then 2 tablets by mouth daily for 3 days. Discontinued Reason: Patient Completed Course 20 mg PO DAILY 12 tabs 0RF
== END 2024-02-28 10:32 | disposition home or self-care (01) ==
LOC: HO.HMCH 09:56
PROVIDERS: PCP Internal Medicine; Visit Provider Nurse Practitioner Family
DX: J45.41 Moderate persistent asthma with (acute) exacerbation (principal); M54.50 Low back pain, unspecified; R39.9 Unspecified symptoms and signs involving the genitourinary system

== ENCOUNTER → 2024-02-28 09:56 | Outpatient (BNVA) | payer OTHER, SELFPAY | PROVIDERS: PCP Internal Medicine; Visit Provider Nurse Practitioner Family | DX: J45.41 Moderate persistent asthma with (acute) exacerbation (principal); M54.50 Low back pain, unspecified; R39.9 Unspecified symptoms and signs involving the genitourinary system | CPT/HCPCS: 99212 ==

== ENCOUNTER 2024-04-10 11:49 | Emergency (ER) | payer OTHER, SELFPAY ==
--- NOTE | ~2024-04-10 | XR_ITS ---
EXAMINATION: XR CHEST 2 VIEW CLINICAL INFORMATION: Cough, chest pain COMPARISON: 02/06/2024 TECHNIQUE: PA and lateral views of the chest obtained. FINDINGS: Calcified left upper lobe granuloma is unchanged. Otherwise, the lungs are clear. There are no pleural effusions. The cardiomediastinal silhouette is stable. XR/XR chest 2V IMPRESSION: No acute cardiopulmonary disease. Electronically signed by: Scooby Hdz MD 04/10/2024 01:59 PM EST
[2024-04-10 12:28] VITALS: BP 138/67; PULSE 98; RESP 24; TEMP 36.9; O2SAT 100; BMI 40.9
--- NOTE | 2024-04-10 12:35 | ED.ASTHMA ---
HPI - Asthma General Chief Complaint: Asthma Stated Complaint: asthma Time Seen by Provider: 04/10/24 17:43 Source: patient and historic interpreter Mode of arrival: ambulatory Limitations: language barrier History of Present Illness ED Provider: Marlene MADSEN Narrative: Patient is a 68-year-old female with history of asthma, HTN, LATISHA, GERD presenting to the emergency department with complaint of shortness of breath, cough productive of white/yellow sputum, and nasal congestion for the past week. Denies fevers. Chest pain with coughing episodes. Denies chest pain or palpitations at rest. No known sick contacts. Denies hemoptysis. MD complaint: shortness of breath Onset (ago): week(s) Associated symptoms: productive cough Treatments Prior to Arrival: inhaled bronchodilator Related Data Previous Rx's ?Medication ?Instructions ?Recorded cane #1 ea 10/25/21 acetaminophen 500 mg tablet 1,000 mg (2 x 500 mg) PO Q6H PRN 04/25/22 pain 30 days #180 tabs fluticasone propionate 115 2 puff inhalation Q12H 30 days #1 01/27/23 mcg-salmeterol 21 mcg/actuation ea HFA inhaler (Advair HFA) montelukast 10 mg tablet 10 mg PO QPM #30 tabs 05/10/23 docusate sodium 100 mg capsule 200 mg (2 x 100 mg) PO BEDTIME #60 08/17/23 (Colace) caps hydrocortisone 2.5 % topical cream 1 appl WV BID PRN hemorrhoids #30 08/17/23 with perineal applicator grams (Proctozone-HC) sennosides 8.6 mg capsule (senna) 8.6 mg PO DAILY PRN constipation 08/17/23 #30 caps aluminum hydrox-magnesium carb 254 10 ml PO QID PRN dyspepsia #355 mL 09/25/23 mg-237.5 mg/5 mL oral suspension (Gaviscon Extra Strength) omeprazole 20 mg capsule,delayed 20 mg PO DAILY 30 days #30 caps 09/25/23 release cholecalciferol (vitamin D3) 50 50 mcg PO DAILY 90 days #90 caps 12/12/23 mcg (2,000 unit) capsule tiotropium bromide 2.5 2 puff inhalation QAM 30 days #4 01/03/24 mcg/actuation mist for inhalation grams (Spiriva Respimat) albuterol sulfate 90 mcg/actuation 1 inh inhalation QID PRN shortness 01/17/24 aerosol inhaler of breath or wheezing #6.7 grams bisoprolol 5 1 tab PO DAILY 90 days #90 tabs 01/22/24 mg-hydrochlorothiazide 6.25 mg tablet cyclobenzaprine 5 mg tablet 5 mg PO Q8H PRN muscle spasm #14 02/28/24 tabs lidocaine 5 % topical patch 1 patch topical DAILY #30 ea 02/28/24 (Lidoderm) naproxen 500 mg tablet 500 mg PO Q8-12H PRN pain (scale 02/28/24 score 4-6) #30 tabs albuterol sulfate 0.63 mg/3 mL 0.63 mg (3 mL) inhalation Q6H #75 03/04/24 solution for nebulization mL azithromycin 250 mg tablet See Rx Instructions PO .COMPLEX #6 04/10/24 tabs benzonatate 100 mg capsule 100 mg PO TID PRN cough #20 caps 04/10/24 prednisone 20 mg tablet 40 mg (2 x 20 mg) PO DAILY #10 tabs 04/10/24 Allergies Allergy/AdvReac Type Severity Reaction Status Date / Time No Known Allergies Allergy Verified 04/10/24 12:34 [No Known Allergies*] Review of Systems Review of Systems: As per HPI. Yes all other systems are reviewed and are negative Constitutional: Constitutional: Reports as per HPI [facility] Past Medical History Medical History Recent change in frequency of bowel movements Right knee pain Physical exam Preop pulmonary/respiratory exam Arthritis of right knee Spider veins of both lower extremities Chronic cough Right lower lobe pulmonary nodule Hypovitaminosis D Encounter for screening colonoscopy COVID-19 Morbid obesity with BMI of 40.0-44.9, adult Lab test negative for COVID-19 virus Right shoulder pain TRINIDAD (generalized anxiety disorder) Mild recurrent major depression Leg edema Thyroid nodule Knee pain Common cold Anxiety and depression Arthritis Supraclavicular lymphadenopathy Close exposure to COVID-19 virus Urge urinary incontinence Goiter Elevated hemoglobin Essential hypertension Left shoulder pain Left knee pain Surgical History Hx of colonoscopy Uterine myoma History of total abdominal hysterectomy H/O oophorectomy History of cholecystectomy Family History Family History Father Diabetes Hypertension Mother Hypertension Brother Hypertension Sister Hypertension Maternal Aunt Breast cancer Daughter No problems noted. Social History Social History Household Members: None Housing: Apartment Alcohol intake: never Patient Tobacco Use Status: Never used Tobacco Tobacco use type: Cigarette e-Cigarette/Vaping Use: Never Used Second Hand Smoke Exposure: No Advance Directives: No Advance Directives Information Provided: Yes service: No Current occupational status: unemployed Cognitive needs: Yes (cane) Hearing needs: No Vision needs: Yes (glasses) Physical Exam Vital Signs: Vital Signs: Last Vital Signs Temp 98.4 F 04/10/24 12:28 Pulse 71 04/10/24 18:12 Resp 23 H 04/10/24 18:12 BP 138/67 04/10/24 12:28 Pulse Ox 100 04/10/24 12:28 O2 Del Method Room Air 04/10/24 12:28 BMI result Body Mass Index 40.9 Vital signs have been reviewed and appear to be correct. Blood pressure normal. Heart rate normal. Respiratory rate normal. Temperature normal. Oxygen saturation normal. Const: General: cooperative, healthy appearing and no acute distress Orientation/consciousness: oriented to person, oriented to place, oriented to time and patient oriented x3 Limitations: no limitations HEENT: Head: Yes normocephalic and Yes atraumatic Ears: external ears normal General nose exam: Normal external nose present Face and sinus: Yes face symmetric Mouth: oropharynx normal and moist mucous membranes Throat: Yes uvula midline Eyes: Pupils: Equal, round and reactive pupils present Neck: Neck: Yes normal visual inspection and Yes supple Resp: Effort & Inspection: normal respiratory effort and able to speak in complete sentences Auscultation: wheezes expiratory wheezes and throughout Cardio: Rate: regular rate Rhythm: regular rhythm Heart sounds: S1 normal heart sound present and S2 normal heart sound present GI: Palpation (GI): Soft to palpation and nontender Auscultation: normoactive bowel sounds : General: Yes no CVA tenderness Back/Spine/Pelvis: Back: no CVA tenderness Skin: General skin exam: elasticity normal and turgor normal Neuro: General: oriented to person, oriented to place, oriented to time, patient oriented x3, moves all extremities, no focal motor deficits and CN's II-XI intact bilaterally Cranial nerves: Yes Equal, round and reactive pupils present Cognition (Neuro): normal cognition Extrem: General: Yes full ROM, Yes no pedal edema and Yes no calf tenderness Psych: Mental Status: mental status grossly normal Affect: normal affect Thought process: Normal thought process present Course Course Course Narrative: This is a rapid medical exam performed by Rafa Rosario NP: Additional HPI, ROS, PE not included below will be deferred to primary provider. Patient is a 68-year-old female with past medical history of asthma, pulmonary nodules, LATISHA presenting to the emergency department with complaint of shortness of breath, cough, nasal congestion for the past week. Denies fevers. Chest pain with coughing episodes. Plan: EKG, viral serology, CXR Medications Administered Discontinued Medications Generic Name Dose Route Start Last Admin Trade Name Freq PRN Reason Stop Dose Admin Albuterol/Ipratropium 3 ml 04/10/24 18:12 04/10/24 18:16 Albuterol/Iprat 2.5/0.5mg 3 Ml Ampul.Neb INHALE 04/10/24 18:13 3 ml ONCE ONE Administration Medical Decision Making Medical Decision Making [facility] Narrative: Patient is a 68-year-old female with history of asthma, HTN, LATISHA, GERD presenting to the emergency department with complaint of shortness of breath, cough productive of white/yellow sputum, and nasal congestion for the past week. On exam patient is awake, A+Ox3, VS WNL, afebrile, normal neurological exam without focal deficits, physical exam findings as above. Given reported symptoms and physical exam findings, initial differential includes asthma exacerbation, viral illness, COVID, flu, RSV, bronchitis, pneumonia. Viral serology negative. EKG shows normal sinus rhythm. X-ray notable for no evidence of pneumonia. My interpretation is in agreement with the radiologist's interpretation. Results discussed with patient all questions answered. ED bronchodilator protocol ordered as well as p.o. prednisone. Patient is afebrile, maintaining adequate oxygen saturation, able to speak easily in full sentences. Will treat for asthma exacerbation and bronchitis with azithromycin, prednisone, and benzonatate. Follow up with PCP. Return precautions discussed at bedside. Patient verbalized understanding of and agreement with plan. In-person bilingual interpreter was utilized for all interactions, assessments, and discussions. Differential Diagnosis Differential Diagnoses: The differential diagnosis associated with the presentation includes As per [facility] Admission/Observation Consideration of admission/observation: Escalation of care including admission/observation considered Patient would have been admitted to the hospital had their work up had any findings where hospital admission was appropriate and their clinical presentation warranted hospital admission. Lab Data [facility] Lab Attestation statement: I reviewed the patient's lab results. As per [facility] Labs: Lab Results 04/10/24 Range/Units 13:00 Influenza Type A (PCR) NEGATIVE (Negative) Influenza Type B (PCR) NEGATIVE (Negative) RSV RNA Qual (PCR) NEGATIVE (Negative) SARS-CoV-2 RNA (RT-PCR) NEGATIVE (Negative) Independent Interpretation I performed an independent interpretation of an: EKG (Normal sinus rhythm, 64 beats per minute, normal WV interval and QTC) and Plain X-Ray Interpretation: No evidence of pneumonia on CXR. Radiology Impression Discussion of test interpretation with radiology: I have reviewed the radiologist's reading. Radiologist Impression: XR/XR chest 2V IMPRESSION: No acute cardiopulmonary disease. External Record Review External record reviewed: Inpatient record, Office record and Outpatient record Prescription Management I considered prescription management with: Antibiotic and Other Discharge Plan Discharge Clinical Impression: Asthma with acute exacerbation, Bronchitis Patient Disposition: Home, Self-Care Instructions: Asthma (DC), Acute Bronchitis (ED) Additional Instructions: You were evaluated in the emergency department today for cough and shortness of breath. You are being treated for bronchitis and asthma exacerbation with an antibiotic, please complete the full course as prescribed. You are also being prescribed a short course of steroids to decrease inflammation. You are being benzonatate which is a cough medication you can take every 8 hours as needed, KEEP THIS OUT OF THE REACH OF CHILDREN. Please follow-up with your primary care provider this week. Return to the emergency department if you develop worsening shortness of breath, difficulty breathing, chest pain, fever not improved with Tylenol or ibuprofen, or any other concerning symptoms. Prescriptions: New azithromycin 250 mg tablet See Rx Instructions .ROUTE .COMPLEX Qty: 6 0RF Rx Instructions: For 250 mg dose pack: take 500 mg today (day 1), then 250 mg for 4 days (days 2-5) prednisone 20 mg tablet 40 mg PO DAILY Qty: 10 0RF benzonatate 100 mg capsule 100 mg PO TID PRN (Reason: cough) Qty: 20 0RF No Action acetaminophen 500 mg tablet 1,000 mg PO Q6H PRN (Reason: pain) 30 Days Qty: 180 1RF Advair HFA 115-21 mcg/actuation HFA aerosol inhaler 2 puff inhalation Q12H 30 Days Qty: 1 6RF montelukast 10 mg tablet 10 mg PO QPM Qty: 30 6RF albuterol sulfate 90 mcg/actuation HFA aerosol inhaler 1 inh inhalation QID PRN (Reason: shortness of breath or wheezing) Qty: 6.7 0RF bisoprolol-hydrochlorothiazide 5-6.25 mg tablet 1 tab PO DAILY 90 Days Qty: 90 1RF albuterol sulfate 0.63 mg/3 mL solution for nebulization 0.63 mg inhalation Q6H Qty: 75 3RF (DME) cane Device See Rx Instructions .Route Qty: 1 0RF Rx Instructions: As directed omeprazole 20 mg capsule,delayed release(DR/EC) 20 mg PO DAILY 30 Days Qty: 30 0RF Gaviscon Extra Strength 254-237.5 mg/5 mL suspension 10 ml PO QID PRN (Reason: dyspepsia) Qty: 355 0RF cholecalciferol (vitamin D3) 50 mcg (2,000 unit) capsule 50 mcg PO DAILY 90 Days Qty: 90 1RF docusate sodium [Colace] 100 mg capsule 200 mg PO BEDTIME Qty: 60 5RF senna 8.6 mg capsule 8.6 mg PO DAILY PRN (Reason: constipation) Qty: 30 1RF hydrocortisone [Proctozone-HC] 2.5 % cream with perineal applicator 1 appl WV BID PRN (Reason: hemorrhoids) Qty: 30 3RF Rx Instructions: apply WV BID prn lidocaine [Lidoderm] 5 % adhesive patch,medicated 1 patch topical DAILY Qty: 30 0RF Rx Instructions: leave on most painful area for up to 12 hrs cyclobenzaprine 5 mg tablet 5 mg PO Q8H PRN (Reason: muscle spasm) Qty: 14 0RF naproxen 500 mg tablet 500 mg PO Q8-12H PRN (Reason: pain (scale score 4-6)) Qty: 30 0RF Spiriva Respimat 2.5 mcg/actuation mist 2 puff inhalation QAM 30 Days Qty: 4 6RF Print Language: Trinidadian
--- NOTE | 2024-04-10 12:36 | ECG_ITS ---
Test Reason : CHEST PAIN Blood Pressure : / mmHG Vent. Rate : 064 BPM Atrial Rate : 064 BPM P-R Int : 154 ms QRS Dur : 070 ms QT Int : 398 ms P-R-T Axes : 016 038 052 degrees QTc Int : 410 ms Normal sinus rhythm Possible Left atrial enlargement Borderline ECG When compared with ECG of 06-FEB-2024 13:43, T wave inversion no longer evident in Inferior leads Referred By: Sophia Rosario Electronically Signed By:AMBER DAVILA MD
[2024-04-10 13:43] LABS: Influenza A PCR NEGATIVE (Negative); Influenza B PCR NEGATIVE (Negative); Resp Syncy Virus RNA Qual PCR NEGATIVE (Negative); SARS COV2 PCR INHOUSE NEGATIVE (Negative)
[2024-04-10 18:12] VITALS: PULSE 71; RESP 23; O2SAT 98
[2024-04-10] MEDS: Albuterol/Iprat 2.5/0.5MG 3 ML AMPUL.NEB INHALE (18:16)
[2024-04-10] MEDS: predniSONE 20 MG TABLET 60 MG PO (18:35)
[2024-04-10 18:36] VITALS: BP 00/0; PULSE 71; RESP 23; TEMP -17.7; TEMP 0; O2SAT 95
== END 2024-04-10 18:37 | disposition home or self-care (01) ==
PROVIDERS: Registered Nurse Emergency; Emergency Provider Internal Medicine; PCP Internal Medicine
DX: J45.901 Unspecified asthma with (acute) exacerbation (principal); J40 Bronchitis, not specified as acute or chronic; Z03.818 Encounter for observation for suspected exposure to other biological agents ruled out; R06.02 Shortness of breath
CPT/HCPCS: 0241U; 71046; 93005; 94640; 99284

== ENCOUNTER → 2024-04-10 12:36 | Outpatient (BNV) | payer OTHER, SELFPAY | PROVIDERS: PCP Internal Medicine; Visit Provider Internal Medicine Cardiovascular Disease | DX: R07.9 Chest pain, unspecified (principal) | CPT/HCPCS: 93010 ==

== ENCOUNTER 2024-05-31 14:33 | Outpatient (AMB) | payer OTHER, SELFPAY ==
[2024-05-31 14:39] VITALS: BP 102/64; PULSE 75; O2SAT 98; BMI 41.2
--- NOTE | 2024-05-31 14:39 | MHC.OFFVIS ---
Vital Signs 05/31/24 14:39 Height 5 ft 8 in Weight 271 lb 2.697 oz BMI 41.2 BP 102/64 Blood Pressure Location Lt brachial Position Sitting Pulse 75 Pulse Source Pulse Oximeter Pulse Oximetry (%) 98 Oxygen Delivery Method Room Air Intake Visit Reasons: Asthma Denture Processor Required: Yes Denture Processor Services: Denture Processor Present Denture Processor Name: [id number] Allergies No Known Allergies [No Known Allergies*] Allergy (Verified 05/31/24 14:43) HPI HPI Asthma: Details: 68-year-old lady, nonsmoker, followed for underlying moderate to severe persistent allergic asthma with recurrent bronchitis.? Patient previously Xolair, Advair, and albuterol MDI with good control of underlying symptoms.? She did have to stop her Xolair injections since she had significant nausea.? Patient was prescribed Spiriva, however she was not able to started. She continues to complain of suboptimal control of her symptoms. [facility] Medical History Recent change in frequency of bowel movements Right knee pain Physical exam Preop pulmonary/respiratory exam Arthritis of right knee Spider veins of both lower extremities Chronic cough Right lower lobe pulmonary nodule Hypovitaminosis D Encounter for screening colonoscopy COVID-19 Morbid obesity with BMI of 40.0-44.9, adult Lab test negative for COVID-19 virus Right shoulder pain TRINIDAD (generalized anxiety disorder) Mild recurrent major depression Leg edema Thyroid nodule Knee pain Common cold Anxiety and depression Arthritis Supraclavicular lymphadenopathy Close exposure to COVID-19 virus Urge urinary incontinence Goiter Elevated hemoglobin Essential hypertension Left shoulder pain Left knee pain Surgical History Hx of colonoscopy Uterine myoma History of total abdominal hysterectomy H/O oophorectomy History of cholecystectomy Family History Father Diabetes Hypertension Mother Hypertension Brother Hypertension Sister Hypertension Maternal Aunt Breast cancer Daughter No problems noted. Social History Household Members: None Housing: Apartment 75 years or older and lives alone: No Alcohol intake: never Patient Tobacco Use Status: Never used Tobacco Tobacco use type: Cigarette e-Cigarette/Vaping Use: Never Used Second Hand Smoke Exposure: No service: No Current occupational status: unemployed Cognitive needs: Yes (cane) Hearing needs: No Vision needs: Yes (glasses) Review of Systems Const Denies daytime sleepiness, Denies excessive sweating, Denies fatigue, Denies fever(s), Denies lethargy, Denies malaise, Denies night sweats, Denies snoring and Denies weight loss Eyes Denies blurry vision and Denies itchy eyes ENT Denies nasal congestion, Denies post nasal drip, Denies sinus pain, Denies sinus pressure and Denies other ( Thrush) Card Denies chest pain, Denies pedal edema, Denies dyspnea, Denies orthopnea and Denies paroxysmal nocturnal dyspnea Resp Reports cough, Denies hemoptysis, Denies excessive phlegm production, Denies dyspnea, Denies snoring and Denies wheezing GI Denies abdominal pain and Denies heartburn Musc Denies myalgias, Denies arthralgias and Denies joint swelling Skin/Breast Denies rash Neuro Denies memory loss and Denies seizure-like activity Psych Denies abnormal sleep pattern, Denies anxiety and Denies memory loss Endo Denies excessive sweating, Denies fatigue and Denies heat intolerance Siddharth/Lymph Denies easy bruising Aller/Immun Denies itchy eyes, Denies seasonal rhinorrhea and Denies wheezing Physical Exam Vital Signs: Last Vital Signs Pulse 75 05/31/24 14:39 BP 102/64 05/31/24 14:39 Pulse Ox 98 05/31/24 14:39 Oxygen Delivery Method Room Air 05/31/24 14:39 BMI result Body Mass Index 41.2 Const General: no acute distress and alert Nutritional Appearance: not obese Orientation/consciousness: Other orientation findings ( oriented) HEENT Head: Yes atraumatic Eyes General: appearance normal, both eyes and all related structures Sclerae: sclerae normal EOM: EOMs intact bilaterally Neck Neck: Yes supple Lymphatic: no lymphadenopathy noted Resp Effort & Inspection: normal respiratory effort and no use of accessory muscles Auscultation: clear to auscultation bilaterally Cardio Rate: regular rate Rhythm: regular rhythm Heart sounds: no gallops, no murmurs and no rubs Skin General skin exam: other ( warm) Extrem General: No clubbing, No cyanosis and No edema Assessment & Plan Assessment & Plan (1) Asthma: Code(s): J45.909 - Unspecified asthma, uncomplicated Category: Medical (2) Chronic cough: Code(s): R05.3 - Chronic cough Category: Medical Plan Suboptimal control as patient was not able to obtain Spiriva. Change Advair to Breztri. Continue albuterol MDI. Medications: New koptzjbknc-bibturnz-jkukqwhajh 160-9-4.8 mcg/actuation (Breztri Aerosphere) 2 inhalations inhalation BID 1 ea 6RF Discontinued fluticasone propion-salmeterol 115-21 mcg/actuation (Advair HFA) Discontinued Reason: Doctor's Order 2 puffs inhalation Q12H 30 days 1 ea 6RF tiotropium bromide 2.5 mcg/actuation (Spiriva Respimat) Discontinued Reason: Doctor's Order 2 puffs inhalation QAM 30 days 4 grams 6RF J44.9 - Chronic obstructive pulmonary disease, unspecified Coding Level of Care Code Est Pt Level 3 (43415) Diagnoses Asthma J45.909 Chronic cough R05.3
== END 2024-05-31 14:59 | disposition home or self-care (01) ==
PROVIDERS: PCP Internal Medicine; Visit Provider Internal Medicine Pulmonary Disease
DX: J45.909 Unspecified asthma, uncomplicated (principal); R05.3 Chronic cough
CPT/HCPCS: 99213

== ENCOUNTER → 2024-05-31 14:33 | Outpatient (BNVA) | payer OTHER, SELFPAY | PROVIDERS: PCP Internal Medicine; Visit Provider Internal Medicine Pulmonary Disease | DX: J45.909 Unspecified asthma, uncomplicated (principal); R05.3 Chronic cough | CPT/HCPCS: 99212 ==

== ENCOUNTER 2024-06-13 14:12 | Outpatient (AMB) | payer OTHER, SELFPAY ==
[2024-06-13 14:22] VITALS: BP 140/80; BMI 41.2
--- NOTE | 2024-06-13 14:22 | A.OFFPC_ITS ---
Vital Signs 06/13/24 14:22 Height 5 ft 8 in Weight 271 lb BMI 41.2 BP 140/80 H Blood Pressure Location Lt brachial Position Sitting Intake Visit Reasons: Annual Exam Intake Note: Patient here for a physical exam Lighthouse Keeper Required: Yes Lighthouse Keeper Language: Air And Water Filler Name: Brenda Phipps MD Information Interpreted: non-clinical & clinical Accompanied by: Self / Same As Patient Allergies No Known Allergies [No Known Allergies*] Allergy (Verified 06/13/24 14:58) Medication List - Last Reconciled 06/13/24 by Brenda Phipps MD acetaminophen 1,000 mg (2 x 500 mg) PO Q6H PRN 30 days albuterol sulfate 90 mcg/actuation 1 inh inhalation QID PRN albuterol sulfate 0.63 mg (3 mL) inhalation Q6H aluminum hydrox-magnesium carb 254-237.5 mg/5 mL (Gaviscon Extra Strength) 10 mL PO QID PRN bisoprolol-hydrochlorothiazide 5-6.25 mg 1 tab PO DAILY 90 days rdgmtcsweq-ytpdtowt-vfdqfxjquz 160-9-4.8 mcg/actuation (Breztri Aerosphere) 2 inhalations inhalation BID cane As directed cholecalciferol (vitamin D3) 50 mcg PO DAILY 90 days cyclobenzaprine 5 mg PO Q8H PRN docusate sodium (Colace) 200 mg (2 x 100 mg) PO BEDTIME hydrocortisone 2.5% (Proctozone-HC) 1 appl ME BID PRN lidocaine 5% (Lidoderm) 1 patch topical DAILY montelukast 10 mg PO QPM naproxen 500 mg PO Q8-12H PRN omeprazole 20 mg PO DAILY 30 days sennosides (senna) 8.6 mg PO DAILY PRN Tobacco use date assessed: 06/13/24 Fall risk assessment: No Falls in past year Last assessed Fall Risk: 06/13/24 Dental Screening Dental Screen Date: 06/13/24 Did you have a dental visit in the last 12 months?: No Did you have a dental problem in the last 6 months where you did not have access to dental care?: No Was dental information given to patient?: Patient has dentist HPI HPI Comments History of Present Illness Details The patient is a 68-year-old female presenting for her physical exam. She has chest pain pain which has been recurrent and is localized to the left side, extending from the chest to the breast, and it led to significant distress the last time it occurred. The pain episode reported was severe enough to cause the patient to feel emotional distress. A familial risk of cardiovascular disease is present, as the patient's mother of heart-related issues. Her mother had a history of hypertension, and the recent chest pain has heightened concerns. The patient's hypertension is under current treatment with bisoprolol and hydrochlorothiazide, which she takes every morning, including today. However, blood pressure was noted as elevated during this visit. She also has a chronic cough starting from January, and she has undergone chest X-rays, with the latest in March showing normal results. Additionally, the patient reports back pain localized to the thoracic region. Past surgeries include a hysterectomy in 2008, removal of the gallbladder, and bilateral oophorectomy. - Pneumonia vaccine was administered las t year when the patient turned 67 - Tetanus vaccine administered in 2019, next due in 2029 - Mammogram was done more than a year ag o; recommendation to schedule another - Colonoscopy was conducted last er showing tubular adenoma. - Scheduled for a flu vaccine today [facility] Medical History (Updated 06/13/24 @ 15:12 by Brenda Phipps MD) Elevated hemoglobin Recent change in frequency of bowel movements Right knee pain Physical exam Preop pulmonary/respiratory exam Arthritis of right knee Spider veins of both lower extremities Chronic cough Right lower lobe pulmonary nodule Hypovitaminosis D Encounter for screening colonoscopy COVID-19 Morbid obesity with BMI of 40.0-44.9, adult Lab test negative for COVID-19 virus Right shoulder pain TRINIDAD (generalized anxiety disorder) Mild recurrent major depression Leg edema Thyroid nodule Knee pain Common cold Anxiety and depression Arthritis Supraclavicular lymphadenopathy Close exposure to COVID-19 virus Urge urinary incontinence Goiter Essential hypertension Left shoulder pain Left knee pain Surgical History Hx of colonoscopy Uterine myoma History of total abdominal hysterectomy H/O oophorectomy History of cholecystectomy Family History (Updated 06/13/24 @ 15:04 by Brenda Phipps MD) Father Diabetes Hypertension Mother Hypertension CHF (congestive heart failure) Brother Hypertension Sister Hypertension Maternal Aunt Breast cancer Daughter No problems noted. Social History Household Members: None Housing: Apartment 75 years or older and lives alone: No Alcohol intake: never Patient Tobacco Use Status: Never used Tobacco e-Cigarette/Vaping Use: Never Used Second Hand Smoke Exposure: No service: No Current occupational status: unemployed Cognitive needs: Yes (cane) Hearing needs: No Vision needs: Yes (glasses) Questionnaire PHQ-9 Over the last 2 weeks, how often have you been bothered by any of the following problems? 1. Little interest or pleasure in doing things: not at all 2. Feeling down, depressed, or hopeless: not at all 3. Trouble falling or staying asleep, or sleeping too much: more than half the days 4. Feeling tired or having little energy: several days 5. Poor appetite or overeating: not at all 6. Feeling bad about yourself - or that you are a failure or have let yourself or your family down: not at all 7. Trouble concentrating on things, such as reading the newspaper or watching television: not at all 8. Moving or speaking so slowly that other people could have noticed. Or the opposite - being so fidgety or restless that you have been moving around a lot more than usual: not at all 9. Thoughts that you would be better off or of hurting yourself in some way: not at all Total score: 3 Depression Screening Interpretation: Positive Depression Screening Follow-up: Existing condition, In treatment, Community Mental Health Worker F/U and Follow- up Visit Requested Depression Screening Done: Yes 50345 - PHQ-9 Billing: Yes Source: Developed by Drs. Guillaume Stark, Keila Scott, Stanislav Oquendo and colleagues, with an educational sandeep from [employer]. Thrive Questionnaire Date Thrive assessed: 06/13/24 I am a: Patient What is your living situation today?: I have a steady place to live Within the past 12 months, did the food you bought not last and you didn't have the money to get more?: Never true Within the past 12 months, did you worry whether your food would run out before you got money to buy more?: Never true Do you have trouble paying for medicines?: No Do you have trouble getting transportation to medical appointments?: No Do you have trouble paying your heating and electricity bill?: No Do you have trouble taking care of your child, family member or friend?: No Do you have trouble with day-to-day activities such as bathing, preparing meals, shopping, managing finances, etc.?: No Are you currently unemployed and looking for a job?: Yes Are you interested in more education?: No Please select the resources that you would like help with: None Currently or been in a relationship where the following occur: I choose not to answer THRIVE Score: 0 AUDIT C Alcohol Use Questionnaire (AUDIT-C) 1. How often do you have a drink containing alcohol?: Never Total Score: 0 Score Reviewed/Action Taken: No TRINIDAD-7 AMB Questionnaire TRINIDAD-7 Date TRINIDAD - 7 assessed: 06/13/24 Feeling nervous, anxious, or on edge: 0 = Not at all Not being able to stop or control worryin = Not at all Worrying too much about different things: 0 = Not at all Trouble relaxin = Not at all Being so restless that it is hard to sit still: 0 = Not at all Becoming easily annoyed or irritable: 0 = Not at all Feeling afraid as if something awful might happen: 0 = Not at all Total TRINIDAD-7 score (0-4 normal; 5-9 mild; 10-14 moderate; 15-21 severe): 0 Source: Developed by Drs. Guillaume Stark, Keila Scott, Stanislav Oquendo and colleagues, with an educational sandeep from [employer]. TRINIDAD-7 Assessment Billing TRINIDAD-7 Assessment Tool: TRINIDAD-7 Assessment 91132 Review of Systems Const All systems reviewed & are unremarkable except as noted in HPI and below Card Reports chest pain at rest, Denies chest pain with activity, Denies edema, Denies irregular heart rhythm, Denies claudication, Denies dyspnea, Denies d yspnea on exertion, Denies orthopnea, Denies paroxysmal nocturnal dyspnea and Denies slow heart rate Resp Reports cough, Denies dyspnea and Denies dyspnea on exertion GI Denies abdominal pain, Denies change in bowel habits, Denies excessive flatus, Denies nausea and Denies vomiting Denies urinary incontinence, Denies urinary hesitancy and Denies urinary urgency Musc Reports back pain, Denies atrophy, Denies deformity and Denies limited range of motion Skin/Breast Denies bleeding lesions, Denies changing lesions and Denies rash Physical exam (Primary Care) Vital Signs: Last Vital Signs BP 140/80 H 06/13/24 14:22 BMI result Body Mass Index 41.2 BMI Assessment/Plan discussion: High BMI High, discussed plan: lifestyle, weight reduction, dietary and physical activity Tobacco/Smoking Status: Tobacco use Status Tobacco use date assessed 06/13/24 06/13/24 14:27 Patient Tobacco Use Status Never used Tobacco 06/13/24 14:27 Tobacco use type 06/13/24 14:27 e-Cigarette/Vaping Use Never Used 06/13/24 14:27 PHQ-9: PHQ-9 Score PHQ-9: Total score 3 06/13/24 15:13 Depression Screening Interpretation: Positive Depression Screening Follow-up: Existing condition, In treatment, Community Mental Health Worker F/U and Follow- up Visit Requested Thrive Assessment: Date of Thrive Assessment Date Thrive assessed 06/13/24 06/13/24 14:27 Currently or been in a relationship where the following occur: I choose not to answer HENNY Head: Yes normal to inspection, Yes normocephalic and Yes atraumatic Ears: external ears normal Eyes General: appearance normal, both eyes and all related structures Eyelids: Yes eyelids normal Conjunctivae: conjunctivae normal Neck Neck: Yes normal visual inspection and Yes supple Resp Effort & Inspection: normal respiratory effort Auscultation: clear to auscultation bilaterally Cardio Jugular venous distension: no JVD Rate: regular rate Rhythm: regular rhythm Heart sounds: S1 normal heart sound present and S2 normal heart sound present GI Inspection: Yes normal to inspection Palpation (GI): Soft to palpation and nontender Auscultation: normal bowel sounds Skin General skin exam: no rashes or lesions noted Neuro General: no focal motor deficits Extrem General: Yes full ROM Psych Appearance: grossly normal Office Procedures Flu Questionnaire Does the patient have a severe egg allergy?: No Does the patient have severe life threatening allergies?: No Does the patient have a fever or illness today?: No Has the patient ever had Guillain-Mellette Syndrome?: No Has the patient ever had any past reaction to a flu shot?: No Immunizations Fluarix Triv [id number] (PF) 45 mcg (15 mcg x 3)/0.5 mL IM syringe Performing Provider: Brenda Phipps MD Performing Location: [facility] Administered by: RUSS Kuhn on 06/13/24 15:13 Dose Route Admin Location Dispensed Lot Number Expiration Date NDC Petal Shaper Hand 0.5 mL IM Left Deltoid 0.5 mL [id number] 10/28/24 [id number] [employer] VIS Given Date VIS Provided VIS Publication Date 06/13/24 Single Vaccine 20 Eligibility Eligibility Date Funding Source Not [facility] Eligible 06/13/24 Private Coding Level of Care Code Est Pt Level 4 (98440) Est Pt Prev Care 40-64y(87168) Diagnoses Physical exam Z00.00 Chest pain R07.9 Elevated hemoglobin D58.2 Thoracic spine pain M54.6 Morbid obesity E66.01 Mild recurrent major depression F33.0 Additional Codes TRINIDAD-7 Assessment Billing - TRINIDAD-7 Assessment Tool: TRINIDAD-7 Assessment 99822 ([id number]) PHQ-9 - 08774 - PHQ-9 Billing: Yes ([id number]) Time Spent (min) 35 Assessment & Plan Assessment & Plan (1) Physical exam: Code(s): Z00.00 - Encounter for general adult medical examination without abnormal findings Category: Medical (2) Chest pain: Code(s): R07.9 - Chest pain, unspecified Category: Medical (3) Elevated hemoglobin: Code(s): D58.2 - Other hemoglobinopathies Category: Medical (4) Thoracic spine pain: Code(s): M54.6 - Pain in thoracic spine Category: Medical (5) Morbid obesity: Code(s): E66.01 - Morbid (severe) obesity due to excess calories Category: Medical (6) Mild recurrent major depression: Code(s): F33.0 - Major depressive disorder, recurrent, mild Category: Medical Plan - Assess chest pain considering familial risk for heart disease; outpatient electrocardiogram has been planned. - Schedule thoracic spine imaging for evaluation of back pain. - Adjust antihypertensive regimen if blood pressure remains elevated in three weeks; labs requested for evaluation. - Administer flu vaccine today. - Monitor chronic cough and reassess if persists or worsens. Patient was informed and verbally consented to the use of an ambient scribe for clinic note documentation during this visit. During our discussion, I emphasized the patient's history of hypertension and recent concerns about chest pain, given the family history of heart disease. We discussed performing an electrocardiogram and thoracic spine imaging to understand the current symptoms better. I explained the importance of controlling her blood pressure to reduce cardiovascular risk. Regarding her chronic cough, I reassured her of the normal chest X-ray from March but advised monitoring the symptoms. For health maintenance, I highlighted the scheduled flu vaccine and the plan to arrange a mammogram due to it being overdue. Orders: Orders IRON PROFILE Today D58.2 - Other hemoglobinopathies Influenza [id number] Immunization Today Z23 - Encounter for immunization ECG 12 lead EKG Today R07.9 - Chest pain, unspecified XR thoracic spine 2V Today M54.6 - Pain in thoracic spine Medications: Refilled bisoprolol-hydrochlorothiazide 5-6.25 mg 1 tab PO DAILY 90 days 90 tabs 1RF Patient Instructions: - Follow up in three weeks to reassess blood pressure and medication effectiveness. - Undergo scheduled electrocardiogram and thoracic spine imaging. - Receive the flu vaccination today. - Continue weight management and healthy diet actions. - Report any new or worsening chest pain immediately.
== END 2024-06-13 15:18 | disposition home or self-care (01) ==
PROVIDERS: PCP Internal Medicine; Visit Provider Internal Medicine
DX: Z00.00 Encounter for general adult medical examination without abnormal findings (principal); R07.9 Chest pain, unspecified; Z68.41 Body mass index [BMI] 40.0-44.9, adult; E66.01 Morbid (severe) obesity due to excess calories; D58.2 Other hemoglobinopathies; F33.0 Major depressive disorder, recurrent, mild; M54.6 Pain in thoracic spine; Z23 Encounter for immunization

== ENCOUNTER → 2024-06-13 14:12 | Outpatient (BNVA) | payer OTHER, SELFPAY | PROVIDERS: PCP Internal Medicine; Visit Provider Internal Medicine | DX: Z00.01 Encounter for general adult medical examination with abnormal findings (principal); Z23 Encounter for immunization; R07.9 Chest pain, unspecified; D58.2 Other hemoglobinopathies; M54.6 Pain in thoracic spine; E66.01 Morbid (severe) obesity due to excess calories; Z68.41 Body mass index [BMI] 40.0-44.9, adult; F33.0 Major depressive disorder, recurrent, mild; Z71.3 Dietary counseling and surveillance | CPT/HCPCS: 90471; 90656; 96127; 99212; 99397 ==

== ENCOUNTER 2024-06-27 13:04 | Outpatient (AMB) | payer OTHER, SELFPAY ==
--- NOTE | 2024-06-27 13:08 | MHC.OFFVIS ---
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 Patient previously Xolair, Advair, and albuterol MDI with good control of underlying symptoms.? She did have to stop her Xolair injections since she had significant nausea.? Now she continues on Breztri, Singulair, and albuterol MDI with good control of her symptoms. [facility] Medical History (Updated 06/13/24 @ 15:12 by Brenda Phipps MD) Elevated hemoglobin Recent change in frequency of bowel movements Right knee pain Physical exam Preop pulmonary/respiratory exam Arthritis of right knee Spider veins of both lower extremities Chronic cough Right lower lobe pulmonary nodule Hypovitaminosis D Encounter for screening colonoscopy COVID-19 Morbid obesity with BMI of 40.0-44.9, adult Lab test negative for COVID-19 virus Right shoulder pain TRINIDAD (generalized anxiety disorder) Mild recurrent major depression Leg edema Thyroid nodule Knee pain Common cold Anxiety and depression Arthritis Supraclavicular lymphadenopathy Close exposure to COVID-19 virus Urge urinary incontinence Goiter Essential hypertension Left shoulder pain Left knee pain Surgical History Hx of colonoscopy Uterine myoma History of total abdominal hysterectomy H/O oophorectomy History of cholecystectomy Family History (Updated 06/13/24 @ 15:04 by Brenda Phipps MD) Father Diabetes Hypertension Mother Hypertension CHF (congestive heart failure) Brother Hypertension Sister Hypertension Maternal Aunt Breast cancer Daughter No problems noted. Social History Household Members: None Housing: [address]ment [address] years or older and lives alone: No Alcohol intake: never Patient Tobacco Use Status: Never used Tobacco e-Cigarette/Vaping Use: Never Used Second Hand Smoke Exposure: No service: No Current occupational status: unemployed Cognitive needs: Yes (cane) Hearing needs: No Vision needs: Yes (glasses) Review of Systems Const Denies daytime sleepiness, Denies excessive sweating, Denies fatigue, Denies fever(s), Denies lethargy, Denies malaise, Denies night sweats, Denies snoring and Denies weight loss Eyes Denies blurry vision and Denies itchy eyes ENT Denies nasal congestion, Denies post nasal drip, Denies sinus pain, Denies sinus pressure and Denies other ( Thrush) Card Denies chest pain, Denies pedal edema, Denies dyspnea, Denies orthopnea and Denies paroxysmal nocturnal dyspnea Resp Denies cough, Denies hemoptysis, Denies excessive phlegm production, Denies dyspnea, Denies snoring and Denies wheezing GI Denies abdominal pain and Denies heartburn Musc Denies myalgias, Denies arthralgias and Denies joint swelling Skin/Breast Denies rash Neuro Denies memory loss and Denies seizure-like activity Psych Denies abnormal sleep pattern, Denies anxiety and Denies memory loss Endo Denies excessive sweating, Denies fatigue and Denies heat intolerance Siddharth/Lymph Denies easy bruising Aller/Immun Denies itchy eyes, Denies seasonal rhinorrhea and Denies wheezing Physical Exam Vital Signs: Last Vital Signs Pulse 66 06/27/24 13:13 BP 104/70 06/27/24 13:13 Pulse Ox 99 06/27/24 13:13 Oxygen Delivery Method Room Air 06/27/24 13:13 BMI result Body Mass Index 41.2 Const General: no acute distress and alert Nutritional Appearance: obese Orientation/consciousness: Other orientation findings ( oriented) HEENT Head: Yes atraumatic Eyes General: appearance normal, both eyes and all related structures Sclerae: sclerae normal EOM: EOMs intact bilaterally Neck Neck: Yes supple Lymphatic: no lymphadenopathy noted Resp Effort & Inspection: normal respiratory effort and no use of accessory muscles Auscultation: clear to auscultation bilaterally Cardio Rate: regular rate Rhythm: regular rhythm Heart sounds: no gallops, no murmurs and no rubs Skin General skin exam: other ( warm) Extrem General: No clubbing, No cyanosis and No edema Assessment & Plan Assessment & Plan (1) Asthma: Code(s): J45.909 - Unspecified asthma, uncomplicated Category: Medical Plan: Well controlled on Breztri and albuterol MDI. Continue current regimen. (2) Environmental allergies: Code(s): Z91.09 - Other allergy status, other than to drugs and biological substances Category: Medical Plan: Well controlled on Singulair. Continue current regimen. Medications: New Ventolin HFA 90 mcg/actuation (albuterol sulfate) 2 puffs inhalation QID PRN 1 ea 6RF shortness of breath or wheezing NS Discontinued albuterol sulfate 90 mcg/actuation Discontinued Reason: Doctor's Order 1 inh inhalation QID PRN 6.7 grams 0RF shortness of breath or wheezing Coding Level of Care Code Est Pt Level 4 (96833) Diagnoses Asthma J45.909 Environmental allergies Z91.09
[2024-06-27 13:13] VITALS: BP 104/70; PULSE 66; O2SAT 99; BMI 41.2
== END 2024-06-27 13:31 | disposition home or self-care (01) ==
PROVIDERS: PCP Internal Medicine; Visit Provider Internal Medicine Pulmonary Disease
DX: J45.909 Unspecified asthma, uncomplicated (principal); Z91.09 Other allergy status, other than to drugs and biological substances
CPT/HCPCS: 99214

== ENCOUNTER 2024-06-27 13:04 | Outpatient (REF) | payer OTHER, SELFPAY ==
--- NOTE | ~2024-06-27 | XR_ITS ---
EXAMINATION: XR CHEST CLINICAL INFORMATION: J45.909 - Unspecified asthma, uncomplicated COMPARISON: April 10, 2024. TECHNIQUE: 2 views of the chest were obtained. FINDINGS: Poor inspiration. No consolidation, pleural effusion or pneumothorax. 4 mm calcified pulmonary nodule, left upper lung lobe. Cardiomediastinal silhouette size is enlarged, unchanged. Multilevel thoracic spondylosis. Patient's large body habitus. Degenerative changes in the left acromioclavicular joint. XR/XR chest 2V IMPRESSION: No acute airspace disease. Probable granuloma, left lung. Electronically signed by: Caleb Peace MD 06/27/2024 03:34 PM EST
--- NOTE | ~2024-06-27 | XR_ITS ---
CLINICAL HISTORY: M54.6 - Pain in thoracic spine 3 views thoracic spine Comparison: None Findings: Normal alignment. No acute fractures or dislocation. There are [id number] degenerative changes throughout the thoracic spine. IMPRESSION: No acute findings. This document has been electronically signed by: Lee Martínez MD on 06/28/2024 11:15:08
== END 2024-06-27 13:05 | disposition home or self-care (01) ==
LOC: HO.XRAY 13:04
PROVIDERS: PCP Internal Medicine; Visit Provider Internal Medicine Pulmonary Disease
DX: J45.909 Unspecified asthma, uncomplicated (principal); M54.6 Pain in thoracic spine; Z91.09 Other allergy status, other than to drugs and biological substances
CPT/HCPCS: 71046; 72070; 99212

== ENCOUNTER → 2024-06-27 13:55 | Outpatient (BNV) | payer OTHER, SELFPAY | PROVIDERS: PCP Internal Medicine; Visit Provider Radiology Diagnostic Radiology | DX: M54.6 Pain in thoracic spine (principal) | CPT/HCPCS: 71046; 72070 ==

== ENCOUNTER 2024-07-09 16:18 | Emergency (ER) | payer OTHER, SELFPAY ==
--- NOTE | ~2024-07-09 | XR_ITS ---
EXAMINATION: XR CHEST CLINICAL INFORMATION: pain COMPARISON: 06/27/2024, 04/10/2024. TECHNIQUE: 2 views of the chest were obtained. FINDINGS: Borderline cardiac enlargement. Mediastinal and hilar contours appear normal. The lungs are clear bilaterally. Stable calcified granuloma left midlung. There is no pneumothorax or pleural effusion. There is no focal osseous or soft tissue abnormality. There are spinal degenerative changes. XR/XR chest 2V IMPRESSION: No active pulmonary disease. Borderline cardiac enlargement. Electronically signed by: Natan Horowitz MD 07/09/2024 04:43 PM EDT
[2024-07-09 16:22] VITALS: BP 138/66; PULSE 82; RESP 18; TEMP 36.6; O2SAT 98; BMI 42.4
--- NOTE | 2024-07-09 16:24 | ED_ITS ---
HPI - General Adult General Chief complaint: Asthma Stated complaint: Asthma Time Seen by Provider: 07/09/24 20:32 Source: patient Limitations: language barrier History of Present Illness ED Provider: Georgette Cox PA-C HPI narrative: 68-year-old female with a history of asthma presents with persistent dry cough with wheezing x1 week. Denies chest pain, shortness of breath or fever. Related Data Previous Rx's ?Medication ?Instructions ?Recorded cane #1 ea 10/25/21 acetaminophen 500 mg tablet 1,000 mg (2 x 500 mg) PO Q6H PRN 04/25/22 pain 30 days #180 tabs docusate sodium 100 mg capsule 200 mg (2 x 100 mg) PO BEDTIME #60 08/17/23 (Colace) caps hydrocortisone 2.5 % topical cream 1 appl [place] BID PRN hemorrhoids #30 08/17/23 with perineal applicator grams (Proctozone-HC) sennosides 8.6 mg capsule (senna) 8.6 mg PO DAILY PRN constipation 08/17/23 #30 caps aluminum hydrox-magnesium carb 254 10 ml PO QID PRN dyspepsia #355 mL 09/25/23 mg-237.5 mg/5 mL oral suspension (Gaviscon Extra Strength) omeprazole 20 mg capsule,delayed 20 mg PO DAILY 30 days #30 caps 09/25/23 release cholecalciferol (vitamin D3) 50 50 mcg PO DAILY 90 days #90 caps 12/12/23 mcg (2,000 unit) capsule cyclobenzaprine 5 mg tablet 5 mg PO Q8H PRN muscle spasm #14 02/28/24 tabs lidocaine 5 % topical patch 1 patch topical DAILY #30 ea 02/28/24 (Lidoderm) naproxen 500 mg tablet 500 mg PO Q8-12H PRN pain (scale 02/28/24 score 4-6) #30 tabs albuterol sulfate 0.63 mg/3 mL 0.63 mg (3 mL) inhalation Q6H #75 03/04/24 solution for nebulization mL montelukast 10 mg tablet 10 mg PO QPM #30 tabs 05/27/24 budesonide 160 mcg-glycopyr 9 2 inh inhalation BID #1 ea 05/31/24 mcg-formot 4.8 mcg/actuation HFA inhaler (Breztri Aerosphere) bisoprolol 5 1 tab PO DAILY 90 days #90 tabs 06/13/24 mg-hydrochlorothiazide 6.25 mg tablet Ventolin HFA 90 mcg/actuation 2 puff inhalation QID PRN 06/27/24 aerosol inhaler (albuterol sulfate) shortness of breath or wheezing #1 ea benzonatate 200 mg capsule 200 mg PO TID PRN cough #10 caps 07/09/24 prednisone 20 mg tablet 40 mg (2 x 20 mg) PO DAILY #8 tabs 07/09/24 Allergies Allergy/AdvReac Type Severity Reaction Status Date / Time No Known Allergies Allergy Verified 07/09/24 16:25 [No Known Allergies*] Review of Systems Review of Systems: Yes all other systems are reviewed and are negative Constitutional: Constitutional: Denies fatigue and Denies fever(s) Cardiovascular: Cardiovascular: Denies chest pain and Denies dyspnea Respiratory: Respiratory: Denies chest congestion, Reports cough, Denies dyspnea and Reports wheezing Endocrine: Endocrine: Denies fatigue Allergic/Immunologic: Allergic/Immunologic: Reports wheezing PMFSH Past Medical History Attestation statement: The following information was validated with the patient. Medical History (Updated 07/09/24 @ 20:54 by SIXTO Crespo) Elevated hemoglobin Recent change in frequency of bowel movements Right knee pain Physical exam Preop pulmonary/respiratory exam Arthritis of right knee Spider veins of both lower extremities Chronic cough Right lower lobe pulmonary nodule Hypovitaminosis D Encounter for screening colonoscopy COVID-19 Morbid obesity with BMI of 40.0-44.9, adult Lab test negative for COVID-19 virus Right shoulder pain TRINIDAD (generalized anxiety disorder) Mild recurrent major depression Leg edema Thyroid nodule Knee pain Common cold Anxiety and depression Arthritis Supraclavicular lymphadenopathy Close exposure to COVID-19 virus Urge urinary incontinence Goiter Essential hypertension Left shoulder pain Left knee pain Surgical History Hx of colonoscopy Uterine myoma History of total abdominal hysterectomy H/O oophorectomy History of cholecystectomy Family History Family History (Updated 06/13/24 @ 15:04 by Brenda Phipps MD) Father Diabetes Hypertension Mother Hypertension CHF (congestive heart failure) Brother Hypertension Sister Hypertension Maternal Aunt Breast cancer Daughter No problems noted. Social History Social History Household Members: None Housing: Apartment Alcohol intake: never Patient Tobacco Use Status: Never used Tobacco Smoked in Last 30 Days: No e-Cigarette/Vaping Use: Never Used Second Hand Smoke Exposure: No Use of substances other than those prescribed or required for medical reasons: No Advance Directives: No Advance Directives Information Provided: No service: No Current occupational status: unemployed Cognitive needs: Yes (cane) Hearing needs: No Vision needs: Yes (glasses) Physical Exam ED Vital Signs: Vital Signs - 24 hr 07/09/24 16:22 07/09/24 16:41 07/09/24 19:34 Temperature 97.8 F 96.8 F Pulse Rate 82 87 72 Respiratory Rate 18 22 H 20 Blood Pressure 138/66 143/64 H Pulse Oximetry 98 99 Oxygen Delivery Method Room Air Room Air BMI result Body Mass Index 42.4 Const Other: Alert Orientation/consciousness: patient oriented x3 Resp Other: Lungs clear to auscultation, active bronchospasm cough no wheezing Effort & Inspection: normal respiratory effort Skin Other: Warm dry no rash Neuro General: patient oriented x3, gait normal, no focal motor deficits and CN's II- XI intact bilaterally Psych Other: Calm cooperative Course Course Course Narrative: RME, this is a rapid medical exam performed by Greyson Joyner please refer to primary provider for complete H&P- 68-year-old female with a past medical history significant for asthma presents for evaluation of shortness of breath wheezing. She reports no improvement with her nebulizers at home. She was wheezy on exam. Plan for bronchodilator protocol, x-ray and viral swabs. Medications Administered Discontinued Medications Generic Name Dose Route Start Last Admin Trade Name Freq PRN Reason Stop Dose Admin Albuterol Sulfate 2.5 mg/ 0 mg 07/09/24 16:41 07/09/24 16:48 Albuterol/Ipratropium 3 ml INHALE 07/09/24 16:42 5 dose ONCE ONE Administration Prednisone 40 mg 07/09/24 20:43 07/09/24 20:47 Prednisone 20 Mg Tablet PO 07/09/24 20:44 40 mg ONCE ONE Administration Medical Decision Making Medical Decision Making MDM Narrative: 68-year-old female with a history of asthma presents with persistent dry cough with wheezing x1 week. Denies chest pain, shortness of breath or fever. Problem: Asthma History: Per patient I have considered the following differential diagnoses: Asthma exacerbation, pneumonia, bronchitis, viral syndrome Plan: Viral panel and chest x-ray were obtained from triage, everything is normal, she is here with a mild asthma symptoms, she had 1 updraft and it clear ed the wheezing. We will send With prednisone. I have independently reviewed the following tests: Viral panel is negative Chest x-ray: XR/XR chest 2V IMPRESSION: No active pulmonary disease. Borderline cardiac enlargement. Lab Data Labs: Lab Results 07/09/24 Range/Units 16:29 Influenza Type A (PCR) NEGATIVE (Negative) Influenza Type B (PCR) NEGATIVE (Negative) RSV RNA Qual (PCR) NEGATIVE (Negative) SARS-CoV-2 RNA (RT-PCR) NEGATIVE (Negative) Discharge Plan Discharge Clinical Impression: Asthma exacerbation Patient Disposition: Home, Self-Care Instructions: Asthma (ED) Additional Instructions: You are being treated for a mild asthma exacerbation. See home care instructions. Use your home inhaler and/or nebulized treatment as directed, take the steroid as directed, you do not require any additional steroid until tomorrow morning. Use the Tessalon Perles as needed for cough, it may help your symptoms. Follow up with your primary care provider as needed. Prescriptions: New prednisone 20 mg tablet 40 mg PO DAILY Qty: 8 0RF benzonatate 200 mg capsule 200 mg PO TID PRN (Reason: cough) Qty: 10 0RF No Action acetaminophen 500 mg tablet 1,000 mg PO Q6H PRN (Reason: pain) 30 Days Qty: 180 1RF albuterol sulfate 0.63 mg/3 mL solution for nebulization 0.63 mg inhalation Q6H Qty: 75 3RF montelukast 10 mg tablet 10 mg PO QPM Qty: 30 6RF (DME) cane Device See Rx Instructions .Route Qty: 1 0RF Rx Instructions: As directed omeprazole 20 mg capsule,delayed release(DR/EC) 20 mg PO DAILY 30 Days Qty: 30 0RF Gaviscon Extra Strength 254-237.5 mg/5 mL suspension 10 ml PO QID PRN (Reason: dyspepsia) Qty: 355 0RF cholecalciferol (vitamin D3) 50 mcg (2,000 unit) capsule 50 mcg PO DAILY 90 Days Qty: 90 1RF docusate sodium [Colace] 100 mg capsule 200 mg PO BEDTIME Qty: 60 5RF senna 8.6 mg capsule 8.6 mg PO DAILY PRN (Reason: constipation) Qty: 30 1RF hydrocortisone [Proctozone-HC] 2.5 % cream with perineal applicator 1 appl KS BID PRN (Reason: hemorrhoids) Qty: 30 3RF Rx Instructions: apply KS BID prn bisoprolol-hydrochlorothiazide 5-6.25 mg tablet 1 tab PO DAILY 90 Days Qty: 90 1RF lidocaine [Lidoderm] 5 % adhesive patch,medicated 1 patch topical DAILY Qty: 30 0RF Rx Instructions: leave on most painful area for up to 12 hrs cyclobenzaprine 5 mg tablet 5 mg PO Q8H PRN (Reason: muscle spasm) Qty: 14 0RF naproxen 500 mg tablet 500 mg PO Q8-12H PRN (Reason: pain (scale score 4-6)) Qty: 30 0RF Breztri Aerosphere 160-9-4.8 mcg/actuation HFA aerosol inhaler 2 inh inhalation BID Qty: 1 6RF albuterol sulfate [Ventolin HFA] 90 mcg/actuation HFA aerosol inhaler 2 puff inhalation QID PRN (Reason: shortness of breath or wheezing) Qty: 1 6RF Print Language: Slovenian
[2024-07-09 16:41] VITALS: PULSE 87; RESP 22; O2SAT 95
[2024-07-09] MEDS: Albuterol Sulfate 2.5 MG, Albuterol/Iprat 2.5/0.5MG 3 ML 3 ML INHALE (16:48)
[2024-07-09 17:18] LABS: Influenza A PCR NEGATIVE (Negative); Influenza B PCR NEGATIVE (Negative); Resp Syncy Virus RNA Qual PCR NEGATIVE (Negative); SARS COV2 PCR INHOUSE NEGATIVE (Negative)
[2024-07-09 19:34] VITALS: BP 143/64; PULSE 72; RESP 20; TEMP 36; O2SAT 99
--- NOTE | 2024-07-09 19:36 | PC.NURSE ---
pt comes to ED reporting sob, asthma exacerbation and wheezing. using home neb treatments without relief. While waiting in the [facility] pt was seen by RT and given a breathing Rx in RP and returned to waiting room. In [facility] 5 pt is short of breath and has diminished LS throughout. Pt has a dry cough. VS WNL. SpO2 is 99% on RA. 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
[2024-07-09] MEDS: predniSONE 20 MG TABLET 40 MG PO (20:47)
[2024-07-09 21:04] VITALS: BP 143/64; PULSE 72; RESP 20; TEMP 36; O2SAT 99
== END 2024-07-09 21:04 | disposition home or self-care (01) ==
PROVIDERS: Physician Assistant; Emergency Provider Emergency Medicine Emergency Medical Services; PCP Internal Medicine
DX: J45.901 Unspecified asthma with (acute) exacerbation (principal); R05.9 Cough, unspecified; R07.89 Other chest pain; Z03.818 Encounter for observation for suspected exposure to other biological agents ruled out
CPT/HCPCS: 0241U; 71046; 94640; 99284

== ENCOUNTER → 2024-07-09 16:24 | Outpatient (BNV) | payer OTHER, SELFPAY | PROVIDERS: PCP Internal Medicine; Visit Provider Radiology Diagnostic Radiology | DX: J84.10 Pulmonary fibrosis, unspecified (principal) | CPT/HCPCS: 71046 ==

== ENCOUNTER 2024-12-11 14:26 | Outpatient (AMB) | payer OTHER, SELFPAY ==
--- NOTE | 2024-12-11 15:01 | MHC.PC.OV ---
Vital Signs 12/11/24 15:02 Height 5 ft 7 in Weight 268 lb 4 oz BMI 42.0 BP 130/77 Blood Pressure Location Lt brachial Position Sitting Pulse 74 Pulse Source Pulse Oximeter Temp 97.5 F Temp Source Temporal Artery Scan Pulse Oximetry (%) 99 Oxygen Delivery Method Room Air Intake Visit Reasons: constipation Intake Note: Patient is here to follow up on Constipation. 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 Accompanied by: Self / Same As Patient Allergies No Known Allergies (No Known Allergies*) Allergy (Verified 12/11/24 15:14) Medication List - Last Reconciled 12/11/24 by Brenda Phipps MD acetaminophen 1,000 mg (2 x 500 mg) PO Q6H PRN 30 days [Adult pull ups As directed] albuterol sulfate 0.63 mg (3 mL) inhalation Q6H aluminum hydrox-magnesium carb 254-237.5 mg/5 mL (Gaviscon Extra Strength) 10 mL PO QID PRN benzonatate 200 mg PO TID PRN bisoprolol-hydrochlorothiazide 5-6.25 mg 1 tab PO DAILY 90 days evcgyszrun-dtipnrik-newmwkozhk 160-9-4.8 mcg/actuation (Breztri Aerosphere) 2 inhalations inhalation BID cane As directed cholecalciferol (vitamin D3) 50 mcg PO DAILY 90 days cyclobenzaprine 5 mg PO Q8H PRN docusate sodium (Colace) 200 mg (2 x 100 mg) PO BEDTIME hydrocortisone 2.5% (Proctozone-HC) 1 appl ID BID PRN lidocaine 5% (Lidoderm) 1 patch topical DAILY montelukast 10 mg PO QPM naproxen 500 mg PO Q8-12H PRN omeprazole 20 mg PO DAILY 30 days [Quad cane As directed] sennosides (senna) 8.6 mg PO DAILY PRN Ventolin HFA 90 mcg/actuation (albuterol sulfate) 2 puffs inhalation QID PRN NS Tobacco use date assessed: 12/11/24 Fall risk assessment: No Falls in past year Last assessed Fall Risk: 12/11/24 Dental Screening Dental Screen Date: 07/15/24 HPI HPI Comments History of Present Illness Details The patient is a 69-year-old female presenting with the management of multiple chronic conditions, including hypertension, asthma, and constipation. Hypertension is managed with bisoprolol and hydrochlorothiazide, with current blood pressure readings at 130/77 mmHg. The patient adheres to her medication regimen without side effects. Asthma is controlled with Presri, and there have been no recent exacerbations. Montelukast is used for allergic rhinitis, which is well-managed. The patient experiences constipation, managed with docusate and nikki. She reports occasional constipation, attributing it to dietary factors such as bread consumption. The patient has arthritis, with recent thoracic pain complaints. Naproxen is used for pain management. Urinary incontinence is managed with absorbent products as needed. The patient has lost weight, currently at 265 pounds, down from 278 pounds in June. She is managing her weight through dietary changes. There is a suspicion of diabetes mellitus due to polyuria and polydipsia. The patient reports increased thirst and frequent urination, necessitating further evaluation. [facility] Medical History Common cold Elevated hemoglobin Recent change in frequency of bowel movements Right knee pain Physical exam Preop pulmonary/respiratory exam Arthritis of right knee Spider veins of both lower extremities Chronic cough Right lower lobe pulmonary nodule Hypovitaminosis D Encounter for screening colonoscopy COVID-19 Morbid obesity with BMI of 40.0-44.9, adult Lab test negative for COVID-19 virus Right shoulder pain TRINIDAD (generalized anxiety disorder) Mild recurrent major depression Leg edema Thyroid nodule Knee pain Anxiety and depression Arthritis Supraclavicular lymphadenopathy Close exposure to COVID-19 virus Urge urinary incontinence Goiter Essential hypertension Left shoulder pain Left knee pain Surgical History Hx of colonoscopy Uterine myoma History of total abdominal hysterectomy H/O oophorectomy History of cholecystectomy Family History Father Diabetes Hypertension Mother Hypertension CHF (congestive heart failure) Brother Hypertension Sister Hypertension Maternal Aunt Breast cancer Daughter No problems noted. Social History Household Members: None Housing: Apartment 75 years or older and lives alone: No Alcohol intake: never Patient Tobacco Use Status: Never used Tobacco e-Cigarette/Vaping Use: Never Used Second Hand Smoke Exposure: No service: No Current occupational status: unemployed Cognitive needs: Yes (cane) Hearing needs: No Vision needs: Yes (glasses) Questionnaire Thrive Questionnaire Date Thrive assessed: 06/13/24 I am a: Patient What is your living situation today?: I have a steady place to live Within the past 12 months, did the food you bought not last and you didn't have the money to get more?: Never true Within the past 12 months, did you worry whether your food would run out before you got money to buy more?: Never true Do you have trouble paying for medicines?: No Do you have trouble getting transportation to medical appointments?: No Do you have trouble paying your heating and electricity bill?: No Do you have trouble taking care of your child, family member or friend?: No Do you have trouble with day-to-day activities such as bathing, preparing meals, shopping, managing finances, etc.?: No Are you currently unemployed and looking for a job?: Yes Are you interested in more education?: No Please select the resources that you would like help with: None Currently or been in a relationship where the following occur: I choose not to answer THRIVE Score: 0 TRINIDAD-7 AMB Questionnaire TRINIDAD-7 Date TRINIDAD - 7 assessed: 06/13/24 Source: Developed by Drs. Guillaume Stark, Keila Scott, Stanislav Oquendo and colleagues, with an educational sandeep from [employer]. Review of Systems Const All systems reviewed & are unremarkable except as noted in HPI and below Card Denies chest pain at rest, Denies chest pain with activity, Denies edema, Denies irregular heart rhythm, Denies claudication, Denies dyspnea, Denies dyspnea on exertion, Denies orthopnea, Denies paroxysmal nocturnal dyspnea and Denies slow heart rate Resp Denies cough, Denies dyspnea and Denies dyspnea on exertion Physical exam (Primary Care) Vital Signs: Last Vital Signs Temp 97.5 F 12/11/24 15:02 Pulse 74 12/11/24 15:02 BP 130/77 12/11/24 15:02 Pulse Ox 99 12/11/24 15:02 Oxygen Delivery Method Room Air 12/11/24 15:02 BMI result Body Mass Index 42.0 BMI Assessment/Plan discussion: High BMI High, discussed plan: lifestyle, weight reduction, dietary and physical activity Tobacco/Smoking Status: Tobacco use Status Tobacco use date assessed 12/11/24 12/11/24 15:07 Patient Tobacco Use Status Never used Tobacco 12/11/24 15:07 Tobacco use type 06/13/24 15:15 e-Cigarette/Vaping Use Never Used 12/11/24 15:07 Thrive Assessment: Date of Thrive Assessment Date Thrive assessed 06/13/24 12/11/24 15:07 Currently or been in a relationship where the following occur: I choose not to answer Resp Effort & Inspection: normal respiratory effort Auscultation: clear to auscultation bilaterally Cardio Jugular venous distension: no JVD Rate: regular rate Rhythm: regular rhythm Heart sounds: S1 normal heart sound present and S2 normal heart sound present Extrem General: Yes full ROM Coding Level of Care Code Est Pt Level 4 (66066) Complex EM visit Add On G2211 Diagnoses Mild recurrent major depression F33.0 Essential hypertension I10 Morbid obesity E66.01 Hypovitaminosis D E55.9 Chronic GERD K21.9 Chronic constipation K59.09 Time Spent (min) 22 Assessment & Plan Assessment & Plan (1) Mild recurrent major depression: Code(s): F33.0 - Major depressive disorder, recurrent, mild Category: Medical (2) Essential hypertension: Code(s): I10 - Essential (primary) hypertension Category: Medical (3) Morbid obesity: Code(s): E66.01 - Morbid (severe) obesity due to excess calories Category: Medical (4) Hypovitaminosis D: Code(s): E55.9 - Vitamin D deficiency, unspecified Category: Medical (5) Chronic GERD: Code(s): K21.9 - Gastro-esophageal reflux disease without esophagitis Category: Medical (6) Chronic constipation: Code(s): K59.09 - Other constipation Category: Medical Plan The plan includes continuing antihypertensive therapy with bisoprolol and hydrochlorothiazide due to stable blood pressure readings. Asthma management will continue with Presri, and Montelukast will be maintained for allergic rhinitis. For constipation, the patient will continue using docusate and nikki, with dietary modifications to increase fiber intake. Naproxen will be used for arthritis pain as needed. Further evaluation for suspected diabetes mellitus will be conducted, including laboratory tests to assess glucose levels. The patient is advised to monitor symptoms of polyuria and polydipsia closely. Patient was informed and verbally consented to the use of an ambient scribe for clinic note documentation during this visit. Orders: Orders Complete Blood Count Auto Diff Today D58.2 - Other hemoglobinopathies Comprehensive [place]. Panel Fast Today E66.01 - Morbid (severe) obesity due to excess calories Lipid Panel Today E66.01 - Morbid (severe) obesity due to excess calories, E78.5 - Hyperlipidemia, unspecified Thyroid Stimulating Hormone Today E66.01 - Morbid (severe) obesity due to excess calories
[2024-12-11 15:02] VITALS: BP 130/77; PULSE 74; TEMP 36.4; O2SAT 99; BMI 42.0
== END 2024-12-11 15:28 | disposition home or self-care (01) ==
LOC: HO.HMCH 14:27
PROVIDERS: PCP Internal Medicine; Visit Provider Internal Medicine
DX: I10 Essential (primary) hypertension (principal); Z68.41 Body mass index [BMI] 40.0-44.9, adult; E66.01 Morbid (severe) obesity due to excess calories; F33.0 Major depressive disorder, recurrent, mild; E55.9 Vitamin D deficiency, unspecified; K21.9 Gastro-esophageal reflux disease without esophagitis; K59.09 Other constipation

== ENCOUNTER → 2024-12-11 14:26 | Outpatient (BNVA) | payer OTHER, SELFPAY | PROVIDERS: PCP Internal Medicine; Visit Provider Internal Medicine | DX: I10 Essential (primary) hypertension (principal); J45.909 Unspecified asthma, uncomplicated; M54.6 Pain in thoracic spine; R32 Unspecified urinary incontinence; F33.0 Major depressive disorder, recurrent, mild; E66.01 Morbid (severe) obesity due to excess calories; E55.9 Vitamin D deficiency, unspecified; K21.9 Gastro-esophageal reflux disease without esophagitis; K59.09 Other constipation; Z68.42 Body mass index [BMI] 45.0-49.9, adult | CPT/HCPCS: 99212 ==

== ENCOUNTER 2024-12-26 11:34 | Outpatient (AMB) | payer OTHER, SELFPAY ==
[2024-12-26 11:36] VITALS: BP 138/80; PULSE 72; O2SAT 96; BMI 42.1
--- NOTE | 2024-12-26 11:36 | MHC.OFFVIS ---
Vital Signs 12/26/24 11:36 Height 5 ft 7 in Weight 269 lb BMI 42.1 BP 138/80 Blood Pressure Location Rt brachial Position Sitting Pulse 72 Pulse Source Pulse Oximeter Pulse Oximetry (%) 96 Oxygen Delivery Method Room Air Intake Visit Reasons: asthma Front Office Representative Required: Yes Front Office Representative Name: Melissa CraigPeterLuciano Allergies No Known Allergies (No Known Allergies*) Allergy (Verified 12/26/24 11:43) HPI HPI asthma: Details: 68-year-old lady, nonsmoker, followed for underlying moderate to severe persistent allergic asthma with recurrent bronchitis.? Patient previously Xolair, Advair, and albuterol MDI with good control of underlying symptoms.? She did have to stop her Xolair injections since she had significant nausea.? Now she continues on Breztri, Singulair, and albuterol MDI with good control of her symptoms. She denies any recent exacerbations. [facility] Medical History Common cold Elevated hemoglobin Recent change in frequency of bowel movements Right knee pain Physical exam Preop pulmonary/respiratory exam Arthritis of right knee Spider veins of both lower extremities Chronic cough Right lower lobe pulmonary nodule Hypovitaminosis D Encounter for screening colonoscopy COVID-19 Morbid obesity with BMI of 40.0-44.9, adult Lab test negative for COVID-19 virus Right shoulder pain TRINIDAD (generalized anxiety disorder) Mild recurrent major depression Leg edema Thyroid nodule Knee pain Anxiety and depression Arthritis Supraclavicular lymphadenopathy Close exposure to COVID-19 virus Urge urinary incontinence Goiter Essential hypertension Left shoulder pain Left knee pain Surgical History Hx of colonoscopy Uterine myoma History of total abdominal hysterectomy H/O oophorectomy History of cholecystectomy Family History Father Diabetes Hypertension Mother Hypertension CHF (congestive heart failure) Brother Hypertension Sister Hypertension Maternal Aunt Breast cancer Daughter No problems noted. Social History Household Members: None Housing: [address] years or older and lives alone: No Alcohol intake: never Patient Tobacco Use Status: Never used Tobacco e-Cigarette/Vaping Use: Never Used Second Hand Smoke Exposure: No service: No Current occupational status: unemployed Cognitive needs: Yes (cane) Hearing needs: No Vision needs: Yes (glasses) Review of Systems Const Denies daytime sleepiness, Denies excessive sweating, Denies fatigue, Denies fever(s), Denies lethargy, Denies malaise, Denies night sweats, Denies snoring and Denies weight loss Eyes Denies blurry vision and Denies itchy eyes ENT Denies nasal congestion, Denies post nasal drip, Denies sinus pain, Denies sinus pressure and Denies other ( Thrush) Card Denies chest pain, Denies pedal edema, Denies dyspnea, Denies orthopnea and Denies paroxysmal nocturnal dyspnea Resp Denies cough, Denies hemoptysis, Denies excessive phlegm production, Denies dyspnea, Denies snoring and Denies wheezing GI Denies abdominal pain and Denies heartburn Musc Denies myalgias, Denies arthralgias and Denies joint swelling Skin/Breast Denies rash Neuro Denies memory loss and Denies seizure-like activity Psych Denies abnormal sleep pattern, Denies anxiety and Denies memory loss Endo Denies excessive sweating, Denies fatigue and Denies heat intolerance Siddharth/Lymph Denies easy bruising Aller/Immun Denies itchy eyes, Denies seasonal rhinorrhea and Denies wheezing Physical Exam Vital Signs: Last Vital Signs Pulse 72 12/26/24 11:36 BP 138/80 12/26/24 11:36 Pulse Ox 96 12/26/24 11:36 Oxygen Delivery Method Room Air 12/26/24 11:36 BMI result Body Mass Index 42.1 Const General: no acute distress and alert Nutritional Appearance: obese Orientation/consciousness: Other orientation findings ( oriented) HEENT Head: Yes atraumatic Eyes General: appearance normal, both eyes and all related structures Sclerae: sclerae normal EOM: EOMs intact bilaterally Neck Neck: Yes supple Lymphatic: no lymphadenopathy noted Resp Effort & Inspection: normal respiratory effort and no use of accessory muscles Auscultation: clear to auscultation bilaterally Cardio Rate: regular rate Rhythm: regular rhythm Heart sounds: no gallops, no murmurs and no rubs Skin General skin exam: other ( warm) Extrem General: No clubbing, No cyanosis and No edema Assessment & Plan Assessment & Plan (1) Asthma: Code(s): J45.909 - Unspecified asthma, uncomplicated Category: Medical Plan: Well controlled on current regimen of Breztri and albuterol MDI. Continue current regimen. (2) Environmental allergies: Code(s): Z91.09 - Other allergy status, other than to drugs and biological substances Category: Medical Plan: Well controlled on Singulair. Continue current regimen. Orders: Orders PFT pulmonary function test Today J45.909 - Unspecified asthma, uncomplicated Coding Level of Care Code Est Pt Level 4 (14414) Diagnoses Asthma J45.909 Environmental allergies Z91.09
== END 2024-12-26 12:00 | disposition home or self-care (01) ==
LOC: HO.HPS 11:35
PROVIDERS: PCP Internal Medicine; Visit Provider Internal Medicine Pulmonary Disease
DX: J45.909 Unspecified asthma, uncomplicated (principal); Z91.09 Other allergy status, other than to drugs and biological substances
CPT/HCPCS: 99214

== ENCOUNTER → 2024-12-26 11:34 | Outpatient (BNVA) | payer OTHER, SELFPAY | PROVIDERS: PCP Internal Medicine; Visit Provider Internal Medicine Pulmonary Disease | DX: J45.909 Unspecified asthma, uncomplicated (principal); Z91.09 Other allergy status, other than to drugs and biological substances | CPT/HCPCS: 99212 ==

== ENCOUNTER 2025-01-03 15:30 | Outpatient (REF) | payer OTHER, SELFPAY ==
--- NOTE | 2025-01-03 15:39 | PFT_ITS ---
Flows: FEV1: 76 % of predicted at 1.92 L FVC: 83 % of predicted at 2.70 L FEV1/FVC: 71 % Bronchodilator response: Absent Volumes: Total lung capacity: 80 % of predicted at 4.43 L Residual volume: 95 % of predicted at 1.99 L Slow vital capacity: 71 % of predicted at 2.44 L Expiratory reserve volume: 15 % of predicted at 0.13 L Diffusion capacity: Normal Impression: No obstructive or restrictive ventilatory defect. No bronchodilator response. Decreased expiratory reserve volume suggests extrathoracic restriction likely secondary to abdominal obesity. MTDD
[2025-01-03 16:17] VITALS: PULSE 66; O2SAT 98
== END 2025-01-03 15:31 | disposition home or self-care (01) ==
LOC: HO.RESP 15:30
PROVIDERS: PCP Internal Medicine; Visit Provider Internal Medicine Pulmonary Disease
DX: J45.909 Unspecified asthma, uncomplicated (principal)
CPT/HCPCS: 94010; 94640; 94727; 94729

== ENCOUNTER → 2025-01-03 15:39 | Outpatient (BNV) | payer OTHER, SELFPAY | PROVIDERS: PCP Internal Medicine; Visit Provider Internal Medicine Pulmonary Disease | DX: J45.909 Unspecified asthma, uncomplicated (principal) | CPT/HCPCS: 94060; 94727; 94729 ==

== ENCOUNTER 2025-02-20 08:09 | Outpatient (REF) | payer OTHER, SELFPAY ==
[2025-02-20 08:19] LABS: MANUAL DIFF FLAG NO
[2025-02-20 08:46] LABS: Hematocrit 49.6 % (37.0-47.0); Hemoglobin 15.5 g/dl (12.0-16.0); Imm Gran Abs Auto 0.06 X10*3/uL (0.00-0.03); Imm Gran Pct Auto 0.7 % (0.0-0.4); Lymphocytes Absolute Auto 2.1 X10*3/uL (1.2-4.9); Mean Corpuscular HGB Conc 31.3 g/dl (31.0-35.0); Mean Corpuscular Hemoglobin 30.0 pg (27.0-33.0); Mean Corpuscular Volume 95.9 fL (80.0-98.0); NRBC Abs Auto 0.000 X10*3/uL (0.0-0.012); NRBC Pct Auto 0.0 /100WBC (0.0-0.2); Platelet Count 205 X10*3/uL (160-400); Red Blood Count 5.17 X10*6/uL (4.20-5.50); White Blood Count 8.0 X10*3/uL (4.8-10.8)
[2025-02-20 09:32] LABS: Alanine Aminotransferase 20 U/L (0-31); Albumin Level 3.7 g/dL (3.5-5.0); Alkaline Phosphatase 113 U/L (39-117); Anion Gap 10 (12-20); Aspartate Amino Transferase 18 U/L (5-31); Blood Urea Nitrogen 22 mg/dL (9-16); Calcium 8.5 mg/dL (8.4-10.2); Carbon Dioxide 29 mmol/L (22-29); Chloride 109 mmol/L (96-108); Cholesterol 171 mg/dL (<200); Estimated Glomerular Filt Rate > 60; HDL Cholesterol 40 mg/dL (>40); Iron 62 mcg/dL (30-160); Percent Iron Saturation 24 % (15-50); Potassium 3.9 mmol/L (3.3-5.1); Sodium 144 mmol/L (135-145); Total Iron Binding Capacity 260 mcg/dL (228-428); Total Protein 6.5 g/dL (6.5-8.0); Triglycerides 63 mg/dL (<150); Unsaturated Iron Binding 198 ug/dL
[2025-02-20 09:50] LABS: Thyroid Stimulating Hormone 1.86 uIU/mL (0.32-4.0)
== END 2025-02-20 08:10 | disposition home or self-care (01) ==
LOC: HO.LAB 08:09
PROVIDERS: PCP Internal Medicine; Visit Provider Internal Medicine
DX: D58.2 Other hemoglobinopathies (principal); E66.01 Morbid (severe) obesity due to excess calories; E78.5 Hyperlipidemia, unspecified; E55.9 Vitamin D deficiency, unspecified
CPT/HCPCS: 36415; 80053; 80061; 82306; 83540; 84443; 85025

== ENCOUNTER 2025-03-10 14:07 | Outpatient (AMB) | payer OTHER, SELFPAY ==
--- NOTE | 2025-03-10 15:04 | MHC.PC.OV ---
Vital Signs 03/10/25 15:05 Height 5 ft 7 in Weight 271 lb 2 oz BMI 42.5 BP 130/60 Blood Pressure Location Lt brachial Position Sitting Pulse 68 Pulse Source Pulse Oximeter Temp 97.3 F Temp Source Temporal Artery Scan Pulse Oximetry (%) 97 Oxygen Delivery Method Room Air Intake Visit Reasons: pt has sharp pain on the left side of neck Intake Note: Patient is here to follow up on sharp pain on the left side of neck with a lump. Analog Circuit Designer Required: Yes Analog Circuit Designer Language: Grants Officer Name: Carlin [id number] Information Interpreted: non-clinical & clinical Surveillance System Monitor: Not Required per policy Accompanied by: Self / Same As Patient Allergies No Known Allergies (No Known Allergies*) Allergy (Verified 03/10/25 15:05) Medication List - Last Reconciled 03/10/25 by Jackie Leahy MD acetaminophen 1,000 mg (2 x 500 mg) PO Q6H PRN 30 days [Adult pull ups As directed] albuterol sulfate 0.63 mg (3 mL) inhalation Q6H aluminum hydrox-magnesium carb 254-237.5 mg/5 mL (Gaviscon Extra Strength) 10 mL PO QID PRN benzonatate 200 mg PO TID PRN bisoprolol-hydrochlorothiazide 5-6.25 mg 1 tab PO DAILY 90 days [id number] 160-9-4.8 mcg/actuation (Breztri Aerosphere) 2 inhalations inhalation BID cane As directed cholecalciferol (vitamin D3) 50 mcg PO DAILY 90 days docusate sodium (Colace) 200 mg (2 x 100 mg) PO BEDTIME hydrocortisone 2.5% (Proctozone-HC) 1 appl FL BID PRN lidocaine 5% (Lidoderm) 1 patch topical DAILY montelukast 10 mg PO QPM [Quad cane As directed] sennosides (senna) 8.6 mg PO DAILY PRN Ventolin HFA 90 mcg/actuation (albuterol sulfate) 2 puffs inhalation QID PRN NS Tobacco use date assessed: 03/10/25 Fall risk assessment: No Falls in past year Last assessed Fall Risk: 03/10/25 Dental Screening Dental Screen Date: 07/15/24 HPI HPI Comments History of Present Illness Details The patient is a 69-year-old female presenting with a growing left neck mass. She first noticed the bump on the left side of her neck last year, and it has gradually enlarged over this period. The mass fluctuates in size, sometimes getting bigger and then smaller. She reports typically eating and swallowing slowly, and that she eats even more slowly now but denies difficulty swallowing or breathing. Denies any abnormal weight loss. Separately, the patient has been experiencing left neck muscle pain for about 1 week, which slightly improved with Tylenol but still bothers her. She is not on any NSAIDs or cyclobenzaprine. She has lidocaine patches that she uses for back pain. [facility] Medical History Common cold Elevated hemoglobin Recent change in frequency of bowel movements Right knee pain Physical exam Preop pulmonary/respiratory exam Arthritis of right knee Spider veins of both lower extremities Chronic cough Right lower lobe pulmonary nodule Hypovitaminosis D Encounter for screening colonoscopy COVID-19 Morbid obesity with BMI of 40.0-44.9, adult Lab test negative for COVID-19 virus Right shoulder pain TRINIDAD (generalized anxiety disorder) Mild recurrent major depression Leg edema Thyroid nodule Knee pain Anxiety and depression Arthritis Supraclavicular lymphadenopathy Close exposure to COVID-19 virus Urge urinary incontinence Goiter Essential hypertension Left shoulder pain Left knee pain Surgical History Hx of colonoscopy Uterine myoma History of total abdominal hysterectomy H/O oophorectomy History of cholecystectomy Family History Father Diabetes Hypertension Mother Hypertension CHF (congestive heart failure) Brother Hypertension Sister Hypertension Maternal Aunt Breast cancer Daughter No problems noted. Social History Household Members: None Housing: [address] years or older and lives alone: No Alcohol intake: never Patient Tobacco Use Status: Never used Tobacco e-Cigarette/Vaping Use: Never Used Second Hand Smoke Exposure: No service: No Current occupational status: unemployed Cognitive needs: Yes (cane) Hearing needs: No Vision needs: Yes (glasses) Questionnaire Thrive Questionnaire Date Thrive assessed: 06/13/24 I am a: Patient What is your living situation today?: I have a steady place to live Within the past 12 months, did the food you bought not last and you didn't have the money to get more?: Never true Within the past 12 months, did you worry whether your food would run out before you got money to buy more?: Never true Do you have trouble paying for medicines?: No Do you have trouble getting transportation to medical appointments?: No Do you have trouble paying your heating and electricity bill?: No Do you have trouble taking care of your child, family member or friend?: No Do you have trouble with day-to-day activities such as bathing, preparing meals, shopping, managing finances, etc.?: No Are you currently unemployed and looking for a job?: Yes Are you interested in more education?: No Please select the resources that you would like help with: None Currently or been in a relationship where the following occur: I choose not to answer THRIVE Score: 0 TRINIDAD-7 AMB Questionnaire TRINIDAD-7 Date TRINIDAD - 7 assessed: 06/13/24 Source: Developed by Drs. Guillaume Stark, Keila Scott, Stanislav Oquendo and colleagues, with an educational sandeep from [employer]. Physical exam (Primary Care) Vital Signs: Last Vital Signs Temp 97.3 F 03/10/25 15:05 Pulse 68 03/10/25 15:05 BP 130/60 03/10/25 15:05 Pulse Ox 97 03/10/25 15:05 Oxygen Delivery Method Room Air 03/10/25 15:05 General: Well-appearing, alert, oriented ?3, in no acute distress. Cardiovascular: RRR, S1-S2 appreciated, no murmurs, rubs or gallops. Respiratory: Lungs clear to auscultation bilaterally, no wheezes, rales or rhonchi. MSK: Tenderness upon palpation of cervical paraspinal muscles, left more than right. Left neck mass: Palpable soft, freely movable, nontender subcutaneous mass approximately 9 cm in diameter located over left neck base. Overlying skin is intact with no erythema, warmth or fluctuance. BMI result Body Mass Index 42.5 Tobacco/Smoking Status: Tobacco use Status Tobacco use date assessed 03/10/25 03/10/25 15:13 Patient Tobacco Use Status Never used Tobacco 03/10/25 15:13 Tobacco use type 03/07/25 16:07 e-Cigarette/Vaping Use Never Used 03/10/25 15:13 Thrive Assessment: Date of Thrive Assessment Date Thrive assessed 06/13/24 03/10/25 15:13 Currently or been in a relationship where the following occur: I choose not to answer Coding Level of Care Code Est Pt Level 3 (67278) Diagnoses Mass of left side of neck R22.1 Cervicalgia M54.2 Assessment & Plan Assessment & Plan (1) Mass of left side of neck: Code(s): R22.1 - Localized swelling, mass and lump, neck Category: Medical Plan: Patient presenting with soft, movable, growing, and fluctuating mass on the left side of her neck, slowly growing over the past year, could be lipoma? An ultrasound of the neck will be obtained for further evaluation and characterization of the mass. (2) Cervicalgia: Code(s): M54.2 - Cervicalgia Category: Medical Plan: Patient presenting with neck pain, left worse than right. Obtain x-ray of the cervical spine Apply lidocaine patch to painful area Apply heating pad to the affected area twice a day for 10-15 minutes each. PT referral provided Orders: Orders US soft tiss head and/or neck Today R22.1 - Localized swelling, mass and lump, neck PT Evaluation and Treatment Today M54.2 - Cervicalgia XR cervical spine 2V Today M54.2 - Cervicalgia Medications: Discontinued omeprazole Discontinued Reason: Patient no longer taking 20 mg PO DAILY 30 days 30 caps 0RF cyclobenzaprine Discontinued Reason: Patient no longer taking 5 mg PO Q8H PRN 14 tabs 0RF muscle spasm M54.50 - Low back pain, unspecified naproxen Discontinued Reason: Patient no longer taking 500 mg PO Q8-12H PRN 30 tabs 0RF pain (scale score 4-6) M54.50 - Low back pain, unspecified
[2025-03-10 15:05] VITALS: BP 130/60; PULSE 68; TEMP 36.3; O2SAT 97; BMI 42.5
== END 2025-03-10 15:39 | disposition home or self-care (01) ==
LOC: HO.HMCH 14:08
PROVIDERS: PCP Internal Medicine; Visit Provider Student in an Organized Health Care Education/Training Program
DX: R22.1 Localized swelling, mass and lump, neck (principal); M54.2 Cervicalgia

== ENCOUNTER → 2025-03-10 14:07 | Outpatient (BNVA) | payer OTHER, SELFPAY | PROVIDERS: PCP Internal Medicine; Visit Provider Student in an Organized Health Care Education/Training Program | DX: R22.1 Localized swelling, mass and lump, neck (principal); M54.2 Cervicalgia | CPT/HCPCS: 99212 ==

== ENCOUNTER 2025-04-08 15:21 | Outpatient (REF) | payer OTHER, SELFPAY ==
--- NOTE | ~2025-04-08 | US_ITS ---
EXAMINATION: US SOFT TISSUE HEAD AND/OR NECK CLINICAL INFORMATION: Left supraclavicular swelling and tenderness. COMPARISON: None relevant. TECHNIQUE: Linear transducer treadwell-scale and color Doppler examination with attention to the left supraclavicular region, in the region of tenderness and swelling as indicated by the patient. FINDINGS: Notable and visual swelling of the left supraclavicular region was present. I was present for the examination. This was soft on palpation without discrete mass identified. On imaging, there was a mixed echogenicity avascular mass measuring approximately 6.4 x 4.4 x 6.6 cm, lying just deep to the skin within the superficial soft tissues of the left neck. This does not appear to represent a lymph node, fluid collection, lipoma, or other known structure. Due to a language barrier, further history could not be elucidated at the time of scanning. US/US soft tiss head and/or neck IMPRESSION: Left supraclavicular mixed echogenicity avascular mass as detailed above, uncertain etiology. This is highly suspicious for supraclavicular hernia. (Lung herniation into the supraclavicular fossa). For further characterization, recommend cross-sectional imaging with contrast enhanced neck CT. Electronically signed by: Natan Horowitz MD 04/08/2025 04:08 PM JENI BLAIR
== END 2025-04-08 15:22 | disposition home or self-care (01) ==
LOC: HO.US 15:21
PROVIDERS: PCP Internal Medicine; Visit Provider Student in an Organized Health Care Education/Training Program
DX: R22.1 Localized swelling, mass and lump, neck (principal)
CPT/HCPCS: 76536

== ENCOUNTER → 2025-04-08 15:23 | Outpatient (BNV) | payer OTHER, SELFPAY | PROVIDERS: PCP Internal Medicine; Visit Provider Radiology Diagnostic Radiology | DX: R22.1 Localized swelling, mass and lump, neck (principal) | CPT/HCPCS: 76536 ==

== ENCOUNTER 2025-04-28 14:41 | Outpatient (AMB) | payer OTHER, SELFPAY ==
[2025-04-28 14:46] VITALS: BP 104/64; PULSE 81; O2SAT 95; BMI 42.1
--- NOTE | 2025-04-28 14:46 | A.OFFVIS_ITS ---
Vital Signs 04/28/25 14:46 Height 5 ft 7 in Weight 269 lb BMI 42.1 BP 104/64 Blood Pressure Location Lt brachial Position Sitting Pulse 81 Pulse Source Pulse Oximeter Pulse Oximetry (%) 95 Oxygen Delivery Method Room Air Intake Visit Reasons: asthma Scabbler Required: Yes Scabbler Name: Melissa Braun Aviva Information Interpreted: non-clinical & clinical Allergies No Known Allergies (No Known Allergies*) Allergy (Verified 04/28/25 14:52) HPI HPI asthma: Details: 69-year-old lady, nonsmoker, followed for underlying moderate to severe persistent allergic asthma with recurrent bronchitis.? Patient previously X olair, Advair, and albuterol MDI with good control of underlying symptoms.? She did have to stop her Xolair injections since she had significant nausea.? Now she continues on Breztri, Singulair, and albuterol MDI with good control of her symptoms. She denies any recent exacerbations. [facility] Medical History Common cold Elevated hemoglobin Recent change in frequency of bowel movements Right knee pain Physical exam Preop pulmonary/respiratory exam Arthritis of right knee Spider veins of both lower extremities Chronic cough Right lower lobe pulmonary nodule Hypovitaminosis D Encounter for screening colonoscopy COVID-19 Morbid obesity with BMI of 40.0-44.9, adult Lab test negative for COVID-19 virus Right shoulder pain TRINIDAD (generalized anxiety disorder) Mild recurrent major depression Leg edema Thyroid nodule Knee pain Anxiety and depression Arthritis Supraclavicular lymphadenopathy Close exposure to COVID-19 virus Urge urinary incontinence Goiter Essential hypertension Left shoulder pain Left knee pain Surgical History Hx of colonoscopy Uterine myoma History of total abdominal hysterectomy H/O oophorectomy History of cholecystectomy Family History Father Diabetes Hypertension Mother Hypertension CHF (congestive heart failure) Brother Hypertension Sister Hypertension Maternal Aunt Breast cancer Daughter No problems noted. Social History Household Members: None Housing: [address] years or older and lives alone: No Alcohol intake: never Patient Tobacco Use Status: Never used Tobacco e-Cigarette/Vaping Use: Never Used Second Hand Smoke Exposure: No service: No Current occupational status: unemployed Cognitive needs: Yes (cane) Hearing needs: No Vision needs: Yes (glasses) Review of Systems Const Denies daytime sleepiness, Denies excessive sweating, Denies fatigue, Denies fever(s), Denies lethargy, Denies malaise, Denies night sweats, Denies snoring and Denies weight loss Eyes Denies blurry vision and Denies itchy eyes ENT Denies nasal congestion, Denies post nasal drip, Denies sinus pain, Denies sinus pressure and Denies other ( Thrush) Card Denies chest pain, Denies pedal edema, Denies dyspnea, Denies orthopnea and Denies paroxysmal nocturnal dyspnea Resp Denies cough, Denies hemoptysis, Denies excessive phlegm production, Denies dyspnea, Denies snoring and Denies wheezing GI Denies abdominal pain and Denies heartburn Musc Denies myalgias, Denies arthralgias and Denies joint swelling Skin/Breast Denies rash Neuro Denies memory loss and Denies seizure-like activity Psych Denies abnormal sleep pattern, Denies anxiety and Denies memory loss Endo Denies excessive sweating, Denies fatigue and Denies heat intolerance Siddharth/Lymph Denies easy bruising Aller/Immun Denies itchy eyes, Denies seasonal rhinorrhea and Denies wheezing Physical Exam Vital Signs: Last Vital Signs Pulse 81 04/28/25 14:46 BP 104/64 04/28/25 14:46 Pulse Ox 95 04/28/25 14:46 Oxygen Delivery Method Room Air 04/28/25 14:46 BMI result Body Mass Index 42.1 Const General: no acute distress and alert Nutritional Appearance: obese Orientation/consciousness: Other orientation findings ( oriented) HEENT Head: Yes atraumatic Eyes General: appearance normal, both eyes and all related structures Sclerae: sclerae normal EOM: EOMs intact bilaterally Neck Neck: Yes supple Lymphatic: no lymphadenopathy noted Resp Effort & Inspection: normal respiratory effort and no use of accessory muscles Auscultation: clear to auscultation bilaterally Cardio Rate: regular rate Rhythm: regular rhythm Heart sounds: no gallops, no murmurs and no rubs Skin General skin exam: other ( warm) Extrem General: No clubbing, No cyanosis and No edema Assessment & Plan Assessment & Plan (1) Asthma: Code(s): J45.909 - Unspecified asthma, uncomplicated Category: Medical Plan: Well controlled on Breztri and albuterol MDI. Continue current regimen. (2) Environmental allergies: Code(s): Z91.09 - Other allergy status, other than to drugs and biological substances Category: Medical Plan: Well controlled on Singulair and loratadine. Continue current regimen. Coding Level of Care Code Est Pt Level 4 (71550) Diagnoses Asthma J45.909 Environmental allergies Z91.09
== END 2025-04-28 15:04 | disposition home or self-care (01) ==
LOC: HO.HPS 14:42
PROVIDERS: PCP Internal Medicine; Visit Provider Internal Medicine Pulmonary Disease
DX: J45.909 Unspecified asthma, uncomplicated (principal); Z91.09 Other allergy status, other than to drugs and biological substances
CPT/HCPCS: 99214

== ENCOUNTER → 2025-04-28 14:41 | Outpatient (BNVA) | payer OTHER, SELFPAY | PROVIDERS: PCP Internal Medicine; Visit Provider Internal Medicine Pulmonary Disease | DX: J45.909 Unspecified asthma, uncomplicated (principal); Z91.09 Other allergy status, other than to drugs and biological substances; Z79.899 Other long term (current) drug therapy | CPT/HCPCS: 99212 ==